=== PATIENT | male | born 1950 | race Caucasian/White ===

== ENCOUNTER 2018-07-15 13:27 | Emergency (ER) | payer MEDICARE, MEDICAID, SELFPAY ==
[2018-07-15 13:36] VITALS: BP 132/91; PULSE 92; RESP 18; TEMP 36.6; O2SAT 96
--- NOTE | 2018-07-15 14:15 | ED.GENADUL ---
Disposition Clinical Impression: Limb tremor Disposition: HOME Condition: Improving Instructions: Tremors (ED) Additional Instructions: Return immediately to the emergency department for any new or worsening symptoms including change in your symptoms, headaches, involvement of other limbs, or any further concerns. Otherwise you should follow-up with your primary care provider for reassessment next week. Referrals: Wilder Jimenez MD [Primary Care Provider] - 1 week (Of your primary care provider in 1 week for reassessment) Medical Decision Making - Radiology Data Radiology results: report reviewed, image reviewed - Medical Decision Making Patient presenting to the emergency department for chief complaint of tremors to left upper extremity. Patient denies any known injury or trauma. Physical exam shows persistent tremors, at rest and motion, of left upper extremity from the shoulder down. There is noted weakness and difficulty with patient moving hand and performing neurological testing of the hand along with some decreased sensation noted to the ulnar distribution of the forearm and hand. When patient is able to squeeze my hand he has strong bench molder but otherwise he is not able to perform any flexion of the fingers radial ulnar or medial nerve testing of the hand beyond sensation which is dull to sharp sensation in the ulnar distribution as well. Patient has full movement of forearm and upper extremity. Plan to perform radiological imaging due to alcohol intake and possible concern for subacute fracture, with possible neural involvement, due to discomfort with palpation of midshaft forearm and distal humerus. Patient is in no pain or discomfort and has no other neurological symptoms, global tremor, or other deficits so do not feel that patient needs any central nervous imaging or laboratory testing at this time. Pending imaging patient was reassessed and patient oddly enough now can perform thumb to finger flexion and both ulnar and radial neurosensory testing is also intact and normalized with only no tremor being noted at this time. I feel that this is reassuring that symptoms are improving but still odd that the severity has changed with no interventions. And patient now has normal exam of the left upper extremity. Review of radiological imaging shows no acute findings so patient encouraged to follow-up with primary care provider next week for reassessment. Patient was encouraged to return for any new or worsening symptoms. Given that symptoms have otherwise resolved I feel that he can be safely discharged and states clear understanding to return for new or worsening symptoms. After discussion of diagnosis and plan of care with patient patient agreed and stated no further needs, questions, or concerns at this time. Patient was put on care management list to help arrange a follow-up with primary care in 1 week. History of Present Illness - General Chief complaint: Orthopedic Stated complaint: left hand shacky/spazams Time Seen by Provider: 07/15/18 13:28 Source: patient, RN notes reviewed Mode of arrival: ambulatory Limitations: no limitations - History of Present Illness Initial comments: Patient reports 3 days ago he began having tremors to his left upper extremity. He denies any injury or trauma. Patient does state that he does drink alcohol on a normal basis but has not ceased any alcohol intake or changed his normal habits. Patient denies any pain or discomfort, headache, chest pain, shortness of breath. Onset/Timin -: days(s) Location: left, upper extremity Consistency: constant Improves with: none Worsens with: none Associated Symptoms: denies other symptoms Treatments Prior to Arrival: none - Related Data Citalopram [CeleXA] 20 mg PO DAILY 04/04/14 FentaNYL [Duragesic] 50 mcg TP DIRECTED 04/04/14 Gabapentin 300 mg PO DIRECTED 04/04/14 Doxepin [Adapin] 10 mg PO HS 11/19/16 Omeprazole [PriLOSEC] 20 mg PO DAILY 11/19/16 Lisinopril [Prinivil] 20 mg PO QAM #30 tab 09/25/17 Allergies Allergy/AdvReac Type Severity Reaction Status Date / Time morphine Allergy Mild Skin Rash Unverified 07/15/18 13:39 Penicillins Allergy Mild Skin Rash Unverified 07/15/18 13:39 Review of Systems Constitutional: denies: chills, fever Respiratory: no symptoms reported. denies: cough, shortness of breath, wheezing Cardiovascular: denies: chest pain, palpitations Gastrointestinal: denies: abdominal pain Musculoskeletal: as per HPI. denies: arthralgia, myalgia Skin: denies: rash, change in color Neurological: numbness, paresthesias. denies: headache Past Medical History - Past Medical History Medical history: hypertension Chronic alcoholism Surgical history: non-contributory - Social History Smoking status: current everyday smoker Alcohol use: heavy, recent Drug use: none Living Situation: lives with parent(s) General Exam - General Limitations: no limitations General appearance: alert, in no apparent distress - Head Head exam: Present: atraumatic, normocephalic - Eye Eye exam: Present: PERRL - Neck Neck exam: Present: normal inspection, full ROM. Absent: tenderness - Respiratory Respiratory exam: Present: normal lung sounds bilaterally. Absent: respiratory distress, wheezes, rales, rhonchi, stridor - Cardiovascular Cardiovascular Exam: Present: regular rate, normal rhythm, normal heart sounds. Absent: tachycardia, systolic murmur, diastolic murmur, rubs, gallop, clicks - Expanded Upper Extremity Exam Left General: Present: other (Patient has persistent tremor at both rest and motion of left upper extremity from the shoulder down.) Upper Arm exam: Present: normal inspection, full ROM Elbow exam: Present: full ROM, tenderness (To palpation of distal humerus). Absent: pain w/ pronation/supination, tenderness over radial head Forearm Wrist exam: Present: full ROM, tenderness (To palpation of midshaft forearm). Absent: swelling, ecchymosis, tenderness over anatomical snuff box, pain with axial thumb loading Neuro motor exam: Present: wrist extension intact. Absent: thumb opposition intact, thumb IP flexion intact, thumb adduction intact, fingers 2-5 abduction intact Neurosensory exam: Present: 2-point discrimination. Absent: radial nerve intact (Motor deficit), ulnar nerve intact (Motor and sharp or sensory deficit), median nerve intact Vascular: Present: normal capillary refill, radial pulse (2+) - Neurological Exam Neurological exam: Present: alert, oriented X3, CN II-XII intact, normal gait. Absent: altered - Expanded Neurological Exam No standard instances Patient oriented to: Present: person, place, time Speech: Present: fluid speech Cranial nerves: EOM's Intact: Normal, Gag Reflex: Normal, Tongue Deviation: Normal, Nystagmus: Normal, Facial Sensation: Normal, Facial Palsy with Forehead Movement: Normal, Facial Palsy without Forehead Movement: Normal Sensory exam: Upper Extremity Light Touch: Normal, Upper Extremity Pin Prick: Abnormal Left (Ulnar distribution), Upper Extremity Temperature: Normal, UE 2 Point Discrimination: Normal Best Eye Response (Friendship): (4) open spontaneously Best Motor Response (Remberto): (6) obeys commands Best Verbal Response (Friendship): (5) oriented - Psychiatric Psychiatric exam: Present: normal affect, normal mood - Skin Skin exam: Present: warm, dry, intact, normal color Course Vital Signs - 24 hr 07/15/18 13:36 Temperature 36.6 C Pulse 92 H Respiratory 18 Rate Blood Pressure 132/91 Pulse Oximetry 96
--- NOTE | 2018-07-15 14:25 | DI.REPORT_ITS ---
SYMPTOM/DIAGNOSIS: DISTAL RDIUS PAIN, MID FOREARM PAIN LEFT ELBOW: No fracture or dislocation is seen. There is spurring at both epicondyles. IMPRESSION: No acute abnormality. LEFT FOREARM: No fracture or dislocation is seen. IMPRESSION: Negative left forearm.
--- NOTE | 2018-07-15 15:11 | DI.VRAD_ITS ---
EXAM: XR Left Forearm, 2 Views EXAM DATE/TIME: 07/15/2018 2:01 PM CLINICAL HISTORY: 67 years old, male; Pain; Lower or forearm; Left; Patient HX: Mid forearm pain. TECHNIQUE: XR Left forearm 2 views. COMPARISON: CR - RIGHT ELBOW COMPLETE 2017-06-30 14:40 FINDINGS: Bones/joints: Normal. Soft tissues: Normal. IMPRESSION: No acute findings. No fractures. Dictated and Authenticated by: Jorje Meza MD. Ordering:LEELA FUENTES MD
--- NOTE | 2018-07-15 15:15 | DI.VRAD_ITS ---
EXAM: XR Left Elbow Complete, 3 or more Views EXAM DATE/TIME: 07/15/2018 2:01 PM CLINICAL HISTORY: 67 years old, male; Pain; Elbow; Left; Patient HX: Distal radius pain. TECHNIQUE: XR Left elbow 3 or more views. COMPARISON: CR - RIGHT ELBOW COMPLETE 2017-06-30 14:40 FINDINGS: Bones/joints: No acute fracture or joint effusion. Soft tissues: There are well-defined bony fragments noted along the lateral lateral epicondyles, likely due to epicondylitis, chronic. Large spur arising from the medial epicondyle was not visualized previously, though this may have been due to difference in positioning, as this also does not appear acute. IMPRESSION: No acute findings. No fracture or joint effusion. Dictated and Authenticated by: Jorje Meza MD. Ordering:LEELA FUENTES MD
--- NOTE | 2018-07-17 08:34 | PDOC.ERCMPRO ---
Care Management Progress Note 07/17-Jose Angel DATA PROCESSING CLERK requested assistance with a PCP (Tony) f/u within one week for left upper extremity tremors. Referral faxed to [facility] this am.
--- NOTE | 2018-07-17 08:35 | CMPROGNOTE_ITS ---
Care Management Progress Note 07/17-Jose Angel UNIT TRUST MANAGER requested assistance with a PCP (Tony) f/u within one week for left upper extremity tremors. Referral faxed to [facility] this am.
== END 2018-07-15 15:19 | disposition home or self-care (01) ==
PROVIDERS: Emergency Provider Emergency Medicine; PCP Internal Medicine
DX: R25.1 Tremor, unspecified (principal); F10.10 Alcohol abuse, uncomplicated; R40.2412 Glasgow coma scale score 13-15, at arrival to emergency department; I10 Essential (primary) hypertension
CPT/HCPCS: 73080; 73090; 99282; 99283

== ENCOUNTER → 2018-07-20 13:27 | Outpatient (REF) | payer MEDICARE, MEDICAID, SELFPAY ==
[2018-07-20 20:21] LABS: HGB 14.3 g/dL (13.5-17.5); Mean Corpuscular Hemoglobin 34.1 pg (27.0-33.0); Mean Corpuscular Volume 100.2 fL (80-95); Mean Platelet Volume 10.7 fL (8.0-11.0); Platelet Count 137 x1000/uL (130-400); RBC 4.19 m/cumm (4.50-6.00); RBC Distribution Width 12.9 % (11.8-14.1); White Blood Cell Count 3.83 k/cumm (4.4-10.8)
[2018-07-20 20:57] LABS: ALT 73 U/L (12-78); AST 65 U/L (15-37); Albumin 3.9 g/dL (3.4-5.0); Alkaline Phosphatase 77 U/L (46-116); Anion Gap 10.5 mmol/L (3-11); BUN 9 mg/dL (7-18); Bilirubin, Total 0.3 mg/dL (0.2-1.0); CO2 25.5 mmol/L (21.0-32.0); CREATININE 0.91 mg/dL (0.70-1.30); Calcium 8.9 mg/dL (8.5-10.1); Chloride 106 mmol/L (98-107); Glucose 92 mg/dL (70-100); Magnesium 1.9 mg/dL (1.8-2.4); Potassium 4.2 mmol/L (3.5-5.1); Sodium 142 mmol/L (136-145); Total Protein 7.8 g/dL (6.4-8.2); Vitamin B12 618 pg/mL (193-986)
[2018-07-24 13:17] LABS: Albumin 55.4 % (55.8-66.1); Total Protein 7.5 g/dl (6.3-8.2)
== END ==
LOC: NCHCN 13:27
PROVIDERS: PCP Internal Medicine; Visit Provider Internal Medicine
DX: R25.1 Tremor, unspecified (principal)
CPT/HCPCS: 80053; 85027; 82607; 83735; 84165; 84443

== ENCOUNTER 2018-08-03 01:59 | Outpatient (CLI) | payer MEDICARE, MEDICAID, SELFPAY ==
[2018-08-03] MEDS: Gadoterate meglumine 20 ML VIAL 15 ML IVP (15:39)
--- NOTE | 2018-08-03 15:49 | DI.MRI_ITS ---
SYMPTOMS/DIAGNOSIS: TREMOR, R25.1, H/O SUBDURAL AND SUBARACHNOID HEMORRHAGE, Z86.79 MRI OF THE BRAIN: Comparison is made with head CT dated . T 2 sagittal, T 1, T 2, FLAIR, diffusion and gradient echo axial sequences as well as post Gadolinium T 1 axial and coronal sequences were performed. A small right subdural hematoma was seen on the previous CT. No subdural hematoma or subdural fluid collection is seen. There is underlying mild to moderate atrophy. No mass or infarct is seen. The vascular flow voids appear intact. The ventricles are normal in size. There are a few tiny scattered high signal lesions in the white matter consistent with small vessel disease. There is some mucous retention cyst or polyp at the floor of the right maxillary sinus. The remaining sinuses appear clear. The mastoid air cells are clear. IMPRESSION: Atrophy and minimal white matter changes of small vessel disease.
== END 2018-08-03 02:19 ==
PROVIDERS: PCP Internal Medicine; Visit Provider Internal Medicine
DX: R25.1 Tremor, unspecified (principal); G31.1 Senile degeneration of brain, not elsewhere classified; Z86.79 Personal history of other diseases of the circulatory system
CPT/HCPCS: 70553

== ENCOUNTER 2019-04-02 11:42 | Outpatient (REF) | payer MEDICARE, MEDICAID, SELFPAY ==
[2019-04-02 21:24] LABS: ALT 104 U/L (12-78); AST 114 U/L (15-37); Alkaline Phosphatase 85 U/L (46-116); Anion Gap 11.2 mmol/L (3-11); BUN 10 mg/dL (7-18); Bilirubin, Total 0.3 mg/dL (0.2-1.0); CO2 24.8 mmol/L (21.0-32.0); CREATININE 0.74 mg/dL (0.70-1.30); Chloride 103 mmol/L (98-107); Glucose 100 mg/dL (70-100); Potassium 4.2 mmol/L (3.5-5.1); Sodium 139 mmol/L (136-145); Total Protein 7.8 g/dL (6.4-8.2)
[2019-04-02 21:25] LABS: Abs Immature Grans 0.03 k/cumm (0.0-0.09); Absolute Basophil Count 0.04 k/cumm (0.0-0.2); Absolute Eosinophil Count 0.06 k/cumm (0.0-0.7); Absolute Lymphocyte Count 0.91 k/cumm (1.2-3.4); Absolute Monocyte Count 0.46 k/cumm (0.11-0.7); Eosinophils % 1.5; HGB 13.5 g/dL (13.5-17.5); Immature Grans % 0.8; Lymphocytes % 22.8; Mean Corp. HGB Concentration 34.6 g/dL (32.0-36.0); Mean Corpuscular Hemoglobin 33.3 pg (27.0-33.0); Mean Corpuscular Volume 96.1 fL (80-95); Mean Platelet Volume 10.7 fL (8.0-11.0); Monocytes % 11.5; Neutrophils % 62.4; Platelet Count 155 x1000/uL (130-400); RBC 4.06 m/cumm (4.50-6.00)
== END 2019-04-02 12:02 ==
LOC: NCHCN 11:42
PROVIDERS: PCP Internal Medicine; Visit Provider Internal Medicine
DX: R63.4 Abnormal weight loss (principal); I10 Essential (primary) hypertension; F41.9 Anxiety disorder, unspecified; F32.9 Major depressive disorder, single episode, unspecified; R25.1 Tremor, unspecified; Z72.0 Tobacco use
CPT/HCPCS: 80053; 85025

== ENCOUNTER 2019-04-10 10:14 | Outpatient (CLI) | payer MEDICARE, MEDICAID, SELFPAY ==
[2019-04-10 10:55] LABS: Abs Immature Grans 0.02 k/cumm (0.0-0.09); Absolute Basophil Count 0.06 k/cumm (0.0-0.2); Absolute Eosinophil Count 0.06 k/cumm (0.0-0.7); Absolute Lymphocyte Count 1.06 k/cumm (1.2-3.4); Absolute Neutrophil Count 2.28 k/cumm (1.2-6.7); Basophils % 1.6; Eosinophils % 1.6; HCT 38.2 % (40.0-50.0); HGB 12.7 g/dL (13.5-17.5); Immature Grans % 0.5; Mean Corp. HGB Concentration 33.2 g/dL (32.0-36.0); Mean Corpuscular Hemoglobin 32.7 pg (27.0-33.0); Mean Corpuscular Volume 98.5 fL (80-95); Mean Platelet Volume 9.8 fL (8.0-11.0); Monocytes % 7.9; Neutrophils % 60.4; Platelet Count 163 x1000/uL (130-400); RBC 3.88 m/cumm (4.50-6.00); RBC Distribution Width 13.6 % (11.8-14.1); White Blood Cell Count 3.78 k/cumm (4.4-10.8)
[2019-04-10 11:49] LABS: ALT 93 U/L (12-78); AST 97 U/L (15-37); Albumin 3.2 g/dL (3.4-5.0); Alkaline Phosphatase 73 U/L (46-116); Anion Gap 11.1 mmol/L (3-11); BUN 12 mg/dL (7-18); Bilirubin, Total 0.5 mg/dL (0.2-1.0); CO2 26.9 mmol/L (21.0-32.0); CREATININE 0.86 mg/dL (0.70-1.30); Calcium 8.8 mg/dL (8.5-10.1); Chloride 102 mmol/L (98-107); Glucose 162 mg/dL (70-100); Potassium 4.2 mmol/L (3.5-5.1); Sodium 140 mmol/L (136-145); Total Protein 7.9 g/dL (6.4-8.2)
== END 2019-04-10 10:34 ==
PROVIDERS: PCP Internal Medicine; Visit Provider Internal Medicine
DX: R63.4 Abnormal weight loss (principal); I10 Essential (primary) hypertension; F41.9 Anxiety disorder, unspecified; F32.9 Major depressive disorder, single episode, unspecified; R21 Rash and other nonspecific skin eruption; Z72.0 Tobacco use
CPT/HCPCS: 36415; 80053; 85025

== ENCOUNTER 2019-04-16 01:34 | Outpatient (CLI) | payer MEDICARE, MEDICAID, SELFPAY ==
--- NOTE | 2019-04-16 09:33 | DI.CT_ITS ---
SYMPTOM/DIAGNOSIS: ABNL LFT'S, R94.[address]: Oral contrast was administered prior to the exam. Images were performed from the lung bases through the aortic bifurcation before and after IV contrast during arterial and venous phases. The liver appears mildly enlarged and shows diffuse decreased attenuation consistent with mild fatty infiltration. There is a cyst seen in the right lobe of the liver adjacent to the gallbladder fossa measuring 3.2 cm. There is an additional tiny hypodensity, also likely representing a cyst. The lung bases are clear. No pleural or pericardial effusions are seen. Spleen, pancreas and adrenals are unremarkable. There are small bilateral renal cysts. There is no free air or free fluid. There are mild atherosclerotic changes of the lower thoracic and abdominal aorta with no evidence of an aneurysm. Degenerative changes are seen in the lower lumbar spine. IMPRESSION: Mild fatty infiltration of the liver and simple liver cysts.
[2019-04-16] MEDS: Omnipaque 350 MG/ML 50 ML BTL PO (09:35)
[2019-04-16] MEDS: Breeza Beverage 473 ML BTL PO (09:35)
[2019-04-16] MEDS: Omnipaque 350 MG/ML 100 ML BTL IJ (10:25)
== END 2019-04-16 01:54 ==
PROVIDERS: PCP Internal Medicine; Visit Provider Internal Medicine
DX: K76.0 Fatty (change of) liver, not elsewhere classified (principal); K76.89 Other specified diseases of liver; R94.5 Abnormal results of liver function studies; R16.0 Hepatomegaly, not elsewhere classified
CPT/HCPCS: 74170; J3490; Q9967

== ENCOUNTER 2019-10-08 12:25 | Outpatient (CLI) | payer MEDICARE, MEDICAID, SELFPAY ==
[2019-10-08 13:00] LABS: HCT 40.7 % (40.0-50.0); HGB 13.7 g/dL (13.5-17.5); Mean Corp. HGB Concentration 33.7 g/dL (32.0-36.0); Mean Corpuscular Hemoglobin 34.3 pg (27.0-33.0); Mean Corpuscular Volume 101.8 fL (80-95); Mean Platelet Volume 9.7 fL (8.0-11.0); Platelet Count 172 x1000/uL (130-400); RBC Distribution Width 13.4 % (11.8-14.1); White Blood Cell Count 2.84 k/cumm (4.4-10.8)
[2019-10-08 13:47] LABS: ALT 77 U/L (16-63); AST 71 U/L (15-37); Albumin 4.2 g/dL (3.4-5.0); Alkaline Phosphatase 68 U/L (46-116); Anion Gap 11.7 mmol/L (3-11); BUN 13 mg/dL (7-18); Bilirubin, Total 0.5 mg/dL (0.2-1.0); CO2 27.3 mmol/L (21.0-32.0); CREATININE 0.86 mg/dL (0.70-1.30); Calcium 9.1 mg/dL (8.5-10.1); Chloride 106 mmol/L (98-107); Glucose 91 mg/dL (70-100); Potassium 4.2 mmol/L (3.5-5.1); Sodium 145 mmol/L (136-145); Total Protein 8.2 g/dL (6.4-8.2)
[2019-10-08 15:36] LABS: Abs Immature Grans 0.02 k/cumm (0.0-0.09); Absolute Basophil Count 0.06 k/cumm (0.0-0.2); Absolute Eosinophil Count 0.07 k/cumm (0.0-0.7); Absolute Lymphocyte Count 1.17 k/cumm (1.2-3.4); Absolute Monocyte Count 0.31 k/cumm (0.11-0.7); Absolute Neutrophil Count 1.19 k/cumm (1.2-6.7); Basophils % 2.1; Eosinophils % 2.5; Immature Grans % 0.7; Lymphocytes % 41.5; Neutrophils % 42.2
[2019-10-10 11:24] LABS: Hepatitis B Surface Ag Negative (Negative)
[2019-10-10 11:57] LABS: Hep B Core Antibody Positive (Negative)
[2019-10-10 14:42] LABS: Hepatitis B Surface Ab Negative (See Note)
[2019-10-12 15:20] LABS: HBs Antibody, Quant <3.1 mIU/mL
== END 2019-10-08 12:45 ==
PROVIDERS: PCP Internal Medicine; Visit Provider Internal Medicine
DX: D72.819 Decreased white blood cell count, unspecified (principal); R94.5 Abnormal results of liver function studies; Z11.59 Encounter for screening for other viral diseases
CPT/HCPCS: 36415; 80053; 85027; 86704; 86706; 87340; 85007; 85025

== ENCOUNTER 2020-02-11 12:48 | Inpatient (IN) | payer MEDICARE, MEDICAID, SELFPAY ==
[2020-02-11] VITALS (111 sets, daily range): BP systolic 100–205; BP diastolic 50–179; PULSE 62–227; RESP 13–36; TEMP 36.4–37; O2SAT 92–99
--- NOTE | 2020-02-11 12:45 | DI.CT_ITS ---
EXAM: CT HEAD AND FACIAL WO CLINICAL HISTORY: TRAUMA, AMS?. TECHNIQUE: Imaging Protocol: Axial computed tomography images with coronal and sagittal reformatted images were created and reviewed COMPARISON: HEAD WITHOUT CONTRAST from 09/25/2017 FINDINGS: CT head: Ventricles and Extra axial spaces: Normal in size and morphology for the patient's age. Hemorrhage: None. Cerebral parenchyma: Areas of decreased attenuation are seen in the white matter consistent with smal l vessel ischemic disease. Midline shift: None. Brainstem/Cerebellum: Normal. Calvarium: Normal. Visualized Paranasal sinuses/Mastoids: Clear. Soft Tissues: Unremarkable. CT maxillofacial: There is patient motion artifact. There is no evidence of a facial fracture. There is mucosal thick ening in the maxillary sinuses bilaterally. There is a mucous retention cyst or polyp in the right m axillary sinus. The turbinates and ostiomeatal complexes are unremarkable. The nasal septum is midl ine. The orbits and retro-orbital soft tissues are unremarkable. IMPRESSION: No acute intracranial process. No acute facial fracture. The findings were discussed with the Emergency Department on the date of the examination. RADIATION DOSE DELIVERED: DATA REPOSITORY: All CT scans at this facility are submitted to the National Radiology Data Registry (NRDR) Dose Index Registry (DIR) with the [employer] ([employer]). RADIATION OPTIMIZATION: All CT scans at this facility use at least one of these dose optimization te chniques: automated exposure control; mA and/or kV adjustment per patient size (includes targeted exa ms where dose is matched to clinical indication); or iterative reconstruction.
--- NOTE | 2020-02-11 12:54 | ED.GENADUL_ITS ---
Discharge Plan Discharge Details Chief Complaint: HeadInjury Primary Care Provider: Wilder Jimenez ED Provider: Mahi Alegria Home Meds and New Rx's Prescriptions: No Action No Known Home Meds RF: 0 Medical Decision Making Vikram Lenz is a 69-year-old man with a history of depression, hypertension, alcohol use disorder presenting to the emergency department with fall, apparently several days ago. On exam patient is disheveled, somewhat chronically ill-appearing, acutely nontoxic appearing. Borderline tachycardia at 100. Healing abrasions to scalp and forehead, acute appearing abrasions to nose. Subacute appearance of ecchymoses over back. Concern for intracranial trauma, facial bone trauma, metabolic/lyte disturbance, alcohol withdrawal, dehydration. Exam/history at this time is not consistent with sepsis, acute coronary syndrome, meningitis. Plan for EKG, screening labs, CT head/facial bones, IV fluid, telemetry, IV Ativan 1 mg. Will continue to monitor and reassess. CT head/face negative over the phone per radiology. Labs show hypomagnesemia, elevated anion gap, T bili 1.7, creatinine 1.3. CIWA score 10, repeat 11 per nursing. Plan for 5 mg p.o. Valium. Patient states that he would like to stop drinking. Patient has been hospitalized at [facility] for alcohol withdrawal in the past, diagnosed with delirium tremens at that time. Hospitalist paged for admission 14:30. Discussed patient presentation results with Dr. Chaves, hospitalist, who will admit patient. Clinical impression: Alcohol withdrawal Disposition: [facility] inpatient Medical Records Medical records reviewed: Yes I reviewed the patient's medical records. Imaging Data Radiologic Study: Attestation: I personally reviewed and interpreted this imaging study as follows: Radiologist's impression: EXAM: CT HEAD AND FACIAL WO CLINICAL HISTORY: TRAUMA, AMS?. TECHNIQUE: Imaging Protocol: Axial computed tomography images with coronal and sagittal reformatted images were created and reviewed COMPARISON: HEAD WITHOUT CONTRAST from 09/25/2017 FINDINGS: CT head: Ventricles and Extra axial spaces: Normal in size and morphology for the patient's age. Hemorrhage: None. Cerebral parenchyma: Areas of decreased attenuation are seen in the white matter consistent with small vessel ischemic disease. Midline shift: None. Brainstem/Cerebellum: Normal. Calvarium: Normal. Visualized Paranasal sinuses/Mastoids: Clear. Soft Tissues: Unremarkable. CT maxillofacial: There is patient motion artifact. There is no evidence of a facial fracture. There is mucosal thickening in the maxillary sinuses bilaterally. There is a mucous retention cyst or polyp in the right maxillary sinus. The turbinates and ostiomeatal complexes are unremarkable. The nasal septum is midline. The orbits and retro-orbital soft tissues are unremarkable. IMPRESSION: No acute intracranial process. No acute facial fracture. Lab Data Lab results reviewed: Yes I reviewed the patient's lab results. Labs: Laboratory Tests Range/Units 02/11/20 02/11/20 13:00 13:00 WBC (4.4-10.8) k/cumm 4.63 RBC (4.50-6.00) m/cumm 4.05 L Hgb (13.5-17.5) g/dL 14.0 Hct (40.0-50.0) % 40.3 MCV (80-95) fL 99.5 H MCH (27.0-33.0) pg 34.6 H MCHC (32.0-36.0) g/dL 34.7 RDW (11.8-14.1) % 12.3 Plt Count (130-400) x1000/uL 104 L MPV (8.0-11.0) fL 10.9 Immature Gran % % 0.2 Neutrophils % 68.2 Lymphocytes % 20.1 Monocytes % 10.2 Eosinophils % 0.4 Basophils % 0.9 Absolute Neutrophils (1.2-6.7) k/cumm 3.16 Absolute Lymphocytes (1.2-3.4) k/cumm 0.93 L Absolute Monocytes (0.11-0.7) k/cumm 0.47 Absolute Eosinophils (0.0-0.7) k/cumm 0.02 Absolute Basophils (0.0-0.2) k/cumm 0.04 Sodium (136-145) mmol/L 137 Potassium (3.5-5.1) mmol/L 3.6 Chloride (98-107) mmol/L 97 L Carbon Dioxide (21.0-32.0) mmol/L 24.3 Anion Gap (3-11) mmol/L 15.7 H BUN (7-18) mg/dL 24 H Creatinine (0.70-1.30) mg/dL 1.31 H Estimated GFR/1.73 m2 (mL/min/1.73m2) 54.58 Glucose (74-106) mg/dL 103 Calcium (8.5-10.1) mg/dL 9.7 Magnesium (1.8-2.4) mg/dL 1.7 L Total Bilirubin (0.2-1.0) mg/dL 1.7 H AST (15-37) U/L 101 H ALT (16-63) U/L 90 H Alkaline Phosphatase (46-116) U/L 84 Total Protein (6.4-8.2) g/dL 8.8 H Albumin (3.4-5.0) g/dL 4.3 TSH (0.36-3.74) uIU/mL 2.42 Ethyl Alcohol (<3) mg/dL < 3.0 ECG Data Attestation: I personally reviewed and interpreted this ECG (s) as follows: Interpretation: EKG shows sinus rhythm at 100, left axis, no STEMI, nondiagnostic EKG HPI General Mode of arrival: ambulatory . Date/Time Provider Initiated Documentation: 02/11/20 12:51 . Limitations to Documentation: no limitations . Information obtained by: patient, RN notes reviewed and old records reviewed . HPI Narrative: Vikram Lenz is a 69-year-old man with a history of depression, hypertension, alcohol use disorder presenting to the emergency department for fall. Patient reports that he fell 1.5 weeks ago when he tripped on a curb. He states that he has not fallen since that time. Patient reports that today his went to a doctor's appointment, and mentioned to her doctor who is also the patient's doctor that her was not acting as usual. Patient was thus told to go to the emergency department. Patient states that he feels fine and does not know why everyone is overreacting. Patient reports that he has mild pain over his left eye, and denies any other pain. He states that he feels in his usual state of health. He denies fevers, cough, shortness of breath, vomiting, diarrhea, weakness, numbness, visual changes. Patient states that he has been eating as usual. He reports that he typically drinks 2-3 beers per day, and did have a beer 3 hours ago or so. Patient reports that he does not typically go through alcohol withdrawal, and recently did not have anything to drink for 4 days. Patient states that he does not feel like he needs to have a drink and does not feel as if he is in withdrawal. Patient's at bedside, she states that patient fell 3 days ago and not 1.5 weeks ago. She states that patient does not seem to be acting quite at his baseline to her. Related Data Home Medications Medication Instructions Recorded Confirmed Unknown [No Known Home Meds] 02/11/20 02/11/20 Allergies Allergy/AdvReac Type Severity Reaction Status Date / Time morphine Allergy Mild Skin Rash Unverified 02/11/20 13:24 Penicillins Allergy Mild Skin Rash Unverified 02/11/20 13:24 quetiapine [From Seroquel] Allergy per PCP Unverified 02/11/20 13:24 chart rofecoxib [From Vioxx] Allergy per PCP Unverified 02/11/20 13:24 chart tramadol [From Ultram] Allergy per PCP Unverified 02/11/20 13:24 chart Review of Systems Narrative: Constitutional: denies fevers Eyes: denies eye pain, visual changes, reports pain over left eye as per HPI ENT: denies ear pain, dental pain, sore throat Cardiovascular: denies chest pain Respiratory: denies SOB, cough GI: denies abdominal pain, vomiting, diarrhea : denies flank pain MSK: denies back pain, neck pain, arthralgias, myalgias Skin: denies rash Neuro: denies headaches, numbness, weakness PFSH Social History Smoking/Tobacco Use Status: Current every day Alcohol Intake: current Alcohol Intake frequency: 3 or more drinks per day Alcohol type: beer Drug use: Never Do you feel safe in your relationship?: Yes Exam Narrative Exam Narrative: Constitutional: Somewhat disheveled, acutely [id number], pleasant, conversing normally HENT: head normocephalic, mucous membranes moist, left infraorbital ecchymosis, two 1 cm abrasions to nose, no crusting, several abrasions left forehead with crusting, left frontal bone mildly tender to palpation without crepitus or deformity, posterior parietal scalp with several abrasions with crusting Eyes: conjunctiva normal, sclera normal, pupils 3mm b/l Neck: no stridor, normal ROM, trachea midline Chest: normal inspection Resp: normal work of breathing, LCTAB Cardio: normal rate, normal rhythm, no murmur appreciated GI: abdomen soft, non-tender, non-distended Back: no rash, several areas of yellowing ecchymosis over right upper back and left lower back, no tenderness to palpation of the paraspinal areas bilaterally/scapulas/cervical, thoracic, lumbar spine Skin: warm, dry, normal color, no rash Neuro: alert, not altered, grossly non-focal, oriented x3, normal tone, mild generalized tremor Ext: no edema Psych: normal mood, normal affect, normal behavior
[2020-02-11 13:11] LABS: Abs Immature Grans 0.01 k/cumm (0.0-0.09); Absolute Basophil Count 0.04 k/cumm (0.0-0.2); Absolute Eosinophil Count 0.02 k/cumm (0.0-0.7); Absolute Lymphocyte Count 0.93 k/cumm (1.2-3.4); Absolute Monocyte Count 0.47 k/cumm (0.11-0.7); Absolute Neutrophil Count 3.16 k/cumm (1.2-6.7); Basophils % 0.9; Eosinophils % 0.4; HCT 40.3 % (40.0-50.0); Immature Grans % 0.2 %; Lymphocytes % 20.1; Mean Corp. HGB Concentration 34.7 g/dL (32.0-36.0); Mean Corpuscular Hemoglobin 34.6 pg (27.0-33.0); Mean Corpuscular Volume 99.5 fL (80-95); Mean Platelet Volume 10.9 fL (8.0-11.0); Monocytes % 10.2; Neutrophils % 68.2; Platelet Count 104 x1000/uL (130-400); RBC 4.05 m/cumm (4.50-6.00); RBC Distribution Width 12.3 % (11.8-14.1); White Blood Cell Count 4.63 k/cumm (4.4-10.8)
[2020-02-11] MEDS: LORazepam 2 MG/ML VIAL 1 MG IVP (13:23)
[2020-02-11] MEDS: Normal Saline 1,000 ML 1000 ML IV (13:24)
[2020-02-11 13:30] LABS: ALT 90 U/L (16-63); AST 101 U/L (15-37); Albumin 4.3 g/dL (3.4-5.0); Alkaline Phosphatase 84 U/L (46-116); Anion Gap 15.7 mmol/L (3-11); BUN 24 mg/dL (7-18); Bilirubin, Total 1.7 mg/dL (0.2-1.0); CO2 24.3 mmol/L (21.0-32.0); CREATININE 1.31 mg/dL (0.70-1.30); Calcium 9.7 mg/dL (8.5-10.1); Chloride 97 mmol/L (98-107); ETHANOL BLOOD < 3.0 mg/dL (<3); Estimated GFR 54.58 (mL/min/1.73m2); Glucose 103 mg/dL (74-106); Magnesium 1.7 mg/dL (1.8-2.4); Potassium 3.6 mmol/L (3.5-5.1); Sodium 137 mmol/L (136-145); TSH (W/Ref FT4) 2.42 uIU/mL (0.36-3.74); Total Protein 8.8 g/dL (6.4-8.2)
--- NOTE | 2020-02-11 13:57 | NUR.NOTE ---
pt lives in his own apartment . his ilives in her own house but looks after him. she states that the pa has no money and no beer. she is afraid that he is going to detox alone and . she would like to have him admitted or go to a detox unit . she states that he had a full blown detox with hallucinations at [facility] [place] a few years ago while he was there with a brain bleed Nursing Note:
[2020-02-11] MEDS: MAGNESIUM SULFATE 2 GM/50 ML BAG IVPB (14:33)
[2020-02-11] MEDS: diazePAM 5 MG TAB PO (14:33)
[2020-02-11 14:48] LABS: INR 1.1 (0.9-1.1); Prothrombin Time 10.6 sec (9.3-11.0)
[2020-02-11] MEDS: LORazepam 1 MG TAB PO/SL (15:38)
[2020-02-11] MEDS: Normal Saline 1,000 ML 125 ML IV ×2 (15:51→21:48)
[2020-02-11] MEDS: THIAMINE 100 MG in Normal Saline 100 ML 200 MG IVPB (15:54)
[2020-02-11] MEDS: chlordiazePOXIDE 25 MG CAP 50 MG PO (16:17)
[2020-02-11] MEDS: LORazepam 2 MG/ML VIAL 3 MG IVP (16:18)
[2020-02-11] MEDS: LORazepam 20 MG/10 ML VIAL (16:50)
[2020-02-11] MEDS: diazePAM 10 MG/2 ML SYR IVP ×5 (16:55→17:36)
--- NOTE | 2020-02-11 16:57 | HPE_ITS ---
Date of service: 02/11/20 Time of Service: 16:57 Assessment and Plan Assessment and plan (1) Alcohol withdrawal delirium, acute, hyperactive: Status: Acute Assessment and plan: Admitted to the ICU. Will continue scheduled librium, written for ativan infusion. Has prn PO/IV ativan as well as diazepam. Start banana bag. NPO. Check B12/folate levels. (2) Atrial fibrillation with rapid ventricular response: Status: Acute Assessment and plan: As the withdrawal is being treated, it appears the patient already converted to NSR. Will check troponins. Would benefit from an echo on this admission. Started on cardizem gtt. Not a candidate for anticoagulation for multiple reasons, including 2 brain bleeds. (3) Hypomagnesemia: Status: Acute Assessment and plan: Replaced in ED - will monitor (4) Dehydration: Status: Acute Assessment and plan: Continue IVF/daily banana bags. Monitor Cr, I/O, daily weights (5) DVT prophylaxis: Status: Acute Assessment and plan: TEDs/SCDs (6) Discharge planning issues: Status: Acute Assessment and plan: Full code. Total Critical Care Time 40 minutes. History of Present Illness History of Present Illness Chief Complaint: alcohol withdrawal Narrative: Mr Lenz is a 69 year old male with PMHx of alcohol abuse with history of prior alcohol withdrawal with hallucinations, severe, as well as h/o subdural hematoma, subarachnoid hematoma in setting of alcohol withdrawal, and ambulatory dysfunction who was brought to [facility] ED by his after a fall a couple of days ago, with altered mental status, in alcohol withdrawal. While in the ED, his initial CIWA scores were 10 and 11, however they quickly escalated, requiring repeated boluses of IV ativan and valium. He is unable to tell his story. It is not clear when his last alcoholic beverage was or how much he drinks. He is being admitted to the ICU. His heart rates are in 150's-170's, he is severely tremulous, and obtaining an EKG right now is impossible. It is difficult to tell exact rhythm on tele, but I think it's Afib. He is being sta rted on ativan and cardizem infusions. Review of Systems Unobtainable due to mental status [facility] Medical History (Updated 02/11/20 @ 17:39 by Shonda Chaves MD) Alcohol abuse (Chronic) Alcohol withdrawal delirium, acute, hyperactive (Acute) Cervical spondylosis (Acute) Impingement syndrome of shoulder (Acute) Subarachnoid hematoma (Acute) Subdural hematoma (Resolved) Surgical History (Updated 02/11/20 @ 17:32 by Shonda Chaves MD) S/P arthroscopy of shoulder (Acute) S/p reverse total shoulder arthroplasty (Acute) Family History (Updated 02/11/20 @ 17:32 by Shonda Chaves MD) Other Family history unobtainable Social History Smoking/Tobacco Use Status: Current every day Alcohol Intake: current Alcohol Intake frequency: 3 or more drinks per day Alcohol type: beer Drug use: Never Do you feel safe in your relationship?: Yes Meds Home Medications and Allergies Home Medications Medication Instructions Recorded Confirmed Type Unknown [No Known Home Meds] 02/11/20 02/11/20 History Allergies Allergy/AdvReac Type Severity Reaction Status Date / Time morphine Allergy Mild Skin Rash Unverified 02/11/20 13:24 Penicillins Allergy Mild Skin Rash Unverified 02/11/20 13:24 quetiapine [From Seroquel] Allergy per PCP Unverified 02/11/20 13:24 chart rofecoxib [From Vioxx] Allergy per PCP Unverified 02/11/20 13:24 chart tramadol [From Ultram] Allergy per PCP Unverified 02/11/20 13:24 chart Exam Narrative Exam Narrative: General: Middle-aged disheveled male who is severely tremulous and not able to answer my questions, awake, diaphoretic Neurological: awake, I cannot assess orientation, severely tremulous, no obvious focal deficits Psychiatric: difficult to assess given mental status Skin: abrasion R scalp; otherwise, intact HEENT: Normocephalic, blood on pillowcase from scalp abrasion, EOMI, dry MM, unable to examine oropharynx, no JVD or goiter Cardiovascular: very tachycardic, seemingly irregular rhythm Lungs: coarse breath sounds B, no wheezing Gastrointestinal: soft, nontender, nondistended Genitourinary: deferred Extremities: no e/c/c BLE's; has soft restraints on. Results Imaging Additional studies: CT head w/o contrast: No acute intracranial process. CT maxiollo/facial: No acute facial fracture. EKG: NSR, HR 100, no acute ischemia Labs Result diagrams: 02/11/20 13:00 02/11/20 13:00 Labs: Laboratory Results - last 24 hr 02/11/20 02/11/20 02/11/20 13:00 13:00 13:00 WBC 4.63 RBC 4.05 L Hgb 14.0 Hct 40.3 MCV 99.5 H MCH 34.6 H MCHC 34.7 RDW 12.3 Plt Count 104 L MPV 10.9 Immature Gran % 0.2 Neutrophils % 68.2 Lymphocytes % 20.1 Monocytes % 10.2 Eosinophils % 0.4 Basophils % 0.9 Absolute Neutrophils 3.16 Absolute Lymphocytes 0.93 L Absolute Monocytes 0.47 Absolute Eosinophils 0.02 Absolute Basophils 0.04 PT 10.6 INR 1.1 Sodium 137 Potassium 3.6 Chloride 97 L Carbon Dioxide 24.3 Anion Gap 15.7 H BUN 24 H Creatinine 1.31 H Estimated GFR/1.73 m2 54.58 Glucose 103 Calcium 9.7 Magnesium 1.7 L Total Bilirubin 1.7 H AST 101 H ALT 90 H Alkaline Phosphatase 84 Total Protein 8.8 H Albumin 4.3 TSH 2.42 Ethyl Alcohol < 3.0 Last Vital Signs Temp 36.9 C 02/11/20 15:24 Pulse 103 H 02/11/20 15:46 Resp 18 02/11/20 15:24 BP 112/50 L 02/11/20 15:46 Pulse Ox 98 02/11/20 15:24
--- NOTE | 2020-02-11 17:37 | DI.RAD_ITS ---
EXAM: XR PORTABLE CHEST AP CLINICAL HISTORY: alcohol withdrawal, risk for aspiration TECHNIQUE: 2D digital imaging was performed. COMPARISON: No exams were available for comparison FINDINGS: MEDIASTINUM: Normal. HEART: Normal. PULMONARY VASCULATURE: Normal. LUNGS: No definite focal consolidating infiltrates are seen. A question of increased lung markings i n the right base are noted. PLEURAL SPACE: No pleural effusion or pneumothorax. BONE:Old left rib fractures. Status post right total reverse shoulder replacement. OTHER FINDINGS:Normal. IMPRESSION: Question of increased lung markings in the right base. Developing infiltrate cannot be excluded. DATA REPOSITORY: RADIATION DOSE DELIVERED:
--- NOTE | 2020-02-11 18:01 | DI.VRAD_ITS ---
PROCEDURE INFORMATION: Exam: XR Chest, 1 View Exam date and time: 02/11/2020 5:46 PM Age: 69 years old Clinical indication: Condition or disease; Patient HX: Alcohol withdrawal, risk for aspiration TECHNIQUE: Imaging protocol: XR of the chest Views: 1 view. COMPARISON: CR CHEST 2 VIEWS PA,LAT 08/01/2017 3:13 PM FINDINGS: Lungs: Subtle ground-glass opacity in the right lung base is suggested. Remainder of the lungs are clear. Pleural space: Unremarkable. No pleural effusion. No pneumothorax. Heart/Mediastinum: Cardiomediastinal silhouette is magnified due to technique. Bones/joints: Stable reverse right shoulder arthroplasty. Old/healed left rib fractures are seen. No acute abnormality or aggressive osseous lesion. IMPRESSION: Question of developing airspace disease in the right lung base in which developing aspiration related pneumonia should be entertained and follow-up is recommended. Dictated and Authenticated by: Mohsen Millan MD. Ordering:RICHA Merchant MD
[2020-02-11 18:36] LABS: Troponin I < 0.05 ng/Ml (<0.06)
[2020-02-11 19:59] LABS: Bilirubin Negative (Negative); Blood Trace-intact (Negative); Clarity Clear (Clear); Glucose Negative (Negative); Ketones 15 mg/dL (Negative); Leukocyte Esterase Negative (Negative); Nitrite Negative (Negative); Specific Gravity 1.025 (1.005-1.025)
[2020-02-11 20:07] LABS: Bacteria Few HPF (Negative); C & S Indicated? No; Casts Negative LPF (Negative); Crystals Negative HPF (Negative); Epithelial Cells Rare HPF (Negative); Mucus Negative (Negative); Other Cells Negative (Negative); WBC 0-2 HPF (0-5)
[2020-02-11] MEDS: Normal Saline Flush 10 ML SYR IVP (20:20)
[2020-02-11] MEDS: Lidocaine 2% Jelly 6 ML SYR (20:21)
[2020-02-11] MEDS: LORazepam 2 MG/ML VIAL IVP ×2 (20:54→21:46)
[2020-02-11 21:53] LABS: Troponin I < 0.05 ng/Ml (<0.06)
--- NOTE | 2020-02-11 21:58 | NUR.NOTE ---
A Jake RN logged into portable laptop at bedside. I thought it was my login when I returned to the laptop. All charting done under A Jake Rn's sign on after 1714 valium dose is from Justine BLANCHARD.Nursing Note:
[2020-02-12] VITALS (75 sets, daily range): BP systolic 98–203; BP diastolic 56–158; PULSE 54–226; RESP 16–33; TEMP 36.3–36.6; O2SAT 92–99
--- NOTE | 2020-02-12 | DI.US_ITS ---
EXAM: US ABDOMEN LIMITED CLINICAL HISTORY: TRANSAMINITIS, ALCOHOL DEPENDENCE, THROMBOCYTOPENIA TECHNIQUE: Ultrasound abdomen performed using standard protocol. COMPARISON: No exams were available for comparison FINDINGS: LIVER: Diffuse increased echogenicity consistent with fatty infiltration. Hepatopedal flow in the Po rtal Vein. The liver measures 17.2 cm in length. GALLBLADDER: No evidence of cholelithiasis. No evidence of wall thickening. No pericholecystic fluid identified. KIDNEYS: The right kidney is unremarkable. The left kidney was not imaged on this examination. No e vidence of renal calculi. No evidence of hydronephrosis. No renal mass or cyst identified. BILIARY SYSTEM: Common bile duct measures 0.7 mm. No intrahepatic biliary ductal dilation. SHUKLA'S SIGN: Negative. PANCREAS: Normal where visualized. SPLEEN: Not imaged on this examination. ABDOMINAL AORTA AND IVC: Aorta was not imaged on this examination. In the inferior vena cava, there is a thickened isoechoic area along the posterior wall. It extends into the lumen. ASCITES: None seen. IMPRESSION: 1. Hepatic steatosis. 2. No evidence of cholelithiasis or biliary ductal dilatation. 3. Isoechoic material extending into the lumen of the inferior vena cava. This may represent a valve. Echocardiogram should be considered for further evaluation. DATA REPOSITORY:
[2020-02-12] MEDS: diazePAM 10 MG/2 ML SYR IVP ×14 (00:08→17:26)
--- NOTE | 2020-02-12 00:10 | DI.RAD_ITS ---
EXAM: XR PORTABLE CHEST AP CLINICAL HISTORY: sudden increase in 02 requirement TECHNIQUE: COMPARISON: XR PORTABLE CHEST AP from 02/12/2020 XR PORTABLE CHEST AP POST LINE from 02/13/2020 XR PORTABLE CHEST AP POST LINE from 02/13/2020 FINDINGS: Portable AP chest performed at 0008 hours. Heart is enlarged and there are bilateral mild interstiti al infiltrates, question CHF. No gross focal consolidation seen. Appropriate follow-up studies requ ested. IMPRESSION:
[2020-02-12] MEDS: LORazepam 2 MG/ML VIAL IVP ×5 (01:52→17:08)
[2020-02-12] MEDS: Normal Saline 1,000 ML 125 ML IV (06:18)
[2020-02-12 06:42] LABS: Abs Immature Grans 0.01 k/cumm (0.0-0.09); Absolute Basophil Count 0.01 k/cumm (0.0-0.2); Absolute Eosinophil Count 0.06 k/cumm (0.0-0.7); Absolute Lymphocyte Count 0.89 k/cumm (1.2-3.4); Absolute Monocyte Count 0.33 k/cumm (0.11-0.7); Absolute Neutrophil Count 1.88 k/cumm (1.2-6.7); Basophils % 0.3; Eosinophils % 1.9; HCT 34.4 % (40.0-50.0); HGB 11.6 g/dL (13.5-17.5); Immature Grans % 0.3 %; Mean Corp. HGB Concentration 33.7 g/dL (32.0-36.0); Mean Corpuscular Hemoglobin 34.2 pg (27.0-33.0); Mean Corpuscular Volume 101.5 fL (80-95); Monocytes % 10.4; Neutrophils % 59.1; RBC 3.39 m/cumm (4.50-6.00); RBC Distribution Width 12.4 % (11.8-14.1); White Blood Cell Count 3.18 k/cumm (4.4-10.8)
[2020-02-12 06:55] LABS: Prothrombin Time 10.2 sec (9.3-11.0)
[2020-02-12 07:02] LABS: ALT 84 U/L (16-63); AST 119 U/L (15-37); Albumin 3.1 g/dL (3.4-5.0); Alkaline Phosphatase 62 U/L (46-116); Anion Gap 11.6 mmol/L (3-11); BUN 16 mg/dL (7-18); Bilirubin, Direct 0.39 mg/dL (0.00-0.20); Bilirubin, Total 1.1 mg/dL (0.2-1.0); CO2 23.4 mmol/L (21.0-32.0); CREATININE 0.95 mg/dL (0.70-1.30); Calcium 8.1 mg/dL (8.5-10.1); Chloride 106 mmol/L (98-107); Glucose 89 mg/dL (74-106); Magnesium 1.6 mg/dL (1.8-2.4); Potassium 3.1 mmol/L (3.5-5.1); Sodium 141 mmol/L (136-145); Total Protein 6.5 g/dL (6.4-8.2)
[2020-02-12 07:08] LABS: Diff Comment PLT Morph Reviewed; Platelet Count 84 x1000/uL (130-400)
[2020-02-12 07:09] LABS: RBC Morphology Normal
[2020-02-12 07:39] LABS: Folate 18.1 ng/mL (8.6-20.0); Vitamin B12 959 pg/mL (193-986)
[2020-02-12] MEDS: MULTIVITAMIN 10 ML, THIAMINE 100 MG, FOLIC ACID 1 MG in DEXTROSE 5%-0.45% SALINE 1,000 ML 125 ML IV (08:09)
[2020-02-12] MEDS: Normal Saline Flush 10 ML SYR IVP ×14 (08:34→22:31)
--- NOTE | 2020-02-12 08:45 | DI.RAD_ITS ---
EXAM: XR PORTABLE CHEST AP CLINICAL HISTORY: follow up possible aspiration pneumonia TECHNIQUE: 2D digital imaging was performed. COMPARISON: XR PORTABLE CHEST AP from 02/11/2020 FINDINGS: MEDIASTINUM: Normal. HEART: Normal. PULMONARY VASCULATURE: Normal. LUNGS: Clear. PLEURAL SPACE: No pleural effusion or pneumothorax. BONE:Old left rib fractures. Right total reverse shoulder replacement. OTHER FINDINGS:Poor inspiratory effort. IMPRESSION: No acute pulmonary findings. DATA REPOSITORY: RADIATION DOSE DELIVERED:
[2020-02-12 08:46] LABS: Procalcitonin 0.1 ng/mL
[2020-02-12] MEDS: Pantoprazole 40 MG VIAL IVP (08:52)
[2020-02-12] MEDS: MAGNESIUM SULFATE 4 GM/100 ML BAG IVPB (08:53)
[2020-02-12] MEDS: POTASSIUM CHLORIDE 20 MEQ/100 ML BAG 50 MEQ IVPB ×2 (08:53→11:10)
--- NOTE | 2020-02-12 09:20 | DI.US_ITS ---
APPROVED REPORT EXAM: Comprehensive 2D, Doppler, and color-flow Echocardiogram Patient Location: In-Patient Room/Bed: 221A Machinist Apprentice: Rafaela Beebe RDCS (AE) Indications: New Onset of Atrial Fibrillation, ETOH Conclusion Left Ventricle : The left ventricle is normal size. The left ventricular systolic function is normal. The left ventricular ejection fraction is within the normal range. There is normal left ventricular wall thickness. There is normal LV segmental wall motion. Diastolic function is indeterminate but the re is impaired relaxation. LVEF is 65-70%. Right Ventricle : The right ventricle is normal size. The right ventricular systolic function is norm al. Atria : The left atrium size is normal. The right atrium size is normal. Valves: There are no hemodynamically significant valvular lesions. Great Vessels : IVC normal respiration <50% collapse. Estimated RVSP is 15-18 mmHg. Please see remainder of report for additional details. There are no prior echocardiograms available for comparison. Wall motion Left Ventricle The left ventricle is normal size. The left ventricular systolic function is normal. The left ventric ular ejection fraction is within the normal range. There is normal left ventricular wall thickness. T here is normal LV segmental wall motion. Diastolic function is indeterminate but there is impaired re laxation. There is no ventricular septal defect visualized. LVEF is 65-70%. Right Ventricle The right ventricle is normal size. The right ventricular systolic function is normal. Atria The left atrium size is normal. The right atrium size is normal. The interatrial septum is intact wit h no evidence for an atrial septal defect. Aortic Valve The aortic valve is normal in structure. Aortic valve is trileaflet. There is no aortic valvular sten osis. No aortic regurgitation is present. Mitral Valve The mitral valve is normal in structure. No evidence of mitral valve stenosis. Trace mitral regurgita tion. Tricuspid Valve The tricuspid valve is normal in structure. There is no tricuspid valve stenosis. Trace tricuspid reg urgitation. Pulmonic Valve The pulmonary valve is normal in structure. There is no pulmonic valvular stenosis. There is no pulmo antoni valvular regurgitation. Great Vessels The aortic root is normal in size. Ascending aorta is not well visualized. IVC normal respiration <50 % collapse. Estimated RVSP is 15-18 mmHg. Pericardium There is no pericardial effusion. There is no pleural effusion. 2D Dimensions IVSD d PLAX 0.99 cm M: 0.6-1.2 LV Vol A2C d MOD 81.7 mL LVPW d PLAX 0.92 cm M: 0.6 - 1.2 LV Vol A4C d MOD 79.6 mL LVID d PLAX 4.27 cm M: 4.2 - 5.8 LA vol/ BSA A2C s A-L 41.2 mL/m2 LVDs 2.80 cm M: 2.5 - 4.0 LA vol/ BSA A4C s A-L 34.3 mL/m2 Ao Root d 3.34 cm M: 3.1 - 3.7 LA Vol/ BSA Biplane s A-L 38.5 mL/m2 RA Area A4C 16.24 cm2 LA Area A4C s MOD 19.97 cm2 RA Vol/ BSA A4C s A-L 26.4 mL/m2 LA Area A2C s MOD 21.36 cm2 LV EF Teichholz 63.2 % LV EF A4C MOD 59.4 % LVEF (Thacker's) 56.80 % M: 52 - 72 LV EF A2C MOD 57.2 % LV Volume 63.80 mL M: 62 - 150 LV EF Biplane MOD 56.8 % LV Volume Index 37.30 mL/m2 M: 34 - 74 LV Vol Biplane MOD 80.6 mL FS 33.90 % LV Diastology MV E' medial 0.047 (>0.07 m/s) E/A Ratio 1.0 LV E/e MED 11.70 (<14) MV E Vmax 0.55 (0.4-1.3 m/s) MV E' lateral 0.066 (>0.1 m/s) MV A Vmax 0.55 (0.4-1.3 m/s) LV E/e LAT 8.40 (<14) MV E/A Ratio 0.98 MV E/E' medial 11.74 MV E/E' lateral 8.41 Aortic Valve LVOT Area 2.80 cm2 AoV Area Vmax 2.05 cm2 LVOT Vmax 0.79 m/s AoV Area/ BSA (Vmax) 1.20 cm2/m2 LVOT Mean Abiodun. 0.51 m/s EDITH Mean Abiodun. 1.95 cm2 LVOT Peak Grad 2.5 mmHg EDITH Mean Abiodun. Index 1.14 cm2/m2 LVOT Mean Grad 1.2 mmHg LVOT VTI 0.176 m LVOT Diam s 1.85 cm (M/F) 1.5-2.5 AoV Vmax 1.08 (0.5-1.3 m/s) Velocity Ratio 0.73 AoV Mean Abiodun. 0.73 m/s AoV Peak Grad 4.7 mmHg LVOT SV 49.24 mL AoV Mean Grad 2.5 (<5 mmHg) AoV VTI 0.237 (0.18-0.25 m) AoV Area VTI 2.08 (2.5-4.5 cm2) AoV Area/ BSA (VTI) 1.21 cm/m2 Mitral Valve MV DT 296 (160-240 msec) MV PHT 86 msec MV Area PHT 2.56 cm2 Pulmonary Valve PV Vmax 0.61 (0.5-1.5 m/s) RVOT Peak Gr. 0.57 mmHg PV Peak Grad 1.5 mmHg RVOT Mean Gr. 0.25 mmHg PV Mean Grad 0.8 mmHg RVOT VTI 0.083 m PV VTI 0.151 m RVOT Vmax 0.38 m/s Tricuspid Valve TR Peak Grad 15.4 mmHg TR Vmax 1.97 m/s RA Pressure 3.00 mmHg RVSP (TR) 18.5 mmHg
--- NOTE | 2020-02-12 10:14 | PDOC.CMIN ---
- If Service Date Differs Date of service: 02/12/20 Time of Service: 10:14 Care Management Initial Assess REASON FOR HOSPITALIZATION:: Alcohol Withdrawal PAST MEDICAL HISTORY/PAST SURGICAL HISTORY:: Medical History : Alcohol abuse (Chronic). Alcohol withdrawal delirium, acute, hyperactive (Acute). Cervical spondylosis (Acute). Impingement syndrome of shoulder (Acute). Subarachnoid hematoma (Acute). Subdural hematoma (Resolved). Surgical History : S/P arthroscopy of shoulder (Acute). S/p reverse total shoulder arthroplasty (Acute) PREVIOUS FUNCTIONAL STATUS/SOCIAL/FAMILY SUPPORTS:: Vikram lives in [facility] with his Nena. CURRENT FUNCTIONAL STATUS:: CM was unable to meet with Vikram as he is on an Ativan drip and unable to communicate. ADVANCE DIRECTIVES:: None on file CODE STATUS:: Full Code INSURANCE COVERAGE / FINANCIAL ISSUES:: Medicare CURRENT HOME/COMMUNITY SERVICES/EQUIPMENT:: Vikram is currently on an IV Ativan drip for alcohol withdrawal. He will likely remian in the intensive care unit for several days. Final disposition to be determined by course of illness. CM will continue to support patient, family and discharge planning needs. PRIMARY CARE PHYSICIAN:: Wilder Jimenez MD POTENTIAL DISCHARGE NEEDS:: Follow up with PCP and discharge plan of care. Vikram will likey benefit from substance abuse treatment as well, if amenable. PATIENT/FAMILY EDUCATION NEEDS:: Discharge plan, limitations, follow up plan and Ask Me Three. TRANSPORTATION:: via private vehicle with family
--- NOTE | 2020-02-12 10:49 | PHACLINREV_ITS ---
Pharmacy Clinical Review - Admission Clinical Review (Last Updated 02/11/20 @ 17:32 by Shonda Chaves MD) DVT prophylaxis (Acute) Discharge planning issues (Acute) Dehydration (Acute) Hypomagnesemia (Acute) Atrial fibrillation with rapid ventricular response (Acute) Alcohol withdrawal delirium, acute, hyperactive (Acute) morphine Allergy (Mild, Unverified 02/11/20 13:24) Skin Rash Penicillins Allergy (Mild, Unverified 02/11/20 13:24) Skin Rash quetiapine [From Seroquel] Allergy (Unverified 02/11/20 13:24) per PCP chart rofecoxib [From Vioxx] Allergy (Unverified 02/11/20 13:24) per PCP chart tramadol [From Ultram] Allergy (Unverified 02/11/20 13:24) per PCP chart Height 5 ft 9 in Weight 58.9 kg - Renal Dosing Renal Dosing: BUN 16 mg/dL (7-18) D 02/12/20 06:15 Creatinine 0.95 mg/dL (0.70-1.30) 02/12/20 06:15 Medications needing adjustments: Reviewed (CrCl~62ml/min, no med adjustments) - Anticoagulation Anticoagulation: Hgb 11.6 g/dL (13.5-17.5) L D 02/12/20 06:15 Hct 34.4 % (40.0-50.0) L 02/12/20 06:15 Plt Count 84 x1000/uL (130-400) L 02/12/20 06:15 INR 1.0 (0.9-1.1) 02/12/20 06:15 Creatinine 0.95 mg/dL (0.70-1.30) 02/12/20 06:15 DVT Prohphylaxis: Reviewed (SCD's and RANDI's only) Therapeutic Anticoagulation: N/A - Opiate Usage Evaluate Pain Scale/Pains Meds: N/A Scheduled Bowel Reg ordered if on Opiates?: No (prn Docusate) - Relevant Labs Sodium 141 mmol/L (136-145) 02/12/20 06:15 Potassium 3.1 mmol/L (3.5-5.1) L 02/12/20 06:15 Chloride 106 mmol/L (98-107) 02/12/20 06:15 Magnesium 1.6 mg/dL (1.8-2.4) L 02/12/20 06:15 Electrolytes, C-Reactive P, ESR: Reviewed (K+ and Mag IV replacements, daily banana bag) - Antimicrobial Stewardship Antibiotic appropriateness: N/A Surgical Abx d/c within 24 hr: N/A Culture review/Resistance: N/A - DM Control DM Control: Glucose 89 mg/dL (74-106) 02/12/20 06:15 Insulin Dosing: N/A - Heart Failure/MT Heart Failure/MT: Troponin I < 0.05 ng/Ml (<0.06) 02/11/20 21:30 EF%, SINDHU's, B-Blockers, Diuretics: N/A - BP Control BP Control: Blood Pressure [Left Arm] 108/82 Blood Pressure [Left Arm] 138/76 Blood Pressure [Left Arm] 120/77 Blood Pressure 133/68 Blood Pressure 108/82 Blood Pressure 108/82 Blood Pressure 123/68 Blood Pressure 135/72 Blood Pressure 123/68 Blood Pressure 114/67 Blood Pressure 138/76 Blood Pressure 138/76 Blood Pressure 147/76 Blood Pressure 129/72 Blood Pressure 120/77 Blood Pressure 142/94 Blood Pressure 132/77 Blood Pressure 203/158 Blood Pressure 137/93 Blood Pressure 120/77 If elevated: N/A - QTc Review If Elevated: Reviewed (qtc 471, Sinus Tachy) - Home Meds Home Med List reviewed: Reviewed (no home meds) - Current meds Current Medication Order Review: Reviewed (CIWA scores running high, has Librium and Lorazepam bolus and continuous Lorazepam infusion for currently @ 6ml/hr which is the max rate according to protocol for sedation which is weight based. Having Chest Xray today-negative for Aspiration, Liver Ultrasound today, Period of Afib yesterday resolved, no need for Diltiazem drip) - Comments Comments/Follow Ups: CIWA scores running high-currently 9, previously was 20's- 30's, has Librium (unable to take at this time), Diazepam oral, Lorazepam PO/IV bolus and continuous Lorazepam infusion for currently @ 6ml/hr which is the max rate according to protocol for sedation which is weight based. Chest Xray today- negative for Aspiration, Liver Ultrasound today, Echo today for Afib episode yesterday which resolved, reports appears normal, no need for Diltiazem drip
--- NOTE | 2020-02-12 11:04 | W.PM.PROGNOT ---
Date of Service Date of service: 02/12/20 Time of Service: 11:04 Assessment and Plan Assessment and plan (1) Alcohol withdrawal delirium, acute, hyperactive: Status: Acute Assessment and plan: Improved on ativan infusion. Continue to monitor in the ICU on ativan drip, titrating as needed. Not able to take the librium due to mental status. Continue banana bag, electrolyte repletion/monioring. NPO. (2) Atrial fibrillation with rapid ventricular response: Status: Resolved Assessment and plan: In setting of acute withdrawal; Remains in NSR since being adequately treated with benzo's. Echo without obvious intracardiac thrombi or systolic dysfunction. Has mild pulmonary hypertension. Not a candidate for anticoagulation for multiple reasons, including 2 brain bleeds. (3) Transaminitis: Status: Acute Assessment and plan: In setting of alcohol abuse, could indicate alcoholic liver disease. Discriminant function score is actually negative - no evidence for alcoholic hepatitis. Improving already. Await results of US liver. (4) Hypomagnesemia: Status: Acute Assessment and plan: Replace and monitor (5) Hypokalemia: Status: Acute Assessment and plan: Replete and monitor (6) Dehydration: Status: Acute Assessment and plan: Continue IVF/daily banana bags. Monitor Cr, I/O, daily weights (7) Thrombocytopenia: Status: Chronic Assessment and plan: await results of US abdomen - ?splenic sequestration related to cirrhosis vs primary suppression of formation by alcohol. Avoid chemical DVT ppx. Montior for bleeding. Check hematest. (8) DVT prophylaxis: Status: Acute Assessment and plan: TEDs/SCDs Chemical DVT ppx is contraindicated in setting of thrombocytopenia, h/o 2 brain bleeds (9) Discharge planning issues: Status: Acute Assessment and plan: Full code. Total Critical Care Time 40 minutes. Subjective Subjective Interval history since last seen: Remains on ativan drip at 6 mg/hr. Not requiring respiratory support, wakes up occasionally, did require additional 3 mg of IV ativan this am for a score of 13 this morning. He is not able to answer my questions at this time. No more afib on monitor since the initial episode. Never did receieve cardizem as when his withdrawal was treated with benzos, he converted to NSR and rates improved dramatically. Exam Narrative Exam Narrative: General: Middle-aged male, resting comfortably in the ICU, difficult to arouse, but arousable, slight tremors with movement of RUE. HEENT: L periorbital hematoma, abrasion on nose, eyes closed, dry MM Cardiovascular: RRR, no m/r/g Lungs: Diminished breath sounds B, non labored breathing Gastrointestinal: soft, nontender, nondistended Extremities: no e/c/c BLE's; has soft restraints on. Objective Objective Clinical Data: Abnormal lab results 02/11/20 02/11/20 02/11/20 Range/Units 13:00 13:00 19:25 WBC (4.4-10.8) k/cumm RBC 4.05 L (4.50-6.00) m/cumm Hgb (13.5-17.5) g/dL Hct (40.0-50.0) % MCV 99.5 H (80-95) fL MCH 34.6 H (27.0-33.0) pg Plt Count 104 L (130-400) x1000/uL Absolute Lymphocytes 0.93 L (1.2-3.4) k/cumm Potassium (3.5-5.1) mmol/L Chloride 97 L (98-107) mmol/L Anion Gap 15.7 H (3-11) mmol/L BUN 24 H (7-18) mg/dL Creatinine 1.31 H (0.70-1.30) mg/dL Calcium (8.5-10.1) mg/dL Magnesium 1.7 L (1.8-2.4) mg/dL Total Bilirubin 1.7 H (0.2-1.0) mg/dL Conjugated Bilirubin (0.00-0.20) mg/dL AST 101 H (15-37) U/L ALT 90 H (16-63) U/L Total Protein 8.8 H (6.4-8.2) g/dL Albumin (3.4-5.0) g/dL Urine Ketones 15 H (Negative) mg/dL Urine Blood Trace-intact H (Negative) Urine Urobilinogen 1.0 H (Up TO 0.2) EU/dL Urine RBC 3-5 H (0-2) HPF 02/12/20 02/12/20 Range/Units 06:15 06:15 WBC 3.18 L D (4.4-10.8) k/cumm RBC 3.39 L (4.50-6.00) m/cumm Hgb 11.6 L D (13.5-17.5) g/dL Hct 34.4 L (40.0-50.0) % MCV 101.5 H (80-95) fL MCH 34.2 H (27.0-33.0) pg Plt Count 84 L (130-400) x1000/uL Absolute Lymphocytes 0.89 L (1.2-3.4) k/cumm Potassium 3.1 L (3.5-5.1) mmol/L Chloride (98-107) mmol/L Anion Gap 11.6 H (3-11) mmol/L BUN (7-18) mg/dL Creatinine (0.70-1.30) mg/dL Calcium 8.1 L (8.5-10.1) mg/dL Magnesium 1.6 L (1.8-2.4) mg/dL Total Bilirubin 1.1 H (0.2-1.0) mg/dL Conjugated Bilirubin 0.39 H (0.00-0.20) mg/dL AST 119 H (15-37) U/L ALT 84 H (16-63) U/L Total Protein (6.4-8.2) g/dL Albumin 3.1 L (3.4-5.0) g/dL Urine Ketones (Negative) mg/dL Urine Blood (Negative) Urine Urobilinogen (Up TO 0.2) EU/dL Urine RBC (0-2) HPF Vital Signs Temperature 36.5 C 02/12/20 09:00 Temperature Source Temporal Artery Scan 02/12/20 09:00 Pulse 55 L 02/12/20 09:01 Pulse 57 L 02/12/20 09:01 Respiratory Rate 23 02/12/20 09:01 Respiratory Effort 02/12/20 09:00 Respiratory Depth Deep 02/11/20 23:42 Respiratory Pattern Normal 02/11/20 23:42 Blood Pressure 133/68 02/12/20 09:01 Blood Pressure Mean 85 02/12/20 09:01 Blood Pressure Position Supine 02/12/20 09:00 Pulse Oximetry 96 02/12/20 09:01 Oxygen Delivery Method Room Air 02/12/20 05:08 Oxygen Flow Rate 0 02/12/20 05:08 Pain Level 0 02/12/20 09:00 Intake & Output 02/11/20 02/11/20 02/12/20 11:59 23:59 11:59 Intake Total 2161.000 / 2209.300 1540.350 / 1540.350 Output Total 450 / 450 350 / 350 Balance 1711.000 / 0262.128 6365.350 / 1190.350 Weight 58.9 kg Intake: IV 2161.000 / 2209.300 1540.350 / 1540.350 Output: Urine 450 / 450 350 / 350 Other: Urine Color Dark Ana Maria Light Ana Maria Urine Appearance Clear Clear Sediment Comment villafana patent villafana patent draining clear yelloiw urine Laboratory Results WBC 3.18 k/cumm (4.4-10.8) L D 02/12/20 06:15 RBC 3.39 m/cumm (4.50-6.00) L 02/12/20 06:15 Hgb 11.6 g/dL (13.5-17.5) L D 02/12/20 06:15 Hct 34.4 % (40.0-50.0) L 02/12/20 06:15 MCV 101.5 fL (80-95) H 02/12/20 06:15 MCH 34.2 pg (27.0-33.0) H 02/12/20 06:15 MCHC 33.7 g/dL (32.0-36.0) 02/12/20 06:15 RDW 12.4 % (11.8-14.1) 02/12/20 06:15 Plt Count 84 x1000/uL (130-400) L 02/12/20 06:15 MPV 11.0 fL (8.0-11.0) 02/12/20 06:15 Immature Gran % 0.3 % 02/12/20 06:15 Neutrophils % 59.1 02/12/20 06:15 Lymphocytes % 28.0 02/12/20 06:15 Monocytes % 10.4 02/12/20 06:15 Eosinophils % 1.9 02/12/20 06:15 Basophils % 0.3 02/12/20 06:15 Absolute Neutrophils 1.88 k/cumm (1.2-6.7) 02/12/20 06:15 Absolute Lymphocytes 0.89 k/cumm (1.2-3.4) L 02/12/20 06:15 Absolute Monocytes 0.33 k/cumm (0.11-0.7) 02/12/20 06:15 Absolute Eosinophils 0.06 k/cumm (0.0-0.7) 02/12/20 06:15 Absolute Basophils 0.01 k/cumm (0.0-0.2) 02/12/20 06:15 Differential Comment Plt morph reviewed 02/12/20 06:15 RBC Morphology Normal 02/12/20 06:15 PT 10.2 sec (9.3-11.0) 02/12/20 06:15 INR 1.0 (0.9-1.1) 02/12/20 06:15 Sodium 141 mmol/L (136-145) 02/12/20 06:15 Potassium 3.1 mmol/L (3.5-5.1) L 02/12/20 06:15 Chloride 106 mmol/L (98-107) 02/12/20 06:15 Carbon Dioxide 23.4 mmol/L (21.0-32.0) 02/12/20 06:15 Anion Gap 11.6 mmol/L (3-11) H 02/12/20 06:15 BUN 16 mg/dL (7-18) D 02/12/20 06:15 Creatinine 0.95 mg/dL (0.70-1.30) 02/12/20 06:15 Estimated GFR/1.73 m2 >= 60.00 (mL/min/1.73m2) 02/12/20 06:15 Glucose 89 mg/dL (74-106) 02/12/20 06:15 Calcium 8.1 mg/dL (8.5-10.1) L 02/12/20 06:15 Magnesium 1.6 mg/dL (1.8-2.4) L 02/12/20 06:15 Total Bilirubin 1.1 mg/dL (0.2-1.0) H 02/12/20 06:15 Conjugated Bilirubin 0.39 mg/dL (0.00-0.20) H 02/12/20 06:15 AST 119 U/L (15-37) H 02/12/20 06:15 ALT 84 U/L (16-63) H 02/12/20 06:15 Alkaline Phosphatase 62 U/L (46-116) 02/12/20 06:15 Troponin I < 0.05 ng/Ml (<0.06) 02/11/20 21:30 Total Protein 6.5 g/dL (6.4-8.2) 02/12/20 06:15 Albumin 3.1 g/dL (3.4-5.0) L 02/12/20 06:15 Vitamin B12 959 pg/mL (193-986) 02/12/20 06:15 Folate 18.1 ng/mL (8.6-20.0) 02/12/20 06:15 Procalcitonin 0.1 ng/mL 02/12/20 06:15 TSH 2.42 uIU/mL (0.36-3.74) 02/11/20 13:00 Urine Color Yellow (Yellow) 02/11/20 19:25 Urine Clarity Clear (Clear) 02/11/20 19:25 Urine pH 6.0 (5-8) 02/11/20 19:25 Ur Specific [place] 1.025 (1.005-1.025) 02/11/20 19:25 Urine Protein Negative mg/dL (Negative) 02/11/20 19:25 Urine Ketones 15 mg/dL (Negative) H 02/11/20 19:25 Urine Blood Trace-intact (Negative) H 02/11/20 19:25 Urine Nitrite Negative (Negative) 02/11/20 19:25 Urine Bilirubin Negative (Negative) 02/11/20 19:25 Urine Urobilinogen 1.0 EU/dL (Up TO 0.2) H 02/11/20 19:25 Ur Leukocyte Esterase Negative (Negative) 02/11/20 19:25 Urine RBC 3-5 HPF (0-2) H 02/11/20 19:25 Urine WBC 0-2 HPF (0-5) 02/11/20 19:25 Ur Epithelial Cells Rare HPF (Negative) 02/11/20 19:25 Urine Crystals Negative HPF (Negative) 02/11/20 19:25 Urine Bacteria Few HPF (Negative) 02/11/20 19:25 Urine Casts Negative LPF (Negative) 02/11/20 19:25 Urine Mucus Negative (Negative) 02/11/20 19:25 Urine Other Negative (Negative) 02/11/20 19:25 Ur Culture Indicated? No 02/11/20 19:25 Urine Glucose Negative mg/dL (Negative) 02/11/20 19:25 Ethyl Alcohol < 3.0 mg/dL (<3) 02/11/20 13:00 CXR: No acute pulmonary findings. Echo: Left Ventricle : The left ventricle is normal size. The left ventricular systolic function is normal. The left ventricular ejection fraction is within the normal range. There is normal left ventricular wall thickness. There is normal LV segmental wall motion. Diastolic function is indeterminate but there is impaired relaxation. LVEF is 65-70%. Right Ventricle : The right ventricle is normal size. The right ventricular systolic function is normal. Atria : The left atrium size is normal. The right atrium size is normal. Valves: There are no hemodynamically significant valvular lesions. Great Vessels : IVC normal respiration <50% collapse. Estimated RVSP is 15-18 mmHg. Please see remainder of report for additional details. There are no prior echocardiograms available for comparison. US abdomen: done; results pending
[2020-02-12] MEDS: POTASSIUM CHLORIDE/0.9% NACL 1,000 ML 20 MEQ IV (14:28)
[2020-02-12] MEDS: LORazepam 2 MG/ML VIAL 3 MG IVP (16:12)
[2020-02-12] MEDS: PHENobarbital 130 MG/ML VIAL IVP ×4 (18:05→23:51)
[2020-02-13] VITALS (304 sets, daily range): BP systolic 65–183; BP diastolic 48–110; PULSE 56–105; RESP 9–30; TEMP 36.1–37.5; O2SAT 82–100
--- NOTE | 2020-02-13 00:23 | DI.VRAD_ITS ---
PROCEDURE INFORMATION: Exam: XR Chest, 1 View Exam date and time: 02/12/2020 12:13 AM Age: 69 years old Clinical indication: Other: Sudden increase in o2 requirement; Prior surgery; Surgery date: 6+ months; Surgery type: R shoulder replacement; Patient HX: Sudden increase of o2 requirement TECHNIQUE: Imaging protocol: XR of the chest Views: 1 view. COMPARISON: CR XR PORTABLE CHEST AP 02/12/2020 8:31 AM FINDINGS: Lungs: Lungs and their pleural margins are unchanged with no new mass or consolidation detected. Pleural space: No pneumothorax or pleural effusion. Heart/Mediastinum: Heart size is normal and vascular congestion is similar appearance. Bones/joints: Postsurgical changes again evident related to previous right glenohumeral arthroplasty. IMPRESSION: Pulmonary congestion is similar appearance with no new focal consolidation detected. Dictated and Authenticated by: Reji Ramos MD. Ordering:[facility] Shin Lott MD
[2020-02-13] MEDS: PHENobarbital 130 MG/ML VIAL IVP (01:38)
[2020-02-13] MEDS: Normal Saline Flush 10 ML SYR IVP ×4 (01:38→15:21)
[2020-02-13] MEDS: PROPOFOL 1,000 MG/100 ML BTL 7.068 MG IVPB (02:25)
--- NOTE | 2020-02-13 02:31 | W.PM.OP ---
Date of service: 02/13/20 Time of Service: 04:00 Operative Note Operative Note DATE OF PROCEDURE: 02/13/20 PRE-OP DIAGNOSIS: Acute alcohol withdrawal, lack of peripheral IV access, hypotension POST-OP DIAGNOSIS: same Same PROCEDURE: After obtaining written consent from the patient's and having explained indications potential complications to her she agreed to proceed with the procedure. Patient's neck was shaved and prepped in sterile fashion. Using an Arrow guard Blue plus pressure injectable multilumen CVC kit 7 [place] 3 lm 20 cm catheter length. The right internal jugular vein was identified by ultrasound under sterile technique and found to be compressible throughout the full length of the neck. The right IJ vein was anterior and slightly lateral to the carotid artery. Skin was anesthetized along with the subcutaneous tissue with 5 mL's of 1% lidocaine which was included in the triple-lumen catheter kit. First attempt at cannulation of the vessel was unsuccessful using the enclosed introducer echogenic needle 18-gauge by 2-1/2 inch with 5 mL [place] spring wire introduction syringe although flashback was obtained but then blood flow quickly ceased. Catheter was removed. Second attempt was successful under ultrasound guidance and using the Seldinger technique guidewire was passed and the needle was withdrawn. Guidewire was confirmed to be in the right IJ then using the enclosed scalpel the skin and subcutaneous tissue was incised to allow for passage of the vessel dilator. Vessel dilator was passed over the guidewire to enlarge the opening. Dark slow nonpulsatile blood was returned and triple-lumen catheter was passed over the guidewire and the guidewire was withdrawn. All 3 ports were able to extravasate blood through the catheter and each port was flushed with sterile saline. Catheter was secured at 17 cm at the skin using the enclosed hub fastener and catheter clamped. A vascular catheter clamp were then sutured to the skin and a sterile dressing was applied. [id number] ultrasound was performed to confirm lung sliding in multiple locations in the right chest. Post procedure chest x-ray was obtained and no pneumothorax was seen and the tip of the right internal jugular vein catheter was seen in the superior vena cava above the right atrium. SURGEON: Oren Melissa ASSISTING SURGEON: Santiago Mccurdy ANESTHESIA: local COMPLICATIONS: None Patient was transported to: no change Patient's condition: stable
--- NOTE | 2020-02-13 02:35 | DI.RAD_ITS ---
EXAM: XR PORTABLE CHEST AP POST LINE CLINICAL HISTORY: intubation TECHNIQUE: COMPARISON: XR PORTABLE CHEST AP POST LINE from 02/13/2020 XR PORTABLE CHEST AP from 02/13/2020 FINDINGS: Portable AP chest at 0238 hours. Endotracheal tube noted with tip 6 cm above the navi. Question s light interstitial prominence on the left, no gross pulmonary abnormality right. No focal consolidat ion. IMPRESSION: ET tube 6 cm of above the navi, this should be advanced.
[2020-02-13] MEDS: Normal Saline 1,000 ML 1000 ML IV (03:00)
--- NOTE | 2020-02-13 03:00 | DI.VRAD_ITS ---
PROCEDURE INFORMATION: Exam: XR Chest, 1 View Exam date and time: 02/13/2020 2:38 AM Age: 69 years old Clinical indication: Device placement; Other: S/P intubation; Patient HX: Tube placement TECHNIQUE: Imaging protocol: XR of the chest Views: 1 view. COMPARISON: CR XR PORTABLE CHEST AP 02/13/2020 12:07 AM FINDINGS: Tubes, catheters and devices: Endotracheal tube now seen in position with its tip 6 cm above the level of the navi. Lungs: No new mass or consolidation. Pleural space: There is no pneumothorax or pleural effusion. Heart/Mediastinum: Heart size is normal and pulmonary vascular congestion has diminished with vessel margins relatively sharply defined. Bones/joints: Unremarkable. Other findings: The patient is imaged in a [place] degree of inflation on the current radiograph. IMPRESSION: Increased lung volumes with diminution in vascular congestion. Endotracheal tube seen with its tip 6 cm above the navi. Dictated and Authenticated by: Reji Ramos MD. Ordering:[facility] Shin Lott MD
[2020-02-13 03:18] LABS: BE -4.8 mmol/L (-3-3); HCO3 22 mmol/L (22-28); pCO2 45 mmHg (34-47); pO2 65 mmHg (83-108); sO2 91 % (94-98); tCO2 20 mmol/L (22-29)
[2020-02-13 03:20] LABS: FIO2 100 %; Site Right Radial
[2020-02-13] MEDS: Normal Saline-STERILE FIELD 0.9% 10 ML SYR (04:00)
--- NOTE | 2020-02-13 04:13 | NUR.NOTE ---
At start of shift patient's second peripheral iv was dislodged by patient with restless movement. Multiple attempts made by 2 nurses and 1 MD to start a second peripheral iv prior to intubation - all attempts failed. See intubation intervention for details of intubation. After intubation at approx 02:15, Patient's face shaved, ET Tube calderon put in place, Propofol gtt initiated. CXR confirmed placement. ETCO2 readings became erratic- suspected faulty equipment, ABG ordered to assess ventilation status. At approx 02:50 BP began to drop, MD notified. Low of 69/50. Propofol turned off. 1 liter bolus NS initiated. By 03:06 BP claudia to 112/69; Patient became restless, propofol re-started at 20 mcg/kg/min. More attempts made to start a second peripheral iv in patient without success. MD obtained consent from patient's for central line placement.
--- NOTE | 2020-02-13 04:54 | ROE_ITS ---
Date of service: 02/13/20 Time of Service: 02:00 Operative Note Operative Note DATE OF PROCEDURE: 02/13/20 PROCEDURE: Video glide scope laryngoscopy for intubation. Indication inability to protect airway in the setting of heavy sedation for acute alcohol withdrawal. Patient had a respiratory event which she developed acute hypoxemia with oxygen saturations dropping into the low 80s that required high FiO2. Patient developed coarse rhonchi and new bilateral infiltrates on chest x-ray. After calling and discussing the case with the patient's explained to her the need for heavy sedation for his acute alcohol withdrawal and the need for protecting his airway while sedated she agreed to intubation and mechanical ventilation. Patient was preoxygenated with Ambu bag valve mask to an oxygen saturation of 99%. Patient was given rapid sequence induction with etomidate 20 mg IV push followed by rocuronium 50 mg IV push. #3 MAC glide scope was used to visualize his vocal cords. Attempt was made to intubate using a 7.5 ET tube. I was able to pass the tube through the cords initially as it was secretions. I suctioned his glottic opening and then reattempted but again was unsuccessful. After each attempt he was supported with Ambu bag valve mask and his O2 saturation remained above 94%. With the third attempt I asked Dr. Santiago Mccurdy, emergency room attending, to come up and assist me. I then used a bougie and was able to successfully pass the bougie between the vocal cords and then successfully slid the endotracheal tube over the bougie into the trachea to the level of 23 cm at the lips. O2 saturation remained 96% or above. Post procedure chest x-ray was obtained and endotracheal tip was seen approx. 5 to 6 cm above the navi. ANESTHESIA: other (RSI w/ etomodate and rocuronium as listed above) Patient was transported to: no change Patient's condition: stable Implants: Video glide scope laryngoscopy for intubation. Indication inability to protect airway in the setting of heavy sedation for acute alcohol withdrawal. Patient had a respiratory event which she developed acute hypoxemia with oxygen saturations dropping into the low 80s that required high FiO2. Patient developed coarse rhonchi and new bilateral infiltrates on chest x-ray. After calling and discussing the case with the patient's explained to her the need for heavy sedation for his acute alcohol withdrawal and the need for protecting his airway while sedated she agreed to intubation and mechanical ve ntilation. Patient was preoxygenated with Ambu bag valve mask to an oxygen saturation of 99%. Patient was given rapid sequence induction with etomidate 20 mg IV push followed by rocuronium 50 mg IV push. #3 MAC glide scope was used to visualize his vocal cords. Attempt was made to intubate using a 7.5 ET tube. I was able to pass the tube through the cords initially as it was secretions. I suctioned his glottic opening and then reattempted but again was unsuccessful. After each attempt he was supported with Ambu bag valve mask and his O2 saturation remained above 94%. With the third attempt I asked Dr. Santiago Mccurdy, emergency room attending, to come up and assist me. I then used a bougie and was able to successfully pass the bougie between the vocal cords and then successfully slid the endotracheal tube over the bougie into the trachea to the level of 23 cm at the lips. O2 saturation remained 96% or above. Post procedure chest x-ray was obtained and endotracheal tip was seen 5 to 6 cm above the navi.
--- NOTE | 2020-02-13 04:55 | DI.RAD_ITS ---
EXAM: XR PORTABLE CHEST AP POST LINE CLINICAL HISTORY: post line insertion TECHNIQUE: COMPARISON: XR PORTABLE CHEST AP POST LINE from 02/13/2020 XR PORTABLE CHEST AP from 02/13/2020 FINDINGS: Portable AP chest at 0458 hours. ET tube again noted which has been advanced and now lies about 3.5 cm above the navi. Apparent right internal jugular line placed tip of which overlies the SVC. Min imal prominence of pulmonary interstitium noted bilaterally, question slight patchy infiltrates proje cted over left lower lobe, appropriate follow-up films requested. IMPRESSION:
--- NOTE | 2020-02-13 05:14 | DI.VRAD_ITS ---
PROCEDURE INFORMATION: Exam: XR Chest, 1 View Exam date and time: 02/13/2020 5:00 AM Age: 69 years old Clinical indication: Device placement; Other: Central line placement; Prior surgery; Surgery date: 6+ months; Surgery type: Shoulder repair TECHNIQUE: Imaging protocol: XR of the chest Views: 1 view. COMPARISON: CR XR PORTABLE CHEST AP POST LINE 02/13/2020 2:34 AM FINDINGS: Tubes, catheters and devices: Tip of ET tube 3.5 cm above navi. Right internal jugular central venous line with tip overlying distal superior vena cava. Lungs: Hyperinflation. No consolidation. Pleural space: Unremarkable. No pleural effusion. No pneumothorax. Heart/Mediastinum: Unremarkable. No cardiomegaly. Bones/joints: Healed left rib fractures. Degenerative changes. Status post reverse right shoulder replacement. IMPRESSION: 1. ET tube appears in satisfactory position. 2. No pneumothorax demonstrated following central line placement. 3. Hyperinflation of the lungs. Dictated and Authenticated by: Jorje Butler MD. [facility]
[2020-02-13] MEDS: CLINDAMYCIN 900 MG/50 ML BAG 50 MG IVPB ×3 (05:30→20:32)
[2020-02-13] MEDS: Normal Saline 250 ML 500 ML IV (05:40)
[2020-02-13] MEDS: POTASSIUM CHLORIDE/0.9% NACL 1,000 ML 125 MEQ IV ×2 (05:54→20:29)
[2020-02-13 06:50] LABS: Abs Immature Grans 0.01 k/cumm (0.0-0.09); Absolute Basophil Count 0.01 k/cumm (0.0-0.2); Absolute Eosinophil Count 0.04 k/cumm (0.0-0.7); Absolute Lymphocyte Count 0.99 k/cumm (1.2-3.4); Basophils % 0.3; Eosinophils % 1.2; HCT 31.6 % (40.0-50.0); HGB 10.3 g/dL (13.5-17.5); Immature Grans % 0.3 %; Lymphocytes % 30.5; Mean Corp. HGB Concentration 32.6 g/dL (32.0-36.0); Mean Corpuscular Volume 104.3 fL (80-95); Mean Platelet Volume 11.1 fL (8.0-11.0); Monocytes % 6.2; Neutrophils % 61.5; RBC 3.03 m/cumm (4.50-6.00); RBC Distribution Width 12.4 % (11.8-14.1); White Blood Cell Count 3.25 k/cumm (4.4-10.8)
[2020-02-13 07:04] LABS: ALT 105 U/L (16-63); AST 127 U/L (15-37); Albumin 2.5 g/dL (3.4-5.0); Alkaline Phosphatase 53 U/L (46-116); Anion Gap 9.2 mmol/L (3-11); BUN 5 mg/dL (7-18); Bilirubin, Direct 0.34 mg/dL (0.00-0.20); Bilirubin, Total 0.8 mg/dL (0.2-1.0); CO2 22.8 mmol/L (21.0-32.0); CREATININE 0.85 mg/dL (0.70-1.30); Calcium 7.4 mg/dL (8.5-10.1); Chloride 110 mmol/L (98-107); Glucose 107 mg/dL (74-106); Magnesium 1.6 mg/dL (1.8-2.4); Potassium 3.2 mmol/L (3.5-5.1); Sodium 142 mmol/L (136-145); Total Protein 5.5 g/dL (6.4-8.2)
[2020-02-13 07:33] LABS: Diff Comment PLT Morph Reviewed; Platelet Count 86 x1000/uL (130-400); RBC Morphology Normal
[2020-02-13 08:00] LABS: BE -5.3 mmol/L (-3-3); HCO3 21 mmol/L (22-28); pCO2 39 mmHg (34-47); pH 7.33 (7.35-7.45); pO2 93 mmHg (83-108); sO2 98 % (94-98); tCO2 19 mmol/L (22-29)
[2020-02-13 08:03] LABS: FIO2 45 %; Site Left Radial
--- NOTE | 2020-02-13 08:21 | DI.RAD_ITS ---
EXAM: XR PORTABLE CHEST AP CLINICAL HISTORY: follow up - intubated patient TECHNIQUE: COMPARISON: XR PORTABLE CHEST AP from 02/12/2020 XR PORTABLE CHEST AP POST LINE from 02/13/2020 XR PORTABLE CHEST AP POST LINE from 02/13/2020 FINDINGS: Portable AP chest at 0810 hours. ET tube noted, 4.4 cm above the navi. Apparent IJ line noted the tip of which overlies SVC. Cardiac size within normal limits. No gross evidence of pulmonary edema . Question minimal streaky infiltrates left lower lobe, appropriate follow-up studies requested. Question deformity right 7th rib laterally, rib fracture not excluded, please correlate clinically. IMPRESSION: No tenisha CHF, question minimal left lower lobe infiltrate. Appropriate follow-up studies suggested.
[2020-02-13 08:34] LABS: Procalcitonin 0.1 ng/mL
[2020-02-13] MEDS: MAGNESIUM SULFATE 2 GM/50 ML BAG IVPB (09:03)
[2020-02-13] MEDS: Pantoprazole 40 MG VIAL IVP (09:05)
[2020-02-13] MEDS: POTASSIUM CHLORIDE 20 MEQ/100 ML BAG 50 MEQ IVPB ×2 (09:06→11:46)
--- NOTE | 2020-02-13 09:18 | CMPROGNOTE_ITS ---
- If Service Date Differs Date of service: 02/13/20 Time of Service: 09:18 Care Management Progress Note S/O:Vikram is intubated and in the ICU he is currently being treated for alcohol withdrawal. CM contacted his spouse Nena over the phone she states they have been over the last 4.5 years however she is his support and she cares for him several times a week. She states his apartment at [facility] is no longer liveable and that he was not eating, bathing or caring for his home prior to admission. She states Vikram did not want to be resuscitated and that she believe he completed a COLST form. This is not on file and 's office does not have it. She states she is okay to have him intubated while he is being treating for acute withdrawal however she feels strongly he would not want prolonged treatment in this manner. Disposition to be determined, CM will michael nue to assess for discharge needs. A:Vikram is a 69 year male admitted with alcohol withdrawal and possible aspiration pneumonia. P:Vikram remains in the ICU discharge plan to be determine. Anticipate he will need placement in intermediate accountant care setting. CM to continue to assess for discharge disposition.
[2020-02-13] MEDS: MULTIVITAMIN 10 ML, THIAMINE 100 MG, FOLIC ACID 1 MG in DEXTROSE 5%-0.45% SALINE 1,000 ML 167 ML IV (10:06)
--- NOTE | 2020-02-13 10:36 | W.PM.PROGNOT ---
Date of Service Date of service: 02/13/20 Time of Service: 10:36 Assessment and Plan Assessment and plan (1) Alcohol withdrawal delirium, acute, hyperactive: Status: Acute Assessment and plan: Required intubation for uncontrolled DTs overnight. Continue sedation with propofol. Daily sedation vacations. Get an OG T in - obtain nutrition c/s for tube feeding recommendations. Continue banana bag, monitoring/repleting lytes. Daily ABGs/CXR. (2) Atrial fibrillation with rapid ventricular response: Status: Resolved Assessment and plan: In setting of acute withdrawal; Rates do peak when w/d uncontrolled. In NSR at this time. Continue cardiac monitoring. Echo without obvious intracardiac thrombi or systolic dysfunction. Has mild pulmonary hypertension. Not a candidate for anticoagulation for multiple reasons, including 2 brain bleeds. (3) Transaminitis: Status: Acute Assessment and plan: US liver with hepatic steatosis. Continue to trend LFTs. They are worse today (4) Hypomagnesemia: Status: Acute Assessment and plan: Replace and monitor (5) Hypokalemia: Status: Acute Assessment and plan: Replete and monitor (6) Dehydration: Status: Acute Assessment and plan: Continue IVF/daily banana bags. Monitor Cr, I/O, daily weights (7) Thrombocytopenia: Status: Chronic Assessment and plan: Due to EtOH abuse. Unfortunately, spleen was not imaged on the ultrasound of the abdomen yesterday. Avoid chemical DVT ppx. (8) Aspiration pneumonia: Status: Acute Assessment and plan: Continue clindamycin (9) DVT prophylaxis: Status: Acute Assessment and plan: TEDs/SCDs Chemical DVT ppx is contraindicated in setting of thrombocytopenia, h/o 2 brain bleeds (10) Discharge planning issues: Status: Acute Assessment and plan: Full code. Total Critical Care Time 45 minutes. Palliative care consulted to discuss goals of care Subjective Subjective Interval history since last seen: Mr Lenz was intubated at about 2:30 am and has remained intubated/sedated with propofol since. Briefly required pressors, but weaned after less than 15 minutes. MAPs are in the 70's. Unable to answer questions as he is intubated/sedated Exam Narrative Exam Narrative: General: Middle-aged male, intubated, sedated, not arousable to verbal or painful stimuli HEENT: L periorbital hematoma, abrasion on nose, eyes closed, dry MM; R IJ CVL Cardiovascular: RRR, no m/r/g Lungs: Ventilator breath sounds - diminished B Gastrointestinal: soft, nontender, nondistended Extremities: no e/c/c BLE's; BUE soft restraints. Objective Objective Clinical Data: Abnormal lab results 02/13/20 02/13/20 02/13/20 Range/Units 03:15 06:08 06:08 WBC 3.25 L (4.4-10.8) k/cumm RBC 3.03 L (4.50-6.00) m/cumm Hgb 10.3 L (13.5-17.5) g/dL Hct 31.6 L (40.0-50.0) % MCV 104.3 H (80-95) fL MCH 34.0 H (27.0-33.0) pg Plt Count 86 L (130-400) x1000/uL MPV 11.1 H (8.0-11.0) fL Absolute Lymphocytes 0.99 L (1.2-3.4) k/cumm ABG pH 7.30 L (7.35-7.45) ABG pO2 65 L (83-108) mmHg ABG HCO3 (22-28) mmol/L ABG Total CO2 20 L (22-29) mmol/L ABG O2 Saturation 91 L (94-98) % ABG Base Excess -4.8 L (-3-3) mmol/L Potassium 3.2 L (3.5-5.1) mmol/L Chloride 110 H (98-107) mmol/L BUN 5 L (7-18) mg/dL Glucose 107 H (74-106) mg/dL Calcium 7.4 L (8.5-10.1) mg/dL Magnesium 1.6 L (1.8-2.4) mg/dL Conjugated Bilirubin 0.34 H (0.00-0.20) mg/dL AST 127 H (15-37) U/L ALT 105 H (16-63) U/L Total Protein 5.5 L (6.4-8.2) g/dL Albumin 2.5 L (3.4-5.0) g/dL 02/13/20 Range/Units 07:53 WBC (4.4-10.8) k/cumm RBC (4.50-6.00) m/cumm Hgb (13.5-17.5) g/dL Hct (40.0-50.0) % MCV (80-95) fL MCH (27.0-33.0) pg Plt Count (130-400) x1000/uL MPV (8.0-11.0) fL Absolute Lymphocytes (1.2-3.4) k/cumm ABG pH 7.33 L (7.35-7.45) ABG pO2 (83-108) mmHg ABG HCO3 21 L (22-28) mmol/L ABG Total CO2 19 L (22-29) mmol/L ABG O2 Saturation (94-98) % ABG Base Excess -5.3 L (-3-3) mmol/L Potassium (3.5-5.1) mmol/L Chloride (98-107) mmol/L BUN (7-18) mg/dL Glucose (74-106) mg/dL Calcium (8.5-10.1) mg/dL Magnesium (1.8-2.4) mg/dL Conjugated Bilirubin (0.00-0.20) mg/dL AST (15-37) U/L ALT (16-63) U/L Total Protein (6.4-8.2) g/dL Albumin (3.4-5.0) g/dL Vital Signs Temperature 36.5 C 02/13/20 08:08 Temperature Source Tympanic 02/13/20 08:08 Pulse 57 L 02/13/20 10:30 Pulse 58 L 02/13/20 10:30 Respiratory Rate 22 02/13/20 10:30 Respiratory Effort 02/13/20 09:17 Respiratory Depth Normal 02/13/20 08:08 Respiratory Pattern Normal 02/13/20 08:08 Blood Pressure 103/62 02/13/20 10:30 Blood Pressure Mean 72 02/13/20 10:30 Blood Pressure Position Sitting 02/13/20 00:00 Pulse Oximetry 82 L 02/13/20 08:53 Respiratory End-tidal CO2 24 02/13/20 10:30 Oxygen Delivery Method Mechanical Ventilator 02/13/20 08:08 Oxygen Flow Rate 0 02/13/20 08:08 Fraction of Inspired Oxygen (FIO2) 40 02/13/20 08:11 Pain Level 0 02/12/20 12:02 Intake & Output 02/12/20 02/12/20 02/13/20 11:59 23:59 11:59 Intake Total 1640.350 / 3624.533 1984.183 / 3624.533 2060.329 / 0.329 Output Total 350 / 1450 1100 / 1450 1250 / 1250 Balance 1290.350 / 2174.533 884.183 / 2174.533 810.329 / 810.329 Intake: IV 1640.350 / 3624.533 1984.183 / 3624.533 2060.329 / 2059.329 Output: Urine 350 / 1450 1100 / 1450 1250 / 1250 Other: Urine Color Light [place] Yellow Yellow Urine Appearance Clear Clear Clear Urine Odor None Comment villafana patent draining clear yelloiw urine Villafana draining clear yellow urine villafana Voiding Methods Indwelling Catheter Laboratory Results WBC 3.25 k/cumm (4.4-10.8) L 02/13/20 06:08 RBC 3.03 m/cumm (4.50-6.00) L 02/13/20 06:08 Hgb 10.3 g/dL (13.5-17.5) L 02/13/20 06:08 Hct 31.6 % (40.0-50.0) L 02/13/20 06:08 MCV 104.3 fL (80-95) H 02/13/20 06:08 MCH 34.0 pg (27.0-33.0) H 02/13/20 06:08 MCHC 32.6 g/dL (32.0-36.0) 02/13/20 06:08 RDW 12.4 % (11.8-14.1) 02/13/20 06:08 Plt Count 86 x1000/uL (130-400) L 02/13/20 06:08 MPV 11.1 fL (8.0-11.0) H 02/13/20 06:08 Immature Gran % 0.3 % 02/13/20 06:08 Neutrophils % 61.5 02/13/20 06:08 Band Neutrophils % Cancelled 02/13/20 03:27 Lymphocytes % 30.5 02/13/20 06:08 Atypical Lymphs % Cancelled 02/13/20 03:27 Monocytes % 6.2 02/13/20 06:08 Eosinophils % 1.2 02/13/20 06:08 Basophils % 0.3 02/13/20 06:08 Metamyelocytes % Cancelled 02/13/20 03:27 Myelocytes % Cancelled 02/13/20 03:27 Promyelocytes % Cancelled 02/13/20 03:27 Absolute Neutrophils 2.00 k/cumm (1.2-6.7) 02/13/20 06:08 Absolute Lymphocytes 0.99 k/cumm (1.2-3.4) L 02/13/20 06:08 Absolute Monocytes 0.20 k/cumm (0.11-0.7) 02/13/20 06:08 Absolute Eosinophils 0.04 k/cumm (0.0-0.7) 02/13/20 06:08 Absolute Basophils 0.01 k/cumm (0.0-0.2) 02/13/20 06:08 Nucleated RBCs Cancelled 02/13/20 03:27 Differential Comment Plt morph reviewed 02/13/20 06:08 Other Cell Type Cancelled 02/13/20 03:27 RBC Morphology Normal 02/13/20 06:08 Polychromasia Cancelled 02/13/20 03:27 Hypochromasia Cancelled 02/13/20 03:27 Poikilocytosis Cancelled 02/13/20 03:27 Basophilic Stippling Cancelled 02/13/20 03:27 Anisocytosis Cancelled 02/13/20 03:27 Microcytosis Cancelled 02/13/20 03:27 Macrocytosis Cancelled 02/13/20 03:27 Spherocytes Cancelled 02/13/20 03:27 Target Cells Cancelled 02/13/20 03:27 Tear Drop Cells Cancelled 02/13/20 03:27 Ovalocytes Cancelled 02/13/20 03:27 Stomatocytes Cancelled 02/13/20 03:27 [place] Bodies Cancelled 02/13/20 03:27 [place] Cells Cancelled 02/13/20 03:27 Acanthocytes (Spur) Cancelled 02/13/20 03:27 Schistocytes Cancelled 02/13/20 03:27 PT 10.2 sec (9.3-11.0) 02/12/20 06:15 INR 1.0 (0.9-1.1) 02/12/20 06:15 ABG Sample Site Left radial 02/13/20 07:53 ABG pH 7.33 (7.35-7.45) L 02/13/20 07:53 ABG pCO2 39 mmHg (34-47) 02/13/20 07:53 ABG pO2 93 mmHg (83-108) 02/13/20 07:53 ABG HCO3 21 mmol/L (22-28) L 02/13/20 07:53 ABG Total CO2 19 mmol/L (22-29) L 02/13/20 07:53 ABG O2 Saturation 98 % (94-98) 02/13/20 07:53 ABG Base Excess -5.3 mmol/L (-3-3) L 02/13/20 07:53 FiO2 45 % 02/13/20 07:53 Sodium 142 mmol/L (136-145) 02/13/20 06:08 Potassium 3.2 mmol/L (3.5-5.1) L 02/13/20 06:08 Chloride 110 mmol/L (98-107) H 02/13/20 06:08 Carbon Dioxide 22.8 mmol/L (21.0-32.0) 02/13/20 06:08 Anion Gap 9.2 mmol/L (3-11) 02/13/20 06:08 BUN 5 mg/dL (7-18) L 02/13/20 06:08 Creatinine 0.85 mg/dL (0.70-1.30) 02/13/20 06:08 Estimated GFR/1.73 m2 >= 60.00 (mL/min/1.73m2) 02/13/20 06:08 Glucose 107 mg/dL (74-106) H 02/13/20 06:08 Lactate 1.0 mmol/L (0.6-1.4) 02/13/20 06:08 Calcium 7.4 mg/dL (8.5-10.1) L 02/13/20 06:08 Magnesium 1.6 mg/dL (1.8-2.4) L 02/13/20 06:08 Total Bilirubin 0.8 mg/dL (0.2-1.0) 02/13/20 06:08 Conjugated Bilirubin 0.34 mg/dL (0.00-0.20) H 02/13/20 06:08 AST 127 U/L (15-37) H 02/13/20 06:08 ALT 105 U/L (16-63) H 02/13/20 06:08 Alkaline Phosphatase 53 U/L (46-116) 02/13/20 06:08 Troponin I < 0.05 ng/Ml (<0.06) 02/11/20 21:30 Total Protein 5.5 g/dL (6.4-8.2) L 02/13/20 06:08 Albumin 2.5 g/dL (3.4-5.0) L 02/13/20 06:08 Vitamin B12 959 pg/mL (193-986) 02/12/20 06:15 Folate 18.1 ng/mL (8.6-20.0) 02/12/20 06:15 Procalcitonin 0.1 ng/mL 02/13/20 06:08 TSH 2.42 uIU/mL (0.36-3.74) 02/11/20 13:00 Urine Color Yellow (Yellow) 02/11/20 19:25 Urine Clarity Clear (Clear) 02/11/20 19:25 Urine pH 6.0 (5-8) 02/11/20 19:25 Ur Specific [place] 1.025 (1.005-1.025) 02/11/20 19:25 Urine Protein Negative mg/dL (Negative) 02/11/20 19:25 Urine Ketones 15 mg/dL (Negative) H 02/11/20 19:25 Urine Blood Trace-intact (Negative) H 02/11/20 19:25 Urine Nitrite Negative (Negative) 02/11/20 19:25 Urine Bilirubin Negative (Negative) 02/11/20 19:25 Urine Urobilinogen 1.0 EU/dL (Up TO 0.2) H 02/11/20 19:25 Ur Leukocyte Esterase Negative (Negative) 02/11/20 19:25 Urine RBC 3-5 HPF (0-2) H 02/11/20 19:25 Urine WBC 0-2 HPF (0-5) 02/11/20 19:25 Ur Epithelial Cells Rare HPF (Negative) 02/11/20 19:25 Urine Crystals Negative HPF (Negative) 02/11/20 19:25 Urine Bacteria Few HPF (Negative) 02/11/20 19:25 Urine Casts Negative LPF (Negative) 02/11/20 19:25 Urine Mucus Negative (Negative) 02/11/20 19:25 Urine Other Negative (Negative) 02/11/20 19:25 Ur Culture Indicated? No 02/11/20 19:25 Urine Glucose Negative mg/dL (Negative) 02/11/20 19:25 Ethyl Alcohol < 3.0 mg/dL (<3) 02/11/20 13:00 Patient ABO/Rh A Positive 02/13/20 06:08 Antibody Screen Negative 02/13/20 06:08 CXR: No tenisha CHF, question minimal left lower lobe infiltrate. Appropriate follow-up studies suggested
[2020-02-13] MEDS: PROPOFOL 1,000 MG/100 ML BTL 5.301 MG IVPB (12:18)
--- NOTE | 2020-02-13 13:37 | CHAPLAIN ---
I visited Micha and brought him a prayer shawl. He is currently intubated, as of last night. His was in to visit at that time. I haven't seen her today. According to Care Management notes, they have not lived together for over 4 years, but she is a support person for him.
[2020-02-13 15:45] LABS: BE -4.6 mmol/L (-3-3); HCO3 21 mmol/L (22-28); pCO2 34 mmHg (34-47); pH 7.39 (7.35-7.45); pO2 88 mmHg (83-108); sO2 97 % (94-98); tCO2 19 mmol/L (22-29)
[2020-02-13 15:49] LABS: FIO2 35 %; Site Left Radial
--- NOTE | 2020-02-13 15:49 | NUR.NOTE ---
Nursing Note: mis-entered dose of norepinephrine this am. dosage started at 8mcg/kg/min then decreased to 4 mcg/kg/min (placing both doses under ml/hr). Then stopped due to increase in BP. Dr. Chaves aware. ALC
--- NOTE | 2020-02-13 16:33 | W.NUTCONSULT ---
Date of service: 02/13/20 Time of Service: 16:34 Nutritional Consult ASSESSMENT: Patient is 69 y/o male admitted to ICU for acute ETOH withdrawl, head injury p/s fall, Dehydration, Aspiration PNA, hyopkalemia, Hypo Mg. Currently NPO w/ Nutr consult for TF recommended by . On KCL, B1, and MVI to cover micro-nutrient needs. Noted: Low H+H, BUN, Ca, Mg, Alb, K+, and Total pro. BG slightly elevated. LFT's (H). Noted: On propofol. Patient is poor historian r/t AMS and facial injuries. BMI is 19.2 with 81% IBW indicating malnutrition w/ increased Pro needs. Patient requires [id number] k/fe/day, 82 g/pro/day (@ 1.5g/kg) and 2065 ml/H2O/ day. Rec: Isosourse 1.5 Via NG tube @ 30ml/hr then increase by 10 ml/ to goal of 50 ml/hr X 24/hrs. Flush 250 ml q 6. TV= 1200ml/day ( 4.8 cans isosource 1.5). Monitor intake as debbie. Monitor for residuals. NUTRITIONAL DIAGNOSIS: At risk for nutritional decline r/t Malnutrition AEB: 81% IBW, BMI 19.2, Abn labs, NPO status, head/ facial injury, Hx ETOH abuse INTERVENTION: Rec: Iso source 1.5 @ 30ml/ hr to goal of 50ml/[id number]. Flush 250ml H2O q6. Total volume 1200 ml/day ( 4.8 cans isosource 1.5/day). Provides: 1800 k/fe/day, 82g pro/day/, 1917 ml H2O/ ( including flush). MONITORING AND EVALUATION: Monitor for s/s diarrhea, vomiting, aspiration, residuals>100ml. Time Spent in Nutritional Counseling and Treatment: 0 minutes face to face
[2020-02-13] MEDS: PROPOFOL 1,000 MG/100 ML BTL 24.738 MG IVPB (20:22)
[2020-02-14] VITALS (110 sets, daily range): BP systolic 70–149; BP diastolic 43–97; PULSE 68–99; RESP 17–34; TEMP 36.5–37.6; O2SAT 93–100
[2020-02-14] MEDS: PROPOFOL 1,000 MG/100 ML BTL 17.67 MG IVPB (00:43)
[2020-02-14] MEDS: CLINDAMYCIN 900 MG/50 ML BAG 50 MG IVPB (03:39)
[2020-02-14] MEDS: PROPOFOL 1,000 MG/100 ML BTL 19.437 MG IVPB (05:47)
[2020-02-14] MEDS: Normal Saline Flush 10 ML SYR IVP ×6 (06:24→19:06)
[2020-02-14] MEDS: POTASSIUM CHLORIDE/0.9% NACL 1,000 ML 125 MEQ IV ×2 (06:38→19:57)
[2020-02-14 07:46] LABS: Abs Immature Grans 0.01 k/cumm (0.0-0.09); Absolute Basophil Count 0.01 k/cumm (0.0-0.2); Absolute Eosinophil Count 0.04 k/cumm (0.0-0.7); Absolute Lymphocyte Count 0.85 k/cumm (1.2-3.4); Absolute Monocyte Count 0.44 k/cumm (0.11-0.7); Absolute Neutrophil Count 4.14 k/cumm (1.2-6.7); Basophils % 0.2; Eosinophils % 0.7; HCT 33.8 % (40.0-50.0); HGB 11.1 g/dL (13.5-17.5); Immature Grans % 0.2 %; Lymphocytes % 15.5; Mean Corp. HGB Concentration 32.8 g/dL (32.0-36.0); Mean Corpuscular Hemoglobin 34.2 pg (27.0-33.0); Mean Platelet Volume 11.8 fL (8.0-11.0); Neutrophils % 75.4; RBC 3.25 m/cumm (4.50-6.00); RBC Distribution Width 12.6 % (11.8-14.1); White Blood Cell Count 5.49 k/cumm (4.4-10.8)
[2020-02-14 07:49] LABS: Anion Gap 8.7 mmol/L (3-11); BUN 4 mg/dL (7-18); CO2 22.3 mmol/L (21.0-32.0); CREATININE 0.72 mg/dL (0.70-1.30); Calcium 7.6 mg/dL (8.5-10.1); Chloride 107 mmol/L (98-107); Glucose 97 mg/dL (74-106); Magnesium 1.5 mg/dL (1.8-2.4); Potassium 3.9 mmol/L (3.5-5.1); Sodium 138 mmol/L (136-145)
[2020-02-14 08:14] LABS: BE -4.9 mmol/L (-3-3); HCO3 20 mmol/L (22-28); pCO2 32 mmHg (34-47); pO2 72 mmHg (83-108); sO2 96 % (94-98); tCO2 18 mmol/L (22-29)
[2020-02-14 08:16] LABS: FIO2 35 %; Site Right Radial
--- NOTE | 2020-02-14 08:22 | W.NUTCONSULT ---
Date of service: 02/14/20 Time of Service: 08:23 Nutritional Consult ASSESSMENT: Full assessment to follow. Tube Feeding recommendations as follows: Isosource 1.5: 30cc/hour, increase 10 cc/hour to goal rate of 50cc/hour x 24 hours (Total Volume 1200 ml), flush 250 cc q 6 hours. Provides total of 1800 kcal, 72 g protein, 1816 ml free water. Time Spent in Nutritional Counseling and Treatment: 0 time spent face to face
[2020-02-14 08:48] LABS: Platelet Count 82 x1000/uL (130-400)
[2020-02-14] MEDS: MAGNESIUM SULFATE 4 GM/100 ML BAG IVPB (09:22)
[2020-02-14] MEDS: Pantoprazole 40 MG VIAL IVP (09:23)
--- NOTE | 2020-02-14 09:36 | DI.RAD_ITS ---
EXAM: XR PORTABLE CHEST AP CLINICAL HISTORY: daily cxr - intubated patient TECHNIQUE: COMPARISON: XR PORTABLE CHEST AP from 02/13/2020 FINDINGS: Portable AP chest obtained at 0925 hours. Examination is compared with film from yesterday morning, note is again made of ET tube and IJ central line in position. Right lung remains clear. Note is ag ain made of apparent left lower lobe consolidation, slightly more prominent than yesterday's examinat ion. Slight volume loss noted the left. IMPRESSION: Slight interval worsening of apparent left lower lobe consolidation.
--- NOTE | 2020-02-14 10:37 | PGE_ITS ---
Date of Service Date of service: 02/14/20 Time of Service: 10:37 Assessment and Plan Assessment and plan (1) Alcohol withdrawal delirium, acute, hyperactive: Status: Acute Assessment and plan: Requiring sedation to the degree of requiring ventilation. Worse today. After sedation vacation, will likely add midazolam to propofol as overbreathing the vent. Obtaining KUB to confirm location of the tip of the OG tube prior to starting feeding. Daily sedation vacations. Continue banana bag, monitoring/repleting lytes. Daily ABGs/CXR. (2) Atrial fibrillation with rapid ventricular response: Status: Resolved Assessment and plan: In setting of acute withdrawal; Rates do peak when w/d uncontrolled. In NSR currently. Continue cardiac monitoring. Echo without obvious intracardiac thrombi or systolic dysfunction. Has mild pulmonary hypertension. Not a candidate for anticoagulation for multiple reasons, including 2 brain bleeds. (3) Transaminitis: Status: Acute Assessment and plan: US liver with hepatic steatosis. Continue to trend LFTs. (4) Hypomagnesemia: Status: Acute Assessment and plan: Replace and monitor (5) Hypokalemia: Status: Resolved Assessment and plan: Recheck in am (6) Dehydration: Status: Acute Assessment and plan: Continue IVF/daily banana bags. Monitor Cr, I/O, daily weights (7) Thrombocytopenia: Status: Chronic Assessment and plan: Due to EtOH abuse. Unfortunately, spleen was not imaged on the ultrasound of the abdomen. Avoid chemical DVT ppx. (8) Aspiration pneumonia: Status: Acute Assessment and plan: Sputum C&S with GPC's. Change abx to vanco/ceftriaxone/flagyl. (9) DVT prophylaxis: Status: Acute Assessment and plan: TEDs/SCDs Chemical DVT ppx is contraindicated in setting of thrombocytopenia, h/o 2 brain bleeds (10) Discharge planning issues: Status: Acute Assessment and plan: Full code, but is thinking about changing code status and is awaiting a palliative care consult. Total Critical Care Time 45 minutes. Subjective Subjective Interval history since last seen: Remains intubated, sedated - though undergoing sedation vacation right now. No pressors since 5:30 this am. No acute events. No recurrences of Afib. is interested in filling out COLST form with palliative care. Exam Narrative Exam Narrative: General: Middle-aged male, intubated, sedated, not arousable to verbal or painful stimuli - sedation is being weaned. HEENT: L periorbital hematoma, abrasion on nose, eyes closed, dry MM; R IJ CVL Cardiovascular: RRR, no m/r/g Lungs: Ventilator breath sounds - diminished B, but present in all lung ca Gastrointestinal: soft, nontender, nondistended Extremities: no e/c/c BLE's; BUE soft restraints. Objective Objective Clinical Data: Abnormal lab results 02/13/20 02/14/20 02/14/20 Range/Units 15:43 06:26 06:26 RBC 3.25 L (4.50-6.00) m/cumm Hgb 11.1 L (13.5-17.5) g/dL Hct 33.8 L (40.0-50.0) % MCV 104.0 H (80-95) fL MCH 34.2 H (27.0-33.0) pg Plt Count 82 L (130-400) x1000/uL MPV 11.8 H (8.0-11.0) fL Absolute Lymphocytes 0.85 L (1.2-3.4) k/cumm ABG pCO2 (34-47) mmHg ABG pO2 (83-108) mmHg ABG HCO3 21 L (22-28) mmol/L ABG Total CO2 19 L (22-29) mmol/L ABG Base Excess -4.6 L (-3-3) mmol/L BUN 4 L (7-18) mg/dL Calcium 7.6 L (8.5-10.1) mg/dL Magnesium 1.5 L (1.8-2.4) mg/dL 02/14/20 Range/Units 08:07 RBC (4.50-6.00) m/cumm Hgb (13.5-17.5) g/dL Hct (40.0-50.0) % MCV (80-95) fL MCH (27.0-33.0) pg Plt Count (130-400) x1000/uL MPV (8.0-11.0) fL Absolute Lymphocytes (1.2-3.4) k/cumm ABG pCO2 32 L (34-47) mmHg ABG pO2 72 L (83-108) mmHg ABG HCO3 20 L (22-28) mmol/L ABG Total CO2 18 L (22-29) mmol/L ABG Base Excess -4.9 L (-3-3) mmol/L BUN (7-18) mg/dL Calcium (8.5-10.1) mg/dL Magnesium (1.8-2.4) mg/dL Vital Signs Temperature 36.5 C 02/14/20 08:00 Temperature Source Tympanic 02/14/20 08:00 Pulse 83 02/14/20 08:00 Pulse 82 02/14/20 08:00 Respiratory Rate 23 02/14/20 08:00 Respiratory Effort 02/14/20 08:00 Respiratory Depth Normal 02/14/20 03:15 Respiratory Pattern Normal 02/14/20 03:15 Blood Pressure 125/63 02/14/20 08:00 Blood Pressure Mean 80 02/14/20 08:00 Blood Pressure Position Sitting 02/14/20 03:15 Pulse Oximetry 96 02/14/20 08:00 Respiratory End-tidal CO2 25 02/14/20 08:00 Oxygen Delivery Method Mechanical Ventilator 02/14/20 08:00 Oxygen Flow Rate 0 02/14/20 08:00 Fraction of Inspired Oxygen (FIO2) 25 02/14/20 07:57 Pain Level 0 02/13/20 12:34 Intake & Output 02/13/20 02/13/20 02/14/20 11:59 23:59 11:59 Intake Total 2851.996 / 4693.503 1841.507 / 4693.503 1359.787 / 1359.787 Output Total 1375 / 1810 435 / 1810 550 / 550 Balance 1476.996 / 2883.503 1406.507 / 2883.503 809.787 / 809.787 Intake: IV 2851.996 / 4693.503 1841.507 / 4693.503 1359.787 / 1359.787 Oral 0 / 0 Output: Gastric Drainage 0 / 0 0 / 0 OG tube 0 / 0 0 / 0 Urine 1375 / 1810 435 / 1810 550 / 550 Other: Urine Color Yellow Light [place] Yellow Urine Appearance Clear Clear Clear Urine Odor None Comment villafana Villafana in place villafana Voiding Methods Indwelling Catheter Laboratory Results WBC 5.49 k/cumm (4.4-10.8) D 02/14/20 06:26 RBC 3.25 m/cumm (4.50-6.00) L 02/14/20 06:26 Hgb 11.1 g/dL (13.5-17.5) L 02/14/20 06:26 Hct 33.8 % (40.0-50.0) L 02/14/20 06:26 MCV 104.0 fL (80-95) H 02/14/20 06:26 MCH 34.2 pg (27.0-33.0) H 02/14/20 06:26 MCHC 32.8 g/dL (32.0-36.0) 02/14/20 06:26 RDW 12.6 % (11.8-14.1) 02/14/20 06:26 Plt Count 82 x1000/uL (130-400) L 02/14/20 06:26 MPV 11.8 fL (8.0-11.0) H 02/14/20 06:26 Immature Gran % 0.2 % 02/14/20 06:26 Neutrophils % 75.4 02/14/20 06:26 Band Neutrophils % Cancelled 02/13/20 03:27 Lymphocytes % 15.5 02/14/20 06:26 Atypical Lymphs % Cancelled 02/13/20 03:27 Monocytes % 8.0 02/14/20 06:26 Eosinophils % 0.7 02/14/20 06:26 Basophils % 0.2 02/14/20 06:26 Metamyelocytes % Cancelled 02/13/20 03:27 Myelocytes % Cancelled 02/13/20 03:27 Promyelocytes % Cancelled 02/13/20 03:27 Absolute Neutrophils 4.14 k/cumm (1.2-6.7) 02/14/20 06:26 Absolute Lymphocytes 0.85 k/cumm (1.2-3.4) L 02/14/20 06:26 Absolute Monocytes 0.44 k/cumm (0.11-0.7) 02/14/20 06:26 Absolute Eosinophils 0.04 k/cumm (0.0-0.7) 02/14/20 06:26 Absolute Basophils 0.01 k/cumm (0.0-0.2) 02/14/20 06:26 Nucleated RBCs Cancelled 02/13/20 03:27 Differential Comment Plt morph reviewed 02/13/20 06:08 Other Cell Type Cancelled 02/13/20 03:27 RBC Morphology Normal 02/13/20 06:08 Polychromasia Cancelled 02/13/20 03:27 Hypochromasia Cancelled 02/13/20 03:27 Poikilocytosis Cancelled 02/13/20 03:27 Basophilic Stippling Cancelled 02/13/20 03:27 Anisocytosis Cancelled 02/13/20 03:27 Microcytosis Cancelled 02/13/20 03:27 Macrocytosis Cancelled 02/13/20 03:27 Spherocytes Cancelled 02/13/20 03:27 Target Cells Cancelled 02/13/20 03:27 Tear Drop Cells Cancelled 02/13/20 03:27 Ovalocytes Cancelled 02/13/20 03:27 Stomatocytes Cancelled 02/13/20 03:27 [place] Bodies Cancelled 02/13/20 03:27 [place] Cells Cancelled 02/13/20 03:27 Acanthocytes (Spur) Cancelled 02/13/20 03:27 Schistocytes Cancelled 02/13/20 03:27 PT 10.2 sec (9.3-11.0) 02/12/20 06:15 INR 1.0 (0.9-1.1) 02/12/20 06:15 ABG Sample Site Right radial 02/14/20 08:07 ABG pH 7.40 (7.35-7.45) 02/14/20 08:07 ABG pCO2 32 mmHg (34-47) L 02/14/20 08:07 ABG pO2 72 mmHg (83-108) L 02/14/20 08:07 ABG HCO3 20 mmol/L (22-28) L 02/14/20 08:07 ABG Total CO2 18 mmol/L (22-29) L 02/14/20 08:07 ABG O2 Saturation 96 % (94-98) 02/14/20 08:07 ABG Base Excess -4.9 mmol/L (-3-3) L 02/14/20 08:07 Oxygen Liter Flow Cancelled 02/13/20 15:11 FiO2 35 % 02/14/20 08:07 Sodium 138 mmol/L (136-145) 02/14/20 06:26 Potassium 3.9 mmol/L (3.5-5.1) D 02/14/20 06:26 Chloride 107 mmol/L (98-107) 02/14/20 06:26 Carbon Dioxide 22.3 mmol/L (21.0-32.0) 02/14/20 06:26 Anion Gap 8.7 mmol/L (3-11) 02/14/20 06:26 BUN 4 mg/dL (7-18) L 02/14/20 06:26 Creatinine 0.72 mg/dL (0.70-1.30) 02/14/20 06:26 Estimated GFR/1.73 m2 >= 60.00 (mL/min/1.73m2) 02/14/20 06:26 Glucose 97 mg/dL (74-106) 02/14/20 06:26 Lactate 1.0 mmol/L (0.6-1.4) 02/13/20 06:08 Calcium 7.6 mg/dL (8.5-10.1) L 02/14/20 06:26 Magnesium 1.5 mg/dL (1.8-2.4) L 02/14/20 06:26 Total Bilirubin 0.8 mg/dL (0.2-1.0) 02/13/20 06:08 Conjugated Bilirubin 0.34 mg/dL (0.00-0.20) H 02/13/20 06:08 AST 127 U/L (15-37) H 02/13/20 06:08 ALT 105 U/L (16-63) H 02/13/20 06:08 Alkaline Phosphatase 53 U/L (46-116) 02/13/20 06:08 Troponin I < 0.05 ng/Ml (<0.06) 02/11/20 21:30 Total Protein 5.5 g/dL (6.4-8.2) L 02/13/20 06:08 Albumin 2.5 g/dL (3.4-5.0) L 02/13/20 06:08 Vitamin B12 959 pg/mL (193-986) 02/12/20 06:15 Folate 18.1 ng/mL (8.6-20.0) 02/12/20 06:15 Procalcitonin 0.1 ng/mL 02/13/20 06:08 TSH 2.42 uIU/mL (0.36-3.74) 02/11/20 13:00 Urine Color Yellow (Yellow) 02/11/20 19: Urine Clarity Clear (Clear) 02/11/20 19:25 Urine pH 6.0 (5-8) 02/11/20 19:25 Ur Specific Osborne 1.025 (1.005-1.025) 02/11/20 19:25 Urine Protein Negative mg/dL (Negative) 02/11/20 19:25 Urine Ketones 15 mg/dL (Negative) H 02/11/20 19:25 Urine Blood Trace-intact (Negative) H 02/11/20 19: Urine Nitrite Negative (Negative) 02/11/20 19: Urine Bilirubin Negative (Negative) 02/11/20 19: Urine Urobilinogen 1.0 EU/dL (Up TO 0.2) H 02/11/20 19:25 Ur Leukocyte Esterase Negative (Negative) 02/11/20 19:25 Urine RBC 3-5 HPF (0-2) H 02/11/20 19:25 Urine WBC 0-2 HPF (0-5) 02/11/20 19:25 Ur Epithelial Cells Rare HPF (Negative) 02/11/20:25 Urine Crystals Negative HPF (Negative) 02/11/20 19:25 Urine Bacteria Few HPF (Negative) 02/11/20 19:25 Urine Casts Negative LPF (Negative) 02/11/20 19:25 Urine Mucus Negative (Negative) 02/11/20 19: Urine Other Negative (Negative) 02/11/20 19:25 Ur Culture Indicated? No 02/11/20: Urine Glucose Negative mg/dL (Negative) 02/11/20: Ethyl Alcohol < 3.0 mg/dL (<3) 02/11/20 13:00 Patient ABO/Rh A Positive 02/13/20 06:08 Antibody Screen Negative 02/13/20 06:08 CXR: Portable AP chest obtained at 0925 hours. Examination is compared with film from yesterday morning, note is again made of ET tube and IJ central line in position. Right lung remains clear. Note is again made of apparent left lower lobe consolidation, slightly more prominent than yesterday's examination. Slight volume loss noted the left.
--- NOTE | 2020-02-14 10:50 | DI.RAD_ITS ---
EXAM: XR ABDOMEN FLAT PLATE CLINICAL HISTORY: confirm position of OG tube TECHNIQUE: COMPARISON: XR PORTABLE CHEST AP POST LINE from 02/13/2020 FINDINGS: Single view of the abdomen was obtained. Bowel gas pattern is within normal limits. There is an NG tube position overlying the gastric fundus. Note is again made of streaky intrapulmonary consolidati on in the left lung base retrocardiac. IMPRESSION:
--- NOTE | 2020-02-14 11:10 | W.NUTRFU ---
Date of service: 02/14/20 Time of Service: 11:11 Nutritional Follow up NOTE: ASSESSMENT: Patient is 69 y/o male admitted to ICU for acute ETOH withdrawl, head injury p/s fall, Dehydration, Aspiration PNA, hyopkalemia, Hypo Mg. Currently NPO x day 4. Nutr consult for TF recommended by . On KCL, B1, and MVI to cover micro-nutrient needs. Noted: Low H+H, BUN, Ca, Mg, Alb, K+, and Total pro. BG slightly elevated. LFT's (H). Noted: On propofol. Patient is poor historian r/t AMS and facial injuries. BMI is 19.2 with 81% IBW indicating malnutrition w/ increased Pro needs. Patient requires 7101-1742 k/fe/day, 82 g/pro/day (@ 1.5g/kg) and 1770 ml/H2O/ day. Rec: Isosourse 1.5 Via NG tube @ 30ml/hr then increase by 10 ml/ to goal of 50 ml/hr X 24/hrs. Flush 250 ml q 6. TV= 1200ml/day ( 4.8 cans isosource 1.5). Monitor intake as debbie. Monitor for residuals. NUTRITIONAL DIAGNOSIS: At risk for nutritional decline r/t Malnutrition AEB: 81% IBW, BMI 19.2, Abn labs, NPO status, head/ facial injury, Hx ETOH abuse INTERVENTION: Rec: Iso source 1.5 @ 30ml/ hr to goal of 50ml/[id number]. Flush 250ml H2O q6. Total volume 1200 ml/day ( 4.8 cans isosource 1.5/day). Provides: 1800 k/fe/day, 82g pro/day/, 1917 ml H2O/ ( including flush). MONITORING AND EVALUATION: Monitor for s/s diarrhea, vomiting, aspiration, residuals>100ml. Time Spent in Nutritional Counseling and Treatment: 0 minutes face to face Time Spent in Nutritional Counseling and Treatment: 0 time spent face to face
--- NOTE | 2020-02-14 12:36 | CMPROGNOTE_ITS ---
- If Service Date Differs Date of service: 02/14/20 Time of Service: 12:36 Care Management Progress Note S/O: Vikram continues to meet ICU level of care. He remains on a ventilator, classroom monitor, and OG tube. CM will continue to follow. A: Vikram is a 69 year old male admitted for alcohol withdrawal and possible aspiration pneumonia. P: Discharge plan remains to be determined. Anticipate he will need placement in [facility] care setting when ready for discharge from hospital. CM to continue to follow and to support discharge needs.
[2020-02-14] MEDS: MULTIVITAMIN 10 ML, THIAMINE 100 MG, FOLIC ACID 1 MG in DEXTROSE 5%-0.45% SALINE 1,000 ML 167 ML IV (12:43)
[2020-02-14] MEDS: cefTRIAXone 1 GM/50 ML BAG IVPB (13:10)
[2020-02-14] MEDS: metroNIDAZOLE 500 MG/100 ML BAG 100 MG IVPB ×2 (13:52→19:05)
[2020-02-14] MEDS: PROPOFOL 1,000 MG/100 ML BTL 7.1 MG IVPB (15:49)
[2020-02-14] MEDS: Normal Saline 500 ML IV (15:50)
[2020-02-14] MEDS: MIDAZOLAM 50 MG in Normal Saline 90 ML IV (17:54)
[2020-02-14] MEDS: PROPOFOL 1,000 MG/100 ML BTL 14.136 MG IVPB (22:10)
[2020-02-15] VITALS (60 sets, daily range): BP systolic 85–165; BP diastolic 46–115; PULSE 61–97; RESP 16–25; TEMP 36.5–37.2; O2SAT 92–100
[2020-02-15] MEDS: metroNIDAZOLE 500 MG/100 ML BAG 100 MG IVPB ×2 (00:33→06:41)
[2020-02-15] MEDS: PROPOFOL 1,000 MG/100 ML BTL 14.136 MG IVPB ×2 (05:06→11:46)
[2020-02-15] MEDS: POTASSIUM CHLORIDE/0.9% NACL 1,000 ML 125 MEQ IV (05:22)
--- NOTE | 2020-02-15 06:38 | DI.VRAD_ITS ---
PROCEDURE INFORMATION: Exam: XR Chest, 1 View Exam date and time: 02/15/2020 6:07 AM Age: 69 years old Clinical indication: Condition or disease; Other: Daily cxr, intubated PT TECHNIQUE: Imaging protocol: XR of the chest Views: 1 view. COMPARISON: CR XR PORTABLE CHEST AP 02/14/2020 9:26 AM FINDINGS: Tubes, catheters and devices: Nasogastric tube is seen with the tip in the stomach. Right jugular central venous catheter is seen in place with the tip in the superior vena cava. Endotracheal tube is seen in place with the tip approximately 5.5 cm above the navi. Lungs: There is increased soft tissue density superimposed over the medial aspect of the left lower lobe suggesting alveolar consolidation and/or atelectatic change slightly improved when compared to the previous study. Pleural space: Unremarkable. No pleural effusion. No pneumothorax. Heart/Mediastinum: Unremarkable. No cardiomegaly. Bones/joints: Old healed left posterior 5th and 6th rib fracture deformities are demonstrated. The patient is status post total right shoulder replacement surgery. Other findings: Arteries: Arteriosclerotic changes are identified. IMPRESSION: 1. Shoulder replacement surgery. 2. Soft tissue opacity at the left base medially suggesting alveolar consolidation and/or atelectatic change. Dictated and Authenticated by: Bartolo Guerrero MD. Ordering:RICHA Merchant MD
[2020-02-15] MEDS: MIDAZOLAM 50 MG in Normal Saline 90 ML 8 MG IV (06:39)
[2020-02-15] MEDS: Normal Saline Flush 10 ML SYR IVP ×3 (06:53→11:45)
[2020-02-15 07:09] LABS: Abs Immature Grans 0.02 k/cumm (0.0-0.09); Absolute Basophil Count 0.01 k/cumm (0.0-0.2); Absolute Eosinophil Count 0.05 k/cumm (0.0-0.7); Absolute Lymphocyte Count 0.81 k/cumm (1.2-3.4); Absolute Monocyte Count 0.66 k/cumm (0.11-0.7); Absolute Neutrophil Count 3.73 k/cumm (1.2-6.7); Basophils % 0.2; Eosinophils % 0.9; HCT 30.8 % (40.0-50.0); HGB 10.3 g/dL (13.5-17.5); Immature Grans % 0.4 %; Lymphocytes % 15.3; Mean Corp. HGB Concentration 33.4 g/dL (32.0-36.0); Mean Corpuscular Hemoglobin 34.3 pg (27.0-33.0); Mean Corpuscular Volume 102.7 fL (80-95); Mean Platelet Volume 11.2 fL (8.0-11.0); Monocytes % 12.5; Neutrophils % 70.7; RBC Distribution Width 12.4 % (11.8-14.1)
[2020-02-15 07:20] LABS: Anion Gap 9.3 mmol/L (3-11); BUN 6 mg/dL (7-18); CO2 21.7 mmol/L (21.0-32.0); CREATININE 0.73 mg/dL (0.70-1.30); Calcium 7.8 mg/dL (8.5-10.1); Chloride 105 mmol/L (98-107); Glucose 94 mg/dL (74-106); Magnesium 1.7 mg/dL (1.8-2.4); Potassium 3.8 mmol/L (3.5-5.1); Sodium 136 mmol/L (136-145)
[2020-02-15 07:55] LABS: BE -4.3 mmol/L (-3-3); HCO3 20 mmol/L (22-28); pCO2 31 mmHg (34-47); pH 7.43 (7.35-7.45); pO2 91 mmHg (83-108); sO2 98 % (94-98); tCO2 19 mmol/L (22-29)
[2020-02-15 07:57] LABS: FIO2 40 %; Site Right Radial
--- NOTE | 2020-02-15 08:30 | DI.RAD_ITS ---
EXAM: XR PORTABLE CHEST AP CLINICAL HISTORY: daily cxr on intubated patient TECHNIQUE: COMPARISON: XR PORTABLE CHEST AP from 02/14/2020 FINDINGS: Portable AP chest obtained at 6 a.m.. Cardiac size within normal limits. ET tube, NG tube, and IJ central venous line in SVC, all unchange d in position from prior study. Slightly improved aeration of left lung base in comparison with yesterday's examination suggesting im proving left basilar pneumonia. No additional new findings. IMPRESSION:
[2020-02-15 08:35] LABS: White Blood Cell Count 5.28 k/cumm (4.4-10.8)
[2020-02-15 08:36] LABS: Diff Comment Diff Reviewed
[2020-02-15 08:37] LABS: RBC Morphology Normal
[2020-02-15] MEDS: Pantoprazole 40 MG VIAL IVP (08:44)
[2020-02-15] MEDS: MAGNESIUM SULFATE 2 GM/50 ML BAG IVPB (08:49)
[2020-02-15] MEDS: MULTIVITAMIN 10 ML, THIAMINE 100 MG, FOLIC ACID 1 MG in DEXTROSE 5%-0.45% SALINE 1,000 ML 125 ML IV (10:35)
[2020-02-15] MEDS: cefTRIAXone 1 GM/50 ML BAG IVPB (11:05)
--- NOTE | 2020-02-15 11:52 | W.PM.PROGNOT ---
Date of Service Date of service: 02/15/20 Time of Service: 11:52 Assessment and Plan Assessment and plan (1) Alcohol withdrawal delirium, acute, hyperactive: Status: Acute Assessment and plan: Requiring sedation to the degree of requiring ventilation. Improving. Await sedation vacation. Start tube feeding. Continue daily sedation vacations, ABGs, CXRs. Continue banana bag, monitoring/repleting lytes. (2) Atrial fibrillation with rapid ventricular response: Status: Resolved Assessment and plan: In setting of acute withdrawal; Rates do peak when w/d uncontrolled. In NSR currently. Continue cardiac monitoring. Echo without obvious intracardiac thrombi or systolic dysfunction. Has mild pulmonary hypertension. Not a candidate for anticoagulation for multiple reasons, including 2 brain bleeds. (3) Transaminitis: Status: Acute Assessment and plan: US liver with hepatic steatosis. Continue to trend LFTs. (4) Hypomagnesemia: Status: Acute Assessment and plan: Replace and monitor (5) Hypokalemia: Status: Resolved Assessment and plan: Recheck in am (6) Dehydration: Status: Acute Assessment and plan: Continue IVF/daily banana bags. Monitor Cr, I/O, daily weights (7) Thrombocytopenia: Status: Chronic Assessment and plan: Due to EtOH abuse. Unfortunately, spleen was not imaged on the ultrasound of the abdomen. Avoid chemical DVT ppx. (8) Aspiration pneumonia: Status: Acute Assessment and plan: Sputum C&S with Enterobacter cloacae. Will simplify abx to imipenem. (9) DVT prophylaxis: Status: Acute Assessment and plan: TEDs/SCDs Chemical DVT ppx is contraindicated in setting of thrombocytopenia, h/o 2 brain bleeds (10) Discharge planning issues: Status: Acute Assessment and plan: Full code, but is thinking about changing code status and is awaiting a palliative care consult. Total Critical Care Time 45 minutes. Subjective Subjective Interval history since last seen: Mr Lenz is doing better right now - he is no longer overbreathing the vent. He has not had a sedation vacation today. He is on both propofol and midazolam, midazolam is being weaned. He is not arousable enough to follow commands or answer questions. Per nursing, yesterday did not want him to be transferred to a tertiary care facility, but this is different from what the told care management. Exam Narrative Exam Narrative: General: Middle-aged male, intubated, sedated, not arousable to verbal or painful stimuli HEENT: L periorbital hematoma, abrasion on nose, eyes closed, MMM; R IJ CVL Cardiovascular: RRR, no m/r/g Lungs: Ventilator breath sounds present in all lung ca, no wheezing Gastrointestinal: soft, nontender, nondistended Extremities: no e/c/c BLE's; BUE soft restraints. Objective Objective Clinical Data: Abnormal lab results 02/15/20 02/15/20 02/15/20 Range/Units 06:50 06:50 07:40 RBC 3.00 L (4.50-6.00) m/cumm Hgb 10.3 L (13.5-17.5) g/dL Hct 30.8 L (40.0-50.0) % MCV 102.7 H (80-95) fL MCH 34.3 H (27.0-33.0) pg Plt Count 94 L (130-400) x1000/uL MPV 11.2 H (8.0-11.0) fL Absolute Lymphocytes 0.81 L (1.2-3.4) k/cumm ABG pCO2 31 L (34-47) mmHg ABG HCO3 20 L (22-28) mmol/L ABG Total CO2 19 L (22-29) mmol/L ABG Base Excess -4.3 L (-3-3) mmol/L BUN 6 L (7-18) mg/dL Calcium 7.8 L (8.5-10.1) mg/dL Magnesium 1.7 L (1.8-2.4) mg/dL Vital Signs Temperature 36.5 C 02/15/20 08:10 Temperature Source Temporal Artery Scan 02/15/20 08:10 Pulse 62 02/15/20 11:01 Pulse 63 02/15/20 11:01 Respiratory Rate 19 02/15/20 11:01 Respiratory Effort 02/15/20 08:10 Respiratory Depth Shallow 02/15/20 04:47 Respiratory Pattern Normal 02/15/20 08:10 Blood Pressure 100/57 L 02/15/20 11:01 Blood Pressure Mean 68 02/15/20 11:01 Blood Pressure Position Sitting 02/15/20 00:30 Pulse Oximetry 96 02/15/20 11:18 Respiratory End-tidal CO2 27 02/15/20 11:18 Oxygen Delivery Method Mechanical Ventilator 02/15/20 08:10 Oxygen Flow Rate 0 02/15/20 08:10 Fraction of Inspired Oxygen (FIO2) 21 02/15/20 11:18 Pain Level 0 02/15/20 08:10 Comment 02/14/20 17:48 Intake & Output 02/14/20 02/14/20 02/15/20 11:59 23:59 11:59 Intake Total 1360.495 / 3897.912 2537.417 / 3897.912 1733.729 / 1733.729 Output Total 660 / 1585 925 / 1585 250 / 250 Balance 700.495 / 2312.912 1612.417 / 2312.912 1483.729 / 1483.729 Weight 66.4 kg 69.1 kg Intake: IV 1360.495 / 3897.912 2537.417 / 3897.912 1733.729 / 1733.729 Output: Gastric Drainage 0 / 250 250 / 250 OG tube 0 / 250 250 / 250 Urine 660 / 1335 675 / 1335 250 / 250 Other: Urine Color Yellow Dark Fran Light Fran Urine Appearance Clear Clear Clear Comment villafana villafana to gravity with concentrated yellow urine villafana is patent and draining light fran urine Gastric Occult Blood OG tube Negative Laboratory Results WBC 5.28 k/cumm (4.4-10.8) 02/15/20 06:50 RBC 3.00 m/cumm (4.50-6.00) L 02/15/20 06:50 Hgb 10.3 g/dL (13.5-17.5) L 02/15/20 06:50 Hct 30.8 % (40.0-50.0) L 02/15/20 06:50 MCV 102.7 fL (80-95) H 02/15/20 06:50 MCH 34.3 pg (27.0-33.0) H 02/15/20 06:50 MCHC 33.4 g/dL (32.0-36.0) 02/15/20 06:50 RDW 12.4 % (11.8-14.1) 02/15/20 06:50 Plt Count 94 x1000/uL (130-400) L 02/15/20 06:50 MPV 11.2 fL (8.0-11.0) H 02/15/20 06:50 Immature Gran % 0.4 % 02/15/20 06:50 Neutrophils % 70.7 02/15/20 06:50 Band Neutrophils % Cancelled 02/13/20 03:27 Lymphocytes % 15.3 02/15/20 06:50 Atypical Lymphs % Cancelled 02/13/20 03:27 Monocytes % 12.5 02/15/20 06:50 Eosinophils % 0.9 02/15/20 06:50 Basophils % 0.2 02/15/20 06:50 Metamyelocytes % Cancelled 02/13/20 03:27 Myelocytes % Cancelled 02/13/20 03:27 Promyelocytes % Cancelled 02/13/20 03:27 Absolute Neutrophils 3.73 k/cumm (1.2-6.7) 02/15/20 06:50 Absolute Lymphocytes 0.81 k/cumm (1.2-3.4) L 02/15/20 06:50 Absolute Monocytes 0.66 k/cumm (0.11-0.7) 02/15/20 06:50 Absolute Eosinophils 0.05 k/cumm (0.0-0.7) 02/15/20 06:50 Absolute Basophils 0.01 k/cumm (0.0-0.2) 02/15/20 06:50 Nucleated RBCs Cancelled 02/13/20 03:27 Differential Comment Diff reviewed 02/15/20 06:50 Other Cell Type Cancelled 02/13/20 03:27 RBC Morphology Normal 02/15/20 06:50 Polychromasia Cancelled 02/13/20 03:27 Hypochromasia Cancelled 02/13/20 03:27 Poikilocytosis Cancelled 02/13/20 03:27 Basophilic Stippling Cancelled 02/13/20 03:27 Anisocytosis Cancelled 02/13/20 03:27 Microcytosis Cancelled 02/13/20 03:27 Macrocytosis Cancelled 02/13/20 03:27 Spherocytes Cancelled 02/13/20 03:27 Target Cells Cancelled 02/13/20 03:27 Tear Drop Cells Cancelled 02/13/20 03:27 Ovalocytes Cancelled 02/13/20 03:27 Stomatocytes Cancelled 02/13/20 03:27 Forbes-Hood Bodies Cancelled 02/13/20 03:27 [place] Cells Cancelled 02/13/20 03:27 Acanthocytes (Spur) Cancelled 02/13/20 03:27 Schistocytes Cancelled 02/13/20 03:27 PT 10.2 sec (9.3-11.0) 02/12/20 06:15 INR 1.0 (0.9-1.1) 02/12/20 06:15 ABG Sample Site Right radial 02/15/20 07:40 ABG pH 7.43 (7.35-7.45) 02/15/20 07:40 ABG pCO2 31 mmHg (34-47) L 02/15/20 07:40 ABG pO2 91 mmHg (83-108) 02/15/20 07:40 ABG HCO3 20 mmol/L (22-28) L 02/15/20 07:40 ABG Total CO2 19 mmol/L (22-29) L 02/15/20 07:40 ABG O2 Saturation 98 % (94-98) 02/15/20 07:40 ABG Base Excess -4.3 mmol/L (-3-3) L 02/15/20 07:40 Oxygen Liter Flow Cancelled 02/13/20 15:11 FiO2 40 % 02/15/20 07:40 Sodium 136 mmol/L (136-145) 02/15/20 06:50 Potassium 3.8 mmol/L (3.5-5.1) 02/15/20 06:50 Chloride 105 mmol/L (98-107) 02/15/20 06:50 Carbon Dioxide 21.7 mmol/L (21.0-32.0) 02/15/20 06:50 Anion Gap 9.3 mmol/L (3-11) 02/15/20 06:50 BUN 6 mg/dL (7-18) L 02/15/20 06:50 Creatinine 0.73 mg/dL (0.70-1.30) 02/15/20 06:50 Estimated GFR/1.73 m2 >= 60.00 (mL/min/1.73m2) 02/15/20 06:50 Glucose 94 mg/dL (74-106) 02/15/20 06:50 Lactate 1.0 mmol/L (0.6-1.4) 02/13/20 06:08 Calcium 7.8 mg/dL (8.5-10.1) L 02/15/20 06:50 Magnesium 1.7 mg/dL (1.8-2.4) L 02/15/20 06:50 Total Bilirubin 0.8 mg/dL (0.2-1.0) 02/13/20 06:08 Conjugated Bilirubin 0.34 mg/dL (0.00-0.20) H 02/13/20 06:08 AST 127 U/L (15-37) H 02/13/20 06:08 ALT 105 U/L (16-63) H 02/13/20 06:08 Alkaline Phosphatase 53 U/L (46-116) 02/13/20 06:08 Troponin I < 0.05 ng/Ml (<0.06) 02/11/20 21:30 Total Protein 5.5 g/dL (6.4-8.2) L 02/13/20 06:08 Albumin 2.5 g/dL (3.4-5.0) L 02/13/20 06:08 Vitamin B12 959 pg/mL (193-986) 02/12/20 06:15 Folate 18.1 ng/mL (8.6-20.0) 02/12/20 06:15 Procalcitonin 0.1 ng/mL 02/13/20 06:08 TSH 2.42 uIU/mL (0.36-3.74) 02/11/20 13:00 Urine Color Yellow (Yellow) 02/11/20 19:25 Urine Clarity Clear (Clear) 02/11/20 19:25 Urine pH 6.0 (5-8) 02/11/20 19:25 Ur Specific [place] 1.025 (1.005-1.025) 02/11/20 19:25 Urine Protein Negative mg/dL (Negative) 02/11/20 19:25 Urine Ketones 15 mg/dL (Negative) H 02/11/20 19:25 Urine Blood Trace-intact (Negative) H 02/11/20 19:25 Urine Nitrite Negative (Negative) 02/11/20 19:25 Urine Bilirubin Negative (Negative) 02/11/20 19:25 Urine Urobilinogen 1.0 EU/dL (Up TO 0.2) H 02/11/20 19:25 Ur Leukocyte Esterase Negative (Negative) 02/11/20 19:25 Urine RBC 3-5 HPF (0-2) H 02/11/20 19:25 Urine WBC 0-2 HPF (0-5) 02/11/20 19:25 Ur Epithelial Cells Rare HPF (Negative) 02/11/20 19:25 Urine Crystals Negative HPF (Negative) 02/11/20 19:25 Urine Bacteria Few HPF (Negative) 02/11/20 19:25 Urine Casts Negative LPF (Negative) 02/11/20 19:25 Urine Mucus Negative (Negative) 02/11/20 19:25 Urine Other Negative (Negative) 02/11/20 19:25 Ur Culture Indicated? No 02/11/20: Urine Glucose Negative mg/dL (Negative) 02/11/20: Ethyl Alcohol < 3.0 mg/dL (<3) 02/11/20 13:00 Patient ABO/Rh A Positive 02/13/20 06:08 Antibody Screen Negative 02/13/20 06:08 CXR: Cardiac size within normal limits. ET tube, NG tube, and IJ central venous line in SVC, all unchanged in position from prior study. Slightly improved aeration of left lung base in comparison with yesterday's examination suggesting improving left basilar pneumonia. No additional new findings. Nutrition recommendations: Iso source 1.5 @ 30ml/ hr to goal of 50ml/[id number]. Flush 250ml H2O q6. Total volume 1200 ml/day ( 4.8 cans isosource 1.5/day).
--- NOTE | 2020-02-15 12:02 | TELEFU_ITS ---
Date of service: 02/15/20 Time of Service: 12:02 Nutritional Follow up NOTE: Vikram has been intubated/sedated and NPOx 5 day. Now with malnutrition in context of acute illness in view of extended period of inadequate nutrient intake. Estimated Needs: 3015-6585 kcal, 82 grams protein, 55-70 grams fat, 1770 ml free water. Per MD, will initiate tube feeding when appropriate (enteral feeding recommendations in previous note). If continues NPO past today, recommend TPN to support patient with necessary nutrients for vital organ function and minimize loss of lean muscle. Current administration of propofol providing 110 kcal (12 grams fat) from fat/24 hours. If TPN necessary, recom mend following: Clinimix (4.25/10) 2000ml Amino Acids 4.25%, Dextrose 10%, 20% Lipids: 250 ml providing total of 1630 kcal, 84 grams protein, 67 g fat, standard electrolytes, include 10 ml MVI/day, 1 ml trace elements/day. Run Clinimix (4.25/10) @83cc/hour (total volume 1992ml), Run 20% lipids at 20 ml/hour x 12 hours Monitor glucose and triglycerides twice daily, check Mg, Phos, CMP daily until normalized values. Time Spent in Nutritional Counseling and Treatment: 0 time spent face to face
[2020-02-15] MEDS: IMIPENEM/CILASTATIN 500 MG in Normal Saline 100 ML 200 MG IVPB ×2 (14:42→20:35)
--- NOTE | 2020-02-15 15:17 | CMPROGNOTE_ITS ---
- If Service Date Differs Date of service: 02/15/20 Time of Service: 15:17 Care Management Progress Note S/O: Vikram remains intubated CM, his spouse Nena is requesting that he not have a nasal gastric feeding tube at this time. She states Vikram would not want all of these interventions. RAGHU did speak with palliative care provider, and she is going to reach out to primary care. There is no COLST on file nor advance directive on file. RAGHU did review with Nena the current treatment for al cohol withdrawal and his history of DT's is the reason for intubation. She is requesting that he be weaned off the sedating medication and ventilator as soon as possible, she states he would want to be made comfortable if he was not going to recover from this episode of illness. RAGHU has reviewed the wishes of the spouse and family for Vikram with the provider and primary nurse. The goal is to try and wean him as soon as he is medically ready and hold the feedings at this time. Nena does not want him transferred to another facility at this time. A:Vikram is a 69 year old male admitted for acute alcohol withdrawal he did make the statement in the ED that he wanted to stop drinking. He is also being treated for pneumonia with IV abx. P: No change is status today, Vikram continues to be intubated. Palliative care is consulting, disposition to be determined. CM to continue to assess ongoing discharge needs.
--- NOTE | 2020-02-15 15:40 | W.PALLCONSUL ---
Documented by User: Sara Beasley NP 02/15/20 17:05 Date of service: 02/15/20 Time of Service: 15:41 History of Present Illness History of Present Illness Chief Complaint: ETOH withdrawal Narrative: Mr. eLnz is a 69 year old with a past medical history significant for a long history of alcohol abuse, with previous alcohol withdrawal, atrial fibrillation with rapid ventricular response in the setting of alcohol withdrawal, as well as a history of subdural hematoma, subarachnoid hematoma and ambulatory dysfunction. Mr. Lenz was admitted to the ICU on 02/11/2020 after being brought to the [facility] ED by his after a fall a couple of days ago and subsequent altered mental status and alcohol withdrawal. He was noted to have a CIWA score of 10 and 11 in the emergency department and was rapidly escalating. He was given Ativan and Valium and admitted to the ICU. At the time of his admission to the ICU he was initiated on Ativan infusion as well as Cardizem infusion as he appeared to be in atrial fibrillation with RVR. On 02/13/2020, he was intubated in the ICU as he was unable to protect his airway with the amount of medications that were required for his symptoms of alcohol withdrawal. A palliative care consultation was requested as the patient's states that he would not want to be intubated, and has requested that the tube be removed. His case was discussed with Dr. Chaves, hospitalist caring for him at this time who does not feel that it would be appropriate to extubate the patient at this time. His , Nena, who is still somewhat involved in the patient's life but does not live with him and has not for years, continues to request that the tube be removed. She is also questioning tube feedings via NG tube. She states that he would never want all of these interventions. This case was also discussed with Mr. Lenz's PCP, Dr. Jimenez, who reviewed the patient's record and states that he does not have anything stating that the patient is a DNR/DNI. He is in agreement that the patient is not at his medical baseline and it would be inappropriate to extubate simply based on the reports of the that he has from. Dr. Jimenez agrees with giving Mr. Lenz more time to get through withdrawal and revisiting his CODE STATUS when he is alert and oriented. Dr. Jimenez states that the patient appears to be competent at his baseline. Dr. Jimenez also notes that the patient declines medications and interventions frequently, he likes to be left alone. This case was also discussed with Dr. Lamb who reiterates that there is no evidence that the patient's , Nena is his DPOA and they have not lived together for some time. She agrees that the present time is not appropriate to change the patient's CODE STATUS and that he needs time to get through acute withdrawal with reassessment following. I had the opportunity to speak to his , Nena, who states that they have not been living together for 4 years due to his alcohol abuse. She has remained in his life over the years and helped him with getting to doctor's appointments. She states he has not been taking care of himself, he has not been bathing or shaving, he had moldy food in his fridge, his apartment was very unkempt. She states that he has been a heavy drinker for very long time and she does not believe he will ever stop drinking alcohol. She states that he has always been clear that he would not want to be intubated, he would not want to be a vegetable, he would never want a feeding tube. We discussed that he is intubated in the setting of acute withdrawal and the expectation is that he will improve. We talked about giving him temporary feedings as the nutrition would probably be beneficial to him at this point. We discussed the difference between temporary nutrition via [place] versus placement of a G-tube/PEG tube. She states she has worked in healthcare all of her life and understands the difference. She still believes that he would not want any artificial nutrition. She is upset that she cannot come to the hospital and see him due to restrictions due to the coronavirus. We discussed that there is no documentation that she is his DPOA and they have not lived together for 4 years which makes this a very difficult situation for everyone involved. By the end of the conversation, she verbalizes understanding that it is expected that he remains on mechanical ventilation for the short-term and that attempts are being made to wean him. She is hopeful that he will soon be able to verbalize his own wishes. She is agreeable with leaving the mechanical ventilation in place at this point, weaning as indicated. Based on the conversation with his , his PPS scale appears to be around 50%. At the present time, he is totally bedbound, on a ventilator, requiring total care and his PPS score is about 10%. Assessment and Plan Assessment and plan (1) Palliative care encounter: Status: Acute Assessment and plan: Mr. Lenz is currently going through alcohol withdrawal, requiring mechanical ventilation at this point due to inability to protect his airway. According to the hospitalist, he appears to be improving. There was question about his CODE STATUS. After discussing the case with the hospitalist, Dr. Chaves, his primary care provider, Dr. Jimenez, and palliative care doctor, Dr. Lamb, it is quite clear that we cannot change his CODE STATUS at this time based on reports from his with whom he has been from for the last 4 years. His PCP, Dr. Jimenez believes the patient is competent to make his own decisions and he does not have any documentation stating that he would not want intubation. The plan is to get him through this acute withdrawal, wean him off of the ventilator to eventually extubate when he can tolerate it. After discussion with Nena, we will not initiate tube feeding as she is clear that he would never want that. This can be revisited daily depending on his condition. He will need to remain a FULL CODE at this point. It will be important to have this discussion and fill out a COLST form when he is able. Palliative care will continue to follow him with plans to see him in 48-72 hours, unless his status changes. Please contact Palliative care as needed for further evaluation or discussion. (2) Alcohol withdrawal delirium, acute, hyperactive: Status: Acute (3) Atrial fibrillation with rapid ventricular response: Status: Resolved (4) Aspiration pneumonia: Status: Acute Review of Systems Unobtainable due to mental status [facility] Medical History Alcohol abuse (Chronic) Alcohol withdrawal delirium, acute, hyperactive (Acute) Cervical spondylosis (Acute) Impingement syndrome of shoulder (Acute) Subarachnoid hematoma (Acute) Subdural hematoma (Resolved) Surgical History S/P arthroscopy of shoulder (Acute) S/p reverse total shoulder arthroplasty (Acute) Family History Other Family history unobtainable Social History Smoking/Tobacco Use Status: Current every day Alcohol Intake: current Alcohol Intake frequency: 3 or more drinks per day Alcohol type: beer Drug use: Never Do you feel safe in your relationship?: Yes Exam Narrative Exam Narrative: General: Middle-aged man, lying in bed with head of bed elevated, on a ventilator, IJ line in place, NG tube draining greenish-brown drainage. Does not awaken to verbal or tactile stimuli. HEENT: Eyes closed, mucous membranes moist. Cardiovascular: Heart has regular rate and rhythm, non-tachycardic, no murmur appreciated. Respiratory: Vented, no wheezing or rales. GI: Hypoactive bowel sounds, abdomen is soft, nondistended. Extremities: Bilateral upper extremities with edema and ecchymosis to the dorsal aspect of bilateral hands. Lower extremities with scant edema. Old scrapes to bilateral knees. Pedal pulses palpable. Results Last Vital Signs Temp 36.7 C 02/15/20 12:05 Pulse 63 02/15/20 15:01 Resp 19 02/15/20 15:28 BP 127/65 02/15/20 15:01 Pulse Ox 93 L 02/15/20 15:28 Labs Result diagrams: 02/16/20 06:30 02/16/20 06:30 Labs: Laboratory Results - last 24 hr 02/15/20 02/15/20 02/15/20 06:50 06:50 07:40 WBC 5.28 RBC 3.00 L Hgb 10.3 L Hct 30.8 L MCV 102.7 H MCH 34.3 H MCHC 33.4 RDW 12.4 Plt Count 94 L MPV 11.2 H Immature Gran % 0.4 Neutrophils % 70.7 Lymphocytes % 15.3 Monocytes % 12.5 Eosinophils % 0.9 Basophils % 0.2 Absolute Neutrophils 3.73 Absolute Lymphocytes 0.81 L Absolute Monocytes 0.66 Absolute Eosinophils 0.05 Absolute Basophils 0.01 Differential Comment Diff reviewed RBC Morphology Normal ABG Sample Site Right radial ABG pH 7.43 ABG pCO2 31 L ABG pO2 91 ABG HCO3 20 L ABG Total CO2 19 L ABG O2 Saturation 98 ABG Base Excess -4.3 L FiO2 40 Sodium 136 Potassium 3.8 Chloride 105 Carbon Dioxide 21.7 Anion Gap 9.3 BUN 6 L Creatinine 0.73 Estimated GFR/1.73 m2 >= 60.00 Glucose 94 Calcium 7.8 L Magnesium 1.7 L Vancomycin Trough 02/15/20 13:00 WBC RBC Hgb Hct MCV MCH MCHC RDW Plt Count MPV Immature Gran % Neutrophils % Lymphocytes % Monocytes % Eosinophils % Basophils % Absolute Neutrophils Absolute Lymphocytes Absolute Monocytes Absolute Eosinophils Absolute Basophils Differential Comment RBC Morphology ABG Sample Site ABG pH ABG pCO2 ABG pO2 ABG HCO3 ABG Total CO2 ABG O2 Saturation ABG Base Excess FiO2 Sodium Potassium Chloride Carbon Dioxide Anion Gap BUN Creatinine Estimated GFR/1.73 m2 Glucose Calcium Magnesium Vancomycin Trough Cancelled Documented by User: Liliana Lamb MD, DC 02/16/20 11:05 Assessment and Plan Assessment and plan (1) Palliative care encounter: Status: Acute Assessment and plan: I am overseeing Sara Stevenson NP's consult. Briefly Vikram is a 69 year old male with a long history of alcoholism and self isolation. He has an involved previous who still cares for him and transports him to outpatient appointments. She felt strongly that Vikram would want to be extubated and allowed a natural if he could not sustain his life without the extra support. His previous felt that he has stated emphatically that he does not want intubation. Unfortunately none of this is in writing. Sara has done great ply bander work to try to work in the best interest of the patient. Presently the plan is to give him 24-48 hours to see if he can wake up from the sedation he is under and declare his ability to breath on his own vs allowed to . I have examined the patient myself while in the ICU Sara has spoken to all the concerned parties including PCP, Hospitalist and ex . [facility] Medical History Alcohol abuse (Chronic) Alcohol withdrawal delirium, acute, hyperactive (Acute) Cervical spondylosis (Acute) Impingement syndrome of shoulder (Acute) Subarachnoid hematoma (Acute) Subdural hematoma (Resolved) Surgical History S/P arthroscopy of shoulder (Acute) S/p reverse total shoulder arthroplasty (Acute) Family History Other Family history unobtainable Social History Smoking/Tobacco Use Status: Current every day Alcohol Intake: current Alcohol Intake frequency: 3 or more drinks per day Alcohol type: beer Drug use: Never Do you feel safe in your relationship?: Yes Results Labs Result diagrams: 02/16/20 06:30 02/16/20 06:30
[2020-02-15] MEDS: Normal Saline 1,000 ML 75 ML IV (18:18)
[2020-02-16] VITALS (61 sets, daily range): BP systolic 113–197; BP diastolic 64–91; PULSE 60–98; RESP 16–32; TEMP 36.6–37; O2SAT 91–99
--- NOTE | 2020-02-16 | DI.CT_ITS ---
EXAM: CT HEAD WO CLINICAL HISTORY: mental status changes, h/o bleeds TECHNIQUE: COMPARISON: CT HEAD FACIAL WO from 02/11/2020 FINDINGS: Noncontrast cranial CT was performed. There is moderate generalized cerebral atrophy. No evidence o f acute intracranial hemorrhage, mass effect, or midline shift. The orbital and temporal bone struct ures appear intact. Visualized paranasal sinuses and mastoid air cells appear clear. IMPRESSION: No evidence of acute intracranial process.
[2020-02-16] MEDS: IMIPENEM/CILASTATIN 500 MG in Normal Saline 100 ML 200 MG IVPB ×3 (01:53→20:55)
--- NOTE | 2020-02-16 06:12 | DI.RAD_ITS ---
EXAM: XR PORTABLE CHEST AP CLINICAL HISTORY: daily cxr on intubated patient TECHNIQUE: COMPARISON: XR PORTABLE CHEST AP from 02/15/2020 FINDINGS: Portable AP chest was obtained. Endotracheal tube again noted in position along with a right interna l jugular line. Previously noted NG tube has been removed. There has been mild interval improvement in areas of consolidation in the left lung base since examination of February 14. No new infiltrates identified elsewhere. IMPRESSION: Improving left basilar infiltrate.
--- NOTE | 2020-02-16 06:44 | DI.VRAD_ITS ---
PROCEDURE INFORMATION: Exam: XR Chest, 1 View Exam date and time: 02/16/2020 6:13 AM Age: 69 years old Clinical indication: Device placement; Ett placement (vent status); Additional info: Daily cxr on intubated patient TECHNIQUE: Imaging protocol: XR of the chest Views: 1 view. COMPARISON: CR XR PORTABLE CHEST AP 02/15/2020 6:03 AM FINDINGS: Tubes, catheters and devices: Endotracheal tube is seen in place with the tip well above the navi. Right jugular central venous catheter is seen in place with the tip in the superior vena cava. Lungs: There is improved aeration in the previously described soft tissue density over the medial aspect of the left lower lobe indicating resolving pneumonia or atelectasis. Pleural space: Unremarkable. No pleural effusion. No pneumothorax. Heart/Mediastinum: Unremarkable. No cardiomegaly. Bones/joints: The patient is status post total right shoulder replacement surgery. Old healed left posterior 5th and 6th rib fracture deformities are demonstrated. Other findings: Arteries: Arteriosclerotic changes are identified. IMPRESSION: Improvement in the left lower lobe infiltrate or atelectasis. Status post total right shoulder replacement surgery. Dictated and Authenticated by: Bartolo Guerrero MD. Ordering:RICHA Merchant MD
[2020-02-16 07:09] LABS: Abs Immature Grans 0.02 k/cumm (0.0-0.09); Absolute Basophil Count 0.01 k/cumm (0.0-0.2); Absolute Eosinophil Count 0.05 k/cumm (0.0-0.7); Absolute Lymphocyte Count 0.91 k/cumm (1.2-3.4); Basophils % 0.2; Eosinophils % 0.9; HCT 32.7 % (40.0-50.0); HGB 11.3 g/dL (13.5-17.5); Immature Grans % 0.4 %; Lymphocytes % 16.9; Mean Corp. HGB Concentration 34.6 g/dL (32.0-36.0); Mean Corpuscular Hemoglobin 34.8 pg (27.0-33.0); Mean Corpuscular Volume 100.6 fL (80-95); Neutrophils % 68.6; Platelet Count 129 x1000/uL (130-400); RBC 3.25 m/cumm (4.50-6.00); RBC Distribution Width 11.9 % (11.8-14.1); White Blood Cell Count 5.39 k/cumm (4.4-10.8)
[2020-02-16 07:17] LABS: Anion Gap 10.6 mmol/L (3-11); BUN 9 mg/dL (7-18); CO2 23.4 mmol/L (21.0-32.0); CREATININE 0.79 mg/dL (0.70-1.30); Calcium 7.9 mg/dL (8.5-10.1); Chloride 104 mmol/L (98-107); Glucose 95 mg/dL (74-106); Magnesium 1.7 mg/dL (1.8-2.4); Potassium 3.3 mmol/L (3.5-5.1); Sodium 138 mmol/L (136-145)
--- NOTE | 2020-02-16 07:40 | PDOC.CMPRO ---
Care Management Progress Note S/O: Vikram remains intubated, per MD he will require a few more days of monitoring before further information is available to make decision regarding comfort care. The goal currently is to try and wean him as soon as he is medically ready and hold the feedings at this time. Nena does not want him transferred to another facility at this time. A: Vikram is a 69 year old male admitted for acute alcohol withdrawal, per report he did make statement in the ED of wanting to stop drinking. He is also being treated for aspiration pneumonia with IV ABX. P: No change is status today, Vikram continues to be intubated. Palliative care is consulting, disposition to be determined. CM to continue to assess ongoing discharge needs.
[2020-02-16] MEDS: Pantoprazole 40 MG VIAL IVP (09:48)
[2020-02-16] MEDS: MULTIVITAMIN 10 ML, THIAMINE 100 MG, FOLIC ACID 1 MG in DEXTROSE 5%-0.45% SALINE 1,000 ML 125 ML IV (09:48)
[2020-02-16] MEDS: MAGNESIUM SULFATE 2 GM/50 ML BAG IVPB (09:49)
[2020-02-16] MEDS: IMIPENEM/CILASTATIN 500 MG in Normal Saline 100 ML 2200 MG IVPB (09:49)
[2020-02-16] MEDS: Normal Saline 1,000 ML 75 ML IV (10:06)
--- NOTE | 2020-02-16 10:59 | PGE_ITS ---
Date of Service Date of service: 02/16/20 Time of Service: 10:59 Assessment and Plan Assessment and plan (1) Encephalopathy: Status: Acute Assessment and plan: Not waking up despite holding sedation. Given h/o subdural and subarachnoid bleeds, CT head ordered. It is possible that with possible hepatic cirrhosis evident on labs, he is clearing sedatives very slowly, but lack of improvement of mental status very concerning. Will plan to review with palliative care after CT given per he did not want intubation so there is uncertainty in terms of goals of care. See palliative care note. (2) Alcohol withdrawal delirium, acute, hyperactive: Status: Acute Assessment and plan: Requiring sedation to the degree of requiring ventilation. No longer exhibiting withdrawl symptoms off sedation, but not waking up. See above re: encephalopathy. Await sedation vacation. Getting tube feeding. Continue banana bag, monitoring/repleting lytes. Mg and potassium given today. (3) Atrial fibrillation with rapid ventricular response: Status: Resolved Assessment and plan: In setting of acute withdrawal; Rates do peak when w/d uncontrolled. Today continues in NSR. Continue cardiac monitoring. Echo without obvious intracardiac thrombi or systolic dysfunction. Has mild pulmonary hypertension. Not a candidate for anticoagulation for multiple reasons, including 2 brain bleeds. (4) Aspiration pneumonia: Status: Acute Assessment and plan: Sputum C&S with Enterobacter cloacae. Antibiotics simplified to imipenem, now on day 6 of IV antibiotics. (5) Anemia, blood loss: Status: Acute Assessment and plan: Mild anemia with heme+ gastrocult. Has been stable in mild range, so no indication for acute EGD. Will treat with PPI. Subjective Subjective Patient reports: denies diarrhea, vomiting and fever Interval history since last seen: 24hr: off norepinephrine for >24hr off sedation with midazolam and propofol overnight Pt intubated, unable to get history. Breathing trial this morning, not breathing on his own. small smear of stool this morning. Exam Narrative Exam Narrative: General: Middle-aged man, lying in bed with head of bed elevated, on a ventilator, IJ line in place, NG tube draining greenish-brown drainage. Does not awaken to verbal or tactile stimuli. HEENT: Eyes closed, mucous membranes moist. Cardiovascular: Heart has regular rate and rhythm, non-tachycardic, no murmur appreciated. Respiratory: Vented, no wheezing or rales. diffuse course breath sounds GI: Hypoactive bowel sounds, abdomen is soft, nondistended. Extremities: Bilateral upper extremities with mild edema and ecchymosis to the dorsal aspect of bilateral hands. Lower extremities with scant edema. Old scrapes to bilateral knees, nose. Pedal pulses palpable. Objective Objective Clinical Data: Abnormal lab results 02/16/20 02/16/20 Range/Units 06:30 06:30 RBC 3.25 L (4.50-6.00) m/cumm Hgb 11.3 L (13.5-17.5) g/dL Hct 32.7 L (40.0-50.0) % MCV 100.6 H (80-95) fL MCH 34.8 H (27.0-33.0) pg Plt Count 129 L (130-400) x1000/uL Absolute Lymphocytes 0.91 L (1.2-3.4) k/cumm Potassium 3.3 L (3.5-5.1) mmol/L Calcium 7.9 L (8.5-10.1) mg/dL Magnesium 1.7 L (1.8-2.4) mg/dL Vital Signs Temperature 36.7 C 02/16/20 04:35 Temperature Source Temporal Artery Scan 02/16/20 04:35 Pulse 89 02/16/20 08:06 Pulse 97 H 02/15/20 17:31 Respiratory Rate 27 H 02/16/20 07:53 Respiratory Effort 02/16/20 04:35 Respiratory Depth Shallow 02/16/20 04:35 Respiratory Pattern Normal 02/16/20 04:35 Blood Pressure 145/81 H 02/16/20 04:35 Blood Pressure Mean 102 02/16/20 04:35 Blood Pressure Position Supine 02/16/20 04:35 Pulse Oximetry 94 L 02/16/20 08:06 Respiratory End-tidal CO2 28 02/16/20 07:53 Oxygen Delivery Method Mechanical Ventilator 02/16/20 04:35 Oxygen Flow Rate 0 02/16/20 04:35 Fraction of Inspired Oxygen (FIO2) 21 02/16/20 08:06 Pain Level 0 02/16/20 04:35 Comment 02/14/20 17:48 Intake & Output 02/15/20 02/15/20 02/16/20 11:59 23:59 11:59 Intake Total 1734.459 / 4078.001 2343.542 / 4078.001 1102.5 / 1102.5 Output Total 250 / 2725 2475 / 2725 550 / 550 Balance 1484.459 / 1353.001 -131.458 / 1353.001 552.5 / 552.5 Weight 69.1 kg 80.7 kg Intake: IV 1734.459 / 4078.001 2343.542 / 4078.001 1102.5 / 1102.5 Output: Gastric Drainage 25 / 25 OG tube / Urine 250 / 2700 2450 / 2700 550 / 550 Other: Urine Color Light Fran Straw [place] Urine Appearance Clear Clear Clear Comment villafana is patent and draining light fran urine pt has indwelling villafana catheter pt has indwelling villafana catheter Gastric Occult Blood OG tube Negative Positive Laboratory Results WBC 5.39 k/cumm (4.4-10.8) 02/16/20 06:30 RBC 3.25 m/cumm (4.50-6.00) L 02/16/20 06:30 Hgb 11.3 g/dL (13.5-17.5) L 02/16/20 06:30 Hct 32.7 % (40.0-50.0) L 02/16/20 06:30 MCV 100.6 fL (80-95) H 02/16/20 06:30 MCH 34.8 pg (27.0-33.0) H 02/16/20 06:30 MCHC 34.6 g/dL (32.0-36.0) 02/16/20 06:30 RDW 11.9 % (11.8-14.1) 02/16/20 06:30 Plt Count 129 x1000/uL (130-400) L 02/16/20 06:30 MPV 11.0 fL (8.0-11.0) 02/16/20 06:30 Immature Gran % 0.4 % 02/16/20 06:30 Neutrophils % 68.6 02/16/20 06:30 Band Neutrophils % Cancelled 02/13/20 03:27 Lymphocytes % 16.9 02/16/20 06:30 Atypical Lymphs % Cancelled 02/13/20 03:27 Monocytes % 13.0 02/16/20 06:30 Eosinophils % 0.9 02/16/20 06:30 Basophils % 0.2 02/16/20 06:30 Metamyelocytes % Cancelled 02/13/20 03:27 Myelocytes % Cancelled 02/13/20 03:27 Promyelocytes % Cancelled 02/13/20 03:27 Absolute Neutrophils 3.70 k/cumm (1.2-6.7) 02/16/20 06:30 Absolute Lymphocytes 0.91 k/cumm (1.2-3.4) L 02/16/20 06:30 Absolute Monocytes 0.70 k/cumm (0.11-0.7) 02/16/20 06:30 Absolute Eosinophils 0.05 k/cumm (0.0-0.7) 02/16/20 06:30 Absolute Basophils 0.01 k/cumm (0.0-0.2) 02/16/20 06:30 Nucleated RBCs Cancelled 02/13/20 03:27 Differential Comment Diff reviewed 02/15/20 06:50 Other Cell Type Cancelled 02/13/20 03:27 RBC Morphology Normal 02/15/20 06:50 Polychromasia Cancelled 02/13/20 03:27 Hypochromasia Cancelled 02/13/20 03:27 Poikilocytosis Cancelled 02/13/20 03:27 Basophilic Stippling Cancelled 02/13/20 03:27 Anisocytosis Cancelled 02/13/20 03:27 Microcytosis Cancelled 02/13/20 03:27 Macrocytosis Cancelled 02/13/20 03:27 Spherocytes Cancelled 02/13/20 03:27 Target Cells Cancelled 02/13/20 03:27 Tear Drop Cells Cancelled 02/13/20 03:27 Ovalocytes Cancelled 02/13/20 03:27 Stomatocytes Cancelled 02/13/20 03:27 [place] Bodies Cancelled 02/13/20 03:27 Jacob Cells Cancelled 02/13/20 03:27 Acanthocytes (Spur) Cancelled 02/13/20 03:27 Schistocytes Cancelled 02/13/20 03:27 PT 10.2 sec (9.3-11.0) 02/12/20 06:15 INR 1.0 (0.9-1.1) 02/12/20 06:15 ABG Sample Site Right radial 02/15/20 07:40 ABG pH 7.43 (7.35-7.45) 02/15/20 07:40 ABG pCO2 31 mmHg (34-47) L 02/15/20 07:40 ABG pO2 91 mmHg (83-108) 02/15/20 07:40 ABG HCO3 20 mmol/L (22-28) L 02/15/20 07:40 ABG Total CO2 19 mmol/L (22-29) L 02/15/20 07:40 ABG O2 Saturation 98 % (94-98) 02/15/20 07:40 ABG Base Excess -4.3 mmol/L (-3-3) L 02/15/20 07:40 Oxygen Liter Flow Cancelled 02/13/20 15:11 FiO2 40 % 02/15/20 07:40 Sodium 138 mmol/L (136-145) 02/16/20 06:30 Potassium 3.3 mmol/L (3.5-5.1) L 02/16/20 06:30 Chloride 104 mmol/L (98-107) 02/16/20 06:30 Carbon Dioxide 23.4 mmol/L (21.0-32.0) 02/16/20 06:30 Anion Gap 10.6 mmol/L (3-11) 02/16/20 06:30 BUN 9 mg/dL (7-18) 02/16/20 06:30 Creatinine 0.79 mg/dL (0.70-1.30) 02/16/20 06:30 Estimated GFR/1.73 m2 >= 60.00 (mL/min/1.73m2) 02/16/20 06:30 Glucose 95 mg/dL (74-106) 02/16/20 06:30 Lactate 1.0 mmol/L (0.6-1.4) 02/13/20 06:08 Calcium 7.9 mg/dL (8.5-10.1) L 02/16/20 06:30 Magnesium 1.7 mg/dL (1.8-2.4) L 02/16/20 06:30 Total Bilirubin 0.8 mg/dL (0.2-1.0) 02/13/20 06:08 Conjugated Bilirubin 0.34 mg/dL (0.00-0.20) H 02/13/20 06:08 AST 127 U/L (15-37) H 02/13/20 06:08 ALT 105 U/L (16-63) H 02/13/20 06:08 Alkaline Phosphatase 53 U/L (46-116) 02/13/20 06:08 Troponin I < 0.05 ng/Ml (<0.06) 02/11/20 21:30 Total Protein 5.5 g/dL (6.4-8.2) L 02/13/20 06:08 Albumin 2.5 g/dL (3.4-5.0) L 02/13/20 06:08 Vitamin B12 959 pg/mL (193-986) 02/12/20 06:15 Folate 18.1 ng/mL (8.6-20.0) 02/12/20 06:15 Procalcitonin 0.1 ng/mL 02/13/20 06:08 TSH 2.42 uIU/mL (0.36-3.74) 02/11/20 13:00 Urine Color Yellow (Yellow) 02/11/20 19:25 Urine Clarity Clear (Clear) 02/11/20 19:25 Urine pH 6.0 (5-8) 02/11/20 19:25 Ur Specific [place] 1.025 (1.005-1.025) 02/11/20 19:25 Urine Protein Negative mg/dL (Negative) 02/11/20 19:25 Urine Ketones 15 mg/dL (Negative) H 02/11/20 19:25 Urine Blood Trace-intact (Negative) H 02/11/20 19:25 Urine Nitrite Negative (Negative) 02/11/20 19:25 Urine Bilirubin Negative (Negative) 02/11/20 19:25 Urine Urobilinogen 1.0 EU/dL (Up TO 0.2) H 02/11/20 19:25 Ur Leukocyte Esterase Negative (Negative) 02/11/20 19:25 Urine RBC 3-5 HPF (0-2) H 02/11/20 19:25 Urine WBC 0-2 HPF (0-5) 02/11/20 19:25 Ur Epithelial Cells Rare HPF (Negative) 02/11/20 19:25 Urine Crystals Negative HPF (Negative) 02/11/20 19:25 Urine Bacteria Few HPF (Negative) 03/16/20 19:25 Urine Casts Negative LPF (Negative) 02/11/20 19:25 Urine Mucus Negative (Negative) 02/11/20 19:25 Urine Other Negative (Negative) 02/11/20 19:25 Ur Culture Indicated? No 02/11/20 19:25 Urine Glucose Negative mg/dL (Negative) 02/11/20 19:25 Vancomycin Trough Cancelled 02/15/20 13:00 Ethyl Alcohol < 3.0 mg/dL (<3) 02/11/20 13:00 Patient ABO/Rh A Positive 02/13/20 06:08 Antibody Screen Negative 02/13/20 06:08
[2020-02-16] MEDS: POTASSIUM CHLORIDE 20 MEQ/100 ML BAG 50 MEQ IVPB ×2 (12:57→15:00)
[2020-02-16] MEDS: PROPOFOL 1,000 MG/100 ML BTL 2.421 MG IVPB (17:53)
--- NOTE | 2020-02-16 18:11 | PCPN_ITS ---
Date of service: 02/16/20 Time of Service: 18:11 Assessment and Plan Assessment and plan (1) Encephalopathy: Status: Acute Assessment and plan: Ammonia pending (2) Anemia, blood loss: Status: Acute (3) Aspiration pneumonia: Status: Acute (4) Palliative care encounter: Status: Acute Assessment and plan: I went in to see patient again today and he seems a little more restless. CT scan has now been taken but the report is not yet back. General consensus by Dr. dias, Dr. Jimenez and myself is that in the morning if he is not improving that it is time to extubate him. His ex- who seems to know him well feels that he would never want this kind of care. Dr. Jimenez his PCP , states that he would not want prolonged intubation. He is somewhat agitated today and the plan is to use some of a low dose of propofol to help to keep him comfortable overnight. We will attempt a weaning from vent in a.m. If that is not able will again consult with ex- and most likely transition to comfort care and extubate patient This document was created by [employer] and may contain grammatical and translation errors. Subjective Subjective Interval history since last seen: Patient remains intubated. He has not been sedated for over 24 hours. Despite lack of sedation, he failed to weaning trials. There is concerned that there is permanent brain damage. There is a CT scan which is been ordered but not yet able to be done. If that does show brain injury the choice will be clear. Nursing is concerned because he seems more agitated and also in pain. He does not respond to my voice. Exam Narrative Exam Narrative: He is lying in the hospital bed. He does not respond to my voice. His eyes are working in synchrony and looking to the right. His mouth is somewhat open with a very dry tongue. His heart is regular. His blood pressures have been rising some but still within the normal range. Per nursing he seems to be fighting the vent a little bit but yet he did fail a weaning trial. 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 Initial report created on 02/16/2020 7:29:36 PM EDT PROCEDURE INFORMATION: Exam: CT Head Without Contrast Exam date and time: 02/16/2020 9:19 AM Age: 69 years old Clinical indication: Altered mental status/memory loss; Patient HX: Mental status changes; History of bleeds Objective Objective Clinical Data: Abnormal lab results 02/16/20 02/16/20 Range/Units 06:30 06:30 RBC 3.25 L (4.50-6.00) m/cumm Hgb 11.3 L (13.5-17.5) g/dL Hct 32.7 L (40.0-50.0) % MCV 100.6 H (80-95) fL MCH 34.8 H (27.0-33.0) pg Plt Count 129 L (130-400) x1000/uL Absolute Lymphocytes 0.91 L (1.2-3.4) k/cumm Potassium 3.3 L (3.5-5.1) mmol/L Calcium 7.9 L (8.5-10.1) mg/dL Magnesium 1.7 L (1.8-2.4) mg/dL Vital Signs Temperature 97.9 F 02/16/20 13:00 Temperature Source Temporal Artery Scan 02/16/20 13:00 Pulse 76 02/16/20 16:51 Pulse 69 02/16/20 15:01 Respiratory Rate 18 02/16/20 15:01 Respiratory Effort 02/16/20 13:00 Respiratory Depth Shallow 02/16/20 04:35 Respiratory Pattern Normal 02/16/20 04:35 Blood Pressure 141/75 H 02/16/20 16:51 Blood Pressure Mean 90 02/16/20 15:01 Blood Pressure Position Supine 02/16/20 13:00 Pulse Oximetry 98 02/16/20 16:51 Respiratory End-tidal CO2 28 02/16/20 15:01 Oxygen Delivery Method Mechanical Ventilator 02/16/20 13:00 Oxygen Flow Rate 0 02/16/20 13:00 Fraction of Inspired Oxygen (FIO2) 21 02/16/20 16:51 Pain Level 0 02/16/20 04:35 Comment 02/14/20 17:48 Intake & Output 02/15/20 02/16/20 02/16/20 23:59 11:59 23:59 Intake Total 2343.542 / 4078.001 1202.5 / 2563.700 1361.200 / 2563.700 Output Total 2475 / 2725 550 / 1675 1125 / 1675 Balance -131.458 / 1353.001 652.5 / 888.700 236.200 / 888.700 Weight 177 lb 14.609 oz Intake: IV 2343.542 / 4078.001 1202.5 / 2563.700 1361.200 / 2563.700 Output: Gastric Drainage / 150 / 150 OG tube / 150 / 150 Urine 2450 / 2700 550 / 1525 975 / 1525 Other: Urine Color Straw [place] Light Fran Urine Appearance Clear Clear Clear Comment pt has indwelling villafana catheter villafana in place draining dark fran urine. villafana in place draining dark fran urine. Gastric Occult Blood OG tube Positive Negative Negative Laboratory Results WBC 5.39 k/cumm (4.4-10.8) 02/16/20 06:30 RBC 3.25 m/cumm (4.50-6.00) L 02/16/20 06:30 Hgb 11.3 g/dL (13.5-17.5) L 02/16/20 06:30 Hct 32.7 % (40.0-50.0) L 02/16/20 06:30 MCV 100.6 fL (80-95) H 02/16/20 06:30 MCH 34.8 pg (27.0-33.0) H 02/16/20 06:30 MCHC 34.6 g/dL (32.0-36.0) 02/16/20 06:30 RDW 11.9 % (11.8-14.1) 02/16/20 06:30 Plt Count 129 x1000/uL (130-400) L 02/16/20 06:30 MPV 11.0 fL (8.0-11.0) 02/16/20 06:30 Immature Gran % 0.4 % 02/16/20 06:30 Neutrophils % 68.6 02/16/20 06:30 Band Neutrophils % Cancelled 02/13/20 03:27 Lymphocytes % 16.9 02/16/20 06:30 Atypical Lymphs % Cancelled 02/13/20 03:27 Monocytes % 13.0 02/16/20 06:30 Eosinophils % 0.9 02/16/20 06:30 Basophils % 0.2 02/16/20 06:30 Metamyelocytes % Cancelled 02/13/20 03:27 Myelocytes % Cancelled 02/13/20 03:27 Promyelocytes % Cancelled 02/13/20 03:27 Absolute Neutrophils 3.70 k/cumm (1.2-6.7) 02/16/20 06:30 Absolute Lymphocytes 0.91 k/cumm (1.2-3.4) L 02/16/20 06:30 Absolute Monocytes 0.70 k/cumm (0.11-0.7) 02/16/20 06:30 Absolute Eosinophils 0.05 k/cumm (0.0-0.7) 02/16/20 06:30 Absolute Basophils 0.01 k/cumm (0.0-0.2) 02/16/20 06:30 Nucleated RBCs Cancelled 02/13/20 03:27 Differential Comment Diff reviewed 02/15/20 06:50 Other Cell Type Cancelled 02/13/20 03:27 RBC Morphology Normal 02/15/20 06:50 Polychromasia Cancelled 02/13/20 03:27 Hypochromasia Cancelled 02/13/20 03:27 Poikilocytosis Cancelled 02/13/20 03:27 Basophilic Stippling Cancelled 02/13/20 03:27 Anisocytosis Cancelled 02/13/20 03:27 Microcytosis Cancelled 02/13/20 03:27 Macrocytosis Cancelled 02/13/20 03:27 Spherocytes Cancelled 02/13/20 03:27 Target Cells Cancelled 02/13/20 03:27 Tear Drop Cells Cancelled 02/13/20 03:27 Ovalocytes Cancelled 02/13/20 03:27 Stomatocytes Cancelled 02/13/20 03:27 [employer] Bodies Cancelled 02/13/20 03:27 [place] Cells Cancelled 02/13/20 03:27 Acanthocytes (Spur) Cancelled 02/13/20 03:27 Schistocytes Cancelled 02/13/20 03:27 PT 10.2 sec (9.3-11.0) 02/12/20 06:15 INR 1.0 (0.9-1.1) 02/12/20 06:15 ABG Sample Site Right radial 02/15/20 07:40 ABG pH 7.43 (7.35-7.45) 02/15/20 07:40 ABG pCO2 31 mmHg (34-47) L 02/15/20 07:40 ABG pO2 91 mmHg (83-108) 02/15/20 07:40 ABG HCO3 20 mmol/L (22-28) L 02/15/20 07:40 ABG Total CO2 19 mmol/L (22-29) L 02/15/20 07:40 ABG O2 Saturation 98 % (94-98) 02/15/20 07:40 ABG Base Excess -4.3 mmol/L (-3-3) L 02/15/20 07:40 Oxygen Liter Flow Cancelled 02/13/20 15:11 FiO2 40 % 02/15/20 07:40 Sodium 138 mmol/L (136-145) 02/16/20 06:30 Potassium 3.3 mmol/L (3.5-5.1) L 02/16/20 06:30 Chloride 104 mmol/L (98-107) 02/16/20 06:30 Carbon Dioxide 23.4 mmol/L (21.0-32.0) 02/16/20 06:30 Anion Gap 10.6 mmol/L (3-11) 02/16/20 06:30 BUN 9 mg/dL (7-18) 02/16/20 06:30 Creatinine 0.79 mg/dL (0.70-1.30) 02/16/20 06:30 Estimated GFR/1.73 m2 >= 60.00 (mL/min/1.73m2) 02/16/20 06:30 Glucose 95 mg/dL (74-106) 02/16/20 06:30 Lactate 1.0 mmol/L (0.6-1.4) 02/13/20 06:08 Calcium 7.9 mg/dL (8.5-10.1) L 02/16/20 06:30 Magnesium 1.7 mg/dL (1.8-2.4) L 02/16/20 06:30 Total Bilirubin 0.8 mg/dL (0.2-1.0) 02/13/20 06:08 Conjugated Bilirubin 0.34 mg/dL (0.00-0.20) H 02/13/20 06:08 AST 127 U/L (15-37) H 02/13/20 06:08 ALT 105 U/L (16-63) H 02/13/20 06:08 Alkaline Phosphatase 53 U/L (46-116) 02/13/20 06:08 Troponin I < 0.05 ng/Ml (<0.06) 02/11/20 21:30 Total Protein 5.5 g/dL (6.4-8.2) L 02/13/20 06:08 Albumin 2.5 g/dL (3.4-5.0) L 02/13/20 06:08 Vitamin B12 959 pg/mL (193-986) 02/12/20 06:15 Folate 18.1 ng/mL (8.6-20.0) 02/12/20 06:15 Procalcitonin 0.1 ng/mL 02/13/20 06:08 TSH 2.42 uIU/mL (0.36-3.74) 02/11/20 13:00 Urine Color Yellow (Yellow) 02/11/20 19:25 Urine Clarity Clear (Clear) 02/11/20 19:25 Urine pH 6.0 (5-8) 02/11/20 19:25 Ur Specific [place] 1.025 (1.005-1.025) 02/11/20 19:25 Urine Protein Negative mg/dL (Negative) 02/11/20 19:25 Urine Ketones 15 mg/dL (Negative) H 02/11/20 19:25 Urine Blood Trace-intact (Negative) H 02/11/20 19:25 Urine Nitrite Negative (Negative) 02/11/20 19:25 Urine Bilirubin Negative (Negative) 02/11/20 19:25 Urine Urobilinogen 1.0 EU/dL (Up TO 0.2) H 02/11/20 19:25 Ur Leukocyte Esterase Negative (Negative) 02/11/20 19:25 Urine RBC 3-5 HPF (0-2) H 02/11/20 19:25 Urine WBC 0-2 HPF (0-5) 02/11/20 19:25 Ur Epithelial Cells Rare HPF (Negative) 02/11/20 19:25 Urine Crystals Negative HPF (Negative) 02/11/20 19:25 Urine Bacteria Few HPF (Negative) 02/11/20 19:25 Urine Casts Negative LPF (Negative) 02/11/20 19:25 Urine Mucus Negative (Negative) 02/11/20 19:25 Urine Other Negative (Negative) 02/11/20 19:25 Ur Culture Indicated? No 02/11/20 19:25 Urine Glucose Negative mg/dL (Negative) 02/11/20 19:25 Vancomycin Trough Cancelled 02/15/20 13:00 Ethyl Alcohol < 3.0 mg/dL (<3) 02/11/20 13:00 Patient ABO/Rh A Positive 02/13/20 06:08 Antibody Screen Negative 02/13/20 06:08
--- NOTE | 2020-02-16 19:29 | DI.VRAD_ITS ---
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 Initial report created on 02/16/2020 7:29:36 PM EDT PROCEDURE INFORMATION: Exam: CT Head Without Contrast Exam date and time: 02/16/2020 9:19 AM Age: 69 years old Clinical indication: Altered mental status/memory loss; Patient HX: Mental status changes; History of bleeds TECHNIQUE: Imaging protocol: Computed tomography of the head without contrast. COMPARISON: CT HEAD FACIAL WO 02/11/2020 1:56 PM FINDINGS: There is no intracranial hemorrhage. No mass effect or midline shift. The ventricles and sulci are prominent compatible with age-related involutional changes. The calvarium is intact. IMPRESSION: No acute intracranial findings. Dictated and Authenticated by: Acrhie Soto MD. Ordering:LENNOX Gómez MD
[2020-02-17] VITALS (43 sets, daily range): BP systolic 105–160; BP diastolic 53–91; PULSE 61–97; RESP 15–30; TEMP 36.6–37.1; O2SAT 90–98
[2020-02-17] MEDS: IMIPENEM/CILASTATIN 500 MG in Normal Saline 100 ML 200 MG IVPB ×4 (01:34→19:48)
[2020-02-17] MEDS: PROPOFOL 1,000 MG/100 ML BTL 15 MG IVPB (05:29)
[2020-02-17] MEDS: Normal Saline Flush 10 ML SYR IVP ×2 (06:00→08:41)
[2020-02-17 06:32] LABS: BUN 9 mg/dL (7-18); CREATININE 0.73 mg/dL (0.70-1.30); Calcium 8.1 mg/dL (8.5-10.1); Chloride 102 mmol/L (98-107); Glucose 95 mg/dL (74-106); Magnesium 1.5 mg/dL (1.8-2.4); Potassium 3.4 mmol/L (3.5-5.1); Sodium 137 mmol/L (136-145)
[2020-02-17 06:35] LABS: Ammonia 26 umol/L (11-32)
--- NOTE | 2020-02-17 08:17 | PDOC.CMPRO ---
Care Management Progress Note S/O: Vikram remains intubated, per MD and Palliative Consult, extubation will be attempted this morning with possible transition to comfort care, if Vikram does not improve. CM continues to follow. A: Vikram is a 69 year old male admitted for acute alcohol withdrawal, per report he did make statement in the ED of wanting to stop drinking. He is also being treated for aspiration pneumonia with IV ABX. P: Vikram continues to be intubated, with extubation attempt planned for today. Palliative care is consulting please refer to documentation for further details. CM continues to follow.
--- NOTE | 2020-02-17 08:30 | DI.RAD_ITS ---
EXAM: XR PORTABLE CHEST AP POST LINE CLINICAL HISTORY: daily cxr on intubated patient TECHNIQUE: COMPARISON: XR PORTABLE CHEST AP from 02/16/2020 FINDINGS: Note is again made of previously described ET tube and right IJ central venous catheter. Cardiac siz e remains within normal limits. Slightly decreased prominence of left basilar opacities. No new int rapulmonary infiltrates. IMPRESSION: Slight interval improvement in left basilar opacities since yesterday's examination.
[2020-02-17] MEDS: Pantoprazole 40 MG VIAL IVP (08:40)
--- NOTE | 2020-02-17 09:08 | DI.VRAD_ITS ---
PROCEDURE INFORMATION: Exam: XR Chest, 1 View Exam date and time: 02/17/2020 8:43 AM Age: 69 years old Clinical indication: Other: Daily cxr on intubated patient TECHNIQUE: Imaging protocol: XR of the chest Views: 1 view. COMPARISON: CR XR PORTABLE CHEST AP 02/16/2020 6:09 AM FINDINGS: Tubes, catheters and devices: Endotracheal tube 4.1 cm above the navi. Right IJ line terminates in the SVC. Nasogastric tube extends into the stomach, tip not visualized. Lungs: Decreasing patchy opacity at the left base. Pleural space: Unremarkable. No pleural effusion. No pneumothorax. Heart/Mediastinum: Unremarkable. No cardiomegaly. Bones/joints: Right shoulder prosthesis stable. Remote left-sided rib fractures. IMPRESSION: 1. Decreasing patchy opacity at the left base. 2. Support tubes and lines as above. Dictated and Authenticated by: Rebecca Vizcaino MD. Ordering:RICHA Merchant MD
[2020-02-17] MEDS: MAGNESIUM SULFATE 4 GM/100 ML BAG IVPB (09:34)
--- NOTE | 2020-02-17 09:48 | PGE_ITS ---
Date of Service Date of service: 02/17/20 Time of Service: 09:48 Assessment and Plan Assessment and plan (1) Encephalopathy: Status: Acute Assessment and plan: Delayed arousal despite being off sedation for close to [address] head negative. Palliative care note reviewed and case discussed with Dr. Lamb. I agree with plan to again wean off the overnight sedation and try to extubate this morning. Given the patient's previous expressed goals of care and his 's wishes, I agree with comfort care if he does not improve. I personally reviewed the plan with the Nena Lenz, and she is coming in to be present for the extubation. (2) Alcohol withdrawal delirium, acute, hyperactive: Status: Acute Assessment and plan: Initially required sedation to the degree of requiring ventilation. No longer exhibiting withdrawl symptoms off sedation, as this is hospital day #7 I think he is through the risk period for alcohol withdrawal seizures or delirium tremens. Getting tube feeding. Continue banana bag, monitoring/repleting lytes. Mg and potassium given again today. (3) Atrial fibrillation with rapid ventricular response: Status: Resolved Assessment and plan: In setting of acute withdrawal; Rates do peak when w/d uncontrolled. Today continues in NSR. Continue cardiac monitoring. Echo without obvious intracardiac thrombi or systolic dysfunction. Has mild pulmonary hypertension. Not a candidate for anticoagulation for multiple reasons, including 2 brain bleeds. No change (4) Aspiration pneumonia: Status: Acute Assessment and plan: Sputum C&S with Enterobacter cloacae. Appears to be improving on x-ray this morning. Antibiotics simplified to imipenem, now on day 7 of IV antibiotics. (5) Anemia, blood loss: Status: Acute Assessment and plan: Mild anemia with heme+ gastrocult. Has been stable in mild range, so no indication for acute EGD. Treating with PPI. Subjective Subjective Patient reports: denies diarrhea, vomiting and fever Interval history since last seen: 24hr: restarted propofol when became restless on vent in afternoon Repeat CT head showed no bleed or other acute abnormality seen b palliative care Patient intubated and sedated. No new concerns per nursing report. Exam Narrative Exam Narrative: General: Middle-aged man, lying in bed with head of bed elevated, on a ventilator, IJ line in place, NG tube draining greenish-brown drainage. Does not awaken to verbal or tactile stimuli, but grimaces with rolling for lung exam. HEENT: Eyes closed, mucous membranes moist. Cardiovascular: Heart has regular rate and rhythm, non-tachycardic, no murmur appreciated. Respiratory: Vented, no wheezing or rales. deminished at bases, but lung sounds less course. GI: Hypoactive bowel sounds, abdomen is soft, nondistended. Extremities: Bilateral upper extremities with mild edema and ecchymosis to the dorsal aspect of bilateral hands. Lower extremities with trace edema. Old scrapes to bilateral knees, nose. Objective Objective Clinical Data: Abnormal lab results 02/17/20 Range/Units 06:05 Potassium 3.4 L (3.5-5.1) mmol/L Calcium 8.1 L (8.5-10.1) mg/dL Magnesium 1.5 L (1.8-2.4) mg/dL Vital Signs Temperature 36.6 C 02/17/20 05:00 Temperature Source Temporal Artery Scan 02/17/20 05:00 Pulse 89 02/17/20 09:01 Pulse 92 H 02/17/20 09:01 Respiratory Rate 21 02/17/20 09:01 Respiratory Effort 02/17/20 07:15 Respiratory Depth Shallow 02/16/20 04:35 Respiratory Pattern Normal 02/16/20 04:35 Blood Pressure 111/63 02/17/20 09:01 Blood Pressure Mean 75 02/17/20 09:01 Blood Pressure Position Supine 02/17/20 04:00 Pulse Oximetry 90 L 02/17/20 09:01 Respiratory End-tidal CO2 24 02/17/20 09:01 Oxygen Delivery Method Mechanical Ventilator 02/16/20 19:45 Oxygen Flow Rate 0 02/16/20 19:45 Fraction of Inspired Oxygen (FIO2) 21 02/17/20 08:03 Pain Level 0 02/17/20 04:00 Comment 02/14/20 17:48 Intake & Output 02/16/20 02/16/20 02/17/20 11:59 23:59 11:59 Intake Total 1202.5 / 2665.395 1462.895 / 2665.395 261.055 / 261.055 Output Total 550 / 3100 2550 / 3100 900 / 900 Balance 652.5 / -434.605 -1087.105 / -434.605 -638.945 / -638.945 Weight 80.7 kg Intake: IV 1202.5 / 2665.395 1462.895 / 2665.395 261.055 / 261.055 Output: Gastric Drainage 375 / 375 100 / 100 OG tube 375 / 375 100 / 100 Urine 550 / 2725 2175 / 2725 800 / 800 Other: Urine Color [place] Light Fran Light Fran Urine Appearance Clear Clear Comment villafana in place draining dark fran urine. villafana to gravity draining dark fran urine villafana to gravity draining dark fran urine Gastric Occult Blood OG tube Negative Negative Negative Laboratory Results WBC 5.39 k/cumm (4.4-10.8) 02/16/20 06:30 RBC 3.25 m/cumm (4.50-6.00) L 02/16/20 06:30 Hgb 11.3 g/dL (13.5-17.5) L 02/16/20 06:30 Hct 32.7 % (40.0-50.0) L 02/16/20 06:30 MCV 100.6 fL (80-95) H 02/16/20 06:30 MCH 34.8 pg (27.0-33.0) H 02/16/20 06:30 MCHC 34.6 g/dL (32.0-36.0) 02/16/20 06:30 RDW 11.9 % (11.8-14.1) 02/16/20 06:30 Plt Count 129 x1000/uL (130-400) L 02/16/20 06:30 MPV 11.0 fL (8.0-11.0) 02/16/20 06:30 Immature Gran % 0.4 % 02/16/20 06:30 Neutrophils % 68.6 02/16/20 06:30 Band Neutrophils % Cancelled 02/13/20 03:27 Lymphocytes % 16.9 02/16/20 06:30 Atypical Lymphs % Cancelled 02/13/20 03:27 Monocytes % 13.0 02/16/20 06:30 Eosinophils % 0.9 02/16/20 06:30 Basophils % 0.2 02/16/20 06:30 Metamyelocytes % Cancelled 02/13/20 03:27 Myelocytes % Cancelled 02/13/20 03:27 Promyelocytes % Cancelled 02/13/20 03:27 Absolute Neutrophils 3.70 k/cumm (1.2-6.7) 02/16/20 06:30 Absolute Lymphocytes 0.91 k/cumm (1.2-3.4) L 02/16/20 06:30 Absolute Monocytes 0.70 k/cumm (0.11-0.7) 02/16/20 06:30 Absolute Eosinophils 0.05 k/cumm (0.0-0.7) 02/16/20 06:30 Absolute Basophils 0.01 k/cumm (0.0-0.2) 02/16/20 06:30 Nucleated RBCs Cancelled 02/13/20 03:27 Differential Comment Diff reviewed 02/15/20 06:50 Other Cell Type Cancelled 02/13/20 03:27 RBC Morphology Normal 02/15/20 06:50 Polychromasia Cancelled 02/13/20 03:27 Hypochromasia Cancelled 02/13/20 03:27 Poikilocytosis Cancelled 02/13/20 03:27 Basophilic Stippling Cancelled 02/13/20 03:27 Anisocytosis Cancelled 02/13/20 03:27 Microcytosis Cancelled 02/13/20 03:27 Macrocytosis Cancelled 02/13/20 03:27 Spherocytes Cancelled 02/13/20 03:27 Target Cells Cancelled 02/13/20 03:27 Tear Drop Cells Cancelled 02/13/20 03:27 Ovalocytes Cancelled 02/13/20 03:27 Stomatocytes Cancelled 02/13/20 03:27 [employer] Bodies Cancelled 02/13/20 03:27 [place] Cells Cancelled 02/13/20 03:27 Acanthocytes (Spur) Cancelled 02/13/20 03:27 Schistocytes Cancelled 02/13/20 03:27 PT 10.2 sec (9.3-11.0) 02/12/20 06:15 INR 1.0 (0.9-1.1) 02/12/20 06:15 ABG Sample Site Right radial 02/15/20 07:40 ABG pH 7.43 (7.35-7.45) 02/15/20 07:40 ABG pCO2 31 mmHg (34-47) L 02/15/20 07:40 ABG pO2 91 mmHg (83-108) 02/15/20 07:40 ABG HCO3 20 mmol/L (22-28) L 02/15/20 07:40 ABG Total CO2 19 mmol/L (22-29) L 02/15/20 07:40 ABG O2 Saturation 98 % (94-98) 02/15/20 07:40 ABG Base Excess -4.3 mmol/L (-3-3) L 02/15/20 07:40 Oxygen Liter Flow Cancelled 02/13/20 15:11 FiO2 40 % 02/15/20 07:40 Sodium 137 mmol/L (136-145) 02/17/20 06:05 Potassium 3.4 mmol/L (3.5-5.1) L 02/17/20 06:05 Chloride 102 mmol/L (98-107) 02/17/20 06:05 Carbon Dioxide 25.0 mmol/L (21.0-32.0) 02/17/20 06:05 Anion Gap 10.0 mmol/L (3-11) 02/17/20 06:05 BUN 9 mg/dL (7-18) 02/17/20 06:05 Creatinine 0.73 mg/dL (0.70-1.30) 02/17/20 06:05 Estimated GFR/1.73 m2 >= 60.00 (mL/min/1.73m2) 02/17/20 06:05 Glucose 95 mg/dL (74-106) 02/17/20 06:05 Lactate 1.0 mmol/L (0.6-1.4) 02/13/20 06:08 Calcium 8.1 mg/dL (8.5-10.1) L 02/17/20 06:05 Magnesium 1.5 mg/dL (1.8-2.4) L 02/17/20 06:05 Total Bilirubin 0.8 mg/dL (0.2-1.0) 02/13/20 06:08 Conjugated Bilirubin 0.34 mg/dL (0.00-0.20) H 02/13/20 06:08 AST 127 U/L (15-37) H 02/13/20 06:08 ALT 105 U/L (16-63) H 02/13/20 06:08 Alkaline Phosphatase 53 U/L (46-116) 02/13/20 06:08 Ammonia 26 umol/L (11-32) 02/17/20 06:05 Troponin I < 0.05 ng/Ml (<0.06) 02/11/20 21:30 Total Protein 5.5 g/dL (6.4-8.2) L 02/13/20 06:08 Albumin 2.5 g/dL (3.4-5.0) L 02/13/20 06:08 Vitamin B12 959 pg/mL (193-986) 02/12/20 06:15 Folate 18.1 ng/mL (8.6-20.0) 02/12/20 06:15 Procalcitonin 0.1 ng/mL 02/13/20 06:08 TSH 2.42 uIU/mL (0.36-3.74) 02/11/20 13:00 Urine Color Yellow (Yellow) 02/11/20 19:25 Urine Clarity Clear (Clear) 02/11/20 19:25 Urine pH 6.0 (5-8) 02/11/20 19:25 Ur Specific [place] 1.025 (1.005-1.025) 02/11/20 19:25 Urine Protein Negative mg/dL (Negative) 02/11/20 19:25 Urine Ketones 15 mg/dL (Negative) H 02/11/20 19:25 Urine Blood Trace-intact (Negative) H 02/11/20 19:25 Urine Nitrite Negative (Negative) 02/11/20 19:25 Urine Bilirubin Negative (Negative) 02/11/20 19: Urine Urobilinogen 1.0 EU/dL (Up TO 0.2) H 02/11/20 19:25 Ur Leukocyte Esterase Negative (Negative) 02/11/20 19:25 Urine RBC 3-5 HPF (0-2) H 02/11/20 19:25 Urine WBC 0-2 HPF (0-5) 02/11/20 19:25 Ur Epithelial Cells Rare HPF (Negative) 02/11/20 19:25 Urine Crystals Negative HPF (Negative) 02/11/20 19:25 Urine Bacteria Few HPF (Negative) 02/11/20 19:25 Urine Casts Negative LPF (Negative) 02/11/20 19:25 Urine Mucus Negative (Negative) 02/11/20 19:25 Urine Other Negative (Negative) 02/11/20 19:25 Ur Culture Indicated? No 02/11/20 19:25 Urine Glucose Negative mg/dL (Negative) 02/11/20 19:25 Vancomycin Trough Cancelled 02/15/20 13:00 Ethyl Alcohol < 3.0 mg/dL (<3) 02/11/20 13:00 Patient ABO/Rh A Positive 02/13/20 06:08 Antibody Screen Negative 02/13/20 06:08
[2020-02-17] MEDS: MULTIVITAMIN 10 ML, THIAMINE 100 MG, FOLIC ACID 1 MG in DEXTROSE 5%-0.45% SALINE 1,000 ML 125 ML IV (10:20)
[2020-02-17] MEDS: POTASSIUM CHLORIDE 20 MEQ/100 ML BAG 50 MEQ IVPB ×2 (13:28→16:42)
[2020-02-17] MEDS: POTASSIUM CHLORIDE/D5-0.45NACL 1,000 ML 100 MEQ IV (16:50)
[2020-02-18] VITALS (33 sets, daily range): BP systolic 117–170; BP diastolic 69–95; PULSE 78–96; RESP 19–31; TEMP 36.4–37.2; O2SAT 91–99
--- NOTE | 2020-02-18 | DI.RAD_ITS ---
EXAM: XR PORTABLE CHEST AP POST LINE CLINICAL HISTORY: NG placement before tube feeds TECHNIQUE: COMPARISON: XR PORTABLE CHEST AP POST LINE from 02/17/2020 FINDINGS: portable AP chest 1400 hours February 17 NG tube has been placed and lies in the mid body of the stomach. Right IJ catheter again noted. ET tube has been removed. Mild patchy areas of pulmonary consolidation persist in the retrocardiac portion left lower lobe. No other change seen. IMPRESSION:
[2020-02-18] MEDS: IMIPENEM/CILASTATIN 500 MG in Normal Saline 100 ML 200 MG IVPB ×2 (01:30→11:04)
[2020-02-18] MEDS: Normal Saline Flush 10 ML SYR IVP ×4 (01:40→22:45)
[2020-02-18] MEDS: POTASSIUM CHLORIDE/D5-0.45NACL 1,000 ML 100 MEQ IV (03:30)
[2020-02-18 06:51] LABS: Mean Corp. HGB Concentration 34.4 g/dL (32.0-36.0); Mean Corpuscular Hemoglobin 34.1 pg (27.0-33.0); Mean Corpuscular Volume 99.1 fL (80-95); Mean Platelet Volume 10.2 fL (8.0-11.0); Platelet Count 214 x1000/uL (130-400); RBC 3.23 m/cumm (4.50-6.00); RBC Distribution Width 11.7 % (11.8-14.1); White Blood Cell Count 4.78 k/cumm (4.4-10.8)
[2020-02-18 07:08] LABS: ALT 31 U/L (16-63); AST 25 U/L (15-37); Albumin 1.9 g/dL (3.4-5.0); Alkaline Phosphatase 51 U/L (46-116); Anion Gap 6.5 mmol/L (3-11); BUN 9 mg/dL (7-18); Bilirubin, Total 0.5 mg/dL (0.2-1.0); CO2 28.5 mmol/L (21.0-32.0); CREATININE 0.68 mg/dL (0.70-1.30); Calcium 8.1 mg/dL (8.5-10.1); Chloride 103 mmol/L (98-107); Glucose 112 mg/dL (74-106); Magnesium 1.7 mg/dL (1.8-2.4); Potassium 3.4 mmol/L (3.5-5.1); Sodium 138 mmol/L (136-145); Total Protein 5.7 g/dL (6.4-8.2)
[2020-02-18] MEDS: MAGNESIUM SULFATE 2 GM/50 ML BAG IVPB (08:39)
--- NOTE | 2020-02-18 08:46 | PCNE_ITS ---
Date of service: 02/18/20 Time of Service: 06:46 [facility] Medical History Alcohol abuse (Chronic) Alcohol withdrawal delirium, acute, hyperactive (Acute) Cervical spondylosis (Acute) Impingement syndrome of shoulder (Acute) Subarachnoid hematoma (Acute) Subdural hematoma (Resolved) Surgical History S/P arthroscopy of shoulder (Acute) S/p reverse total shoulder arthroplasty (Acute) Family History Other Family history unobtainable Social History Smoking/Tobacco Use Status: Current every day Alcohol Intake: current Alcohol Intake frequency: 3 or more drinks per day Alcohol type: beer Drug use: Never Do you feel safe in your relationship?: Yes Results Last Vital Signs Temp 98.8 F 02/18/20 04:55 Pulse 78 02/18/20 06:01 Resp 25 H 02/18/20 06:01 BP 132/74 02/18/20 06:01 Pulse Ox 95 02/18/20 06:01 Labs Result diagrams: 02/18/20 06:40 02/18/20 06:40 Labs: Laboratory Results - last 24 hr 02/18/20 02/18/20 06:40 06:40 WBC 4.78 RBC 3.23 L Hgb 11.0 L Hct 32.0 L MCV 99.1 H MCH 34.1 H MCHC 34.4 RDW 11.7 L Plt Count 214 MPV 10.2 Sodium 138 Potassium 3.4 L Chloride 103 Carbon Dioxide 28.5 Anion Gap 6.5 BUN 9 Creatinine 0.68 L Estimated GFR/1.73 m2 >= 60.00 Glucose 112 H Calcium 8.1 L Magnesium 1.7 L Total Bilirubin 0.5 AST 25 ALT 31 Alkaline Phosphatase 51 Total Protein 5.7 L Albumin 1.9 L
--- NOTE | 2020-02-18 10:37 | PDOC.CMPRO ---
- If Service Date Differs Date of service: 02/18/20 Time of Service: 10:37 Care Management Progress Note S/O: Vikram is now extubated, he is not alert. Vikram does not respond to CM when spoke to. He does respond occasionally to verbal stimuli for nursing. Anticipate possible transition to comfort care, if Vikram does not improve. CM will continue to follow. A: Vikram is a 69 year old male admitted for acute alcohol withdrawal, per report he did make statement in the ED of wanting to stop drinking. He is also being treated for aspiration pneumonia with IV ABX. P: Vikram remains an ICU patient. Palliative care is consulting please refer to documentation for further details. CM continues to follow and assess for disposition needs.
[2020-02-18] MEDS: Pantoprazole 40 MG VIAL IVP (11:04)
[2020-02-18] MEDS: POTASSIUM CHLORIDE 20 MEQ/100 ML BAG 50 MEQ IVPB ×2 (11:06→16:38)
--- NOTE | 2020-02-18 11:25 | PGE_ITS ---
Date of Service Date of service: 02/18/20 Time of Service: 11:26 Assessment and Plan Assessment and plan (1) Encephalopathy: Status: Acute Assessment and plan: The patient has not had normalization of his mental status after extubation, despite good oxygenation and stable respiratory status. CT head was negative. Ammonia level yesterday not consistent with hepatic encephalopathy. We did see that similar delayed arousal after his initial sedation after intubation, as the patient went about 30 hours on the ventilator off sedation before he started to appear uncomfortable. This is likely due to his liver disease. Nonconvulsive status epilepticus is also in differential. Given his history, at this point we will try to feed him the NG tube and continue to monitor. We will get a EEG if he does not clear up by tomorrow. (2) Alcohol withdrawal delirium, acute, hyperactive: Status: Acute Assessment and plan: Initially required sedation to the degree of requiring ventilation. No longer exhibiting withdrawl symptoms off sedation. This is hospital day #8 I think he is through the risk period for alcohol withdrawal seizures or delirium tremens. NG tube replaced today after discussion with . Turns out tube feeds were never started, but recommendations were made by nutrition at the end of last week and will be initiated today after x-ray confirms proper NG placement. Mg and potassium given again today. (3) Atrial fibrillation with rapid ventricular response: Status: Resolved Assessment and plan: In setting of acute withdrawal; Rates do peak when w/d uncontrolled. Has been stable and normal sinus rhythm. Continue cardiac monitoring. Echo without obvious intracardiac thrombi or systolic dysfunction. Has mild pulmonary hypertension. Not a candidate for anticoagulation for multiple reasons, including 2 brain bleeds. No change (4) Aspiration pneumonia: Status: Acute Assessment and plan: Sputum C&S with Enterobacter cloacae. Appears to be improving on x-ray this morning. Antibiotics simplified to imipenem, now on day 8 of IV antibiotics. I think we can discontinue this as 8 days is likely more than a adequate course. We will continue to monitor his respiratory status. (5) Anemia, blood loss: Status: Acute Assessment and plan: Mild anemia with heme+ gastrocult. Has been stable in mild range, so no indication for acute EGD. Treating with PPI. No change. Subjective Subjective Patient reports: denies diarrhea, vomiting and fever Interval history since last seen: 24 hour events: Patient extubated around midday February 16 Patient continues unresponsive to questioning and minimally responsive to noxious stimuli. Exam Narrative Exam Narrative: General: Middle-aged man, lying in bed with head of bed elevated, IJ line in place. Does not awaken to verbal or gentle tactile stimuli, some grimace with noxious stimuli. HEENT: Eyes closed, mucous membranes moist. Pupils 4 mm and reactive bilaterally Cardiovascular: Heart has regular rate and rhythm, non-tachycardic, no murmur appreciated. Respiratory: no wheezing or rales. deminished at bases, and diffusely coarse breath sounds, but good air movement. GI: Hypoactive bowel sounds, abdomen is soft, nondistended. Extremities: Bilateral upper extremities with mild edema and ecchymosis to the dorsal aspect of bilateral hands. Lower extremities with trace edema. Old scrapes to bilateral knees, nose. Objective Objective Clinical Data: Abnormal lab results 02/18/20 02/18/20 Range/Units 06:40 06:40 RBC 3.23 L (4.50-6.00) m/cumm Hgb 11.0 L (13.5-17.5) g/dL Hct 32.0 L (40.0-50.0) % MCV 99.1 H (80-95) fL MCH 34.1 H (27.0-33.0) pg RDW 11.7 L (11.8-14.1) % Potassium 3.4 L (3.5-5.1) mmol/L Creatinine 0.68 L (0.70-1.30) mg/dL Glucose 112 H (74-106) mg/dL Calcium 8.1 L (8.5-10.1) mg/dL Magnesium 1.7 L (1.8-2.4) mg/dL Total Protein 5.7 L (6.4-8.2) g/dL Albumin 1.9 L (3.4-5.0) g/dL Vital Signs Temperature 37.1 C 02/18/20 04:55 Temperature Source Temporal Artery Scan 02/17/20 19:30 Pulse 78 02/18/20 06:01 Pulse 81 02/18/20 06:01 Respiratory Rate 25 H 02/18/20 06:01 Respiratory Effort 02/18/20 04:55 Respiratory Depth Normal 02/18/20 04:55 Respiratory Pattern Tachypnea 02/18/20 04:55 Blood Pressure 132/74 02/18/20 06:01 Blood Pressure Mean 86 02/18/20 06:01 Blood Pressure Position Supine 02/18/20 04:55 Pulse Oximetry 95 02/18/20 06:01 Respiratory End-tidal CO2 27 02/17/20 12:01 Oxygen Delivery Method Room Air 02/18/20 04:55 Oxygen Flow Rate 0 02/18/20 04:55 Fraction of Inspired Oxygen (FIO2) 21 02/17/20 08:03 Pain Level 0 02/18/20 04:55 Comment 02/14/20 17:48 Intake & Output 02/17/20 02/17/20 02/18/20 11:59 23:59 11:59 Intake Total 365.216 / 785.216 420 / 338.468 1925.2 / 2111.2 Output Total 900 / 3725 2825 / 3725 650 / 650 Balance -534.784 / -2939.784 -2405 / -2939.784 1461.2 / 1461.2 Weight 71.5 kg Intake: IV 365.216 / 785.216 420 / 294.059 3725.2 / 2111.2 Oral 0 / 0 Output: Gastric Drainage 100 / 200 100 / 200 OG tube 100 / 200 100 / 200 Urine 800 / 3525 2725 / 3525 650 / 650 Other: Urine Color Light Fran Yellow Yellow Urine Appearance Clear Clear Comment villafana to gravity draining fran urine villafana draining fran urine. villafana draining clear yellow urine. Gastric Occult Blood OG tube Negative Laboratory Results WBC 4.78 k/cumm (4.4-10.8) 02/18/20 06:40 RBC 3.23 m/cumm (4.50-6.00) L 02/18/20 06:40 Hgb 11.0 g/dL (13.5-17.5) L 02/18/20 06:40 Hct 32.0 % (40.0-50.0) L 02/18/20 06:40 MCV 99.1 fL (80-95) H 02/18/20 06:40 MCH 34.1 pg (27.0-33.0) H 02/18/20 06:40 MCHC 34.4 g/dL (32.0-36.0) 02/18/20 06:40 RDW 11.7 % (11.8-14.1) L 02/18/20 06:40 Plt Count 214 x1000/uL (130-400) 02/18/20 06:40 MPV 10.2 fL (8.0-11.0) 02/18/20 06:40 Immature Gran % 0.4 % 02/16/20 06:30 Neutrophils % 68.6 02/16/20 06:30 Band Neutrophils % Cancelled 02/13/20 03:27 Lymphocytes % 16.9 02/16/20 06:30 Atypical Lymphs % Cancelled 02/13/20 03:27 Monocytes % 13.0 02/16/20 06:30 Eosinophils % 0.9 02/16/20 06:30 Basophils % 0.2 02/16/20 06:30 Metamyelocytes % Cancelled 02/13/20 03:27 Myelocytes % Cancelled 02/13/20 03:27 Promyelocytes % Cancelled 02/13/20 03:27 Absolute Neutrophils 3.70 k/cumm (1.2-6.7) 02/16/20 06:30 Absolute Lymphocytes 0.91 k/cumm (1.2-3.4) L 02/16/20 06:30 Absolute Monocytes 0.70 k/cumm (0.11-0.7) 02/16/20 06:30 Absolute Eosinophils 0.05 k/cumm (0.0-0.7) 02/16/20 06:30 Absolute Basophils 0.01 k/cumm (0.0-0.2) 02/16/20 06:30 Nucleated RBCs Cancelled 02/13/20 03:27 Differential Comment Diff reviewed 02/15/20 06:50 Other Cell Type Cancelled 02/13/20 03:27 RBC Morphology Normal 02/15/20 06:50 Polychromasia Cancelled 02/13/20 03:27 Hypochromasia Cancelled 02/13/20 03:27 Poikilocytosis Cancelled 02/13/20 03:27 Basophilic Stippling Cancelled 02/13/20 03:27 Anisocytosis Cancelled 02/13/20 03:27 Microcytosis Cancelled 02/13/20 03:27 Macrocytosis Cancelled 02/13/20 03:27 Spherocytes Cancelled 02/13/20 03:27 Target Cells Cancelled 02/13/20 03:27 Tear Drop Cells Cancelled 02/13/20 03:27 Ovalocytes Cancelled 02/13/20 03:27 Stomatocytes Cancelled 02/13/20 03:27 [place] Bodies Cancelled 02/13/20 03:27 Jacob Cells Cancelled 02/13/20 03:27 Acanthocytes (Spur) Cancelled 02/13/20 03:27 Schistocytes Cancelled 02/13/20 03:27 PT 10.2 sec (9.3-11.0) 02/12/20 06:15 INR 1.0 (0.9-1.1) 02/12/20 06:15 ABG Sample Site Right radial 02/15/20 07:40 ABG pH 7.43 (7.35-7.45) 02/15/20 07:40 ABG pCO2 31 mmHg (34-47) L 02/15/20 07:40 ABG pO2 91 mmHg (83-108) 02/15/20 07:40 ABG HCO3 20 mmol/L (22-28) L 02/15/20 07:40 ABG Total CO2 19 mmol/L (22-29) L 02/15/20 07:40 ABG O2 Saturation 98 % (94-98) 02/15/20 07:40 ABG Base Excess -4.3 mmol/L (-3-3) L 02/15/20 07:40 Oxygen Liter Flow Cancelled 02/13/20 15:11 FiO2 40 % 02/15/20 07:40 Sodium 138 mmol/L (136-145) 02/18/20 06:40 Potassium 3.4 mmol/L (3.5-5.1) L 02/18/20 06:40 Chloride 103 mmol/L (98-107) 02/18/20 06:40 Carbon Dioxide 28.5 mmol/L (21.0-32.0) 02/18/20 06:40 Anion Gap 6.5 mmol/L (3-11) 02/18/20 06:40 BUN 9 mg/dL (7-18) 02/18/20 06:40 Creatinine 0.68 mg/dL (0.70-1.30) L 02/18/20 06:40 Estimated GFR/1.73 m2 >= 60.00 (mL/min/1.73m2) 02/18/20 06:40 Glucose 112 mg/dL (74-106) H 02/18/20 06:40 Lactate 1.0 mmol/L (0.6-1.4) 02/13/20 06:08 Calcium 8.1 mg/dL (8.5-10.1) L 02/18/20 06:40 Magnesium 1.7 mg/dL (1.8-2.4) L 02/18/20 06:40 Total Bilirubin 0.5 mg/dL (0.2-1.0) 02/18/20 06:40 Conjugated Bilirubin 0.34 mg/dL (0.00-0.20) H 02/13/20 06:08 AST 25 U/L (15-37) 02/18/20 06:40 ALT 31 U/L (16-63) 02/18/20 06:40 Alkaline Phosphatase 51 U/L (46-116) 02/18/20 06:40 Ammonia 26 umol/L (11-32) 02/17/20 06:05 Troponin I < 0.05 ng/Ml (<0.06) 02/11/20 21:30 Total Protein 5.7 g/dL (6.4-8.2) L 02/18/20 06:40 Albumin 1.9 g/dL (3.4-5.0) L 02/18/20 06:40 Vitamin B12 959 pg/mL (193-986) 02/12/20 06:15 Folate 18.1 ng/mL (8.6-20.0) 02/12/20 06:15 Procalcitonin 0.1 ng/mL 02/13/20 06:08 TSH 2.42 uIU/mL (0.36-3.74) 02/11/20 13:00 Urine Color Yellow (Yellow) 02/11/20 19:25 Urine Clarity Clear (Clear) 02/11/20 19:25 Urine pH 6.0 (5-8) 02/11/20 19:25 Ur Specific [place] 1.025 (1.005-1.025) 02/11/20 19:25 Urine Protein Negative mg/dL (Negative) 02/11/20 19:25 Urine Ketones 15 mg/dL (Negative) H 02/11/20 19:25 Urine Blood Trace-intact (Negative) H 02/11/20 19:25 Urine Nitrite Negative (Negative) 02/11/20 19:25 Urine Bilirubin Negative (Negative) 02/11/20 19:25 Urine Urobilinogen 1.0 EU/dL (Up TO 0.2) H 02/11/20 19:25 Ur Leukocyte Esterase Negative (Negative) 02/11/20 19:25 Urine RBC 3-5 HPF (0-2) H 02/11/20 19:25 Urine WBC 0-2 HPF (0-5) 02/11/20 19:25 Ur Epithelial Cells Rare HPF (Negative) 02/11/20 19:25 Urine Crystals Negative HPF (Negative) 02/11/20 19:25 Urine Bacteria Few HPF (Negative) 02/11/20 19:25 Urine Casts Negative LPF (Negative) 02/11/20 19:25 Urine Mucus Negative (Negative) 02/11/20 19:25 Urine Other Negative (Negative) 02/11/20 19:25 Ur Culture Indicated? No 02/11/20 19:25 Urine Glucose Negative mg/dL (Negative) 02/11/20 19:25 Vancomycin Trough Cancelled 02/15/20 13:00 Ethyl Alcohol < 3.0 mg/dL (<3) 02/11/20 13:00 Patient ABO/Rh A Positive 02/13/20 06:08 Antibody Screen Negative 02/13/20 06:08
--- NOTE | 2020-02-18 14:09 | W.NUTRFU ---
Date of service: 02/18/20 Time of Service: 14:09 Nutritional Follow up NOTE: Vikram has been NPO x 7 days, IV fluids provided, NG feeding tube inserted today, awaiting tube feeding order.Due to prolonged period of fasting, Vikram is at risk for refeeding syndrome. Recommend Isosource 1.5 start at 30cc/hour, for first 24 hours (Total Volume: 720 ml) flush 250 ml q 6 hours provides total of 1080 kcal, 57 g protein, 1570 ml fluid. D/C IV fluids once flushes provided. Labs indicate Hgb trending down, albumin low(most likely due to excess fluid), low Mg and Calcium. Electrolytes and Hgb remain depressed despite electrolyte repletion. Weight appears to be up 11 lbs in last 4 days. Edema present. Will review labs once feeding started and make recommendations on increasing rate to meet nutrient needs. Monitor Phos,Mg, K, sodium, glucose and replete as needed. Time Spent in Nutritional Counseling and Treatment: 0 time spent face to face
[2020-02-18 15:04] LABS: Platelet Count 94 x1000/uL (130-400)
--- NOTE | 2020-02-18 17:26 | PCPN_ITS ---
Date of service: 02/18/20 Time of Service: 07:26 Assessment and Plan Assessment and plan (1) Encephalopathy: Status: Acute (2) Palliative care encounter: Status: Acute Assessment and plan: CODE STATUS he is a DNR/DNI. I think this is in keeping with his present state and wishes that have been told to both his previous and Dr. Jimenez. Hopefully he will become more awake. If he does not I would recommend that he be switched to comfort care. Time will tell Thank you very much for allowing me to consult on this patient. This document was created by [employer] and may contain grammatical and translation errors. Subjective Subjective Interval history since last seen: Patient is lying in bed. He is presently extubated. He does not respond to me when I speak loudly or when I do a sternal rub. Exam Narrative Exam Narrative: No meaningful response. His vitals are stable. His heart is for the most part regular. His lungs are clear. Objective Objective Clinical Data: Abnormal lab results 02/15/20 02/18/20 02/18/20 Range/Units 06:50 06:40 06:40 RBC 3.23 L (4.50-6.00) m/cumm Hgb 11.0 L (13.5-17.5) g/dL Hct 32.0 L (40.0-50.0) % MCV 99.1 H (80-95) fL MCH 34.1 H (27.0-33.0) pg RDW 11.7 L (11.8-14.1) % Plt Count 94 L (130-400) x1000/uL Potassium 3.4 L (3.5-5.1) mmol/L Creatinine 0.68 L (0.70-1.30) mg/dL Glucose 112 H (74-106) mg/dL Calcium 8.1 L (8.5-10.1) mg/dL Magnesium 1.7 L (1.8-2.4) mg/dL Total Protein 5.7 L (6.4-8.2) g/dL Albumin 1.9 L (3.4-5.0) g/dL Vital Signs Temperature 97.5 F L 02/18/20 10:15 Temperature Source Temporal Artery Scan 02/18/20 10:15 Pulse 79 02/18/20 10:01 Pulse 80 02/18/20 11:00 Respiratory Rate 20 02/18/20 11:00 Respiratory Effort 02/18/20 10:15 Respiratory Depth Normal 02/18/20 10:15 Respiratory Pattern Normal 02/18/20 10:15 Blood Pressure 141/77 H 02/18/20 10:01 Blood Pressure Mean 93 02/18/20 10:01 Blood Pressure Position Supine 02/18/20 04:55 Pulse Oximetry 96 02/18/20 11:00 Respiratory End-tidal CO2 27 02/17/20 12:01 Oxygen Delivery Method Nasal Cannula 02/18/20 10:15 Oxygen Flow Rate 0 02/18/20 04:55 Fraction of Inspired Oxygen (FIO2) 02/17/20 08:03 Pain Level 0 02/18/20 04:55 Comment 02/14/20 17:48 Intake & Output 02/17/20 02/18/20 02/18/20 23:59 11:59 23:59 Intake Total 420 / 416.839 8906.2 / 3161.2 1050 / 3161.2 Output Total 2825 / 3725 1475 / 1850 375 / 1850 Balance -2405 / -2939.784 636.2 / 1311.2 675 / 1311.2 Weight 157 lb 10.088 oz Intake: IV 420 / 619.877 2659.2 / 3161.2 1050 / 3161.2 Oral 0 / 0 Output: Gastric Drainage 100 / 200 OG tube 100 / 200 Urine 2725 / 3525 1475 / 1850 375 / 1850 Output, Residual 0 / 0 Other: Urine Color Yellow Yellow Yellow Urine Appearance Clear Clear Clear Comment villafana draining fran urine. villafana draining clear yellow urine. Laboratory Results WBC 4.78 k/cumm (4.4-10.8) 02/18/20 06:40 RBC 3.23 m/cumm (4.50-6.00) L 02/18/20 06:40 Hgb 11.0 g/dL (13.5-17.5) L 02/18/20 06:40 Hct 32.0 % (40.0-50.0) L 02/18/20 06:40 MCV 99.1 fL (80-95) H 02/18/20 06:40 MCH 34.1 pg (27.0-33.0) H 02/18/20 06:40 MCHC 34.4 g/dL (32.0-36.0) 02/18/20 06:40 RDW 11.7 % (11.8-14.1) L 02/18/20 06:40 Plt Count 214 x1000/uL (130-400) 02/18/20 06:40 MPV 10.2 fL (8.0-11.0) 02/18/20 06:40 Immature Gran % 0.4 % 02/16/20 06:30 Neutrophils % 68.6 02/16/20 06:30 Band Neutrophils % Cancelled 02/13/20 03:27 Lymphocytes % 16.9 02/16/20 06:30 Atypical Lymphs % Cancelled 02/13/20 03:27 Monocytes % 13.0 02/16/20 06:30 Eosinophils % 0.9 02/16/20 06:30 Basophils % 0.2 02/16/20 06:30 Metamyelocytes % Cancelled 02/13/20 03:27 Myelocytes % Cancelled 02/13/20 03:27 Promyelocytes % Cancelled 02/13/20 03:27 Absolute Neutrophils 3.70 k/cumm (1.2-6.7) 02/16/20 06:30 Absolute Lymphocytes 0.91 k/cumm (1.2-3.4) L 02/16/20 06:30 Absolute Monocytes 0.70 k/cumm (0.11-0.7) 02/16/20 06:30 Absolute Eosinophils 0.05 k/cumm (0.0-0.7) 02/16/20 06:30 Absolute Basophils 0.01 k/cumm (0.0-0.2) 02/16/20 06:30 Nucleated RBCs Cancelled 02/13/20 03:27 Differential Comment Diff reviewed 02/15/20 06:50 Other Cell Type Cancelled 02/13/20 03:27 RBC Morphology Normal 02/15/20 06:50 Polychromasia Cancelled 02/13/20 03:27 Hypochromasia Cancelled 02/13/20 03:27 Poikilocytosis Cancelled 02/13/20 03:27 Basophilic Stippling Cancelled 02/13/20 03:27 Anisocytosis Cancelled 02/13/20 03:27 Microcytosis Cancelled 02/13/20 03:27 Macrocytosis Cancelled 02/13/20 03:27 Spherocytes Cancelled 02/13/20 03:27 Target Cells Cancelled 02/13/20 03:27 Tear Drop Cells Cancelled 02/13/20 03:27 Ovalocytes Cancelled 02/13/20 03:27 Stomatocytes Cancelled 02/13/20 03:27 [place] Bodies Cancelled 02/13/20 03:27 Jacob Cells Cancelled 02/13/20 03:27 Acanthocytes (Spur) Cancelled 02/13/20 03:27 Schistocytes Cancelled 02/13/20 03:27 PT 10.2 sec (9.3-11.0) 02/12/20 06:15 INR 1.0 (0.9-1.1) 02/12/20 06:15 ABG Sample Site Right radial 02/15/20 07:40 ABG pH 7.43 (7.35-7.45) 02/15/20 07:40 ABG pCO2 31 mmHg (34-47) L 02/15/20 07:40 ABG pO2 91 mmHg (83-108) 02/15/20 07:40 ABG HCO3 20 mmol/L (22-28) L 02/15/20 07:40 ABG Total CO2 19 mmol/L (22-29) L 02/15/20 07:40 ABG O2 Saturation 98 % (94-98) 02/15/20 07:40 ABG Base Excess -4.3 mmol/L (-3-3) L 02/15/20 07:40 Oxygen Liter Flow Cancelled 02/13/20 15:11 FiO2 40 % 02/15/20 07:40 Sodium 138 mmol/L (136-145) 02/18/20 06:40 Potassium 3.4 mmol/L (3.5-5.1) L 02/18/20 06:40 Chloride 103 mmol/L (98-107) 02/18/20 06:40 Carbon Dioxide 28.5 mmol/L (21.0-32.0) 02/18/20 06:40 Anion Gap 6.5 mmol/L (3-11) 02/18/20 06:40 BUN 9 mg/dL (7-18) 02/18/20 06:40 Creatinine 0.68 mg/dL (0.70-1.30) L 02/18/20 06:40 Estimated GFR/1.73 m2 >= 60.00 (mL/min/1.73m2) 02/18/20 06:40 Glucose 112 mg/dL (74-106) H 02/18/20 06:40 Lactate 1.0 mmol/L (0.6-1.4) 02/13/20 06:08 Calcium 8.1 mg/dL (8.5-10.1) L 02/18/20 06:40 Magnesium 1.7 mg/dL (1.8-2.4) L 02/18/20 06:40 Total Bilirubin 0.5 mg/dL (0.2-1.0) 02/18/20 06:40 Conjugated Bilirubin 0.34 mg/dL (0.00-0.20) H 02/13/20 06:08 AST 25 U/L (15-37) 02/18/20 06:40 ALT 31 U/L (16-63) 02/18/20 06:40 Alkaline Phosphatase 51 U/L (46-116) 02/18/20 06:40 Ammonia 26 umol/L (11-32) 02/17/20 06:05 Troponin I < 0.05 ng/Ml (<0.06) 02/11/20 21:30 Total Protein 5.7 g/dL (6.4-8.2) L 02/18/20 06:40 Albumin 1.9 g/dL (3.4-5.0) L 02/18/20 06:40 Vitamin B12 959 pg/mL (193-986) 02/12/20 06:15 Folate 18.1 ng/mL (8.6-20.0) 02/12/20 06:15 Procalcitonin 0.1 ng/mL 02/13/20 06:08 TSH 2.42 uIU/mL (0.36-3.74) 02/11/20 13:00 Urine Color Yellow (Yellow) 02/11/20 19:25 Urine Clarity Clear (Clear) 02/11/20 19:25 Urine pH 6.0 (5-8) 02/11/20 19:25 Ur Specific [place] 1.025 (1.005-1.025) 02/11/20 19:25 Urine Protein Negative mg/dL (Negative) 02/11/20 19:25 Urine Ketones 15 mg/dL (Negative) H 02/11/20 19:25 Urine Blood Trace-intact (Negative) H 02/11/20 19:25 Urine Nitrite Negative (Negative) 02/11/20 19:25 Urine Bilirubin Negative (Negative) 02/11/20 19:25 Urine Urobilinogen 1.0 EU/dL (Up TO 0.2) H 02/11/20 19:25 Ur Leukocyte Esterase Negative (Negative) 02/11/20 19:25 Urine RBC 3-5 HPF (0-2) H 02/11/20 19:25 Urine WBC 0-2 HPF (0-5) 02/11/20 19:25 Ur Epithelial Cells Rare HPF (Negative) 02/11/20 19:25 Urine Crystals Negative HPF (Negative) 02/11/20 19:25 Urine Bacteria Few HPF (Negative) 02/11/20 19:25 Urine Casts Negative LPF (Negative) 02/11/20 19:25 Urine Mucus Negative (Negative) 02/11/20 19:25 Urine Other Negative (Negative) 02/11/20 19:25 Ur Culture Indicated? No 02/11/20 19:25 Urine Glucose Negative mg/dL (Negative) 02/11/20 19:25 Vancomycin Trough Cancelled 02/15/20 13:00 Ethyl Alcohol < 3.0 mg/dL (<3) 02/11/20 13:00 Patient ABO/Rh A Positive 02/13/20 06:08 Antibody Screen Negative 02/13/20 06:08
[2020-02-19] VITALS (49 sets, daily range): BP systolic 113–159; BP diastolic 65–93; PULSE 72–107; RESP 5–36; TEMP 36.3–36.8; O2SAT 87–100
[2020-02-19] MEDS: Normal Saline Flush 10 ML SYR IVP ×2 (06:24→13:58)
[2020-02-19 07:03] LABS: Anion Gap 5.8 mmol/L (3-11); BUN 11 mg/dL (7-18); CO2 28.2 mmol/L (21.0-32.0); CREATININE 0.62 mg/dL (0.70-1.30); Calcium 8.5 mg/dL (8.5-10.1); Chloride 102 mmol/L (98-107); Glucose 111 mg/dL (74-106); Magnesium 1.7 mg/dL (1.8-2.4); Potassium 3.7 mmol/L (3.5-5.1); Sodium 136 mmol/L (136-145)
[2020-02-19] MEDS: Pantoprazole 40 MG VIAL IVP (08:17)
[2020-02-19] MEDS: Thiamine 100 MG TAB PO (08:17)
[2020-02-19] MEDS: Folic Acid 1 MG TAB PO (08:17)
[2020-02-19] MEDS: MAGNESIUM SULFATE 2 GM/50 ML BAG IVPB (09:40)
[2020-02-19] MEDS: Magnesium Gluconate 500 MG TAB PO (09:40)
--- NOTE | 2020-02-19 12:27 | PDOC.CMPRO ---
- If Service Date Differs Date of service: 02/19/20 Time of Service: 12:27 Care Management Progress Note S/O: Vikram is awake, his eyes open spontaneously. He is not verbal at this time and he seems to stare without eye contact. CM did provide information about the events that have happen and explained to him where he is. He continues to have a nasal gastric feeding tube. He continues on IV abx. Palliative did follow up today and will continue to follow. A: Vikram is a 69 year old male admitted for acute alcohol withdrawal, per report he did make statement in the ED of wanting to stop drinking. He is also being treated for aspiration pneumonia with IV ABX. P: Vikram remains an ICU patient. Palliative continues to consult please refer to documentation for further details. CM continues to follow and assess for disposition needs.
--- NOTE | 2020-02-19 12:52 | PGE_ITS ---
Date of Service Date of service: 02/19/20 Time of Service: 12:52 Assessment and Plan Assessment and plan (1) Encephalopathy: Status: Acute Assessment and plan: I suspect his encephalopathy is secondary to the large amount of sedation required to treat his acute alcohol withdrawal. However I am going to check an ABG to rule out CO2 narcosis. He had a CT scan of his head 3 days ago that showed no acute intracranial process. He is off all sedatives for his alcohol withdrawal. (2) Aspiration pneumonia: Status: Acute Assessment and plan: Patient sputum culture grew out Enterobacter cloacae and patient received 8-day course of imipenem. He is currently off antibiotics as of yesterday and has remained afebrile. He is not hypoxemic. I did a [id number] ultrasound of his lungs. I did not see any lung consolidation or effusions. He does have a few scattered B-lines at both lung bases. Upper lung ca have normal A-line pattern we will closely monitor and if need be repeat his chest x-ray. At this time I am going to hold off antibiotics unless he sp ikes a fever or develops a leukocytosis. Qualifiers: Aspiration pneumonia type: due to gastric secretions Laterality: bilateral Lung location: lower lobe of lung Qualified Code(s): J69.0 - Pneumonitis due to inhalation of food and vomit (3) Atrial fibrillation with rapid ventricular response: Status: Resolved Assessment and plan: Currently in sinus rhythm at a controlled rate. 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 Furthermore he is not compliant with his medications and would be high risk for for further GI bleeding. He is not currently on any beta blockers or calcium channel blockers for rate control. (4) Alcohol withdrawal delirium, acute, hyperactive: Status: Acute Assessment and plan: Patient remains encephalopathic however I think this is not secondary to his alcohol withdrawal but due to the aftereffects of high- dose benzodiazepine sedatives. He has had no evidence for withdrawal at this time. Patient remains on multivitamin and thiamine and folic acid. Currently tolerating NG tube feedings. Currently receiving Isosource 1.5 fe at a rate of 30 mL's per hour. He is also receiving supplemental water through his NG 750 mL of water every 6 hours. (5) DVT prophylaxis: Status: Acute Assessment and plan: Continue SCD and RANDI hose. Not a candidate for anticoagulation (6) Anemia, blood loss: Status: Acute Assessment and plan: Hemoglobin remained stable at 11 g. There is no evidence of GI bleeding at this time. He remains on Protonix for GI protection. (7) Discharge planning issues: Status: Acute Assessment and plan: Family apparently is considering comfort measures. Dr. Lamb is seen the patient for a palliative care consult is indicated that if the patient is not waking up the family would like to proceed with comfort care measures. Subjective Subjective Interval history since last seen: Hospital Day #9 for acute alcohol withdrawal, aspiration pneumonia (Enterobacter cloacae; s/p imipenem therapy x 8days, completed), metabolic encephalopathy, PAF (currently in NSR) Patient's mental status waxes and wanes. He will mumble some intelligible words after tactile stimulation. Not following any commands. Sonorous respirations. No hypoxemia, currently on R.A. w/ SPO2 of 94% Exam Narrative Exam Narrative: Elderly gentleman who is lying in bed in upright position at about 60 degrees. He is having sonorous respirations. He is arousable to tactile stimulation and opens his eyes mumbles some words but not able to give a coherent conversation. He is not oriented. Lungs with some scattered coarse bilateral rhonchi primarily at the bases. Some expiratory wheezes diffusely. Heart is regular of the heart tones are difficult to hear over his coarse lung sounds. Abdomen is soft with normal active bowel sounds nondistended. Extremities there is trace to 1+ pedal edema. There is 2+ hand edema. Neurologic exam is difficult to assess due to somnolence. He does arouse to tactile stimulation moves both upper extremities. When I put my hand in his hands he will grasp my hand. He does not follow commands. Lower extremities have good tone but no voluntary movement. Objective Objective Clinical Data: Abnormal lab results 02/15/20 02/19/20 Range/Units 06:50 06:30 Plt Count 94 L (130-400) x1000/uL Creatinine 0.62 L (0.70-1.30) mg/dL Glucose 111 H (74-106) mg/dL Magnesium 1.7 L (1.8-2.4) mg/dL Vital Signs Temperature 36.5 C 02/19/20 11:55 Temperature Source Tympanic 02/19/20 11:55 Pulse 95 H 02/19/20 12:28 Pulse 94 H 03/24/20 12:28 Respiratory Rate 36 H 02/19/20 12:28 Respiratory Effort Drooling 02/19/20 11:55 Respiratory Depth Shallow 02/19/20 11:55 Respiratory Pattern Normal 02/19/20 11:55 Blood Pressure 158/89 H 02/19/20 12:28 Blood Pressure Mean 106 02/19/20 12:28 Blood Pressure Position Supine 02/19/20 04:15 Pulse Oximetry 94 L 02/19/20 12:40 Respiratory End-tidal CO2 27 02/17/20 12:01 Oxygen Delivery Method Room Air 02/19/20 12:40 Oxygen Flow Rate 0 02/19/20 12:40 Fraction of Inspired Oxygen (FIO2) 02/17/20 08:03 Pain Level 0 02/19/20 09:09 Comment 02/14/20 17:48 Intake & Output 02/18/20 02/19/20 02/19/20 23:59 11:59 23:59 Intake Total 1250 / 3461.2 100 / 151.168 51.168 / 151.168 Output Total 1515 / 2990 464 / 464 Balance -265 / 471.2 -364 / -312.832 51.168 / -312.832 Weight 71.3 kg Intake: IV 1250 / 3461.2 100 / 151.168 51.168 / 151.168 Output: Gastric Drainage 5 / 5 NGT 5 / 5 Urine 1425 / 2900 450 / 450 Output, Residual 90 / 90 9 / 9 Other: Urine Color Yellow Yellow Urine Appearance Clear Clear Comment villafana villafana patent draining clear yellow urine. Gastric Occult Blood NGT Negative Laboratory Results WBC 4.78 k/cumm (4.4-10.8) 02/18/20 06:40 RBC 3.23 m/cumm (4.50-6.00) L 02/18/20 06:40 Hgb 11.0 g/dL (13.5-17.5) L 02/18/20 06:40 Hct 32.0 % (40.0-50.0) L 02/18/20 06:40 MCV 99.1 fL (80-95) H 02/18/20 06:40 MCH 34.1 pg (27.0-33.0) H 02/18/20 06:40 MCHC 34.4 g/dL (32.0-36.0) 02/18/20 06:40 RDW 11.7 % (11.8-14.1) L 02/18/20 06:40 Plt Count 214 x1000/uL (130-400) 02/18/20 06:40 MPV 10.2 fL (8.0-11.0) 02/18/20 06:40 Immature Gran % 0.4 % 02/16/20 06:30 Neutrophils % 68.6 02/16/20 06:30 Band Neutrophils % Cancelled 02/13/20 03:27 Lymphocytes % 16.9 02/16/20 06:30 Atypical Lymphs % Cancelled 02/13/20 03:27 Monocytes % 13.0 02/16/20 06:30 Eosinophils % 0.9 02/16/20 06:30 Basophils % 0.2 02/16/20 06:30 Metamyelocytes % Cancelled 02/13/20 03:27 Myelocytes % Cancelled 02/13/20 03:27 Promyelocytes % Cancelled 02/13/20 03:27 Absolute Neutrophils 3.70 k/cumm (1.2-6.7) 02/16/20 06:30 Absolute Lymphocytes 0.91 k/cumm (1.2-3.4) L 02/16/20 06:30 Absolute Monocytes 0.70 k/cumm (0.11-0.7) 02/16/20 06:30 Absolute Eosinophils 0.05 k/cumm (0.0-0.7) 02/16/20 06:30 Absolute Basophils 0.01 k/cumm (0.0-0.2) 02/16/20 06:30 Nucleated RBCs Cancelled 02/13/20 03:27 Differential Comment Diff reviewed 02/15/20 06:50 Other Cell Type Cancelled 02/13/20 03:27 RBC Morphology Normal 02/15/20 06:50 Polychromasia Cancelled 02/13/20 03:27 Hypochromasia Cancelled 02/13/20 03:27 Poikilocytosis Cancelled 02/13/20 03:27 Basophilic Stippling Cancelled 02/13/20 03:27 Anisocytosis Cancelled 02/13/20 03:27 Microcytosis Cancelled 02/13/20 03:27 Macrocytosis Cancelled 02/13/20 03:27 Spherocytes Cancelled 02/13/20 03:27 Target Cells Cancelled 02/13/20 03:27 Tear Drop Cells Cancelled 02/13/20 03:27 Ovalocytes Cancelled 02/13/20 03:27 Stomatocytes Cancelled 02/13/20 03:27 [place] Bodies Cancelled 02/13/20 03:27 Jacob Cells Cancelled 02/13/20 03:27 Acanthocytes (Spur) Cancelled 02/13/20 03:27 Schistocytes Cancelled 02/13/20 03:27 PT 10.2 sec (9.3-11.0) 02/12/20 06:15 INR 1.0 (0.9-1.1) 02/12/20 06:15 ABG Sample Site Right radial 02/15/20 07:40 ABG pH 7.43 (7.35-7.45) 02/15/20 07:40 ABG pCO2 31 mmHg (34-47) L 02/15/20 07:40 ABG pO2 91 mmHg (83-108) 02/15/20 07:40 ABG HCO3 20 mmol/L (22-28) L 02/15/20 07:40 ABG Total CO2 19 mmol/L (22-29) L 02/15/20 07:40 ABG O2 Saturation 98 % (94-98) 02/15/20 07:40 ABG Base Excess -4.3 mmol/L (-3-3) L 02/15/20 07:40 Oxygen Liter Flow Cancelled 02/13/20 15:11 FiO2 40 % 02/15/20 07:40 Sodium 136 mmol/L (136-145) 02/19/20 06:30 Potassium 3.7 mmol/L (3.5-5.1) 02/19/20 06:30 Chloride 102 mmol/L (98-107) 02/19/20 06:30 Carbon Dioxide 28.2 mmol/L (21.0-32.0) 02/19/20 06:30 Anion Gap 5.8 mmol/L (3-11) 02/19/20 06:30 BUN 11 mg/dL (7-18) 02/19/20 06:30 Creatinine 0.62 mg/dL (0.70-1.30) L 02/19/20 06:30 Estimated GFR/1.73 m2 >= 60.00 (mL/min/1.73m2) 02/19/20 06:30 Glucose 111 mg/dL (74-106) H 02/19/20 06:30 Lactate 1.0 mmol/L (0.6-1.4) 02/13/20 06:08 Calcium 8.5 mg/dL (8.5-10.1) 02/19/20 06:30 Magnesium 1.7 mg/dL (1.8-2.4) L 02/19/20 06:30 Total Bilirubin 0.5 mg/dL (0.2-1.0) 02/18/20 06:40 Conjugated Bilirubin 0.34 mg/dL (0.00-0.20) H 02/13/20 06:08 AST 25 U/L (15-37) 02/18/20 06:40 ALT 31 U/L (16-63) 02/18/20 06:40 Alkaline Phosphatase 51 U/L (46-116) 02/18/20 06:40 Ammonia 26 umol/L (11-32) 02/17/20 06:05 Troponin I < 0.05 ng/Ml (<0.06) 02/11/20 21:30 Total Protein 5.7 g/dL (6.4-8.2) L 02/18/20 06:40 Albumin 1.9 g/dL (3.4-5.0) L 02/18/20 06:40 Vitamin B12 959 pg/mL (193-986) 02/12/20 06:15 Folate 18.1 ng/mL (8.6-20.0) 02/12/20 06:15 Procalcitonin 0.1 ng/mL 02/13/20 06:08 TSH 2.42 uIU/mL (0.36-3.74) 02/11/20 13:00 Urine Color Yellow (Yellow) 02/11/20 19:25 Urine Clarity Clear (Clear) 02/11/20 19:25 Urine pH 6.0 (5-8) 02/11/20 19:25 Ur Specific [place] 1.025 (1.005-1.025) 02/11/20 19:25 Urine Protein Negative mg/dL (Negative) 02/11/20 19:25 Urine Ketones 15 mg/dL (Negative) H 02/11/20 19:25 Urine Blood Trace-intact (Negative) H 02/11/20 19:25 Urine Nitrite Negative (Negative) 02/11/20 19:25 Urine Bilirubin Negative (Negative) 02/11/20 19:25 Urine Urobilinogen 1.0 EU/dL (Up TO 0.2) H 02/11/20 19:25 Ur Leukocyte Esterase Negative (Negative) 02/11/20 19:25 Urine RBC 3-5 HPF (0-2) H 02/11/20 19:25 Urine WBC 0-2 HPF (0-5) 02/11/20 19:25 Ur Epithelial Cells Rare HPF (Negative) 02/11/20 19:25 Urine Crystals Negative HPF (Negative) 02/11/20 19:25 Urine Bacteria Few HPF (Negative) 02/11/20 19:25 Urine Casts Negative LPF (Negative) 02/11/20 19:25 Urine Mucus Negative (Negative) 02/11/20 19:25 Urine Other Negative (Negative) 02/11/20 19:25 Ur Culture Indicated? No 02/11/20 19:25 Urine Glucose Negative mg/dL (Negative) 02/11/20 19:25 Vancomycin Trough Cancelled 02/15/20 13:00 Ethyl Alcohol < 3.0 mg/dL (<3) 02/11/20 13:00 Patient ABO/Rh A Positive 02/13/20 06:08 Antibody Screen Negative 02/13/20 06:08
[2020-02-19] MEDS: Furosemide 20 MG/2 ML VIAL IVP (13:57)
[2020-02-19 14:02] LABS: BE 5.5 mmol/L (-3-3); HCO3 29 mmol/L (22-28); pCO2 37 mmHg (34-47); pO2 56 mmHg (83-108); sO2 91 % (94-98); tCO2 26 mmol/L (22-29)
[2020-02-19 14:04] LABS: Site Right Radial
[2020-02-19] MEDS: Albuterol/Ipratropium 3 ML UPD VIAL UPD (17:18)
[2020-02-20] VITALS (31 sets, daily range): BP systolic 104–150; BP diastolic 57–90; PULSE 75–100; RESP 4–28; TEMP 36.6–36.7; O2SAT 93–100
[2020-02-20] MEDS: Albuterol/Ipratropium 3 ML UPD VIAL UPD ×2 (00:24→05:55)
[2020-02-20] MEDS: Normal Saline Flush 10 ML SYR IVP ×5 (05:56→22:26)
[2020-02-20 06:39] LABS: Abs Immature Grans 0.14 k/cumm (0.0-0.09); Absolute Basophil Count 0.05 k/cumm (0.0-0.2); Absolute Eosinophil Count 0.15 k/cumm (0.0-0.7); Absolute Lymphocyte Count 1.49 k/cumm (1.2-3.4); Absolute Monocyte Count 0.89 k/cumm (0.11-0.7); Absolute Neutrophil Count 5.25 k/cumm (1.2-6.7); Basophils % 0.6; Eosinophils % 1.9; HCT 35.3 % (40.0-50.0); HGB 12.2 g/dL (13.5-17.5); Immature Grans % 1.8 %; Lymphocytes % 18.7; Mean Corp. HGB Concentration 34.6 g/dL (32.0-36.0); Mean Corpuscular Hemoglobin 34.4 pg (27.0-33.0); Mean Corpuscular Volume 99.4 fL (80-95); Mean Platelet Volume 10.2 fL (8.0-11.0); Monocytes % 11.2; Neutrophils % 65.8; Platelet Count 296 x1000/uL (130-400); RBC 3.55 m/cumm (4.50-6.00); RBC Distribution Width 11.9 % (11.8-14.1); White Blood Cell Count 7.97 k/cumm (4.4-10.8)
[2020-02-20 06:53] LABS: Anion Gap 6.2 mmol/L (3-11); BUN 15 mg/dL (7-18); CO2 29.8 mmol/L (21.0-32.0); CREATININE 0.77 mg/dL (0.70-1.30); Chloride 99 mmol/L (98-107); Glucose 123 mg/dL (74-106); Potassium 3.6 mmol/L (3.5-5.1); Sodium 135 mmol/L (136-145)
[2020-02-20 07:03] LABS: NT-proBNP 294 pg/mL (<300)
--- NOTE | 2020-02-20 09:42 | PDOC.CMPRO ---
- If Service Date Differs Date of service: 02/20/20 Time of Service: 09:42 Care Management Progress Note S/O: Vikram has transition to comfort measures only today, once he moves out of the unit CM will contact spouse and family to be with him. Anticipate he will receive end of life care here at the hospital. A: Vikram is a 69 year old male admitted for acute alcohol withdrawal, per report he did make statement in the ED of wanting to stop drinking. He is also being treated for aspiration pneumonia with IV ABX. P: Vikram is now comfort measures only. Symptom management. Palliative continues to consult please refer to documentation for further details. CM continues to follow and assess for disposition needs.
--- NOTE | 2020-02-20 12:13 | NUR.NOTE ---
Nursing Note:It was determined by family, care management and doctor that pt would benefit most from SENIOR SSIS DEVELOPER. This nurse then gave patient scheduled 2mg IVP Morphine. Then, assisted by Samira Evans RN and Harris Daugherty RN this nurse removed NG tube, nasal Cannula, teletypesetter monitor. At 1100 am, oral, skin and villafana care was preformed on the patient, though he was not able to paticipate in self care acitivies this patient did become more arousable. The patient became arousable to voice, and began following commands. Was able to preform light hand grasps, wiggle' toes, open mouth and make eye contact with nurse. Pt also responded to this nurse x1, level of orientation is difficult to determine at this point, will continue to monitor.
--- NOTE | 2020-02-20 14:09 | W.PM.PROGNOT ---
Date of Service Date of service: 02/20/20 Time of Service: 14:13 Assessment and Plan Assessment and plan (1) Encephalopathy: Status: Acute Assessment and plan: As I suspected his encephalopathy is metabolic and most likely due to the accumulation of sedatives treated for his acute alcohol withdrawal. Over time expected to become more responsive. Hopefully tomorrow we can do a feeding trial (2) Aspiration pneumonia: Status: Acute Assessment and plan: Patient completed his antibiotics and is currently off of any antibiotics. I am not going to repeat his chest x-ray since his requested PROJECT MANAGEMENT ANALYST orders. Qualifiers: Aspiration pneumonia type: due to gastric secretions Laterality: bilateral Lung location: lower lobe of lung Qualified Code(s): J69.0 - Pneumonitis due to inhalation of food and vomit (3) Atrial fibrillation with rapid ventricular response: Status: Resolved Assessment and plan: As of this morning he was in sinus rhythm. We have discontinued a telemetry monitoring since he is now on PROJECT MANAGEMENT ANALYST status. (4) Alcohol withdrawal delirium, acute, hyperactive: Status: Acute Assessment and plan: He completed treatment for alcohol withdrawal. He remains off of any benzodiazepines. (5) DVT prophylaxis: Status: Acute Assessment and plan: Continue SCD and RANDI hose. Not a candidate for anticoagulation (6) Anemia, blood loss: Status: Acute Assessment and plan: Hemoglobin remained stable at 12 g. There is no evidence of GI bleeding at this time. He remains on Protonix for GI protection. (7) Discharge planning issues: Status: Acute Assessment and plan: Patient's is decided on PROJECT MANAGEMENT ANALYST status. We will honor those wishes and keep him comfortable. However if he becomes more alert and awake we will do a feeding trial. Subjective Subjective Interval history since last seen: This morning the patient was poorly arousable. I discussed his case with his who called into the hospital to check on her . She indicated to me that he never wanted to be intubated in the first place however at the time he came into the hospital he was in acute alcohol withdrawal and she gave her consent for intubation when he required high doses of sedation. He is now post extubation day #4. He remains off of all sedative medications. I told the that we would honor his wishes to keep him comfortable. This morning I put a PROJECT MANAGEMENT ANALYST order and he is to be transferred out of the intensive care unit. Although he is arousable and opening his eyes he is not really caring any significant conversation with me. He did follow simple one-step commands for his nurse such as opening his eyes upon command and squeezing her hands. We will continue supportive care with some IV fluids for another day and see if he wakes up even further and possibly try some oral feedings tomorrow. Otherwise we will not be doing any further lab testing or radiologic studies on and in the event of cardiopulmonary arrest we will not intervene as per his wishes which were conveyed by his . Exam Narrative Exam Narrative: Elderly gentleman who opens his eyes spontaneously mumbles a few incoherent words and then closes his eyes again. Glascow coma score 14 (E4, V4, M6) Lungs are rhonchorous Heart is regular Abdomen soft and nontender. Extremities without peripheral cyanosis or edema Neurologic opens eyes spontaneously mumbles a few incoherent words. Did not follow my commands but follow one-step commands by his nurse. No focal motor deficits. No facial asymmetry. Objective Objective Clinical Data: Abnormal lab results 02/20/20 02/20/20 Range/Units 06:10 06:10 RBC 3.55 L (4.50-6.00) m/cumm Hgb 12.2 L (13.5-17.5) g/dL Hct 35.3 L (40.0-50.0) % MCV 99.4 H (80-95) fL MCH 34.4 H (27.0-33.0) pg Absolute Monocytes 0.89 H (0.11-0.7) k/cumm Sodium 135 L (136-145) mmol/L Glucose 123 H (74-106) mg/dL Vital Signs Temperature 36.6 C 02/20/20 04:03 Temperature Source Temporal Artery Scan 02/20/20 04:03 Pulse 76 02/20/20 10:00 Pulse 78 02/20/20 10:01 Respiratory Rate 23 02/20/20 10:01 Respiratory Effort 02/20/20 08:51 Respiratory Depth Shallow 02/20/20 08:51 Respiratory Pattern Normal 02/20/20 08:51 Blood Pressure 108/60 02/20/20 10:00 Blood Pressure Mean 71 02/20/20 10:00 Blood Pressure Position Supine 02/20/20 04:03 Pulse Oximetry 93 L 02/20/20 11:42 Respiratory End-tidal CO2 27 02/17/20 12:01 Oxygen Delivery Method Room Air 02/20/20 11:42 Oxygen Flow Rate 0 02/20/20 11:42 Fraction of Inspired Oxygen (FIO2) 21 02/17/20 08:03 Pain Level 0 02/20/20 04:03 Comment 02/14/20 17:48 Intake & Output 02/19/20 02/20/20 02/20/20 23:59 11:59 23:59 Intake Total 511.168 / 611.168 330 / 330 Output Total 1605 / 2769 1055 / 1055 Balance -1093.832 / -2157.832 -725 / -725 Weight 69.6 kg Intake: IV 151.168 / 251.168 Intake, Tube Feeding Amount 360 / 360 330 / 330 Output: Urine 1600 / 2750 1050 / 1050 Output, Residual 5 / 14 5 / 5 Other: Urine Color Yellow [place] Urine Appearance Clear Cloudy Comment villafana patent draining clear yellow urine. Villafana patentent and draining yellow urine. villafana already in place. Stool Occult Blood Negative Stool Size Large Stool Characteristics Soft Laboratory Results WBC 7.97 k/cumm (4.4-10.8) 02/20/20 06:10 RBC 3.55 m/cumm (4.50-6.00) L 02/20/20 06:10 Hgb 12.2 g/dL (13.5-17.5) L 02/20/20 06:10 Hct 35.3 % (40.0-50.0) L 02/20/20 06:10 MCV 99.4 fL (80-95) H 02/20/20 06:10 MCH 34.4 pg (27.0-33.0) H 02/20/20 06:10 MCHC 34.6 g/dL (32.0-36.0) 02/20/20 06:10 RDW 11.9 % (11.8-14.1) 02/20/20 06:10 Plt Count 296 x1000/uL (130-400) 02/20/20 06:10 MPV 10.2 fL (8.0-11.0) 02/20/20 06:10 Immature Gran % 1.8 % 02/20/20 06:10 Neutrophils % 65.8 02/20/20 06:10 Band Neutrophils % Cancelled 02/13/20 03:27 Lymphocytes % 18.7 02/20/20 06:10 Atypical Lymphs % Cancelled 02/13/20 03:27 Monocytes % 11.2 02/20/20 06:10 Eosinophils % 1.9 02/20/20 06:10 Basophils % 0.6 02/20/20 06:10 Metamyelocytes % Cancelled 02/13/20 03:27 Myelocytes % Cancelled 02/13/20 03:27 Promyelocytes % Cancelled 02/13/20 03:27 Absolute Neutrophils 5.25 k/cumm (1.2-6.7) 02/20/20 06:10 Absolute Lymphocytes 1.49 k/cumm (1.2-3.4) 02/20/20 06:10 Absolute Monocytes 0.89 k/cumm (0.11-0.7) H 02/20/20 06:10 Absolute Eosinophils 0.15 k/cumm (0.0-0.7) 02/20/20 06:10 Absolute Basophils 0.05 k/cumm (0.0-0.2) 02/20/20 06:10 Nucleated RBCs Cancelled 02/13/20 03:27 Differential Comment Diff reviewed 02/15/20 06:50 Other Cell Type Cancelled 02/13/20 03:27 RBC Morphology Normal 02/15/20 06:50 Polychromasia Cancelled 02/13/20 03:27 Hypochromasia Cancelled 02/13/20 03:27 Poikilocytosis Cancelled 02/13/20 03:27 Basophilic Stippling Cancelled 02/13/20 03:27 Anisocytosis Cancelled 02/13/20 03:27 Microcytosis Cancelled 02/13/20 03:27 Macrocytosis Cancelled 02/13/20 03:27 Spherocytes Cancelled 02/13/20 03:27 Target Cells Cancelled 02/13/20 03:27 Tear Drop Cells Cancelled 02/13/20 03:27 Ovalocytes Cancelled 02/13/20 03:27 Stomatocytes Cancelled 02/13/20 03:27 [place] Bodies Cancelled 02/13/20 03:27 Jacob Cells Cancelled 02/13/20 03:27 Acanthocytes (Spur) Cancelled 02/13/20 03:27 Schistocytes Cancelled 02/13/20 03:27 PT 10.2 sec (9.3-11.0) 02/12/20 06:15 INR 1.0 (0.9-1.1) 02/12/20 06:15 ABG Sample Site Right radial 02/19/20 13:56 ABG pH 7.50 (7.35-7.45) H 02/19/20 13:56 ABG pCO2 37 mmHg (34-47) 02/19/20 13:56 ABG pO2 56 mmHg (83-108) L 02/19/20 13:56 ABG HCO3 29 mmol/L (22-28) H 02/19/20 13:56 ABG Total CO2 26 mmol/L (22-29) 02/19/20 13:56 ABG O2 Saturation 91 % (94-98) L 02/19/20 13:56 ABG Base Excess 5.5 mmol/L (-3-3) H 02/19/20 13:56 Oxygen Liter Flow Cancelled 02/13/20 15:11 FiO2 40 % 02/15/20 07:40 Sodium 135 mmol/L (136-145) L 02/20/20 06:10 Potassium 3.6 mmol/L (3.5-5.1) 02/20/20 06:10 Chloride 99 mmol/L (98-107) 02/20/20 06:10 Carbon Dioxide 29.8 mmol/L (21.0-32.0) 02/20/20 06:10 Anion Gap 6.2 mmol/L (3-11) 02/20/20 06:10 BUN 15 mg/dL (7-18) 02/20/20 06:10 Creatinine 0.77 mg/dL (0.70-1.30) 02/20/20 06:10 Estimated GFR/1.73 m2 >= 60.00 (mL/min/1.73m2) 02/20/20 06:10 Glucose 123 mg/dL (74-106) H 02/20/20 06:10 Lactate 1.0 mmol/L (0.6-1.4) 02/13/20 06:08 Calcium 9.0 mg/dL (8.5-10.1) 02/20/20 06:10 Magnesium 2.0 mg/dL (1.8-2.4) 02/20/20 06:10 Total Bilirubin 0.5 mg/dL (0.2-1.0) 02/18/20 06:40 Conjugated Bilirubin 0.34 mg/dL (0.00-0.20) H 02/13/20 06:08 AST 25 U/L (15-37) 02/18/20 06:40 ALT 31 U/L (16-63) 02/18/20 06:40 Alkaline Phosphatase 51 U/L (46-116) 02/18/20 06:40 Ammonia 26 umol/L (11-32) 02/17/20 06:05 Troponin I < 0.05 ng/Ml (<0.06) 02/11/20 21:30 NT-Pro-B Natriuret Pep 294 pg/mL (<300) 02/20/20 06:10 Total Protein 5.7 g/dL (6.4-8.2) L 02/18/20 06:40 Albumin 1.9 g/dL (3.4-5.0) L 02/18/20 06:40 Vitamin B12 959 pg/mL (193-986) 02/12/20 06:15 Folate 18.1 ng/mL (8.6-20.0) 02/12/20 06:15 Procalcitonin 0.1 ng/mL 02/13/20 06:08 TSH 2.42 uIU/mL (0.36-3.74) 02/11/20 13:00 Urine Color Yellow (Yellow) 02/11/20 19:25 Urine Clarity Clear (Clear) 02/11/20 19:25 Urine pH 6.0 (5-8) 02/11/20 19:25 Ur Specific [place] 1.025 (1.005-1.025) 02/11/20 19:25 Urine Protein Negative mg/dL (Negative) 02/11/20 19:25 Urine Ketones 15 mg/dL (Negative) H 02/11/20 19:25 Urine Blood Trace-intact (Negative) H 02/11/20 19:25 Urine Nitrite Negative (Negative) 02/11/20 19:25 Urine Bilirubin Negative (Negative) 02/11/20 19:25 Urine Urobilinogen 1.0 EU/dL (Up TO 0.2) H 02/11/20 19:25 Ur Leukocyte Esterase Negative (Negative) 02/11/20 19:25 Urine RBC 3-5 HPF (0-2) H 02/11/20 19:25 Urine WBC 0-2 HPF (0-5) 02/11/20 19:25 Ur Epithelial Cells Rare HPF (Negative) 02/11/20 19:25 Urine Crystals Negative HPF (Negative) 02/11/20 19:25 Urine Bacteria Few HPF (Negative) 02/11/20 19:25 Urine Casts Negative LPF (Negative) 02/11/20 19:25 Urine Mucus Negative (Negative) 02/11/20 19:25 Urine Other Negative (Negative) 02/11/20 19:25 Ur Culture Indicated? No 02/11/20 19:25 Urine Glucose Negative mg/dL (Negative) 02/11/20 19:25 Vancomycin Trough Cancelled 02/15/20 13:00 Ethyl Alcohol < 3.0 mg/dL (<3) 02/11/20 13:00 Patient ABO/Rh A Positive 02/13/20 06:08 Antibody Screen Negative 02/13/20 06:08
[2020-02-20] MEDS: Lactated Ringers 1,000 ML 80 ML IV (14:54)
--- NOTE | 2020-02-20 15:07 | NUR.NOTE ---
Patient transferred from ICU today at 1445. Patient transferred to a Med Surg bed in ICU, and brought to room 215. 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 Appears comfortable at this time.
[2020-02-21] MEDS: Normal Saline Flush 10 ML SYR IVP ×4 (02:22→22:59)
[2020-02-21] MEDS: Lactated Ringers 1,000 ML 80 ML IV ×2 (02:23→13:45)
--- NOTE | 2020-02-21 11:05 | CMPROGNOTE_ITS ---
- If Service Date Differs Date of service: 02/21/20 Time of Service: 11:05 Care Management Progress Note S/O: Vikram has transition to comfort measures he is on the medical surgical floor. Vikram did not awake when spoken to he is receiving morphine for pain, and symptoms management. Vikram is not taking in any orals at this time he has been to somnolent. CM contacted the supervisor nuclear medicine and his spouse Nena. She may visit once she is cleared at the door. A: Vikram is a 69 year old male admitted for acute alcohol withdrawal, per report he did make statement in the ED of wanting to stop drinking. He is also being treated for aspiration pneumonia with IV ABX. P: Vikram is now comfort measures only. Symptom management. Palliative continues to consult please refer to documentation for further details. CM continues to follow and assess for disposition needs.
--- NOTE | 2020-02-21 12:40 | TELEFU_ITS ---
Date of service: 02/21/20 Time of Service: 12:40 Nutritional Follow up NOTE: Extubated and NG tube pulled 02/20/20. Continues to be unrousable, now on INSPECTOR MECHANICAL. NPO at this time. If becomes more alert and able to transition to PO diet, recommend CONTINUOUS IMPROVEMENT BLACK BELT consult prior to feeding. Continues on IV fluids. Will be available prn. Time Spent in Nutritional Counseling and Treatment: 0 time spent face to face
--- NOTE | 2020-02-21 13:45 | W.PM.PROGNOT ---
Date of Service Date of service: 02/21/20 Time of Service: 13:46 Assessment and Plan Assessment and plan (1) Encephalopathy: Status: Acute Assessment and plan: Encephalopathy secondary to benzodiazepine sedatives for treatment of his acute alcohol withdrawal. He appears to be gradually improving in terms of his cognitive status. 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 At this time I think it is appropriate to give him another day or 2 to see how much more he wakes up. Present time he cannot handle his secretions and therefore cannot be fed orally yet. (2) Aspiration pneumonia: Status: Acute Assessment and plan: Patient completed his antibiotics and is currently off of any antibiotics. I am not going to repeat his chest x-ray since his requested CHEMICAL CHECKER orders. Qualifiers: Aspiration pneumonia type: due to gastric secretions Laterality: bilateral Lung location: lower lobe of lung Qualified Code(s): J69.0 - Pneumonitis due to inhalation of food and vomit (3) Atrial fibrillation with rapid ventricular response: Status: Resolved Assessment and plan: Telemetry has been removed since he is in CHEMICAL CHECKER status.Clinically seems to be regular. (4) Alcohol withdrawal delirium, acute, hyperactive: Status: Resolved Assessment and plan: He completed treatment for alcohol withdrawal. He remains off of any benzodiazepines. (5) DVT prophylaxis: Status: Acute Assessment and plan: Continue SCD and RANDI hose. Not a candidate for anticoagulation (6) Anemia, blood loss: Status: Acute Assessment and plan: Hemoglobin remained stable at 12 g. There is no evidence of GI bleeding at this time. He remains on Protonix for GI protection. (7) Discharge planning issues: Status: Acute Assessment and plan: Patient's is decided on CHEMICAL CHECKER status. We will honor those wishes and keep him comfortable. However if he becomes more alert and awake we will do a feeding trial. At present time he is not tolerant of clear liquids as he coughed and did not clear his mouth and throat of clear liquids. As his mental status improves I will request speech therapy to evaluate his swallowing Subjective Subjective Interval history since last seen: Patient is more awake and alert. Remains confused. Speaking in couple word statements. Seems to recommend us is in the hospital but not able to say where nor is he oriented to time. Exam Narrative Exam Narrative: Patient is more awake today. He is still confused but he spontaneously open his eyes and saying couple word statements. He seemed to recognize he is in the hospital but could not tell me where nor does he know the date. He asked for some water but was not able to handle clear liquids without coughing. Lungs reveal scattered rhonchi and wheezes. Heart is regular Abdomen soft and nontender and nondistended. Objective Objective Clinical Data: Vital Signs Temperature 36.6 C 02/20/20 04:03 Temperature Source Temporal Artery Scan 02/20/20 04:03 Pulse 76 02/20/20 10:00 Pulse 78 02/20/20 10:01 Respiratory Rate 23 02/20/20 10:01 Respiratory Effort 02/21/20 09:21 Respiratory Depth Normal 02/21/20 09:21 Respiratory Pattern Normal 02/21/20 09:21 Blood Pressure 108/60 02/20/20 10:00 Blood Pressure Mean 71 02/20/20 10:00 Blood Pressure Position Supine 02/20/20 04:03 Pulse Oximetry 93 L 02/20/20 11:42 Respiratory End-tidal CO2 27 02/17/20 12:01 Oxygen Delivery Method Room Air 02/20/20 11:42 Oxygen Flow Rate 0 02/20/20 11:42 Fraction of Inspired Oxygen (FIO2) 21 02/17/20 08:03 Pain Level 0 02/20/20 14:38 Comment 02/14/20 17:48 Intake & Output 02/20/20 02/21/20 02/21/20 23:59 11:59 23:59 Intake Total 978.667 / 978.667 Output Total 500 / 1805 750 / 750 Balance -500 / -1475 228.667 / 228.667 Intake: IV 978.667 / 978.667 Output: Urine 500 / 1800 750 / 750 Other: Urine Color Light [place] Yellow Straw Urine Appearance Cloudy Clear Sediment Comment villafana already in place. Laboratory Results WBC 7.97 k/cumm (4.4-10.8) 02/20/20 06:10 RBC 3.55 m/cumm (4.50-6.00) L 02/20/20 06:10 Hgb 12.2 g/dL (13.5-17.5) L 02/20/20 06:10 Hct 35.3 % (40.0-50.0) L 02/20/20 06:10 MCV 99.4 fL (80-95) H 02/20/20 06:10 MCH 34.4 pg (27.0-33.0) H 02/20/20 06:10 MCHC 34.6 g/dL (32.0-36.0) 02/20/20 06:10 RDW 11.9 % (11.8-14.1) 02/20/20 06:10 Plt Count 296 x1000/uL (130-400) 02/20/20 06:10 MPV 10.2 fL (8.0-11.0) 02/20/20 06:10 Immature Gran % 1.8 % 02/20/20 06:10 Neutrophils % 65.8 02/20/20 06:10 Band Neutrophils % Cancelled 02/13/20 03:27 Lymphocytes % 18.7 02/20/20 06:10 Atypical Lymphs % Cancelled 02/13/20 03:27 Monocytes % 11.2 02/20/20 06:10 Eosinophils % 1.9 02/20/20 06:10 Basophils % 0.6 02/20/20 06:10 Metamyelocytes % Cancelled 02/13/20 03:27 Myelocytes % Cancelled 02/13/20 03:27 Promyelocytes % Cancelled 02/13/20 03:27 Absolute Neutrophils 5.25 k/cumm (1.2-6.7) 02/20/20 06:10 Absolute Lymphocytes 1.49 k/cumm (1.2-3.4) 02/20/20 06:10 Absolute Monocytes 0.89 k/cumm (0.11-0.7) H 02/20/20 06:10 Absolute Eosinophils 0.15 k/cumm (0.0-0.7) 02/20/20 06:10 Absolute Basophils 0.05 k/cumm (0.0-0.2) 02/20/20 06:10 Nucleated RBCs Cancelled 02/13/20 03:27 Differential Comment Diff reviewed 02/15/20 06:50 Other Cell Type Cancelled 02/13/20 03:27 RBC Morphology Normal 02/15/20 06:50 Polychromasia Cancelled 02/13/20 03:27 Hypochromasia Cancelled 02/13/20 03:27 Poikilocytosis Cancelled 02/13/20 03:27 Basophilic Stippling Cancelled 02/13/20 03:27 Anisocytosis Cancelled 02/13/20 03:27 Microcytosis Cancelled 02/13/20 03:27 Macrocytosis Cancelled 02/13/20 03:27 Spherocytes Cancelled 02/13/20 03:27 Target Cells Cancelled 02/13/20 03:27 Tear Drop Cells Cancelled 02/13/20 03:27 Ovalocytes Cancelled 02/13/20 03:27 Stomatocytes Cancelled 02/13/20 03:27 Forbes-Nason Bodies Cancelled 02/13/20 03:27 Jacob Cells Cancelled 02/13/20 03:27 Acanthocytes (Spur) Cancelled 02/13/20 03:27 Schistocytes Cancelled 02/13/20 03:27 PT 10.2 sec (9.3-11.0) 02/12/20 06:15 INR 1.0 (0.9-1.1) 02/12/20 06:15 ABG Sample Site Right radial 02/19/20 13:56 ABG pH 7.50 (7.35-7.45) H 02/19/20 13:56 ABG pCO2 37 mmHg (34-47) 02/19/20 13:56 ABG pO2 56 mmHg (83-108) L 02/19/20 13:56 ABG HCO3 29 mmol/L (22-28) H 02/19/20 13:56 ABG Total CO2 26 mmol/L (22-29) 02/19/20 13:56 ABG O2 Saturation 91 % (94-98) L 02/19/20 13:56 ABG Base Excess 5.5 mmol/L (-3-3) H 02/19/20 13:56 Oxygen Liter Flow Cancelled 02/13/20 15:11 FiO2 40 % 02/15/20 07:40 Sodium 135 mmol/L (136-145) L 02/20/20 06:10 Potassium 3.6 mmol/L (3.5-5.1) 02/20/20 06:10 Chloride 99 mmol/L (98-107) 02/20/20 06:10 Carbon Dioxide 29.8 mmol/L (21.0-32.0) 02/20/20 06:10 Anion Gap 6.2 mmol/L (3-11) 02/20/20 06:10 BUN 15 mg/dL (7-18) 02/20/20 06:10 Creatinine 0.77 mg/dL (0.70-1.30) 02/20/20 06:10 Estimated GFR/1.73 m2 >= 60.00 (mL/min/1.73m2) 02/20/20 06:10 Glucose 123 mg/dL (74-106) H 02/20/20 06:10 Lactate 1.0 mmol/L (0.6-1.4) 02/13/20 06:08 Calcium 9.0 mg/dL (8.5-10.1) 02/20/20 06:10 Magnesium 2.0 mg/dL (1.8-2.4) 02/20/20 06:10 Total Bilirubin 0.5 mg/dL (0.2-1.0) 02/18/20 06:40 Conjugated Bilirubin 0.34 mg/dL (0.00-0.20) H 02/13/20 06:08 AST 25 U/L (15-37) 02/18/20 06:40 ALT 31 U/L (16-63) 02/18/20 06:40 Alkaline Phosphatase 51 U/L (46-116) 02/18/20 06:40 Ammonia 26 umol/L (11-32) 02/17/20 06:05 Troponin I < 0.05 ng/Ml (<0.06) 02/11/20 21:30 NT-Pro-B Natriuret Pep 294 pg/mL (<300) 02/20/20 06:10 Total Protein 5.7 g/dL (6.4-8.2) L 02/18/20 06:40 Albumin 1.9 g/dL (3.4-5.0) L 02/18/20 06:40 Vitamin B12 959 pg/mL (193-986) 02/12/20 06:15 Folate 18.1 ng/mL (8.6-20.0) 02/12/20 06:15 Procalcitonin 0.1 ng/mL 02/13/20 06:08 TSH 2.42 uIU/mL (0.36-3.74) 02/11/20 13:00 Urine Color Yellow (Yellow) 02/11/20 19:25 Urine Clarity Clear (Clear) 02/11/20 19:25 Urine pH 6.0 (5-8) 02/11/20 19:25 Ur Specific [place] 1.025 (1.005-1.025) 02/11/20 19:25 Urine Protein Negative mg/dL (Negative) 02/11/20 19:25 Urine Ketones 15 mg/dL (Negative) H 02/11/20 19:25 Urine Blood Trace-intact (Negative) H 02/11/20 19:25 Urine Nitrite Negative (Negative) 02/11/20 19:25 Urine Bilirubin Negative (Negative) 02/11/20 19:25 Urine Urobilinogen 1.0 EU/dL (Up TO 0.2) H 02/11/20 19:25 Ur Leukocyte Esterase Negative (Negative) 02/11/20 19:25 Urine RBC 3-5 HPF (0-2) H 02/11/20 19:25 Urine WBC 0-2 HPF (0-5) 02/11/20 19:25 Ur Epithelial Cells Rare HPF (Negative) 02/11/20 19:25 Urine Crystals Negative HPF (Negative) 02/11/20 19:25 Urine Bacteria Few HPF (Negative) 02/11/20 19:25 Urine Casts Negative LPF (Negative) 02/11/20 19:25 Urine Mucus Negative (Negative) 02/11/20 19:25 Urine Other Negative (Negative) 02/11/20 19:25 Ur Culture Indicated? No 02/11/20 19:25 Urine Glucose Negative mg/dL (Negative) 02/11/20 19:25 Vancomycin Trough Cancelled 02/15/20 13:00 Ethyl Alcohol < 3.0 mg/dL (<3) 02/11/20 13:00 Patient ABO/Rh A Positive 02/13/20 06:08 Antibody Screen Negative 02/13/20 06:08
[2020-02-21] MEDS: Albuterol/Ipratropium 3 ML UPD VIAL UPD (13:46)
--- NOTE | 2020-02-21 14:28 | CHAPLAIN ---
Micha was propped up in his bed, and his eyes were open when I stopped in. Previously in the ICU he had not been responsive when I spoke with him. I asked if I could get him anything, and he said no drink, I believe referring to the fact he isn't drinking or eating anything right now. Since he was moved to the floor, on comfort measures, his may visit. I haven't me her yet.
[2020-02-21] MEDS: MORPHine 2 MG/ML SYR IV/SC ×2 (17:16→23:00)
[2020-02-22] MEDS: Lactated Ringers 1,000 ML 80 ML IV (01:55)
[2020-02-22] MEDS: MORPHine 2 MG/ML SYR IV/SC ×5 (05:02→22:28)
[2020-02-22] MEDS: Normal Saline Flush 10 ML SYR IVP ×6 (05:03→22:28)
[2020-02-22] MEDS: Acetaminophen 650 MG SUPP PR (10:58)
--- NOTE | 2020-02-22 11:48 | W.PM.PROGNOT ---
Date of Service Date of service: 02/22/20 Time of Service: 11:48 Assessment and Plan Assessment and plan (1) Encephalopathy: Status: Acute Assessment and plan: Slow to improve. Still disoriented and needs frequent redirection. I still believe this to be secondary to his slow liver metabolism of his benzodiazepines. (2) Aspiration pneumonia: Status: Acute Assessment and plan: He completed a week of antibiotics for Enterobacter cloacae and Moraxella pneumonia. However he still has moist cough and is at risk for aspiration. Since he is RECEIVABLE EXECUTIVE status no further evaluation or treatment is planned. Qualifiers: Aspiration pneumonia type: due to gastric secretions Laterality: bilateral Lung location: lower lobe of lung Qualified Code(s): J69.0 - Pneumonitis due to inhalation of food and vomit (3) Atrial fibrillation with rapid ventricular response: Status: Resolved Assessment and plan: Telemetry has been removed since he is in RECEIVABLE EXECUTIVE status.Clinically seems to be regular. (4) Alcohol withdrawal delirium, acute, hyperactive: Status: Resolved Assessment and plan: He completed treatment for alcohol withdrawal. He remains off of any benzodiazepines. (5) DVT prophylaxis: Status: Acute Assessment and plan: I have dc'ed his RANDI johannye and SCD in light of RECEIVABLE EXECUTIVE status (6) Anemia, blood loss: Status: Acute Assessment and plan: Hemoglobin remained stable at 12 g. Protonix has been dc'ed in light of his RECEIVABLE EXECUTIVE status. No further labs being checked at this point.. (7) Discharge planning issues: Status: Acute Assessment and plan: Patient is RECEIVABLE EXECUTIVE and discharge plans will depend upon whether or not he survives. Subjective Subjective Interval history since last seen: Patient is more awake today but he is still disoriented. Nursing attempted trial of clear liquids but he coughed afterwards and therefore is not able to tolerate oral feedings yet. I met w/ his along w/ his daycare worker who was present. I explained to her that we are at a point of decision of whether to continue along a RECEIVABLE EXECUTIVE status versus resumption of routine medical care which would include either parenteral feeding vs NG enteral feedings. 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 She understands that even if he eventually is able to begin safe oral feedings, that he would require some inpatient rehabiltation d/t his profound weakness. She has indicated that she wants to continue on RECEIVABLE EXECUTIVE status and not pursue TPN nor NG feedings. As such I have dc'ed his iv fluids. He already has prn meds for comfort such as anti-sialogogues, anti-anxiety and analgesics and antipyretics and antiemetics. Exam Narrative Exam Narrative: Awake and alert but not oriented to person place time and circumstance. He has a moist cough. Lungs with coarse bilateral rhonchi. Heart is regular rate and rhythm. Abdomen soft nondistended nontender. Neurologically he shows no focal motor deficits no facial asymmetry no dysarthric speech but he is confused but is alert. Objective Objective Clinical Data: Vital Signs Temperature 36.6 C 02/20/20 04:03 Temperature Source Temporal Artery Scan 02/20/20 04:03 Pulse 76 02/20/20 10:00 Pulse 78 02/20/20 10:01 Respiratory Rate 23 02/20/20 10:01 Respiratory Effort Non-Labored 02/22/20 09:37 Respiratory Depth Normal 02/22/20 09:37 Respiratory Pattern Normal 02/22/20 09:37 Blood Pressure 108/60 02/20/20 10:00 Blood Pressure Mean 71 02/20/20 10:00 Blood Pressure Position Supine 02/20/20 04:03 Pulse Oximetry 93 L 02/20/20 11:42 Respiratory End-tidal CO2 27 02/17/20 12:01 Oxygen Delivery Method Room Air 02/20/20 11:42 Oxygen Flow Rate 0 02/20/20 11:42 Fraction of Inspired Oxygen (FIO2) 21 02/17/20 08:03 Pain Level 0 02/20/20 14:38 Comment 02/14/20 17:48 Intake & Output 02/21/20 02/21/20 02/22/20 11:59 23:59 11:59 Intake Total 978.667 / 1888.000 909.333 / 1888.000 973.333 / 973.333 Output Total 750 / 1000 250 / 1000 900 / 900 Balance 228.667 / 888.000 659.333 / 888.000 73.333 / 73.333 Intake: IV 978.667 / 1888.000 909.333 / 1888.000 973.333 / 973.333 Output: Urine 750 / 1000 250 / 1000 900 / 900 Other: Urine Color Yellow Light Ana Maria Light Ana Maria Straw Urine Appearance Clear Clear Cloudy Laboratory Results WBC 7.97 k/cumm (4.4-10.8) 02/20/20 06:10 RBC 3.55 m/cumm (4.50-6.00) L 02/20/20 06:10 Hgb 12.2 g/dL (13.5-17.5) L 02/20/20 06:10 Hct 35.3 % (40.0-50.0) L 02/20/20 06:10 MCV 99.4 fL (80-95) H 02/20/20 06:10 MCH 34.4 pg (27.0-33.0) H 02/20/20 06:10 MCHC 34.6 g/dL (32.0-36.0) 02/20/20 06:10 RDW 11.9 % (11.8-14.1) 02/20/20 06:10 Plt Count 296 x1000/uL (130-400) 02/20/20 06:10 MPV 10.2 fL (8.0-11.0) 02/20/20 06:10 Immature Gran % 1.8 % 02/20/20 06:10 Neutrophils % 65.8 02/20/20 06:10 Band Neutrophils % Cancelled 02/13/20 03:27 Lymphocytes % 18.7 02/20/20 06:10 Atypical Lymphs % Cancelled 02/13/20 03:27 Monocytes % 11.2 02/20/20 06:10 Eosinophils % 1.9 02/20/20 06:10 Basophils % 0.6 02/20/20 06:10 Metamyelocytes % Cancelled 02/13/20 03:27 Myelocytes % Cancelled 02/13/20 03:27 Promyelocytes % Cancelled 02/13/20 03:27 Absolute Neutrophils 5.25 k/cumm (1.2-6.7) 02/20/20 06:10 Absolute Lymphocytes 1.49 k/cumm (1.2-3.4) 02/20/20 06:10 Absolute Monocytes 0.89 k/cumm (0.11-0.7) H 02/20/20 06:10 Absolute Eosinophils 0.15 k/cumm (0.0-0.7) 02/20/20 06:10 Absolute Basophils 0.05 k/cumm (0.0-0.2) 02/20/20 06:10 Nucleated RBCs Cancelled 02/13/20 03:27 Differential Comment Diff reviewed 02/15/20 06:50 Other Cell Type Cancelled 02/13/20 03:27 RBC Morphology Normal 02/15/20 06:50 Polychromasia Cancelled 02/13/20 03:27 Hypochromasia Cancelled 02/13/20 03:27 Poikilocytosis Cancelled 02/13/20 03:27 Basophilic Stippling Cancelled 02/13/20 03:27 Anisocytosis Cancelled 02/13/20 03:27 Microcytosis Cancelled 02/13/20 03:27 Macrocytosis Cancelled 02/13/20 03:27 Spherocytes Cancelled 02/13/20 03:27 Target Cells Cancelled 02/13/20 03:27 Tear Drop Cells Cancelled 02/13/20 03:27 Ovalocytes Cancelled 02/13/20 03:27 Stomatocytes Cancelled 02/13/20 03:27 Forbes-[place] Bodies Cancelled 02/13/20 03:27 Jacob Cells Cancelled 02/13/20 03:27 Acanthocytes (Spur) Cancelled 02/13/20 03:27 Schistocytes Cancelled 02/13/20 03:27 PT 10.2 sec (9.3-11.0) 02/12/20 06:15 INR 1.0 (0.9-1.1) 02/12/20 06:15 ABG Sample Site Right radial 02/19/20 13:56 ABG pH 7.50 (7.35-7.45) H 02/19/20 13:56 ABG pCO2 37 mmHg (34-47) 02/19/20 13:56 ABG pO2 56 mmHg (83-108) L 02/19/20 13:56 ABG HCO3 29 mmol/L (22-28) H 02/19/20 13:56 ABG Total CO2 26 mmol/L (22-29) 02/19/20 13:56 ABG O2 Saturation 91 % (94-98) L 02/19/20 13:56 ABG Base Excess 5.5 mmol/L (-3-3) H 02/19/20 13:56 Oxygen Liter Flow Cancelled 02/13/20 15:11 FiO2 40 % 02/15/20 07:40 Sodium 135 mmol/L (136-145) L 02/20/20 06:10 Potassium 3.6 mmol/L (3.5-5.1) 02/20/20 06:10 Chloride 99 mmol/L (98-107) 02/20/20 06:10 Carbon Dioxide 29.8 mmol/L (21.0-32.0) 02/20/20 06:10 Anion Gap 6.2 mmol/L (3-11) 02/20/20 06:10 BUN 15 mg/dL (7-18) 02/20/20 06:10 Creatinine 0.77 mg/dL (0.70-1.30) 02/20/20 06:10 Estimated GFR/1.73 m2 >= 60.00 (mL/min/1.73m2) 02/20/20 06:10 Glucose 123 mg/dL (74-106) H 02/20/20 06:10 Lactate 1.0 mmol/L (0.6-1.4) 02/13/20 06:08 Calcium 9.0 mg/dL (8.5-10.1) 02/20/20 06:10 Magnesium 2.0 mg/dL (1.8-2.4) 02/20/20 06:10 Total Bilirubin 0.5 mg/dL (0.2-1.0) 02/18/20 06:40 Conjugated Bilirubin 0.34 mg/dL (0.00-0.20) H 02/13/20 06:08 AST 25 U/L (15-37) 02/18/20 06:40 ALT 31 U/L (16-63) 02/18/20 06:40 Alkaline Phosphatase 51 U/L (46-116) 02/18/20 06:40 Ammonia 26 umol/L (11-32) 02/17/20 06:05 Troponin I < 0.05 ng/Ml (<0.06) 02/11/20 21:30 NT-Pro-B Natriuret Pep 294 pg/mL (<300) 02/20/20 06:10 Total Protein 5.7 g/dL (6.4-8.2) L 02/18/20 06:40 Albumin 1.9 g/dL (3.4-5.0) L 02/18/20 06:40 Vitamin B12 959 pg/mL (193-986) 02/12/20 06:15 Folate 18.1 ng/mL (8.6-20.0) 02/12/20 06:15 Procalcitonin 0.1 ng/mL 02/13/20 06:08 TSH 2.42 uIU/mL (0.36-3.74) 02/11/20 13:00 Urine Color Yellow (Yellow) 02/11/20 19:25 Urine Clarity Clear (Clear) 02/11/20 19:25 Urine pH 6.0 (5-8) 02/11/20 19:25 Ur Specific [place] 1.025 (1.005-1.025) 02/11/20 19:25 Urine Protein Negative mg/dL (Negative) 02/11/20 19:25 Urine Ketones 15 mg/dL (Negative) H 02/11/20 19:25 Urine Blood Trace-intact (Negative) H 02/11/20 19:25 Urine Nitrite Negative (Negative) 02/11/20 19:25 Urine Bilirubin Negative (Negative) 02/11/20 19: Urine Urobilinogen 1.0 EU/dL (Up TO 0.2) H 02/11/20 19:25 Ur Leukocyte Esterase Negative (Negative) 02/11/20 19:25 Urine RBC 3-5 HPF (0-2) H 02/11/20 19:25 Urine WBC 0-2 HPF (0-5) 02/11/20 19:25 Ur Epithelial Cells Rare HPF (Negative) 02/11/20 19:25 Urine Crystals Negative HPF (Negative) 02/11/20 19:25 Urine Bacteria Few HPF (Negative) 02/11/20 19:25 Urine Casts Negative LPF (Negative) 02/11/20 19:25 Urine Mucus Negative (Negative) 02/11/20 19:25 Urine Other Negative (Negative) 02/11/20 19:25 Ur Culture Indicated? No 02/11/20 19:25 Urine Glucose Negative mg/dL (Negative) 02/11/20 19:25 Vancomycin Trough Cancelled 02/15/20 13:00 Ethyl Alcohol < 3.0 mg/dL (<3) 02/11/20 13:00 Patient ABO/Rh A Positive 02/13/20 06:08 Antibody Screen Negative 02/13/20 06:08
--- NOTE | 2020-02-22 12:26 | CMPROGNOTE_ITS ---
- If Service Date Differs Date of service: 02/22/20 Time of Service: 12:26 Care Management Progress Note S/O: Micha has transitioned to comfort measures and is on the medical surgical floor. He has become more alert and is communicating verbally, although he is clearly confused and disoriented. Micha's Nena came to see him today. Because he is more alert than he has been, the provider again asked Nena about the desired course of care. RAGHU was with Dr. Melissa during the initial discus salma. Nena was noncommittal in front of Micha, but in a private conversation with CM in the visitor's lounge, she shared her continued wish to have him remain on comfort measures. Nena shared that prior to hospitalization, Micha had been failing for a long time. She stated that he was no longer able to care for himself and lived in squalor. She also shared that at times he did not even recognize his children. According to Nena, Micha has long maintained that he did not want to be intubated or kept alive by artificial means. He definitely did not want a feeding tube or to ever go to a SNF. Nena stated that she and the children have discussed the current situation at length and are all comfortable with this decision. A: Vikram is a 69 year old male admitted for acute alcohol withdrawal, per report he did make statement in the ED of wanting to stop drinking. He is also being treated for aspiration pneumonia with IV ABX. P: Vikram is now comfort measures only. Symptom management. Palliative continues to consult please refer to documentation for further details. CM continues to follow and assess for disposition needs.
[2020-02-22] MEDS: LORazepam 2 MG/ML VIAL 1 MG IVP (18:38)
[2020-02-23] MEDS: LORazepam 2 MG/ML VIAL 1 MG IVP ×4 (01:05→20:22)
[2020-02-23] MEDS: Normal Saline Flush 10 ML SYR IVP ×5 (01:05→20:23)
[2020-02-23] MEDS: MORPHine 2 MG/ML SYR IV/SC ×5 (01:05→20:22)
--- NOTE | 2020-02-23 09:22 | CMPROGNOTE_ITS ---
- If Service Date Differs Date of service: 02/23/20 Time of Service: 09:22 Care Management Progress Note S/O: Micha was lying in bed when CM met with him. He appeared much more alert and his speech was clearer than yesterday. He answered some questions appropriately. When asked if he had any pain he said Yes, in my stomach. Its empty. He made a similar comment to the [employer] who ordered him to have a regular diet since he is on comfort measures. So far he has had a few bites of applesauce and some sips of orange juice. A: Vikram is a 69 year old male admitted for acute alcohol withdrawal, per report he did make statement in the ED of wanting to stop drinking. He is also being treated for aspiration pneumonia with IV ABX. P: Vikram remains on comfort measures with symptom management. Palliative continues to consult; please refer to documentation for further details. CM will continue to follow and provide support to patient, family and discharge planning needs.
--- NOTE | 2020-02-23 10:23 | PGE_ITS ---
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 AMS, confused, poor quality of life. Severe alcoholic. morphine and ativan for comfort. Food for comfort. (2) Comfort measures only status: Start date: 02/23/20 Start time: Status: Acute Assessment and plan: Palliative and hospice patient, severe decline after alcohol withdrawal. Poor quality of life. Subjective Subjective Patient reports: other Interval history since last seen: Patient is alert, asking for food. 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 Exam Narrative Exam Narrative: Awake and alert but not oriented to person place time and circumstance. 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 Asking for food, appears comfortable, stating his abdomen hurts because he is hungry will give him a diet. Objective Objective Clinical Data: Vital Signs Temperature 36.6 C 02/20/20 04:03 Temperature Source Temporal Artery Scan 02/20/20 04:03 Pulse 76 02/20/20 10:00 Pulse 78 02/20/20 10:01 Respiratory Rate 23 02/20/20 10:01 Respiratory Effort Non-Labored 02/23/20 00:00 Respiratory Depth Normal 02/23/20 00:00 Respiratory Pattern Normal 02/23/20 00:00 Blood Pressure 108/60 02/20/20 10:00 Blood Pressure Mean 71 02/20/20 10:00 Blood Pressure Position Supine 02/20/20 04:03 Pulse Oximetry 93 L 02/20/20 11:42 Respiratory End-tidal CO2 27 02/17/20 12:01 Oxygen Delivery Method Room Air 02/20/20 11:42 Oxygen Flow Rate 0 02/20/20 11:42 Fraction of Inspired Oxygen (FIO2) 21 02/17/20 08:03 Pain Level 8 02/23/20 08:03 Comment 02/14/20 17:48 Intake & Output 02/22/20 02/22/20 02/23/20 11:59 23:59 11:59 Intake Total 973.333 / 1003.333 30 / 30 Output Total 900 / 2100 1200 / 2099 300 / 300 Balance 73.333 / -1096.667 -1200 / -1096.667 -270 / -270 Intake: IV 973.333 / 1003.333 Output: Urine 2099 1200 / 2100 300 / 300 Other: Urine Color Light Ana Maria Light Ana Maria Dark Ana Maria Brown Urine Appearance Cloudy Cloudy Sediment Laboratory Results WBC 7.97 k/cumm (4.4-10.8) 02/20/20 06:10 RBC 3.55 m/cumm (4.50-6.00) L 02/20/20 06:10 Hgb 12.2 g/dL (13.5-17.5) L 02/20/20 06:10 Hct 35.3 % (40.0-50.0) L 02/20/20 06:10 MCV 99.4 fL (80-95) H 02/20/20 06:10 MCH 34.4 pg (27.0-33.0) H 02/20/20 06:10 MCHC 34.6 g/dL (32.0-36.0) 02/20/20 06:10 RDW 11.9 % (11.8-14.1) 02/20/20 06:10 Plt Count 296 x1000/uL (130-400) 02/20/20 06:10 MPV 10.2 fL (8.0-11.0) 02/20/20 06:10 Immature Gran % 1.8 % 02/20/20 06:10 Neutrophils % 65.8 02/20/20 06:10 Band Neutrophils % Cancelled 02/13/20 03:27 Lymphocytes % 18.7 02/20/20 06:10 Atypical Lymphs % Cancelled 02/13/20 03:27 Monocytes % 11.2 02/20/20 06:10 Eosinophils % 1.9 02/20/20 06:10 Basophils % 0.6 02/20/20 06:10 Metamyelocytes % Cancelled 02/13/20 03:27 Myelocytes % Cancelled 02/13/20 03:27 Promyelocytes % Cancelled 02/13/20 03:27 Absolute Neutrophils 5.25 k/cumm (1.2-6.7) 02/20/20 06:10 Absolute Lymphocytes 1.49 k/cumm (1.2-3.4) 02/20/20 06:10 Absolute Monocytes 0.89 k/cumm (0.11-0.7) H 02/20/20 06:10 Absolute Eosinophils 0.15 k/cumm (0.0-0.7) 02/20/20 06:10 Absolute Basophils 0.05 k/cumm (0.0-0.2) 02/20/20 06:10 Nucleated RBCs Cancelled 02/13/20 03:27 Differential Comment Diff reviewed 02/15/20 06:50 Other Cell Type Cancelled 02/13/20 03:27 RBC Morphology Normal 02/15/20 06:50 Polychromasia Cancelled 02/13/20 03:27 Hypochromasia Cancelled 02/13/20 03:27 Poikilocytosis Cancelled 02/13/20 03:27 Basophilic Stippling Cancelled 02/13/20 03:27 Anisocytosis Cancelled 02/13/20 03:27 Microcytosis Cancelled 02/13/20 03:27 Macrocytosis Cancelled 02/13/20 03:27 Spherocytes Cancelled 02/13/20 03:27 Target Cells Cancelled 02/13/20 03:27 Tear Drop Cells Cancelled 02/13/20 03:27 Ovalocytes Cancelled 02/13/20 03:27 Stomatocytes Cancelled 02/13/20 03:27 [place] Bodies Cancelled 02/13/20 03:27 [place] Cells Cancelled 02/13/20 03:27 Acanthocytes (Spur) Cancelled 02/13/20 03:27 Schistocytes Cancelled 02/13/20 03:27 PT 10.2 sec (9.3-11.0) 02/12/20 06:15 INR 1.0 (0.9-1.1) 02/12/20 06:15 ABG Sample Site Right radial 02/19/20 13:56 ABG pH 7.50 (7.35-7.45) H 02/19/20 13:56 ABG pCO2 37 mmHg (34-47) 02/19/20 13:56 ABG pO2 56 mmHg (83-108) L 02/19/20 13:56 ABG HCO3 29 mmol/L (22-28) H 02/19/20 13:56 ABG Total CO2 26 mmol/L (22-29) 02/19/20 13:56 ABG O2 Saturation 91 % (94-98) L 02/19/20 13:56 ABG Base Excess 5.5 mmol/L (-3-3) H 02/19/20 13:56 Oxygen Liter Flow Cancelled 02/13/20 15:11 FiO2 40 % 02/15/20 07:40 Sodium 135 mmol/L (136-145) L 02/20/20 06:10 Potassium 3.6 mmol/L (3.5-5.1) 02/20/20 06:10 Chloride 99 mmol/L (98-107) 02/20/20 06:10 Carbon Dioxide 29.8 mmol/L (21.0-32.0) 02/20/20 06:10 Anion Gap 6.2 mmol/L (3-11) 02/20/20 06:10 BUN 15 mg/dL (7-18) 02/20/20 06:10 Creatinine 0.77 mg/dL (0.70-1.30) 02/20/20 06:10 Estimated GFR/1.73 m2 >= 60.00 (mL/min/1.73m2) 02/20/20 06:10 Glucose 123 mg/dL (74-106) H 02/20/20 06:10 Lactate 1.0 mmol/L (0.6-1.4) 02/13/20 06:08 Calcium 9.0 mg/dL (8.5-10.1) 02/20/20 06:10 Magnesium 2.0 mg/dL (1.8-2.4) 02/20/20 06:10 Total Bilirubin 0.5 mg/dL (0.2-1.0) 02/18/20 06:40 Conjugated Bilirubin 0.34 mg/dL (0.00-0.20) H 02/13/20 06:08 AST 25 U/L (15-37) 02/18/20 06:40 ALT 31 U/L (16-63) 02/18/20 06:40 Alkaline Phosphatase 51 U/L (46-116) 02/18/20 06:40 Ammonia 26 umol/L (11-32) 02/17/20 06:05 Troponin I < 0.05 ng/Ml (<0.06) 02/11/20 21:30 NT-Pro-B Natriuret Pep 294 pg/mL (<300) 02/20/20 06:10 Total Protein 5.7 g/dL (6.4-8.2) L 02/18/20 06:40 Albumin 1.9 g/dL (3.4-5.0) L 02/18/20 06:40 Vitamin B12 959 pg/mL (193-986) 02/12/20 06:15 Folate 18.1 ng/mL (8.6-20.0) 02/12/20 06:15 Procalcitonin 0.1 ng/mL 02/13/20 06:08 TSH 2.42 uIU/mL (0.36-3.74) 02/11/20 13:00 Urine Color Yellow (Yellow) 02/11/20 19:25 Urine Clarity Clear (Clear) 02/11/20 19:25 Urine pH 6.0 (5-8) 02/11/20 19:25 Ur Specific [place] 1.025 (1.005-1.025) 02/11/20 19:25 Urine Protein Negative mg/dL (Negative) 02/11/20 19:25 Urine Ketones 15 mg/dL (Negative) H 02/11/20 19:25 Urine Blood Trace-intact (Negative) H 02/11/20 19:25 Urine Nitrite Negative (Negative) 02/11/20 19:25 Urine Bilirubin Negative (Negative) 02/11/20 19: Urine Urobilinogen 1.0 EU/dL (Up TO 0.2) H 02/11/20 19:25 Ur Leukocyte Esterase Negative (Negative) 02/11/20 19:25 Urine RBC 3-5 HPF (0-2) H 02/11/20 19:25 Urine WBC 0-2 HPF (0-5) 02/11/20 19:25 Ur Epithelial Cells Rare HPF (Negative) 02/11/20 19:25 Urine Crystals Negative HPF (Negative) 02/11/20 19:25 Urine Bacteria Few HPF (Negative) 02/11/20 19:25 Urine Casts Negative LPF (Negative) 02/11/20 19:25 Urine Mucus Negative (Negative) 02/11/20 19:25 Urine Other Negative (Negative) 02/11/20 19:25 Ur Culture Indicated? No 02/11/20 19:25 Urine Glucose Negative mg/dL (Negative) 02/11/20 19:25 Vancomycin Trough Cancelled 02/15/20 13:00 Ethyl Alcohol < 3.0 mg/dL (<3) 02/11/20 13:00 Patient ABO/Rh A Positive 02/13/20 06:08 Antibody Screen Negative 02/13/20 06:08
[2020-02-23] MEDS: Refresh PLUS Eye Drops 0.4ml 2 EACH OU (20:24)
[2020-02-24] MEDS: MORPHine 2 MG/ML SYR IV/SC ×6 (01:08→19:13)
[2020-02-24] MEDS: LORazepam 2 MG/ML VIAL 1 MG IVP ×6 (01:09→19:12)
[2020-02-24] MEDS: Normal Saline Flush 10 ML SYR IVP ×6 (05:52→20:05)
--- NOTE | 2020-02-24 10:22 | W.PM.PROGNOT ---
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 AMS, confused, poor quality of life. Severe alcoholic. morphine and ativan for comfort. Food for comfort. Lidoderm for pain, morphine for pain and ativan for agitation, Agitation overnight. (2) Comfort measures only status: Start date: 02/24/20 Start time: Status: Acute Assessment and plan: Palliative and hospice patient, severe decline after alcohol withdrawal. Poor quality of life. Subjective Subjective Patient reports: still having pain Interval history since last seen: C/o pain to lower back, add lidoderm patch for comfort. Exam Narrative Exam Narrative: Awake and alert but not oriented to person place time and circumstance. 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 Asking for food, appears comfortable, stating his abdomen hurts because he is hungry will give him a diet. Objective Objective Clinical Data: Vital Signs Temperature 36.6 C 02/20/20 04:03 Temperature Source Temporal Artery Scan 02/20/20 04:03 Pulse 76 02/20/20 10:00 Pulse 78 02/20/20 10:01 Respiratory Rate 23 02/20/20 10:01 Respiratory Effort Non-Labored 02/23/20 20:41 Respiratory Depth Normal 02/23/20 20:41 Respiratory Pattern Normal 02/23/20 20:41 Blood Pressure 108/60 02/20/20 10:00 Blood Pressure Mean 71 02/20/20 10:00 Blood Pressure Position Supine 02/20/20 04:03 Pulse Oximetry 93 L 02/20/20 11:42 Respiratory End-tidal CO2 27 02/17/20 12:01 Oxygen Delivery Method Room Air 02/20/20 11:42 Oxygen Flow Rate 0 02/20/20 11:42 Fraction of Inspired Oxygen (FIO2) 21 02/17/20 08:03 Pain Level 8 02/23/20 08:03 Comment 02/14/20 17:48 Intake & Output 02/23/20 02/23/20 02/24/20 11:59 23:59 11:59 Intake Total 60 / 471 411 / 471 Output Total 450 / 980 530 / 980 610 / 610 Balance -390 / -509 -119 / -509 -610 / -610 Intake: IV 60 / 111 51 / 111 Oral 360 / 360 Output: Urine 450 / 980 530 / 980 610 / 610 Other: Urine Color Dark Ana Maria Yellow Yellow Urine Appearance Clear Clear Clear Laboratory Results WBC 7.97 k/cumm (4.4-10.8) 02/20/20 06:10 RBC 3.55 m/cumm (4.50-6.00) L 02/20/20 06:10 Hgb 12.2 g/dL (13.5-17.5) L 02/20/20 06:10 Hct 35.3 % (40.0-50.0) L 02/20/20 06:10 MCV 99.4 fL (80-95) H 02/20/20 06:10 MCH 34.4 pg (27.0-33.0) H 02/20/20 06:10 MCHC 34.6 g/dL (32.0-36.0) 02/20/20 06:10 RDW 11.9 % (11.8-14.1) 02/20/20 06:10 Plt Count 296 x1000/uL (130-400) 02/20/20 06:10 MPV 10.2 fL (8.0-11.0) 02/20/20 06:10 Immature Gran % 1.8 % 02/20/20 06:10 Neutrophils % 65.8 02/20/20 06:10 Band Neutrophils % Cancelled 02/13/20 03:27 Lymphocytes % 18.7 02/20/20 06:10 Atypical Lymphs % Cancelled 02/13/20 03:27 Monocytes % 11.2 02/20/20 06:10 Eosinophils % 1.9 02/20/20 06:10 Basophils % 0.6 02/20/20 06:10 Metamyelocytes % Cancelled 02/13/20 03:27 Myelocytes % Cancelled 02/13/20 03:27 Promyelocytes % Cancelled 02/13/20 03:27 Absolute Neutrophils 5.25 k/cumm (1.2-6.7) 02/20/20 06:10 Absolute Lymphocytes 1.49 k/cumm (1.2-3.4) 02/20/20 06:10 Absolute Monocytes 0.89 k/cumm (0.11-0.7) H 02/20/20 06:10 Absolute Eosinophils 0.15 k/cumm (0.0-0.7) 02/20/20 06:10 Absolute Basophils 0.05 k/cumm (0.0-0.2) 02/20/20 06:10 Nucleated RBCs Cancelled 02/13/20 03:27 Differential Comment Diff reviewed 02/15/20 06:50 Other Cell Type Cancelled 02/13/20 03:27 RBC Morphology Normal 02/15/20 06:50 Polychromasia Cancelled 02/13/20 03:27 Hypochromasia Cancelled 02/13/20 03:27 Poikilocytosis Cancelled 02/13/20 03:27 Basophilic Stippling Cancelled 02/13/20 03:27 Anisocytosis Cancelled 02/13/20 03:27 Microcytosis Cancelled 02/13/20 03:27 Macrocytosis Cancelled 02/13/20 03:27 Spherocytes Cancelled 02/13/20 03:27 Target Cells Cancelled 02/13/20 03:27 Tear Drop Cells Cancelled 02/13/20 03:27 Ovalocytes Cancelled 02/13/20 03:27 Stomatocytes Cancelled 02/13/20 03:27 [place] Bodies Cancelled 02/13/20 03:27 [place] Cells Cancelled 02/13/20 03:27 Acanthocytes (Spur) Cancelled 02/13/20 03:27 Schistocytes Cancelled 02/13/20 03:27 PT 10.2 sec (9.3-11.0) 02/12/20 06:15 INR 1.0 (0.9-1.1) 02/12/20 06:15 ABG Sample Site Right radial 02/19/20 13:56 ABG pH 7.50 (7.35-7.45) H 02/19/20 13:56 ABG pCO2 37 mmHg (34-47) 02/19/20 13:56 ABG pO2 56 mmHg (83-108) L 02/19/20 13:56 ABG HCO3 29 mmol/L (22-28) H 02/19/20 13:56 ABG Total CO2 26 mmol/L (22-29) 02/19/20 13:56 ABG O2 Saturation 91 % (94-98) L 02/19/20 13:56 ABG Base Excess 5.5 mmol/L (-3-3) H 02/19/20 13:56 Oxygen Liter Flow Cancelled 02/13/20 15:11 FiO2 40 % 02/15/20 07:40 Sodium 135 mmol/L (136-145) L 02/20/20 06:10 Potassium 3.6 mmol/L (3.5-5.1) 02/20/20 06:10 Chloride 99 mmol/L (98-107) 02/20/20 06:10 Carbon Dioxide 29.8 mmol/L (21.0-32.0) 02/20/20 06:10 Anion Gap 6.2 mmol/L (3-11) 02/20/20 06:10 BUN 15 mg/dL (7-18) 02/20/20 06:10 Creatinine 0.77 mg/dL (0.70-1.30) 02/20/20 06:10 Estimated GFR/1.73 m2 >= 60.00 (mL/min/1.73m2) 02/20/20 06:10 Glucose 123 mg/dL (74-106) H 02/20/20 06:10 Lactate 1.0 mmol/L (0.6-1.4) 02/13/20 06:08 Calcium 9.0 mg/dL (8.5-10.1) 02/20/20 06:10 Magnesium 2.0 mg/dL (1.8-2.4) 02/20/20 06:10 Total Bilirubin 0.5 mg/dL (0.2-1.0) 02/18/20 06:40 Conjugated Bilirubin 0.34 mg/dL (0.00-0.20) H 02/13/20 06:08 AST 25 U/L (15-37) 02/18/20 06:40 ALT 31 U/L (16-63) 02/18/20 06:40 Alkaline Phosphatase 51 U/L (46-116) 02/18/20 06:40 Ammonia 26 umol/L (11-32) 02/17/20 06:05 Troponin I < 0.05 ng/Ml (<0.06) 02/11/20 21:30 NT-Pro-B Natriuret Pep 294 pg/mL (<300) 02/20/20 06:10 Total Protein 5.7 g/dL (6.4-8.2) L 02/18/20 06:40 Albumin 1.9 g/dL (3.4-5.0) L 02/18/20 06:40 Vitamin B12 959 pg/mL (193-986) 02/12/20 06:15 Folate 18.1 ng/mL (8.6-20.0) 02/12/20 06:15 Procalcitonin 0.1 ng/mL 02/13/20 06:08 TSH 2.42 uIU/mL (0.36-3.74) 02/11/20 13:00 Urine Color Yellow (Yellow) 02/11/20 19:25 Urine Clarity Clear (Clear) 02/11/20 19:25 Urine pH 6.0 (5-8) 02/11/20 19:25 Ur Specific [place] 1.025 (1.005-1.025) 02/11/20 19:25 Urine Protein Negative mg/dL (Negative) 02/11/20 19:25 Urine Ketones 15 mg/dL (Negative) H 02/11/20 19:25 Urine Blood Trace-intact (Negative) H 02/11/20 19:25 Urine Nitrite Negative (Negative) 02/11/20 19:25 Urine Bilirubin Negative (Negative) 02/11/20 19:25 Urine Urobilinogen 1.0 EU/dL (Up TO 0.2) H 02/11/20 19:25 Ur Leukocyte Esterase Negative (Negative) 02/11/20 19:25 Urine RBC 3-5 HPF (0-2) H 02/11/20 19:25 Urine WBC 0-2 HPF (0-5) 02/11/20 19:25 Ur Epithelial Cells Rare HPF (Negative) 02/11/20 19:25 Urine Crystals Negative HPF (Negative) 02/11/20 19:25 Urine Bacteria Few HPF (Negative) 02/11/20 19:25 Urine Casts Negative LPF (Negative) 02/11/20 19:25 Urine Mucus Negative (Negative) 02/11/20 19:25 Urine Other Negative (Negative) 02/11/20 19:25 Ur Culture Indicated? No 02/11/20 19:25 Urine Glucose Negative mg/dL (Negative) 02/11/20 19:25 Vancomycin Trough Cancelled 02/15/20 13:00 Ethyl Alcohol < 3.0 mg/dL (<3) 02/11/20 13:00 Patient ABO/Rh A Positive 02/13/20 06:08 Antibody Screen Negative 02/13/20 06:08
--- NOTE | 2020-02-24 11:44 | CMPROGNOTE_ITS ---
- If Service Date Differs Date of service: 02/24/20 Time of Service: 11:44 Care Management Progress Note S/O: Micha was lying in bed when CM met with him. He appears to be more alert and responsive each day. Today Micha was able to answer simple questions and share that he was unable to get out of bed. He is restless at times and has been told he must remain in bed. He denied pain and was able to maintain eye contact for a short time. 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 Palliative Care will be asked to see him again tomorrow and further discussions with family members will likely occur. A: Vikram is a 69 year old male admitted for acute alcohol withdrawal, per report he did make statement in the ED of wanting to stop drinking. He is also being treated for aspiration pneumonia with IV ABX. P: Vikram remains on comfort measures with symptom management. Palliative has been asked to reassess patient tomorrow. CM will continue to follow and provide support to patient, family and discharge planning needs.
[2020-02-24] MEDS: Lidocaine 5% Patch 1 PATCH TP (11:50)
[2020-02-24] MEDS: LIDOCAINE Patch Removal 1 EACH TP (23:14)
[2020-02-25] MEDS: Normal Saline Flush 10 ML SYR IVP ×6 (00:41→10:48)
[2020-02-25] MEDS: LORazepam 2 MG/ML VIAL 1 MG IVP ×4 (00:42→09:08)
[2020-02-25] MEDS: MORPHine 2 MG/ML SYR IV/SC ×6 (00:42→17:54)
[2020-02-25] MEDS: Lidocaine 5% Patch 1 PATCH TP (09:08)
--- NOTE | 2020-02-25 10:06 | OT.INIE ---
Occupational Therapy Notes Inpatient Occupational Therapy Evaluation Date: 02/25/20 Referring Doctor:Brynn Ferrari NP OT Orders: Non-Urgent Precautions: Fall, Standard, DNR/DNI PATIENT PROFILE/ADMITTING DIAGNOSIS: Pt is a 69 year old male who was admitted to [facility] through the Emergency Room on 02/11/20 for alcohol withdrawal and head injury to face and scalp. He was admitted into the ICU post admission for the following dx alcohol withdrawal, A-fib with rapid ventricular response, transminitis, hypomagnesemia, hypokalemia, dehydration, thrombocytopenia, aspiration pneumonia, DVT prophylaxis, h/o 2 brain bleeds. 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 Pt has been more responsive at this time and is able to verbalize and communicate more as well as perform eating routines per nursing/MD. OT consult was initiated and ordered for assessment of pts current functional status and level of care needs at this time. Past Medical History: Medical History (Updated 02/11/20 @ 17:39 by Shonda Chaves MD) Alcohol abuse (Chronic) Alcohol withdrawal delirium, acute, hyperactive (Acute) Cervical spondylosis (Acute) Impingement syndrome of shoulder (Acute) Subarachnoid hematoma (Acute) Subdural hematoma (Resolved) Surgical History (Updated 02/11/20 @ 17:32 by Shonda Chaves MD) S/P arthroscopy of shoulder (Acute) S/p reverse total shoulder arthroplasty (Acute) Current Functional Limitations: Decreased strength in (B) UE, decreased functional activity tolerance, impairments in ADL/IADL and leisure activities, pain in lower back, decreased functional mobility required for ADLs/IADLs, decreased AROM of (B) UE. Social History/Home Situation: Pt states that he lives in a private home with his . He states yes when asked if he was (I) at his baseline level of function. He states yes to having children. Per pts chart he has a daughter. Pt states no when asked if he required (A) with dressing or bathing at baseline. Equipment owned/DME: Unable to assess at todays session. Will continue to assess. SUBJECTIVE: Pt was lying in bed when OT arrived. His eyes closed and his speech blended at this time. Pt was alert to his name. He was able to answer basic simple yes or no questions. His eyes stayed closed for most of OT session but he was able to respond. OBJECTIVE: General Observation: Alert to name, IV in (R) neck 3 way, gauze and wrapping on anterior neck. Pt was able to answer yes or no questions with limited verbal communication. OT went back to see pt with visual options and he was able to state clearly, I have to get up and go to the bathroom. Villafana in place. Mental Status: Alert to name. Pain: c/o pain in arm. Pt is unable to specify which arm. ROM: RUE AROM shoulder only visual shoulder protraction noted, PROM able to achieve 110* no pain noted, elbow actively pt could touch opposite shoulders and unable to fully to touch his face but was able to come within 2 inches from face, PROM of wrist, hand, digits are WNL. L UE AROM shoulder only visual shoulder protraction noted, PROM able to achieve 100* no pain noted, elbow actively pt could touch opposite shoulders and unable to fully to touch his face but was able to come within 2 inches from face, PROM of wrist, hand, digits are WNL. STRENGTH: RUE Unable to assess pts shoulder or elbow strength, roughener is weak and symmetrical LUE Unable to assess pts shoulder or elbow strength, roughener is weak and symmetrical FUNCTIONAL MOBILITY/ADLS: Transfers Rolling in bed to (L) side: Max (A) for placement of medication patch BATHING- Performed prior to OT consult with nursing. Nursing reports that pt was max (A). TOILETING- villafana in place, pt did verbalize that he needed to go to the bathroom. Therapeutic Activities [id number]: Pt's verbal communication is hard to understand at times. He is able to communicate better although sometimes it is hard to articulate pts needs/wants which is important in maintaining pts care. OT made pt verbal communication board to point to yes or no as well as simple things like pain, bathing, teeth. This will also provide pt with a visual communication tool to promote (I) in ADLs performed. OT provided a nurse symbol as well in case pt feels that he will require (A) from the nurse. Pt has good verbal communication when it comes to yes or no questions. OT does feel that this will help with communication between staff and patient. OT did ask pt if he could write. Pt asked left or right hand, but is weak and unable to put weight into the pencil for performance. SPECIAL TESTS: Daily Activity Limitations Standardized Measure [facility] AM -PAC ?6 clicks? Daily Activity Inpatient Short Form: Raw score: 8 Standardized score: 22.86 CMS score: 85.69% INFORMED CONSENT/EDUCATION: Pt instructed in purpose of OT Consult and plan of care. ASSESSMENT: Patient is a 69-year-old male referred to occupational therapy services with diagnosis of for alcohol withdrawal and head injury to face and scalp. He was admitted into the ICU post admission for the following dx alcohol withdrawal, A-fib with rapid ventricular response, transminitis, hypomagnesemia, hypokalemia, dehydration, thrombocytopenia, aspiration pneumonia, DVT prophylaxis, h/o 2 brain bleeds. 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 Pt has been more responsive at this time and is able to verbalize and communicate more as well as perform eating routines per nursing/MD. Patient presents with clinical signs and symptoms consistent with dx, as demonstrated by the following impairment level findings: Pain in low back, (B) UE, decreased functional activity tolerance, weakness in (B) UE, decreased AROM/PROM, decreased functional mobility required for performance of ADLs/IADLs, decreased verbal communication, decreased gross and fine motor control of (B) UE, decreased gross motor control of (B) LE. 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 AMPAC score 8 Patient is assessed as a high 75895 complexity based on the following: History: See above Examination: see functional limitations as noted above Presentation: Evolving Decision Making: AMPAC score 8 GOALS Goals x1 week 1. Dressing- Pt will be able to lift (B) UE into slight shoulder flexion for don and doffing hospital gown with mod (A) with min vc throughout. 2. Bathing- Pt will be able to wash his face and (B) UE with mod (A) while sitting in bed with support to back with min vc throughout. 3. Eating- Pt will be able to bring hand to mouth with mod (A) for eating routine and min vc. PLAN OF CARE/TREATMENT PLAN: 1x/day, 5 days/ week x 1week Initiate Occupational Therapy Services for bathing, dressing, grooming, toileting, eating, transfer training. DISCHARGE RECOMMENDATIONS Based on pts consult at todays session and current functional (I) in ADLs/IADLs OT does recommend that pt go to SNF when medically cleared per MD. OT will continue to assess pts functional (I) with ADLs at next session and make appropriate recommendations as needed. Pts does state that she is not interested in SNF as this is against patients last wishes per Physical Therapist. TREATMENT TIME/MINUTES/CODES [id number], [id number], 45 minutes (09:05) Carol Smith, OTR/L [facility]
--- NOTE | 2020-02-25 10:53 | PGE_ITS ---
Date of Service Date of service: 02/25/20 Time of Service: 10:53 Assessment and Plan Assessment and plan (1) End of life care: Start date: 02/25/20 Start time: 10:57 Status: Acute Assessment and plan: Patient is in severe pain when awake. Does not want to be awake, he wants to sleep per conversation with CM. He is receiving morphine and ativan every 2 hours. Will add fentanyl patch for pain control. Consider SNIF once pain is controlled. At this time patient is not actively dying, though it sounds as if he does not want to be awake. Palliative to follow patient. (2) Comfort measures only status: Start date: 02/25/20 Start time: 10:59 Status: Acute Assessment and plan: Palliative and hospice patient, severe decline after alcohol withdrawal. Poor quality of life. Subjective Subjective Patient reports: other Interval history since last seen: States to CM that he is always in pain when awake and does not want to be in pain. He is being medicated every 2 hours with morphine and ativan. He wants to sleep and not be in pain. He is more alert and awake oriented x 1. Will add fentanyl patch for pain. Would like to get pain controlled enough to get patient to SNIF. He is not actively dying at this time. 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 Exam Narrative Exam Narrative: Awake and alert but not oriented to person place time and circumstance. Lower back pain, CORRECTIVE THERAPY AIDE TEACHER. Asking for food, appears comfortable, stating his abdomen hurts because he is hungry will give him a diet. Objective Objective Clinical Data: Vital Signs Temperature 36.6 C 02/20/20 04:03 Temperature Source Temporal Artery Scan 02/20/20 04:03 Pulse 76 02/20/20 10:00 Pulse 78 02/20/20 10:01 Respiratory Rate 23 02/20/20 10:01 Respiratory Effort Non-Labored 02/25/20 08:36 Respiratory Depth Normal 02/25/20 08:36 Respiratory Pattern Normal 02/25/20 08:36 Blood Pressure 108/60 02/20/20 10:00 Blood Pressure Mean 71 02/20/20 10:00 Blood Pressure Position Supine 02/20/20 04:03 Pulse Oximetry 93 L 02/20/20 11:42 Respiratory End-tidal CO2 27 02/17/20 12:01 Oxygen Delivery Method Room Air 02/20/20 11:42 Oxygen Flow Rate 0 02/20/20 11:42 Fraction of Inspired Oxygen (FIO2) 21 02/17/20 08:03 Pain Level 8 02/23/20 08:03 Comment 02/14/20 17:48 Intake & Output 02/24/20 02/24/20 02/25/20 11:59 23:59 11:59 Intake Total 130 / 301 171 / 301 Output Total 860 / 1410 550 / 1410 500 / 500 Balance -730 / -1109 -379 / -1109 -500 / -500 Intake: IV Oral 100 / 220 120 / 220 Output: Urine 860 / 1410 550 / 1410 500 / 500 Other: Urine Color Dark Ana Maria Yellow Straw Urine Appearance Clear Clear Clear Laboratory Results WBC 7.97 k/cumm (4.4-10.8) 02/20/20 06:10 RBC 3.55 m/cumm (4.50-6.00) L 02/20/20 06:10 Hgb 12.2 g/dL (13.5-17.5) L 02/20/20 06:10 Hct 35.3 % (40.0-50.0) L 02/20/20 06:10 MCV 99.4 fL (80-95) H 02/20/20 06:10 MCH 34.4 pg (27.0-33.0) H 02/20/20 06:10 MCHC 34.6 g/dL (32.0-36.0) 02/20/20 06:10 RDW 11.9 % (11.8-14.1) 02/20/20 06:10 Plt Count 296 x1000/uL (130-400) 02/20/20 06:10 MPV 10.2 fL (8.0-11.0) 02/20/20 06:10 Immature Gran % 1.8 % 02/20/20 06:10 Neutrophils % 65.8 02/20/20 06:10 Band Neutrophils % Cancelled 02/13/20 03:27 Lymphocytes % 18.7 02/20/20 06:10 Atypical Lymphs % Cancelled 02/13/20 03:27 Monocytes % 11.2 02/20/20 06:10 Eosinophils % 1.9 02/20/20 06:10 Basophils % 0.6 02/20/20 06:10 Metamyelocytes % Cancelled 02/13/20 03:27 Myelocytes % Cancelled 02/13/20 03:27 Promyelocytes % Cancelled 02/13/20 03:27 Absolute Neutrophils 5.25 k/cumm (1.2-6.7) 02/20/20 06:10 Absolute Lymphocytes 1.49 k/cumm (1.2-3.4) 02/20/20 06:10 Absolute Monocytes 0.89 k/cumm (0.11-0.7) H 02/20/20 06:10 Absolute Eosinophils 0.15 k/cumm (0.0-0.7) 02/20/20 06:10 Absolute Basophils 0.05 k/cumm (0.0-0.2) 02/20/20 06:10 Nucleated RBCs Cancelled 02/13/20 03:27 Differential Comment Diff reviewed 02/15/20 06:50 Other Cell Type Cancelled 02/13/20 03:27 RBC Morphology Normal 02/15/20 06:50 Polychromasia Cancelled 02/13/20 03:27 Hypochromasia Cancelled 02/13/20 03:27 Poikilocytosis Cancelled 02/13/20 03:27 Basophilic Stippling Cancelled 02/13/20 03:27 Anisocytosis Cancelled 02/13/20 03:27 Microcytosis Cancelled 02/13/20 03:27 Macrocytosis Cancelled 02/13/20 03:27 Spherocytes Cancelled 02/13/20 03:27 Target Cells Cancelled 02/13/20 03:27 Tear Drop Cells Cancelled 02/13/20 03:27 Ovalocytes Cancelled 02/13/20 03:27 Stomatocytes Cancelled 02/13/20 03:27 Forbes-Ruby Bodies Cancelled 02/13/20 03:27 Jacob Cells Cancelled 02/13/20 03:27 Acanthocytes (Spur) Cancelled 02/13/20 03:27 Schistocytes Cancelled 02/13/20 03:27 PT 10.2 sec (9.3-11.0) 02/12/20 06:15 INR 1.0 (0.9-1.1) 02/12/20 06:15 ABG Sample Site Right radial 02/19/20 13:56 ABG pH 7.50 (7.35-7.45) H 02/19/20 13:56 ABG pCO2 37 mmHg (34-47) 02/19/20 13:56 ABG pO2 56 mmHg (83-108) L 02/19/20 13:56 ABG HCO3 29 mmol/L (22-28) H 02/19/20 13:56 ABG Total CO2 26 mmol/L (22-29) 02/19/20 13:56 ABG O2 Saturation 91 % (94-98) L 02/19/20 13:56 ABG Base Excess 5.5 mmol/L (-3-3) H 02/19/20 13:56 Oxygen Liter Flow Cancelled 02/13/20 15:11 FiO2 40 % 02/15/20 07:40 Sodium 135 mmol/L (136-145) L 02/20/20 06:10 Potassium 3.6 mmol/L (3.5-5.1) 02/20/20 06:10 Chloride 99 mmol/L (98-107) 02/20/20 06:10 Carbon Dioxide 29.8 mmol/L (21.0-32.0) 02/20/20 06:10 Anion Gap 6.2 mmol/L (3-11) 02/20/20 06:10 BUN 15 mg/dL (7-18) 02/20/20 06:10 Creatinine 0.77 mg/dL (0.70-1.30) 02/20/20 06:10 Estimated GFR/1.73 m2 >= 60.00 (mL/min/1.73m2) 02/20/20 06:10 Glucose 123 mg/dL (74-106) H 02/20/20 06:10 Lactate 1.0 mmol/L (0.6-1.4) 02/13/20 06:08 Calcium 9.0 mg/dL (8.5-10.1) 02/20/20 06:10 Magnesium 2.0 mg/dL (1.8-2.4) 02/20/20 06:10 Total Bilirubin 0.5 mg/dL (0.2-1.0) 02/18/20 06:40 Conjugated Bilirubin 0.34 mg/dL (0.00-0.20) H 02/13/20 06:08 AST 25 U/L (15-37) 02/18/20 06:40 ALT 31 U/L (16-63) 02/18/20 06:40 Alkaline Phosphatase 51 U/L (46-116) 02/18/20 06:40 Ammonia 26 umol/L (11-32) 02/17/20 06:05 Troponin I < 0.05 ng/Ml (<0.06) 02/11/20 21:30 NT-Pro-B Natriuret Pep 294 pg/mL (<300) 02/20/20 06:10 Total Protein 5.7 g/dL (6.4-8.2) L 02/18/20 06:40 Albumin 1.9 g/dL (3.4-5.0) L 02/18/20 06:40 Vitamin B12 959 pg/mL (193-986) 02/12/20 06:15 Folate 18.1 ng/mL (8.6-20.0) 02/12/20 06:15 Procalcitonin 0.1 ng/mL 02/13/20 06:08 TSH 2.42 uIU/mL (0.36-3.74) 02/11/20 13:00 Urine Color Yellow (Yellow) 02/11/20 19:25 Urine Clarity Clear (Clear) 02/11/20 19:25 Urine pH 6.0 (5-8) 02/11/20 19:25 Ur Specific [place] 1.025 (1.005-1.025) 02/11/20 19:25 Urine Protein Negative mg/dL (Negative) 02/11/20 19:25 Urine Ketones 15 mg/dL (Negative) H 02/11/20 19:25 Urine Blood Trace-intact (Negative) H 02/11/20 19:25 Urine Nitrite Negative (Negative) 02/11/20 19:25 Urine Bilirubin Negative (Negative) 02/11/20 19:25 Urine Urobilinogen 1.0 EU/dL (Up TO 0.2) H 02/11/20 19:25 Ur Leukocyte Esterase Negative (Negative) 02/11/20 19:25 Urine RBC 3-5 HPF (0-2) H 02/11/20 19:25 Urine WBC 0-2 HPF (0-5) 02/11/20 19:25 Ur Epithelial Cells Rare HPF (Negative) 03/16/20 19:25 Urine Crystals Negative HPF (Negative) 02/11/20 19:25 Urine Bacteria Few HPF (Negative) 02/11/20 19:25 Urine Casts Negative LPF (Negative) 02/11/20 19:25 Urine Mucus Negative (Negative) 02/11/20 19:25 Urine Other Negative (Negative) 02/11/20 19:25 Ur Culture Indicated? No 02/11/20 19:25 Urine Glucose Negative mg/dL (Negative) 02/11/20 19:25 Vancomycin Trough Cancelled 02/15/20 13:00 Ethyl Alcohol < 3.0 mg/dL (<3) 02/11/20 13:00 Patient ABO/Rh A Positive 02/13/20 06:08 Antibody Screen Negative 02/13/20 06:08
--- NOTE | 2020-02-25 11:02 | CMPROGNOTE_ITS ---
- If Service Date Differs Date of service: 02/25/20 Time of Service: 11:02 Care Management Progress Note S/O: Vikram is awake at times, he remains on comfort measures only. When he does awake per nursing he expresses discomfort and appears to be in pain. Vikram awakes states to CM the pain medication is not working and I am in pain. Vikram does not express the desire to eat at this time or take in orals. has discussed the plans with Nena his spouse and per nursing his daughter Haven also called and wants Vikram to be kept comfortable. Nena has agreed to a referral to the [facility] which CM will fax today, his assisted Medicaid is pending. Anticipate if he does transition to the [facility] it will be for end of life care. A: Vikram is a 69 year old male admitted for acute alcohol withdrawal, per report he did make statement in the ED of wanting to stop drinking. He is also being treated for aspiration pneumonia with IV ABX. P: Vikram remains on comfort measures with symptom management. Palliative has been asked to reassess patient today. referral to the [facility]. will continue to follow and provide support to patient, family and discharge planning needs.
--- NOTE | 2020-02-25 11:30 | EVALE_ITS ---
Date of service: 02/25/20 Time of Service: 11:30 Speech Therapy Evaluation Note: Speech-Language/Swallowing Pathology Clinical Dysphagia Evaluation Medical Diagnosis: Alcohol Withdrawal, Aspiration Pneumonia. Therapy Diagnosis: Dysphagia, Unspecified. Current Level of Care: Inpatient. Subjective: Pt was sleeping in his bed when the CHURCH OFFICIAL arrived. He was very difficult to arouse and intermittently alert, requiring constant cues to open his eyes and respond to questions. Pt was minimally responsive to verbal communication and his speech was difficult to understand. Pt responded best when given choices or yes/no questions, rather than open-ended. Pertinent Medical/Swallowing History & Previous Level of Function: Per H&P (02/11/20): ?Mr Lenz is a 69 year old male with PMHx of alcohol abuse with history of prior alcohol withdrawal with hallucinations, severe, as well as h/o subdural hematoma, subarachnoid hematoma in setting of alcohol withdrawal, and ambulatory dysfunction who was brought to [facility] ED by his after a fall a couple of days ago, with altered mental status, in alcohol withdrawal. While in the ED, his initial CIWA scores were 10 and 11, however they quickly escalated, requiring repeated boluses of IV ativan and valium. He is unable to tell his story. It is not clear when his last alcoholic beverage was or how much he drinks. He is being admitted to the ICU. His heart rates are in 150's-170's, he is severely tremulous, and obtaining an EKG right now is impossible. It is difficult to tell exact rhythm on tele, but I think it's Afib. He is being started on ativan and cardizem infusion?. Pt transferred to medical surgical unit. Per Progress Note (02/25/20): ?States to that he is always in pain when awake and does not want to be in pain. He is being medicated every 2 hours with morphine and ativan. He wants to sleep and not be in pain. He is more alert and awake oriented x 1. Will add fentanyl patch for pain. Would like to get pain controlled enough to get patient to [facility]. He is not actively dying at this time. 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 Pt unable to provide swallowing history. No hx of dysphagia found in MAR. While in ICU care, nursing reports pt received tube feeds. Current Level of Function & Reason for Referral: Pt is described to be aspirating on thin liquids and all solids PO evidenced by consistent coughing post swallows. Despite aspiration risks, pt is reportedly refusing soft foods and only requesting regular textures. He was referred for a swallow evaluation to establish a safe diet to reduce aspiration risks. Pt is currently on comfort care. Living Environment/Support: . Precautions: Bed rest, aspiration risk. Medications: Please see MAR. Allergies: Please see MAR. Barriers to Learning: Cognitive, compliance Issues. Respiratory Function: Per chart, normal. Supplemental Oxygen: Per chart, none. Posture/Positioning: Pt leaning to the right. He required frequent repositioning to remain midline and upright. Prior Diet: Suspect regular, thin liquids. Current Diet: Soft/bite sized, thin liquids. ORAL MECHANISM EXAMINATION Oral Structures/Function: Unable to assess today given pt?s limited ability to follow directions and waning alertness. Pt minimally opening his oral cavity to accept liquids PO. Consistencies Tested: Thin liquids, mildly-thick (nectar-thick) liquids via open cup sips, straw, and spoon. Self-Feeding/Level of Assistance: Total feed required today. Oral Phase: Pt did not accept straw/did not round his lips when presented. Pt minimally open his oral cavity and attempted open cup sips from the CHURCH OFFICIAL, but coughed post swallow of both thin and mildly-thick (nectar-thick) liquids via this presentation. He also demonstrated labial leakage. Pt intermittently coughed when given thin liquids via teaspoon, however, coughing was eliminated when liquids were thickened to mildly-thick (nectar-thick) and presented via teaspoons. Labial leakage was also better controlled. Premature spillage suspected with thin liquids, given gag, audible swallow, and resulting coughing. Overall oral preparation and control also suspected to be reduced. No solids attempted. Pharyngeal Phase: No solids attempted today given pt?s decreased alertness as well as refusals to trial solids this afternoon. Pt unable to manage thin liquids at this time, however, overt s/s of aspiration were eliminated when liquids were thickened to midly-thick (nectar-thick) and administered via spoon. Esophageal Phase: N/A. S/S Aspiration: Consistent coughing post swallows of all thin liquid trials. Pt/Caregiver/Staff Education: Staff informed of highly recommended diet downgrade given pt?s high aspiration risk with safe swallowing recommendations provided and plan to re-assess and consider solid intake pending pt?s status and need for increased alertness to safely feed. Staff were provided with re commendations and they were also posted in pt?s room. Assessment: Pt is a 69 year-old male who was minimally participatory in a clinical dysphagia assessment today both due to waning alertness and also refusals. Pt was in agreement to trial liquids, but refused solids today. Pt with overt s/s of aspiration upon consumption of thin liquids, both via open cup sips and spoon. Coughing was eliminated when liquids were thickened to mildly- thick (nectar-thick) and presented via teaspoons only. Unable to conduct oral- mechanism examination or solid PO trials today. Given limited assessment, pt is recommended to be NPO except for thickened liquids via teaspoon pending further CHURCH OFFICIAL diagnostic treatment. Pt will need to be more alert to safely feed and assess solid intake. Pt is on comfort care, however, staff plans to continue to adjust medications to increase alertness while keeping pt comfortable. Rehab Potential: Guarded. Short-Term Goals: 1. Pt will manage 10 PO trials of liquids, demonstrating a timely and efficient swallow response within 3-5 seconds and no overt s/s of aspiration. 2. Pt will manage 10 PO trials of puree, demonstrating a timely and efficient swallow response within 3-5 seconds and no overt s/s of aspiration. 3. Pt will manage 10 PO trials of minced and moist (mechanical soft/ground) solids, demonstrating a timely and efficient swallow response within 3-5 seconds and no overt s/s of aspiration. Time Frame: 1 week. Long-Term Goals: 1. Pt will manage least restrictive diet with no overt s/s of aspiration, when utilizing safe swallow protocol, with fading caregiver assistance. Time Frame: 2 weeks. Pt Goal: Unknown. PLAN Planned Treatment Interventions: [id number] of Swallowing Dysfunction Frequency: 3x/week Intensity: 45 minutes Duration: 2 weeks Discharge Plan: Upon meeting goals and/or maximum therapeutic benefit. SWALLOWING RECOMMENDATIONS Solids: NPO. Liquids: Mildly-thick (nectar-thick) via teaspoons only. Medication Administration: Crushed with puree/pudding. Level of Assistance/Supervision: Direct supervision via [facility] staff for all PO intake. Strategies/Adaptations/AE: ?Pt must be adequately awake and alert for any PO intake. ?Provide thickened drinks (mildly-thick/nectar-thick, tomato juice/eggnog consistency) via small teaspoons from spoon only. ?CHURCH OFFICIAL to re-assess solids pending increased alertness Posture/Positioning Needs: Pt must be fully upright for all PO intake (please adjust bed as needed). Use pillows/supports for midline posture. Charge Code: [id number] Evaluation Time In: 11:30 am Time Out: 12:30 pm Total Time: 60 minutes
[2020-02-25] MEDS: fentaNYL 25 MCG PATCH TD (11:32)
--- NOTE | 2020-02-25 11:47 | NT_ITS ---
Date of service: 02/25/20 Time of Service: 10:06 PT Notes Visit Reasons: ALCOHOL WITHDRAWAL Patient was asleep when PT arrived. was praying the rosary at bedside for . states that she does not see the reason why PT is being sent to work with . Explanation was given about the need to establish, and potentially improve, mobility level considering patient has not gotten out of bed yet since admission two weeks ago. Patient's was also informed that MD and SOLID FIBER PASTER OPERATOR requested for PT to weigh in on recommendations about the need for skilling for a possible SNF placement. replied that it was part of the patient's wishes to NOT go to a SNF. Patient's was reassured that MD and SOLID FIBER PASTER OPERATOR will be informed of her reservations about her undergoing PT knowing that he is currently on end of life care. SOLID FIBER PASTER OPERATOR Brynn Ferrari was consulted regarding this matter who then decided to refer the situation to the childbirth and infant care teacher. Will await on care management's advise regarding patient's and 's decision prior to re-attempting PT evaluation. Thank you very much for this referral. Kaya Lozano PT, DPT, CLT [facility]
--- NOTE | 2020-02-25 12:28 | TELEFU_ITS ---
Date of service: 02/25/20 Time of Service: 12:28 Nutritional Follow up NOTE: Vikram has continued to be confused since extubation. PO intake minimal, able to tolerate thickened liquids per nursing. Recommend SHIPPING AND RECEIVING ASSOCIATE consult for texture modification to reduce risk of aspiration PNA. Will provide Ensure Plus (nectar thick) BID. Continues to be at nutritional decline and dehydration in view inability to consume adequate calories, protein and fluid by mouth. Time Spent in Nutritional Counseling and Treatment: 5 min spent face to face
[2020-02-25] MEDS: Bacitracin 1 PACKET (12:56)
--- NOTE | 2020-02-25 17:06 | W.PALPGNOTE ---
Date of service: 02/25/20 Time of Service: 13:06 Assessment and Plan Assessment and plan (1) Encephalopathy: Status: Acute (2) Aspiration pneumonia: Status: Acute Qualifiers: Aspiration pneumonia type: due to gastric secretions Laterality: bilateral Lung location: lower lobe of lung Qualified Code(s): J69.0 - Pneumonitis due to inhalation of food and vomit (3) Alcohol withdrawal delirium, acute, hyperactive: Status: Resolved (4) End of life care: Status: Acute Assessment and plan: I do believe that his family is choosing the appropriate path for Vikram. Comfort care seems to be in his best interest. Unfortunately he is still in significant pain. I agree with switching him over to fentanyl, but he will still need something for breakthrough pain. He does have problems with aspiration pneumonia and there is concerned that any type of oral medication might cause further problems. I recommend that his fentanyl patch be increased until he is not in pain. He can have supplemental morphine while he is hospitalized. I am uncertain if the plan is to move him to a fdc facility. If so upping his fentanyl patch will be in his best interest I did communicate this to the hospitalist team and care management I will see him tomorrow and make recommendations regarding pain medication. Again I do believe it is in his best interest to be on comfort care at this point and he clearly wants pain control This document was created by [employer] software. Content was screened for mispellings, grammatical mistakes, etc. I apologize for any problems, but please contact me for further clarification if needed. Subjective Subjective Interval history since last seen: I had seen Vikram about a week ago. In the interim he was placed on comfort care measures. He has woken up more than what he did when I saw him. He also has had lapses back into being fairly unresponsive. Care management did speak with him and he was very clear he said I am in pain I do not want to be in pain Today I went to see him and he did open his eyes when I talked with him. I asked him how he was feeling and he says somewhat better but still in a lot of pain. He was recently switched from morphine to a fentanyl patch. Ex- and daughter are both in agreement that he should be kept comfortable. He also verbalized that the most important thing for him is to be out of pain. Exam Narrative Exam Narrative: He is lying in bed but did respond to my voice. He did not turn his head from side to side. He does have a heating pad placed behind his neck. His heart is regular. I do hear a systolic murmur. His lungs very shallow breathing. Some scattered wheezing. His abdomen is soft and did not elicit any grimaces when I palpated He did not look at me but did say clearly that he was in pain and does not want to be in pain Objective Objective Clinical Data: Vital Signs Temperature 97.9 F 02/20/20 04:03 Temperature Source Temporal Artery Scan 02/20/20 04:03 Pulse 76 02/20/20 10:00 Pulse 78 02/20/20 10:01 Respiratory Rate 23 02/20/20 10:01 Respiratory Effort Non-Labored 02/25/20 13:45 Respiratory Depth Normal 02/25/20 13:45 Respiratory Pattern Normal 02/25/20 13:45 Blood Pressure 108/60 02/20/20 10:00 Blood Pressure Mean 71 02/20/20 10:00 Blood Pressure Position Supine 02/20/20 04:03 Pulse Oximetry 93 L 02/20/20 11:42 Respiratory End-tidal CO2 27 02/17/20 12:01 Oxygen Delivery Method Room Air 02/20/20 11:42 Oxygen Flow Rate 0 02/20/20 11:42 Fraction of Inspired Oxygen (FIO2) 21 02/17/20 08:03 Pain Level 8 02/23/20 08:03 Comment 02/14/20 17:48 Intake & Output 02/24/20 02/25/20 02/25/20 23:59 11:59 23:59 Intake Total 171 / 301 50 / 50 Output Total 550 / 1410 500 / 800 300 / 800 Balance -379 / -1109 -500 / -750 -250 / -750 Intake: IV 51 / 81 Oral 120 / 220 50 / 50 Output: Urine 550 / 1410 500 / 800 300 / 800 Other: Urine Color Yellow Straw Yellow Urine Appearance Clear Clear Clear Laboratory Results WBC 7.97 k/cumm (4.4-10.8) 02/20/20 06:10 RBC 3.55 m/cumm (4.50-6.00) L 02/20/20 06:10 Hgb 12.2 g/dL (13.5-17.5) L 02/20/20 06:10 Hct 35.3 % (40.0-50.0) L 02/20/20 06:10 MCV 99.4 fL (80-95) H 02/20/20 06:10 MCH 34.4 pg (27.0-33.0) H 02/20/20 06:10 MCHC 34.6 g/dL (32.0-36.0) 02/20/20 06:10 RDW 11.9 % (11.8-14.1) 02/20/20 06:10 Plt Count 296 x1000/uL (130-400) 02/20/20 06:10 MPV 10.2 fL (8.0-11.0) 02/20/20 06:10 Immature Gran % 1.8 % 02/20/20 06:10 Neutrophils % 65.8 02/20/20 06:10 Band Neutrophils % Cancelled 02/13/20 03:27 Lymphocytes % 18.7 02/20/20 06:10 Atypical Lymphs % Cancelled 02/13/20 03:27 Monocytes % 11.2 02/20/20 06:10 Eosinophils % 1.9 02/20/20 06:10 Basophils % 0.6 02/20/20 06:10 Metamyelocytes % Cancelled 02/13/20 03:27 Myelocytes % Cancelled 02/13/20 03:27 Promyelocytes % Cancelled 02/13/20 03:27 Absolute Neutrophils 5.25 k/cumm (1.2-6.7) 02/20/20 06:10 Absolute Lymphocytes 1.49 k/cumm (1.2-3.4) 02/20/20 06:10 Absolute Monocytes 0.89 k/cumm (0.11-0.7) H 02/20/20 06:10 Absolute Eosinophils 0.15 k/cumm (0.0-0.7) 02/20/20 06:10 Absolute Basophils 0.05 k/cumm (0.0-0.2) 02/20/20 06:10 Nucleated RBCs Cancelled 02/13/20 03:27 Differential Comment Diff reviewed 02/15/20 06:50 Other Cell Type Cancelled 02/13/20 03:27 RBC Morphology Normal 02/15/20 06:50 Polychromasia Cancelled 02/13/20 03:27 Hypochromasia Cancelled 02/13/20 03:27 Poikilocytosis Cancelled 02/13/20 03:27 Basophilic Stippling Cancelled 02/13/20 03:27 Anisocytosis Cancelled 02/13/20 03:27 Microcytosis Cancelled 02/13/20 03:27 Macrocytosis Cancelled 02/13/20 03:27 Spherocytes Cancelled 02/13/20 03:27 Target Cells Cancelled 02/13/20 03:27 Tear Drop Cells Cancelled 02/13/20 03:27 Ovalocytes Cancelled 02/13/20 03:27 Stomatocytes Cancelled 02/13/20 03:27 [place] Bodies Cancelled 02/13/20 03:27 [place] Cells Cancelled 02/13/20 03:27 Acanthocytes (Spur) Cancelled 02/13/20 03:27 Schistocytes Cancelled 02/13/20 03:27 PT 10.2 sec (9.3-11.0) 02/12/20 06:15 INR 1.0 (0.9-1.1) 02/12/20 06:15 ABG Sample Site Right radial 02/19/20 13:56 ABG pH 7.50 (7.35-7.45) H 02/19/20 13:56 ABG pCO2 37 mmHg (34-47) 02/19/20 13:56 ABG pO2 56 mmHg (83-108) L 02/19/20 13:56 ABG HCO3 29 mmol/L (22-28) H 02/19/20 13:56 ABG Total CO2 26 mmol/L (22-29) 02/19/20 13:56 ABG O2 Saturation 91 % (94-98) L 02/19/20 13:56 ABG Base Excess 5.5 mmol/L (-3-3) H 02/19/20 13:56 Oxygen Liter Flow Cancelled 02/13/20 15:11 FiO2 40 % 02/15/20 07:40 Sodium 135 mmol/L (136-145) L 02/20/20 06:10 Potassium 3.6 mmol/L (3.5-5.1) 02/20/20 06:10 Chloride 99 mmol/L (98-107) 02/20/20 06:10 Carbon Dioxide 29.8 mmol/L (21.0-32.0) 02/20/20 06:10 Anion Gap 6.2 mmol/L (3-11) 02/20/20 06:10 BUN 15 mg/dL (7-18) 02/20/20 06:10 Creatinine 0.77 mg/dL (0.70-1.30) 02/20/20 06:10 Estimated GFR/1.73 m2 >= 60.00 (mL/min/1.73m2) 02/20/20 06:10 Glucose 123 mg/dL (74-106) H 02/20/20 06:10 Lactate 1.0 mmol/L (0.6-1.4) 02/13/20 06:08 Calcium 9.0 mg/dL (8.5-10.1) 02/20/20 06:10 Magnesium 2.0 mg/dL (1.8-2.4) 02/20/20 06:10 Total Bilirubin 0.5 mg/dL (0.2-1.0) 02/18/20 06:40 Conjugated Bilirubin 0.34 mg/dL (0.00-0.20) H 02/13/20 06:08 AST 25 U/L (15-37) 02/18/20 06:40 ALT 31 U/L (16-63) 02/18/20 06:40 Alkaline Phosphatase 51 U/L (46-116) 02/18/20 06:40 Ammonia 26 umol/L (11-32) 02/17/20 06:05 Troponin I < 0.05 ng/Ml (<0.06) 02/11/20 21:30 NT-Pro-B Natriuret Pep 294 pg/mL (<300) 02/20/20 06:10 Total Protein 5.7 g/dL (6.4-8.2) L 02/18/20 06:40 Albumin 1.9 g/dL (3.4-5.0) L 02/18/20 06:40 Vitamin B12 959 pg/mL (193-986) 02/12/20 06:15 Folate 18.1 ng/mL (8.6-20.0) 02/12/20 06:15 Procalcitonin 0.1 ng/mL 02/13/20 06:08 TSH 2.42 uIU/mL (0.36-3.74) 02/11/20 13:00 Urine Color Yellow (Yellow) 02/11/20 19:25 Urine Clarity Clear (Clear) 02/11/20 19:25 Urine pH 6.0 (5-8) 02/11/20 19:25 Ur Specific [place] 1.025 (1.005-1.025) 02/11/20 19:25 Urine Protein Negative mg/dL (Negative) 02/11/20 19:25 Urine Ketones 15 mg/dL (Negative) H 02/11/20 19:25 Urine Blood Trace-intact (Negative) H 02/11/20 19:25 Urine Nitrite Negative (Negative) 02/11/20 19:25 Urine Bilirubin Negative (Negative) 02/11/20 19: Urine Urobilinogen 1.0 EU/dL (Up TO 0.2) H 02/11/20 19:25 Ur Leukocyte Esterase Negative (Negative) 02/11/20 19:25 Urine RBC 3-5 HPF (0-2) H 02/11/20 19:25 Urine WBC 0-2 HPF (0-5) 02/11/20 19:25 Ur Epithelial Cells Rare HPF (Negative) 02/11/20 19:25 Urine Crystals Negative HPF (Negative) 02/11/20 19:25 Urine Bacteria Few HPF (Negative) 02/11/20 19:25 Urine Casts Negative LPF (Negative) 02/11/20 19:25 Urine Mucus Negative (Negative) 02/11/20 19:25 Urine Other Negative (Negative) 02/11/20 19:25 Ur Culture Indicated? No 02/11/20 19:25 Urine Glucose Negative mg/dL (Negative) 02/11/20 19:25 Vancomycin Trough Cancelled 02/15/20 13:00 Ethyl Alcohol < 3.0 mg/dL (<3) 02/11/20 13:00 Patient ABO/Rh A Positive 02/13/20 06:08 Antibody Screen Negative 02/13/20 06:08
--- NOTE | 2020-02-25 17:20 | NUR.NOTE ---
pt was very agitated and trying to pull his villafana out. made aware by Charge Nurse. Villafana D/C per pt request
[2020-02-25] MEDS: LIDOCAINE Patch Removal 1 EACH TP (22:00)
[2020-02-26] MEDS: MORPHine 2 MG/ML SYR IV/SC (01:45)
[2020-02-26] MEDS: LORazepam 2 MG/1 ML Oral Concentrate 1 MG UD ×2 (01:46→23:49)
[2020-02-26] MEDS: Lidocaine 5% Patch 1 PATCH TP (09:09)
--- NOTE | 2020-02-26 09:30 | OT.INTREAT ---
Date of service: 02/26/20 Time of Service: 09:00 Occupational Therapy Notes Occupational Therapy Inpatient Treatment Note Date: 02/26/20 PRECAUTIONS: Fall, Standard, DNR/DNI SUBJECTIVE: Pt was sitting in the chair with legs elevated when OT arrived. He was agreeable to OT session. He does report pain in his low back in the seated position. And was able to verbalize this clearly. Pt is able to verbalize communication today but takes increased time for response when being asked a question. He reports to OT that he lives with his and son. He states that he has a daughter. He also notes that he does not drive prior to admission. When OT asked if he was able to get dressed (I) prior to admission his response was yes. He also states that he did not need help with bathing. He does not currently have a villafana in place or IVs in (R) side of neck. Pt was able to touch his face multiple times throughout session and notes his eyes are itchy which RN did provide care for. OBJECTIVE: PAIN:c/o pain in low back. VITALS: NT FUNCTIONAL MOBILITY Sitting with back supported on chair to not supported pt demonstrated fair-good core stability and was able to lean forward without LOB. BATHING: Sitting in chair with pillow behind back Upper Body: Min (A) with washing face d/t weakness, mod (A) and mod/tactile cues for washing (B) UE. OT performed max (A) for underarms as pt was unable to perform this at todays session. Max (A) hair, and mod (A) abdomen. Lower Body: Able to wash from hip to knees (B) with fair technique and required mod (A) d/t weakness. Pt tolerated this well with decreased functional activity tolerance noted. Pt was attempting to wash his (B) feet but due to weakness was unable to perform. OT performed this with max (A). DRESSING: Lower Extremity: Pt in seated position did attempt to take his socks off. He was able to bring (R) LE into knee bent position but was limited d.t weakness to remove sock. GROOMING: Pt denies and reports that he does not want to brush his teeth at this time. TOILETING: NT EATING: NT ASSESSMENT/PLAN: Per nursing, OT attempted todays session. Pt was an active participant, he required increased performance time in ADL/IADL routines and required mod verbal and tactile cues. He has significant weakness in his (B) UE and decreased functional activity tolerance at this time. He was able to verbally communicate with OT and was agreeable to performing bathing routine. Pt was sitting in the chair when OT arrived. He was able to perform bathing with fair (I) today. He attempted to doff his (B) socks but was unsuccessful at todays session. Pt's functional (I) is not at his baseline level of function per pt report but he was able to demonstrate good core control throughout session and good dynamic/static sitting tolerance. Pt does respond better with yes/no questions compared to open ended questions. OT will continue to monitor pts response to todays session. TREATMENT CODES/TIME: [id number], 30 minutes (09:00) Carol Smith OTR/[facility]
--- NOTE | 2020-02-26 09:46 | IN_ITS ---
Date of service: 02/26/20 Time of Service: 09:30 PT Notes Visit Reasons: ALCOHOL WITHDRAWAL Inpatient Physical Therapy Evaluation Date: February 25, 2020 Referring Doctor: Brynn Ferrari NP PT Orders: PT CONSULT: Non-urgent Precautions: Fall risk Patient Profile/Admitting Diagnosis: Patient arrived at the emergency department on 10 February with alcohol withdrawals and delirium. Diagnosed with alcohol withdrawals, A. fib, hypo-magnesium and dehydration. Currently on palliative care with ultimate plan to return to home with once medically cleared however there is discussion that he may be going to a [facility] care faci lity. He is currently on comfort measures. PMHX: Medical History (Updated 02/11/20 @ 17:39 by Shonda Chaves MD) Alcohol abuse (Chronic) Alcohol withdrawal delirium, acute, hyperactive (Acute) Cervical spondylosis (Acute) Impingement syndrome of shoulder (Acute) Subarachnoid hematoma (Acute) Subdural hematoma (Resolved) Surgical History (Updated 02/11/20 @ 17:32 by Shonda Chaves MD) S/P arthroscopy of shoulder (Acute) S/p reverse total shoulder arthroplasty (Acute) [] Social History/Home Situation: Has an apartment at the [address] no longer livable. from his for 4 and half years but she is a support and cares for him several times a week. Equipment Owned/DME: None Subjective: Patient states that he is experiencing some pain globally. Not specific to any particular one region. Is agreeable to PT consult with primary goal of establishing functional mobility level. Objective: General Observation: Patient sitting reclined in Ortho chair with chair alarm on. Mental Status: Somewhat lethargic. Aware of person and place. Pain: 7/10 ROM: Right Upper Extremity: 90 degrees flexion, elbow flexion extension within normal limits, able to make fist Left Upper Extremity: 90 degrees flexion shoulders, elbow flexion and extension within normal limits, able to make fist Right Lower Extremity: Unable to flex hip more than 90 degrees in sitting. Knee flexion 125 degrees, extension 0 degrees. Ankle range of motion within functional limits Left Lower Extremity: Flex his hip 5 degrees above sitting position at 90. Knee flexion 125 degrees, knee extension 0 degrees. Ankle range of motion within functional limits Strength: Right Upper Extremity: Shoulder flexion and abduction 3/5, Bicep and tricep 3+/5, fair warehouse person Left Upper Extremity: Shoulder flexion and abduction 3/5, bicep and tricep 3+/5, fair warehouse person Right Lower Extremity: Hip flexion 3+/5, quads and hamstrings 3+/5, ankle plantarflexion 4-/5, dorsiflexion 3+/5 Left Lower Extremity: Hip flexion 3+/5, quads and hamstrings 3+/5, ankle plantarflexion 4-/5, dorsiflexion 3+/5 Sensation: Not tested Bed Mobility/Transfers: Sit?stand: Mod assist x1 to front wheeled walker with verbal cues necessary for hand placement Stand/sit: Mod assist x1 from front wheeled walker with verbal cues for proper hand placement Bed mobility not assessed. Return to Ortho recliner chair with seat alarm on. Gait: Unable to perform any ambulation. Mod assist required to maintain standing at front wheeled walker. Despite verbal cues for advancement of walker and lower extremities patient did not take any steps. Balance: Static Sitting: Fair Dynamic Sitting: Poor Static Standing: Poor Dynamic Standing: Poor Special Tests: Mobility Limitations Standardized Measure [facility] AM-PAC 6 clicks Basic Mobility Inpatient Short Form: Raw Score:11 Standardized Score: 33.86 CMS Score: 72.57 CMS Modifier: CL Informed Consent/Education: Patient instructed in purpose of PT consult and plan of care. Assessment: Patient is a 69 year old male referred to physical therapy services with the diagnosis of alcohol withdrawals. On comfort measures. Patient presents with clinical signs and symptoms consistent with above diagnosis. Purpose of today's initial evaluation basically to determine functional level in preparation for transition to [facility] care facility. He currently demonstrates the following impairment level findings: 1. Decreased strength to bilateral hip and knee major muscle groups 2. Impaired standing and sitting balance 3. Impaired activity tolerance Impairments are contributing to the following functional limitations: 1. Increased dependence with transfers 2. Inability to safely ambulate without assistive device and physical assistance 3. Increase completion time for mobility ADL performance 4. Increased fall risk Patient is assessed as a [] Low 02097 X Moderate [id number] [] High 77238 complexity based on the following: History: As above Examination: As above Presentation: Evolving Decision Making: Moderate 9162 Goals: Goals X1 week 1. Supine-Sit: Standby assist 2. Sit-Supine: Independent 3. Sit-Stand: Contact-guard x1 to front wheeled walker 4. Stand-Sit: Contact-guard x1 with front wheeled walker 5. Bed-Chair: Contact-guard x1 with front wheeled walker 6. Chair-Bed: Contact-guard x1 with front wheeled walker 7. Gait: 25 feet x 1 with front wheeled walker and contact-guard x1 [] 8. Patient demonstrate improved dynamic sitting balance to fair Plan of Care/Treatment Plan: 1-2x/day, 7 days/week x 1 week. Plan of care has been reviewed with the [employer] providing the service under Physical Therapy direction. Initiate Physical Therapy intervention for strengthening, bed mobility, transfers, gait, stairs, balance training, use of assistive device. Discussion will be had with nursing/doctor with regards to formal treatment as patient is currently on comfort measures. Certainly benefit from some functional mobility training activities. DISCHARGE RECOMMENDATIONS: [facility] care facility. If patient is discharged home he will require front wheeled walker. TREATMENT CODE/TIME: 08 27- 45. [place] [id number] Thank you for this consult. Gerry Sullivan PT, DPT
--- NOTE | 2020-02-26 11:13 | PNE_ITS ---
Date of service: 02/26/20 Time of Service: 11:14 Speech Therpy Note Note: [facility] staff contacted [employer] to inform that speech/swallow therapy services will be discontinued due to pt continuing with comfort measures only. Further assessment cancelled at this time. Pt discharged from [employer] services. Charge Code: [id number] Charge
--- NOTE | 2020-02-26 11:13 | W.SPEECHPG ---
Date of service: 02/26/20 Time of Service: 11:14 Speech Therpy Note Note: [facility] staff contacted [employer] to inform that speech/swallow therapy services will be discontinued due to pt continuing with comfort measures only. Further assessment cancelled at this time. Pt discharged from [employer] services. Charge Code: [id number] Charge
--- NOTE | 2020-02-26 14:42 | W.PM.PROGNOT ---
Date of Service Date of service: 02/26/20 Time of Service: 14:42 Assessment and Plan Assessment and plan (1) End of life care: Start date: 02/26/20 Start time: 14:44 Status: Acute Assessment and plan: Patient continues to have pain. Started on morphine pump for control pain. fentanyl patch as well for pain. (2) Comfort measures only status: Start date: 02/26/20 Start time: 14:45 Status: Acute Assessment and plan: Palliative and hospice patient, severe decline after alcohol withdrawal. Poor quality of life. 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 C/o pain, morphine subcu pump with titration until comfortable. Exam Narrative Exam Narrative: Awake and alert but not oriented to person place time and circumstance. 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 Moving all over bed, will start morphine infusion to help with pain management. Objective Objective Clinical Data: Vital Signs Temperature 36.6 C 02/20/20 04:03 Temperature Source Temporal Artery Scan 02/20/20 04:03 Pulse 76 02/20/20 10:00 Pulse 78 02/20/20 10:01 Respiratory Rate 23 02/20/20 10:01 Respiratory Effort Non-Labored 02/26/20 10:39 Respiratory Depth Normal 02/26/20 10:39 Respiratory Pattern Normal 02/26/20 10:39 Blood Pressure 108/60 02/20/20 10:00 Blood Pressure Mean 71 02/20/20 10:00 Blood Pressure Position Supine 02/20/20 04:03 Pulse Oximetry 93 L 02/20/20 11:42 Respiratory End-tidal CO2 27 02/17/20 12:01 Oxygen Delivery Method Room Air 02/20/20 11:42 Oxygen Flow Rate 0 02/20/20 11:42 Fraction of Inspired Oxygen (FIO2) 21 02/17/20 08:03 Pain Level 8 02/23/20 08:03 Comment 02/14/20 17:48 Intake & Output 02/25/20 02/26/20 02/26/20 23:59 11:59 23:59 Intake Total 151 / 151 780 / 780 Output Total 300 / 800 Balance -149 / -649 780 / 780 Intake: IV 51 / 51 Oral 100 / 100 780 / 780 Output: Urine 300 / 800 Other: Urine Color Yellow Yellow Urine Appearance Clear Clear Urine Odor None Comment patient past urine on the floor Voiding Methods Diaper Incontinent Laboratory Results WBC 7.97 k/cumm (4.4-10.8) 02/20/20 06:10 RBC 3.55 m/cumm (4.50-6.00) L 02/20/20 06:10 Hgb 12.2 g/dL (13.5-17.5) L 02/20/20 06:10 Hct 35.3 % (40.0-50.0) L 02/20/20 06:10 MCV 99.4 fL (80-95) H 02/20/20 06:10 MCH 34.4 pg (27.0-33.0) H 02/20/20 06:10 MCHC 34.6 g/dL (32.0-36.0) 02/20/20 06:10 RDW 11.9 % (11.8-14.1) 02/20/20 06:10 Plt Count 296 x1000/uL (130-400) 02/20/20 06:10 MPV 10.2 fL (8.0-11.0) 02/20/20 06:10 Immature Gran % 1.8 % 02/20/20 06:10 Neutrophils % 65.8 02/20/20 06:10 Band Neutrophils % Cancelled 02/13/20 03:27 Lymphocytes % 18.7 02/20/20 06:10 Atypical Lymphs % Cancelled 02/13/20 03:27 Monocytes % 11.2 02/20/20 06:10 Eosinophils % 1.9 02/20/20 06:10 Basophils % 0.6 02/20/20 06:10 Metamyelocytes % Cancelled 02/13/20 03:27 Myelocytes % Cancelled 02/13/20 03:27 Promyelocytes % Cancelled 02/13/20 03:27 Absolute Neutrophils 5.25 k/cumm (1.2-6.7) 02/20/20 06:10 Absolute Lymphocytes 1.49 k/cumm (1.2-3.4) 02/20/20 06:10 Absolute Monocytes 0.89 k/cumm (0.11-0.7) H 02/20/20 06:10 Absolute Eosinophils 0.15 k/cumm (0.0-0.7) 02/20/20 06:10 Absolute Basophils 0.05 k/cumm (0.0-0.2) 02/20/20 06:10 Nucleated RBCs Cancelled 02/13/20 03:27 Differential Comment Diff reviewed 02/15/20 06:50 Other Cell Type Cancelled 02/13/20 03:27 RBC Morphology Normal 02/15/20 06:50 Polychromasia Cancelled 02/13/20 03:27 Hypochromasia Cancelled 02/13/20 03:27 Poikilocytosis Cancelled 02/13/20 03:27 Basophilic Stippling Cancelled 02/13/20 03:27 Anisocytosis Cancelled 02/13/20 03:27 Microcytosis Cancelled 02/13/20 03:27 Macrocytosis Cancelled 02/13/20 03:27 Spherocytes Cancelled 02/13/20 03:27 Target Cells Cancelled 02/13/20 03:27 Tear Drop Cells Cancelled 02/13/20 03:27 Ovalocytes Cancelled 02/13/20 03:27 Stomatocytes Cancelled 02/13/20 03:27 [place] Bodies Cancelled 02/13/20 03:27 [place] Cells Cancelled 02/13/20 03:27 Acanthocytes (Spur) Cancelled 02/13/20 03:27 Schistocytes Cancelled 02/13/20 03:27 PT 10.2 sec (9.3-11.0) 02/12/20 06:15 INR 1.0 (0.9-1.1) 02/12/20 06:15 ABG Sample Site Right radial 02/19/20 13:56 ABG pH 7.50 (7.35-7.45) H 02/19/20 13:56 ABG pCO2 37 mmHg (34-47) 02/19/20 13:56 ABG pO2 56 mmHg (83-108) L 02/19/20 13:56 ABG HCO3 29 mmol/L (22-28) H 02/19/20 13:56 ABG Total CO2 26 mmol/L (22-29) 02/19/20 13:56 ABG O2 Saturation 91 % (94-98) L 02/19/20 13:56 ABG Base Excess 5.5 mmol/L (-3-3) H 02/19/20 13:56 Oxygen Liter Flow Cancelled 02/13/20 15:11 FiO2 40 % 02/15/20 07:40 Sodium 135 mmol/L (136-145) L 02/20/20 06:10 Potassium 3.6 mmol/L (3.5-5.1) 02/20/20 06:10 Chloride 99 mmol/L (98-107) 02/20/20 06:10 Carbon Dioxide 29.8 mmol/L (21.0-32.0) 02/20/20 06:10 Anion Gap 6.2 mmol/L (3-11) 02/20/20 06:10 BUN 15 mg/dL (7-18) 02/20/20 06:10 Creatinine 0.77 mg/dL (0.70-1.30) 02/20/20 06:10 Estimated GFR/1.73 m2 >= 60.00 (mL/min/1.73m2) 02/20/20 06:10 Glucose 123 mg/dL (74-106) H 02/20/20 06:10 Lactate 1.0 mmol/L (0.6-1.4) 02/13/20 06:08 Calcium 9.0 mg/dL (8.5-10.1) 02/20/20 06:10 Magnesium 2.0 mg/dL (1.8-2.4) 02/20/20 06:10 Total Bilirubin 0.5 mg/dL (0.2-1.0) 02/18/20 06:40 Conjugated Bilirubin 0.34 mg/dL (0.00-0.20) H 02/13/20 06:08 AST 25 U/L (15-37) 02/18/20 06:40 ALT 31 U/L (16-63) 02/18/20 06:40 Alkaline Phosphatase 51 U/L (46-116) 02/18/20 06:40 Ammonia 26 umol/L (11-32) 02/17/20 06:05 Troponin I < 0.05 ng/Ml (<0.06) 02/11/20 21:30 NT-Pro-B Natriuret Pep 294 pg/mL (<300) 02/20/20 06:10 Total Protein 5.7 g/dL (6.4-8.2) L 02/18/20 06:40 Albumin 1.9 g/dL (3.4-5.0) L 02/18/20 06:40 Vitamin B12 959 pg/mL (193-986) 02/12/20 06:15 Folate 18.1 ng/mL (8.6-20.0) 02/12/20 06:15 Procalcitonin 0.1 ng/mL 02/13/20 06:08 TSH 2.42 uIU/mL (0.36-3.74) 02/11/20 13:00 Urine Color Yellow (Yellow) 02/11/20 19:25 Urine Clarity Clear (Clear) 02/11/20 19:25 Urine pH 6.0 (5-8) 02/11/20 19:25 Ur Specific [place] 1.025 (1.005-1.025) 02/11/20 19:25 Urine Protein Negative mg/dL (Negative) 02/11/20 19:25 Urine Ketones 15 mg/dL (Negative) H 02/11/20 19:25 Urine Blood Trace-intact (Negative) H 02/11/20 19:25 Urine Nitrite Negative (Negative) 02/11/20 19:25 Urine Bilirubin Negative (Negative) 02/11/20 19:25 Urine Urobilinogen 1.0 EU/dL (Up TO 0.2) H 02/11/20 19:25 Ur Leukocyte Esterase Negative (Negative) 02/11/20 19:25 Urine RBC 3-5 HPF (0-2) H 02/11/20 19:25 Urine WBC 0-2 HPF (0-5) 02/11/20 19:25 Ur Epithelial Cells Rare HPF (Negative) 02/11/20 19:25 Urine Crystals Negative HPF (Negative) 02/11/20 19:25 Urine Bacteria Few HPF (Negative) 02/11/20 19:25 Urine Casts Negative LPF (Negative) 02/11/20 19:25 Urine Mucus Negative (Negative) 02/11/20 19:25 Urine Other Negative (Negative) 02/11/20 19:25 Ur Culture Indicated? No 02/11/20 19:25 Urine Glucose Negative mg/dL (Negative) 02/11/20 19:25 Vancomycin Trough Cancelled 02/15/20 13:00 Ethyl Alcohol < 3.0 mg/dL (<3) 02/11/20 13:00 Patient ABO/Rh A Positive 02/13/20 06:08 Antibody Screen Negative 02/13/20 06:08
--- NOTE | 2020-02-26 15:20 | PCPN_ITS ---
Date of service: 02/26/20 Time of Service: 12:20 Assessment and Plan Assessment and plan (1) Comfort measures only status: Status: Acute (2) End of life care: Status: Acute Assessment and plan: 69-year-old man who states that he is in pain. Family is in agreement with comfort measures only. They are also feeling that he would not want to live the way that he is at this point. Spoke with ASHLEY Orourke . Plan is to start him on a morphine drip to better control his pain. She is written these orders. I would like nursing to please ask Vikram if he is in pain. I do not know that he is actually capable of using the call button This document was created by [employer] software. Content was screened for mispellings, grammatical mistakes, etc. I apologize for any problems, but please contact me for further clarification if needed. Subjective Subjective Interval history since last seen: Patient remains barely audible. He states that he is in pain. He does not feel like it is changed even with the fentanyl patch. He would like pain control. Nursing states that he was agitated today Exam Narrative Exam Narrative: He is lying in bed. He does open his eyes when I talk to him. Again he states emphatically that he is in pain and he wants pain relief. His heart is regular he does have a murmur. Not cooperative with the exam to assess his lungs. Abdomen is soft nontender. Palliative Performance Scale % Ambulation Activity and Evidence of Disease Self-Care Intake Level of Consciousness 100 Full Normal activity, no evidence of disease Full Normal Full 90 Full Normal activity, some evidence of disease Full Normal Full 80 Full Normal activity with effort, some evidence of disease Full Normal or re duced Full 70 Reduced Unable to do normal work, some evidence of disease Full Normal or reduced Full 60 Reduced Unable to do hobby or some housework, significant disease Occasional assist necessary Normal or reduced Full or confusion 50 Mainly sit/lie Unable to do any work, extensive disease Considerable assistance required Normal or reduced Full or confusion 40 Mainly in bed Unable to do any work, extensive disease Mainly assistance Normal or reduced Full, drowsy, or confusion 30 Totally bed bound Unable to do any work, extensive disease Total care Reduced Full, drowsy, or confusion 20 Totally bed bound Unable to do any work, extensive disease Total care Minimal sips Full, drowsy, or confusion 10 Totally bed bound Unable to do any work, extensive disease Total care Mouth care only Drowsy or coma 0 _ _ _ _ Patient Score: 10-20% Objective Objective Clinical Data: Vital Signs Temperature 97.9 F 02/20/20 04:03 Temperature Source Temporal Artery Scan 02/20/20 04:03 Pulse 76 02/20/20 10:00 Pulse 78 02/20/20 10:01 Respiratory Rate 23 02/20/20 10:01 Respiratory Effort Non-Labored 02/26/20 10:39 Respiratory Depth Normal 02/26/20 10:39 Respiratory Pattern Normal 02/26/20 10:39 Blood Pressure 108/60 02/20/20 10:00 Blood Pressure Mean 71 02/20/20 10:00 Blood Pressure Position Supine 02/20/20 04:03 Pulse Oximetry 93 L 02/20/20 11:42 Respiratory End-tidal CO2 27 02/17/20 12:01 Oxygen Delivery Method Room Air 02/20/20 11:42 Oxygen Flow Rate 0 02/20/20 11:42 Fraction of Inspired Oxygen (FIO2) 21 02/17/20 08:03 Pain Level 8 02/23/20 08:03 Comment 02/14/20 17:48 Intake & Output 02/25/20 02/26/20 02/26/20 23:59 11:59 23:59 Intake Total 151 / 151 780 / 780 Output Total 300 / 800 Balance -149 / -649 780 / 780 Intake: IV 51 / 51 Oral 100 / 100 780 / 780 Output: Urine 300 / 800 Other: Urine Color Yellow Yellow Urine Appearance Clear Clear Urine Odor None Comment patient past urine on the floor Voiding Methods Diaper Incontinent Laboratory Results WBC 7.97 k/cumm (4.4-10.8) 02/20/20 06:10 RBC 3.55 m/cumm (4.50-6.00) L 02/20/20 06:10 Hgb 12.2 g/dL (13.5-17.5) L 02/20/20 06:10 Hct 35.3 % (40.0-50.0) L 02/20/20 06:10 MCV 99.4 fL (80-95) H 02/20/20 06:10 MCH 34.4 pg (27.0-33.0) H 02/20/20 06:10 MCHC 34.6 g/dL (32.0-36.0) 02/20/20 06:10 RDW 11.9 % (11.8-14.1) 02/20/20 06:10 Plt Count 296 x1000/uL (130-400) 02/20/20 06:10 MPV 10.2 fL (8.0-11.0) 02/20/20 06:10 Immature Gran % 1.8 % 02/20/20 06:10 Neutrophils % 65.8 02/20/20 06:10 Band Neutrophils % Cancelled 02/13/20 03:27 Lymphocytes % 18.7 02/20/20 06:10 Atypical Lymphs % Cancelled 02/13/20 03:27 Monocytes % 11.2 02/20/20 06:10 Eosinophils % 1.9 02/20/20 06:10 Basophils % 0.6 02/20/20 06:10 Metamyelocytes % Cancelled 02/13/20 03:27 Myelocytes % Cancelled 02/13/20 03:27 Promyelocytes % Cancelled 02/13/20 03:27 Absolute Neutrophils 5.25 k/cumm (1.2-6.7) 02/20/20 06:10 Absolute Lymphocytes 1.49 k/cumm (1.2-3.4) 02/20/20 06:10 Absolute Monocytes 0.89 k/cumm (0.11-0.7) H 02/20/20 06:10 Absolute Eosinophils 0.15 k/cumm (0.0-0.7) 02/20/20 06:10 Absolute Basophils 0.05 k/cumm (0.0-0.2) 02/20/20 06:10 Nucleated RBCs Cancelled 02/13/20 03:27 Differential Comment Diff reviewed 02/15/20 06:50 Other Cell Type Cancelled 02/13/20 03:27 RBC Morphology Normal 02/15/20 06:50 Polychromasia Cancelled 02/13/20 03:27 Hypochromasia Cancelled 02/13/20 03:27 Poikilocytosis Cancelled 02/13/20 03:27 Basophilic Stippling Cancelled 02/13/20 03:27 Anisocytosis Cancelled 02/13/20 03:27 Microcytosis Cancelled 02/13/20 03:27 Macrocytosis Cancelled 02/13/20 03:27 Spherocytes Cancelled 02/13/20 03:27 Target Cells Cancelled 02/13/20 03:27 Tear Drop Cells Cancelled 02/13/20 03:27 Ovalocytes Cancelled 02/13/20 03:27 Stomatocytes Cancelled 02/13/20 03:27 [place] Bodies Cancelled 02/13/20 03:27 [place] Cells Cancelled 02/13/20 03:27 Acanthocytes (Spur) Cancelled 02/13/20 03:27 Schistocytes Cancelled 02/13/20 03:27 PT 10.2 sec (9.3-11.0) 02/12/20 06:15 INR 1.0 (0.9-1.1) 02/12/20 06:15 ABG Sample Site Right radial 02/19/20 13:56 ABG pH 7.50 (7.35-7.45) H 02/19/20 13:56 ABG pCO2 37 mmHg (34-47) 02/19/20 13:56 ABG pO2 56 mmHg (83-108) L 02/19/20 13:56 ABG HCO3 29 mmol/L (22-28) H 02/19/20 13:56 ABG Total CO2 26 mmol/L (22-29) 02/19/20 13:56 ABG O2 Saturation 91 % (94-98) L 02/19/20 13:56 ABG Base Excess 5.5 mmol/L (-3-3) H 02/19/20 13:56 Oxygen Liter Flow Cancelled 02/13/20 15:11 FiO2 40 % 02/15/20 07:40 Sodium 135 mmol/L (136-145) L 02/20/20 06:10 Potassium 3.6 mmol/L (3.5-5.1) 02/20/20 06:10 Chloride 99 mmol/L (98-107) 02/20/20 06:10 Carbon Dioxide 29.8 mmol/L (21.0-32.0) 02/20/20 06:10 Anion Gap 6.2 mmol/L (3-11) 02/20/20 06:10 BUN 15 mg/dL (7-18) 02/20/20 06:10 Creatinine 0.77 mg/dL (0.70-1.30) 02/20/20 06:10 Estimated GFR/1.73 m2 >= 60.00 (mL/min/1.73m2) 02/20/20 06:10 Glucose 123 mg/dL (74-106) H 02/20/20 06:10 Lactate 1.0 mmol/L (0.6-1.4) 02/13/20 06:08 Calcium 9.0 mg/dL (8.5-10.1) 02/20/20 06:10 Magnesium 2.0 mg/dL (1.8-2.4) 02/20/20 06:10 Total Bilirubin 0.5 mg/dL (0.2-1.0) 02/18/20 06:40 Conjugated Bilirubin 0.34 mg/dL (0.00-0.20) H 02/13/20 06:08 AST 25 U/L (15-37) 02/18/20 06:40 ALT 31 U/L (16-63) 02/18/20 06:40 Alkaline Phosphatase 51 U/L (46-116) 02/18/20 06:40 Ammonia 26 umol/L (11-32) 02/17/20 06:05 Troponin I < 0.05 ng/Ml (<0.06) 02/11/20 21:30 NT-Pro-B Natriuret Pep 294 pg/mL (<300) 02/20/20 06:10 Total Protein 5.7 g/dL (6.4-8.2) L 02/18/20 06:40 Albumin 1.9 g/dL (3.4-5.0) L 02/18/20 06:40 Vitamin B12 959 pg/mL (193-986) 02/12/20 06:15 Folate 18.1 ng/mL (8.6-20.0) 02/12/20 06:15 Procalcitonin 0.1 ng/mL 02/13/20 06:08 TSH 2.42 uIU/mL (0.36-3.74) 02/11/20 13:00 Urine Color Yellow (Yellow) 02/11/20 19:25 Urine Clarity Clear (Clear) 02/11/20 19:25 Urine pH 6.0 (5-8) 02/11/20 19:25 Ur Specific [place] 1.025 (1.005-1.025) 02/11/20 19:25 Urine Protein Negative mg/dL (Negative) 02/11/20 19:25 Urine Ketones 15 mg/dL (Negative) H 02/11/20 19:25 Urine Blood Trace-intact (Negative) H 02/11/20 19:25 Urine Nitrite Negative (Negative) 02/11/20 19:25 Urine Bilirubin Negative (Negative) 02/11/20 19:25 Urine Urobilinogen 1.0 EU/dL (Up TO 0.2) H 02/11/20 19:25 Ur Leukocyte Esterase Negative (Negative) 02/11/20 19:25 Urine RBC 3-5 HPF (0-2) H 02/11/20 19:25 Urine WBC 0-2 HPF (0-5) 02/11/20 19:25 Ur Epithelial Cells Rare HPF (Negative) 02/11/20 19:25 Urine Crystals Negative HPF (Negative) 02/11/20 19:25 Urine Bacteria Few HPF (Negative) 02/11/20 19:25 Urine Casts Negative LPF (Negative) 02/11/20 19:25 Urine Mucus Negative (Negative) 02/11/20 19:25 Urine Other Negative (Negative) 02/11/20 19:25 Ur Culture Indicated? No 02/11/20 19:25 Urine Glucose Negative mg/dL (Negative) 02/11/20 19:25 Vancomycin Trough Cancelled 02/15/20 13:00 Ethyl Alcohol < 3.0 mg/dL (<3) 02/11/20 13:00 Patient ABO/Rh A Positive 02/13/20 06:08 Antibody Screen Negative 02/13/20 06:08
--- NOTE | 2020-02-26 16:09 | PDOC.CMPRO ---
- If Service Date Differs Date of service: 02/26/20 Time of Service: 16:10 Care Management Progress Note S/O: Vikram was sitting in his chair when CM met with him. He was awake, but not alert, oriented, or communicative. 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 CM sent a referral to the [facility] for consideration for end of life care. CM will continue to follow. A: Vikram is a 69 year old male admitted for acute alcohol withdrawal, per report he did make statement in the ED of wanting to stop drinking. He is also being treated for aspiration pneumonia with IV ABX. P: Vikram remains on comfort measures with symptom management. Palliative has been asked to reassess patient today. referral to the [facility]. CM will continue to follow and provide support to patient, family and discharge planning needs.
[2020-02-26] MEDS: LIDOCAINE Patch Removal 1 EACH TP (19:41)
[2020-02-26] MEDS: Haloperidol 5 MG/ML VIAL IM (23:56)
[2020-02-27] MEDS: Haloperidol 5 MG/ML VIAL IM ×3 (00:16→23:27)
--- NOTE | 2020-02-27 07:48 | OT.INDS ---
Date of service: 02/27/20 Time of Service: 07:48 Occupational Therapy Notes Occupational Therapy Inpatient Discharge Summary Date: 02/27/20 Dates of Service: 02/25/20-02/27/20 Referring Doctor:Brynn Ferrari NP OT Orders: Non-Urgent Precautions: Fall, Standard, DNR/DNI PATIENT PROFILE/ADMITTING DIAGNOSIS: Pt is a 69 year old male who was admitted to [facility] through the Emergency Room on 02/11/20 for alcohol withdrawal and head injury to face and scalp. He was admitted into the ICU post admission for the following dx alcohol withdrawal, A-fib with rapid ventricular response, transminitis, hypomagnesemia, hypokalemia, dehydration, thrombocytopenia, aspiration pneumonia, DVT prophylaxis, h/o 2 brain bleeds. A palliative care consult was performed on 02/15/20 and pt was placed on end of life care/SCHOOL CROSSING GUARD. Pt has been more responsive at this time and is able to verbalize and communicate more as well as perform eating routines per nursing/MD. OT consult was initiated and ordered for assessment of pts current functional status and level of care needs at this time. Past Medical History: Medical History (Updated 02/11/20 @ 17:39 by Shonda Chaves MD) Alcohol abuse (Chronic) Alcohol withdrawal delirium, acute, hyperactive (Acute) Cervical spondylosis (Acute) Impingement syndrome of shoulder (Acute) Subarachnoid hematoma (Acute) Subdural hematoma (Resolved) Surgical History (Updated 02/11/20 @ 17:32 by Shonda Chaves MD) S/P arthroscopy of shoulder (Acute) S/p reverse total shoulder arthroplasty (Acute) Social History/Home Situation: Pt states that he lives in a private home. He states yes when asked if he was (I) at his baseline level of function. He states yes to having children. Per pts chart he has a daughter. Pt states no when asked if he required (A) with dressing or bathing at baseline. Pt was able to verbalize at last session that he did not drive and that he has a son and a daughter. He reports that Equipment owned/DME: Unable to assess at todays session. Will continue to assess. SUBJECTIVE: NT OBJECTIVE: *This document serves as a summary of care, no skilled OT services were provided for this documentation. ROM: RUE AROM shoulder only visual shoulder protraction noted, PROM able to achieve 110* no pain noted, elbow actively pt could touch opposite shoulders and unable to fully to touch his face but was able to come within 2 inches from face, PROM of wrist, hand, digits are WNL. L UE AROM shoulder only visual shoulder protraction noted, PROM able to achieve 100* no pain noted, elbow actively pt could touch opposite shoulders and unable to fully to touch his face but was able to come within 2 inches from face, PROM of wrist, hand, digits are WNL. 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 BATHING: Sitting in chair with pillow behind back Upper Body: Min (A) with washing face d/t weakness, mod (A) and mod/tactile cues for washing (B) UE. OT performed max (A) for underarms as pt was unable to perform this at todays session. Max (A) hair, and mod (A) abdomen. Lower Body: Able to wash from hip to knees (B) with fair technique and required mod (A) d/t weakness. Pt tolerated this well with decreased functional activity tolerance noted. Pt was attempting to wash his (B) feet but due to weakness was unable to perform. OT performed this with max (A). DRESSING: Lower Extremity: Pt in seated position did attempt to take his socks off. He was able to bring (R) LE into knee bent position but was limited d.t weakness to remove sock. ASSESSMENT: Patient is a 69-year-old male referred to occupational therapy services with diagnosis of for alcohol withdrawal and head injury to face and scalp. He was admitted into the ICU post admission for the following dx alcohol withdrawal, A-fib with rapid ventricular response, transminitis, hypomagnesemia, hypokalemia, dehydration, thrombocytopenia, aspiration pneumonia, DVT prophylaxis, h/o 2 brain bleeds. Pt was assessed per OT consult on 02/25/20 and since has made improvements in his ADL/IADL functional (I). Per nursing pt will be placed on strictly comfort measures only (SCHOOL CROSSING GUARD) at this time and all rehabilitative services will be cancelled at this time per family wishes. OT will formally discharge pt from services. GOALS 1. Dressing- Pt will be able to lift (B) UE into slight shoulder flexion for don and doffing hospital gown with mod (A) with min vc throughout. (not met) 2. Bathing- Pt will be able to wash his face and (B) UE with mod (A) while sitting in bed with support to back with min vc throughout. (met) 3. Eating- Pt will be able to bring hand to mouth with mod (A) for eating routine and min vc. (not met) PLAN OF CARE/TREATMENT PLAN: Per pt's family wishes, pt will remain on SCHOOL CROSSING GUARD at this time with no rehabilitative services. DISCHARGE RECOMMENDATIONS Based on pts consult at todays session and current functional (I) in ADLs/IADLs OT does recommend that pt go to SNF when medically cleared per MD. TREATMENT TIME/MINUTES/CODES N/A Carol Smith OTR/L [facility]
--- NOTE | 2020-02-27 08:07 | PT.DS ---
Supervising Provider: Sara Shultz PT Diagnosis: ALCOHOL WITHDRAWAL Diagnosis: ALCOHOL WITHDRAWAL Weeks Elapsed: week(s) and 0 day(s) Patient Location: Med Surg Referring Provider: Date of Service: February 11, 2020 12:48 PT Notes Visit Reasons: ALCOHOL WITHDRAWAL Inpatient Physical Therapy Discharge Summary Dates: February 27, 2020 Dates of Service: February 26, 2020 Referring Doctor: Brynn Ferrari NP PT Orders: PT CONSULT: Non-urgent Precautions: Fall risk Patient Profile/Admitting Diagnosis: Patient arrived at the emergency department on 10 February with alcohol withdrawals and delirium. Diagnosed with alcohol withdrawals, A. fib, hypo-magnesium and dehydration. Currently on palliative care with ultimate plan to return to home with once medically cleared however there is discussion that he may be going to a [facility] care facility. He is currently on comfort measures. PMHX: Medical History (Updated 02/11/20 @ 17:39 by Shonda Chaves MD) Alcohol abuse (Chronic) Alcohol withdrawal delirium, acute, hyperactive (Acute) Cervical spondylosis (Acute) Impingement syndrome of shoulder (Acute) Subarachnoid hematoma (Acute) Subdural hematoma (Resolved) Surgical History (Updated 02/11/20 @ 17:32 by Shonda Cahves MD) S/P arthroscopy of shoulder (Acute) S/p reverse total shoulder arthroplasty (Acute) Social History/Home Situation: Has an apartment at the [place] [facility] no longer livable. from his for 4 and half years but she is a support and cares for him several times a week. Equipment Owned/DME: None Subjective: N/T Objective: This document is a summary of care only. No skilled PT services provided. ROM: Right Upper Extremity: 90 degrees flexion, elbow flexion extension within normal limits, able to make fist Left Upper Extremity: 90 degrees flexion shoulders, elbow flexion and extension within normal limits, able to make fist Right Lower Extremity: Unable to flex hip more than 90 degrees in sitting. Knee flexion 125 degrees, extension 0 degrees. Ankle range of motion within functional limits Left Lower Extremity: Flex his hip 5 degrees above sitting position at 90. Knee flexion 125 degrees, knee extension 0 degrees. Ankle range of motion within functional limits Strength: Right Upper Extremity: Shoulder flexion and abduction 3/5, Bicep and tricep 3+/5, fair therapeutic activities services worker Left Upper Extremity: Shoulder flexion and abduction 3/5, bicep and tricep 3+/5, fair therapeutic activities services worker Right Lower Extremity: Hip flexion 3+/5, quads and hamstrings 3+/5, ankle plantarflexion 4-/5, dorsiflexion 3+/5 Left Lower Extremity: Hip flexion 3+/5, quads and hamstrings 3+/5, ankle plantarflexion 4-/5, dorsiflexion 3+/5 Sensation: Not tested Bed Mobility/Transfers: Sit?stand: Mod assist x1 to front wheeled walker with verbal cues necessary for hand placement Stand/sit: Mod assist x1 from front wheeled walker with verbal cues for proper hand placement Bed mobility not assessed. Return to Ortho recliner chair with seat alarm on. Gait: Unable to perform any ambulation. Mod assist required to maintain standing at front wheeled walker. Despite verbal cues for advancement of walker and lower extremities patient did not take any steps. Balance: Static Sitting: Fair Dynamic Sitting: Poor Static Standing: Poor Dynamic Standing: Poor Assessment: Patient is a 69 year old male referred to physical therapy services with the diagnosis of alcohol withdrawals. Patient was seen for PT consult only. Unable to assess goals due to family's request to discontinue PT services. Goals: Unable to assess due to family's request to discharge rehabilitative services Goals X1 week 1. Supine-Sit: Standby assist 2. Sit-Supine: Independent 3. Sit-Stand: Contact-guard x1 to front wheeled walker 4. Stand-Sit: Contact-guard x1 with front wheeled walker 5. Bed-Chair: Contact-guard x1 with front wheeled walker 6. Chair-Bed: Contact-guard x1 with front wheeled walker 7. Gait: 25 feet x 1 with front wheeled walker and contact-guard x1 [] 8. Patient demonstrate improved dynamic sitting balance to fair Plan of Care/Treatment Plan: Per patients family request patient with remain on [facility] at this time with no rehabilitative services. DISCHARGE RECOMMENDATIONS: [facility] care facility. If patient is discharged home he will require front wheeled walker. TREATMENT CODE/TIME: N/A Sara Shultz, MPT
[2020-02-27] MEDS: Lidocaine 5% Patch 1 PATCH TP (09:21)
[2020-02-27] MEDS: LORazepam 2 MG/1 ML Oral Concentrate 1 MG UD ×4 (09:21→22:23)
[2020-02-27] MEDS: fentaNYL 12 MCG PATCH TD (11:49)
--- NOTE | 2020-02-27 11:57 | PGE_ITS ---
Date of Service Date of service: 02/27/20 Time of Service: 11:57 Assessment and Plan Assessment and plan (1) Comfort measures only status: Status: Acute Assessment and plan: Palliative and hospice patient, severe decline after alcohol withdrawal. Poor quality of life. case management following, referrals placed, pending placement. will transition morphine drip to fentanyl patch. bolus dosing as needed, will increase patch as needed. Subjective Subjective Patient reports: no new complaints Interval history since last seen: did not eat breakfast, pain has been managed on morphine drip, but c/o itchiness. Exam Const General: cooperative, in distress mild, anxious and ill appearing chronically Nutritional Appearance: cachectic Orientation: alert, awake and confused Resp Effort & Inspection: normal respiratory effort Cardio Rate: regular rate GI Inspection: normal to inspection Palpation: soft Extrem General: normal to inspection, full ROM and no pedal edema Objective Objective Clinical Data: Vital Signs Temperature 36.6 C 02/20/20 04:03 Temperature Source Temporal Artery Scan 02/20/20 04:03 Pulse 76 02/20/20 10:00 Pulse 78 02/20/20 10:01 Respiratory Rate 23 02/20/20 10:01 Respiratory Effort 02/27/20 00:30 Respiratory Depth Normal 02/27/20 00:30 Respiratory Pattern Normal 02/27/20 00:30 Blood Pressure 108/60 02/20/20 10:00 Blood Pressure Mean 71 02/20/20 10:00 Blood Pressure Position Supine 02/20/20 04:03 Pulse Oximetry 93 L 02/20/20 11:42 Respiratory End-tidal CO2 27 02/17/20 12:01 Oxygen Delivery Method Room Air 02/27/20 05:20 Oxygen Flow Rate 0 02/27/20 05:20 Fraction of Inspired Oxygen (FIO2) 21 02/17/20 08:03 Pain Level 0 02/27/20 05:20 Comment 02/14/20 17:48 Intake & Output 02/26/20 02/26/20 02/27/20 11:59 23:59 11:59 Intake Total 780 / 1020 240 / 1020 Balance 780 / 1020 240 / 1020 Intake: Oral 780 / 1020 240 / 1020 Other: Urine Color Yellow Urine Appearance Clear Urine Odor None Comment patient past urine on the floor Voiding Methods Diaper Incontinent Laboratory Results WBC 7.97 k/cumm (4.4-10.8) 02/20/20 06:10 RBC 3.55 m/cumm (4.50-6.00) L 02/20/20 06:10 Hgb 12.2 g/dL (13.5-17.5) L 02/20/20 06:10 Hct 35.3 % (40.0-50.0) L 02/20/20 06:10 MCV 99.4 fL (80-95) H 02/20/20 06:10 MCH 34.4 pg (27.0-33.0) H 02/20/20 06:10 MCHC 34.6 g/dL (32.0-36.0) 02/20/20 06:10 RDW 11.9 % (11.8-14.1) 02/20/20 06:10 Plt Count 296 x1000/uL (130-400) 02/20/20 06:10 MPV 10.2 fL (8.0-11.0) 02/20/20 06:10 Immature Gran % 1.8 % 02/20/20 06:10 Neutrophils % 65.8 02/20/20 06:10 Band Neutrophils % Cancelled 02/13/20 03:27 Lymphocytes % 18.7 02/20/20 06:10 Atypical Lymphs % Cancelled 02/13/20 03:27 Monocytes % 11.2 02/20/20 06:10 Eosinophils % 1.9 02/20/20 06:10 Basophils % 0.6 02/20/20 06:10 Metamyelocytes % Cancelled 02/13/20 03:27 Myelocytes % Cancelled 02/13/20 03:27 Promyelocytes % Cancelled 02/13/20 03:27 Absolute Neutrophils 5.25 k/cumm (1.2-6.7) 02/20/20 06:10 Absolute Lymphocytes 1.49 k/cumm (1.2-3.4) 02/20/20 06:10 Absolute Monocytes 0.89 k/cumm (0.11-0.7) H 02/20/20 06:10 Absolute Eosinophils 0.15 k/cumm (0.0-0.7) 02/20/20 06:10 Absolute Basophils 0.05 k/cumm (0.0-0.2) 02/20/20 06:10 Nucleated RBCs Cancelled 02/13/20 03:27 Differential Comment Diff reviewed 02/15/20 06:50 Other Cell Type Cancelled 02/13/20 03:27 RBC Morphology Normal 02/15/20 06:50 Polychromasia Cancelled 02/13/20 03:27 Hypochromasia Cancelled 02/13/20 03:27 Poikilocytosis Cancelled 02/13/20 03:27 Basophilic Stippling Cancelled 02/13/20 03:27 Anisocytosis Cancelled 02/13/20 03:27 Microcytosis Cancelled 02/13/20 03:27 Macrocytosis Cancelled 02/13/20 03:27 Spherocytes Cancelled 02/13/20 03:27 Target Cells Cancelled 02/13/20 03:27 Tear Drop Cells Cancelled 02/13/20 03:27 Ovalocytes Cancelled 02/13/20 03:27 Stomatocytes Cancelled 02/13/20 03:27 [place] Bodies Cancelled 02/13/20 03:27 [place] Cells Cancelled 02/13/20 03:27 Acanthocytes (Spur) Cancelled 02/13/20 03:27 Schistocytes Cancelled 02/13/20 03:27 PT 10.2 sec (9.3-11.0) 02/12/20 06:15 INR 1.0 (0.9-1.1) 02/12/20 06:15 ABG Sample Site Right radial 02/19/20 13:56 ABG pH 7.50 (7.35-7.45) H 02/19/20 13:56 ABG pCO2 37 mmHg (34-47) 02/19/20 13:56 ABG pO2 56 mmHg (83-108) L 02/19/20 13:56 ABG HCO3 29 mmol/L (22-28) H 02/19/20 13:56 ABG Total CO2 26 mmol/L (22-29) 02/19/20 13:56 ABG O2 Saturation 91 % (94-98) L 02/19/20 13:56 ABG Base Excess 5.5 mmol/L (-3-3) H 02/19/20 13:56 Oxygen Liter Flow Cancelled 02/13/20 15:11 FiO2 40 % 02/15/20 07:40 Sodium 135 mmol/L (136-145) L 02/20/20 06:10 Potassium 3.6 mmol/L (3.5-5.1) 02/20/20 06:10 Chloride 99 mmol/L (98-107) 02/20/20 06:10 Carbon Dioxide 29.8 mmol/L (21.0-32.0) 02/20/20 06:10 Anion Gap 6.2 mmol/L (3-11) 02/20/20 06:10 BUN 15 mg/dL (7-18) 02/20/20 06:10 Creatinine 0.77 mg/dL (0.70-1.30) 02/20/20 06:10 Estimated GFR/1.73 m2 >= 60.00 (mL/min/1.73m2) 02/20/20 06:10 Glucose 123 mg/dL (74-106) H 02/20/20 06:10 Lactate 1.0 mmol/L (0.6-1.4) 02/13/20 06:08 Calcium 9.0 mg/dL (8.5-10.1) 02/20/20 06:10 Magnesium 2.0 mg/dL (1.8-2.4) 02/20/20 06:10 Total Bilirubin 0.5 mg/dL (0.2-1.0) 02/18/20 06:40 Conjugated Bilirubin 0.34 mg/dL (0.00-0.20) H 02/13/20 06:08 AST 25 U/L (15-37) 02/18/20 06:40 ALT 31 U/L (16-63) 02/18/20 06:40 Alkaline Phosphatase 51 U/L (46-116) 02/18/20 06:40 Ammonia 26 umol/L (11-32) 02/17/20 06:05 Troponin I < 0.05 ng/Ml (<0.06) 02/11/20 21:30 NT-Pro-B Natriuret Pep 294 pg/mL (<300) 02/20/20 06:10 Total Protein 5.7 g/dL (6.4-8.2) L 02/18/20 06:40 Albumin 1.9 g/dL (3.4-5.0) L 02/18/20 06:40 Vitamin B12 959 pg/mL (193-986) 02/12/20 06:15 Folate 18.1 ng/mL (8.6-20.0) 02/12/20 06:15 Procalcitonin 0.1 ng/mL 02/13/20 06:08 TSH 2.42 uIU/mL (0.36-3.74) 02/11/20 13:00 Urine Color Yellow (Yellow) 02/11/20 19:25 Urine Clarity Clear (Clear) 02/11/20 19:25 Urine pH 6.0 (5-8) 02/11/20 19:25 Ur Specific [place] 1.025 (1.005-1.025) 02/11/20 19:25 Urine Protein Negative mg/dL (Negative) 02/11/20 19:25 Urine Ketones 15 mg/dL (Negative) H 02/11/20 19:25 Urine Blood Trace-intact (Negative) H 02/11/20 19:25 Urine Nitrite Negative (Negative) 02/11/20 19: Urine Bilirubin Negative (Negative) 02/11/20 19: Urine Urobilinogen 1.0 EU/dL (Up TO 0.2) H 02/11/20 19:25 Ur Leukocyte Esterase Negative (Negative) 02/11/20 19:25 Urine RBC 3-5 HPF (0-2) H 02/11/20 19:25 Urine WBC 0-2 HPF (0-5) 02/11/20 19:25 Ur Epithelial Cells Rare HPF (Negative) 02/11/20 19:25 Urine Crystals Negative HPF (Negative) 02/11/20 19:25 Urine Bacteria Few HPF (Negative) 02/11/20 19:25 Urine Casts Negative LPF (Negative) 02/11/20 19:25 Urine Mucus Negative (Negative) 02/11/20 19:25 Urine Other Negative (Negative) 02/11/20 19:25 Ur Culture Indicated? No 02/11/20 19: Urine Glucose Negative mg/dL (Negative) 02/11/20 19: Vancomycin Trough Cancelled 02/15/20 13:00 Ethyl Alcohol < 3.0 mg/dL (<3) 02/11/20 13:00 Patient ABO/Rh A Positive 02/13/20 06:08 Antibody Screen Negative 02/13/20 06:08
--- NOTE | 2020-02-27 12:20 | CMPROGNOTE_ITS ---
- If Service Date Differs Date of service: 02/27/20 Time of Service: 12:20 Care Management Progress Note S/O: Vikram was sitting in his chair when CM met with him. He was awake, but not alert, oriented, or communicative. He is going to transition to a Fentanyl patch today to manage his pain he continues to require symptom management relief. He has been more active and trying to get out of bed. He continues to have difficulty with confusion and expressing his needs he was able to tolerate some food, and get up to the commode with max assistance. [facility] medicaid pending, the [facility] has declined they do not have a bed. has provided post acute facility form and the web site for follow up. Nena will talk with her daughter and contact CM with places to send the referral. Anticipate Vikram will need to transition to SB1 at [facility] until placement can be identified. A: Vikram is a 69 year old male admitted for acute alcohol withdrawal, per report he did make statement in the ED of wanting to stop drinking. He was treated for aspiration pneumonia with IV ABX. He is now comfort measures only. P: Vikram remains on comfort measures with symptom management. Palliative continues to consult. [facility] has declined related to bed availability. CM will continue to follow and provide support to patient, family and discharge planning needs.
--- NOTE | 2020-02-27 15:00 | NUR.NOTE ---
Nursing Note: 02/27/20 1500 Lidocaine patch came off at this time and would not stick on the pt anymore.
[2020-02-27] MEDS: Promethazine 25 MG SUPP PR (23:44)
[2020-02-28] MEDS: LORazepam 2 MG/1 ML Oral Concentrate 1 MG UD ×2 (00:05→03:53)
[2020-02-28] MEDS: Lidocaine 5% Patch 1 PATCH TP (13:03)
[2020-02-28] MEDS: Haloperidol 5 MG/ML VIAL IM ×5 (13:03→20:23)
--- NOTE | 2020-02-28 13:49 | PDOC.CMPRO ---
- If Service Date Differs Date of service: 02/28/20 Time of Service: 13:49 Care Management Progress Note S/O: Vikram remains acute he continues to need medication adjustment. Anticipate he will need to transition to SB1 here at [facility] he continues to receive Haldol for symptoms of agitation which limit his ability to transition to a care facility. [facility] has him on the waiting list. long term care administrator medicaid is pending CM faxed his clinicals to LT today. A: Vikram is a 69 year old male admitted for acute alcohol withdrawal, per report he did make statement in the ED of wanting to stop drinking. He was treated for aspiration pneumonia with IV ABX. He is now comfort measures only. P: Vikram remains on comfort measures with symptom management. Palliative continues to consult. [facility] has declined related to bed availability. CM will continue to follow and provide support to patient, family and discharge planning needs.
[2020-02-28] MEDS: fentaNYL 25 MCG PATCH TD (14:15)
[2020-02-28] MEDS: MORPHine 2 MG/ML SYR IV/SC ×2 (14:51→16:12)
--- NOTE | 2020-02-28 16:12 | W.PM.PROGNOT ---
Date of Service Date of service: 02/28/20 Time of Service: 16:12 Assessment and Plan Assessment and plan (1) End of life care: Status: Acute Assessment and plan: patient was transitioned from IV morphine to fentanyl patch yesterday, morphine drip re-initiated during the night. patient sedate this am so drip discontinued. he woke up confused and combative so required haldol. fentanyl patch dose increased to 25 mcg. goal for comfort on patch for discharge. can have IV morphine bolus for breakthrough pain. palliative care following case management following. referrals placed but anticipate swing here until bed can be secured. Subjective Subjective Patient reports: no new complaints and pain is less Interval history since last seen: patient resting comfortably and sedated. morphine drip was re-initiated last night on top of fentanyl patch. patient over sedated but when infusion stopped he woke up confused and combative needed haldol for agitation. no other active issues. Exam Narrative Exam Narrative: General: chronically, terminally ill appearing,.sedate Nutritional Appearance: cachectic Orientation: sedate and confused when awoken Resp Effort & Inspection: normal respiratory effort Cardio Rate: regular rate GI Inspection: normal to inspection Palpation: soft Extrem General: normal to inspection, full ROM and no pedal edema Objective Objective Clinical Data: Vital Signs Temperature 36.6 C 02/20/20 04:03 Temperature Source Temporal Artery Scan 02/20/20 04:03 Pulse 76 02/20/20 10:00 Pulse 78 02/20/20 10:01 Respiratory Rate 23 02/20/20 10:01 Respiratory Effort 02/27/20 23:30 Respiratory Depth Normal 02/27/20 23:30 Respiratory Pattern Normal 02/27/20 23:30 Blood Pressure 108/60 02/20/20 10:00 Blood Pressure Mean 71 02/20/20 10:00 Blood Pressure Position Supine 02/20/20 04:03 Pulse Oximetry 93 L 02/20/20 11:42 Respiratory End-tidal CO2 27 02/17/20 12:01 Oxygen Delivery Method Room Air 02/27/20 05:20 Oxygen Flow Rate 0 02/27/20 05:20 Fraction of Inspired Oxygen (FIO2) 21 02/17/20 08:03 Pain Level 6 02/28/20 14:51 Comment 02/14/20 17:48 Intake & Output 02/27/20 02/28/20 02/28/20 23:59 11:59 23:59 Intake Total Balance Intake: Oral Other: Urine Color Brown Urine Appearance Cloudy Purulent Urine Odor Strong Voiding Methods Bedside Commode Laboratory Results WBC 7.97 k/cumm (4.4-10.8) 02/20/20 06:10 RBC 3.55 m/cumm (4.50-6.00) L 02/20/20 06:10 Hgb 12.2 g/dL (13.5-17.5) L 02/20/20 06:10 Hct 35.3 % (40.0-50.0) L 02/20/20 06:10 MCV 99.4 fL (80-95) H 02/20/20 06:10 MCH 34.4 pg (27.0-33.0) H 02/20/20 06:10 MCHC 34.6 g/dL (32.0-36.0) 02/20/20 06:10 RDW 11.9 % (11.8-14.1) 02/20/20 06:10 Plt Count 296 x1000/uL (130-400) 02/20/20 06:10 MPV 10.2 fL (8.0-11.0) 02/20/20 06:10 Immature Gran % 1.8 % 02/20/20 06:10 Neutrophils % 65.8 02/20/20 06:10 Band Neutrophils % Cancelled 02/13/20 03:27 Lymphocytes % 18.7 02/20/20 06:10 Atypical Lymphs % Cancelled 02/13/20 03:27 Monocytes % 11.2 02/20/20 06:10 Eosinophils % 1.9 02/20/20 06:10 Basophils % 0.6 02/20/20 06:10 Metamyelocytes % Cancelled 02/13/20 03:27 Myelocytes % Cancelled 02/13/20 03:27 Promyelocytes % Cancelled 02/13/20 03:27 Absolute Neutrophils 5.25 k/cumm (1.2-6.7) 02/20/20 06:10 Absolute Lymphocytes 1.49 k/cumm (1.2-3.4) 02/20/20 06:10 Absolute Monocytes 0.89 k/cumm (0.11-0.7) H 02/20/20 06:10 Absolute Eosinophils 0.15 k/cumm (0.0-0.7) 02/20/20 06:10 Absolute Basophils 0.05 k/cumm (0.0-0.2) 02/20/20 06:10 Nucleated RBCs Cancelled 02/13/20 03:27 Differential Comment Diff reviewed 02/15/20 06:50 Other Cell Type Cancelled 02/13/20 03:27 RBC Morphology Normal 02/15/20 06:50 Polychromasia Cancelled 02/13/20 03:27 Hypochromasia Cancelled 02/13/20 03:27 Poikilocytosis Cancelled 02/13/20 03:27 Basophilic Stippling Cancelled 02/13/20 03:27 Anisocytosis Cancelled 02/13/20 03:27 Microcytosis Cancelled 02/13/20 03:27 Macrocytosis Cancelled 02/13/20 03:27 Spherocytes Cancelled 02/13/20 03:27 Target Cells Cancelled 02/13/20 03:27 Tear Drop Cells Cancelled 02/13/20 03:27 Ovalocytes Cancelled 02/13/20 03:27 Stomatocytes Cancelled 02/13/20 03:27 [place] Bodies Cancelled 02/13/20 03:27 [place] Cells Cancelled 02/13/20 03:27 Acanthocytes (Spur) Cancelled 02/13/20 03:27 Schistocytes Cancelled 02/13/20 03:27 PT 10.2 sec (9.3-11.0) 02/12/20 06:15 INR 1.0 (0.9-1.1) 02/12/20 06:15 ABG Sample Site Right radial 02/19/20 13:56 ABG pH 7.50 (7.35-7.45) H 02/19/20 13:56 ABG pCO2 37 mmHg (34-47) 02/19/20 13:56 ABG pO2 56 mmHg (83-108) L 02/19/20 13:56 ABG HCO3 29 mmol/L (22-28) H 02/19/20 13:56 ABG Total CO2 26 mmol/L (22-29) 02/19/20 13:56 ABG O2 Saturation 91 % (94-98) L 02/19/20 13:56 ABG Base Excess 5.5 mmol/L (-3-3) H 02/19/20 13:56 Oxygen Liter Flow Cancelled 02/13/20 15:11 FiO2 40 % 02/15/20 07:40 Sodium 135 mmol/L (136-145) L 02/20/20 06:10 Potassium 3.6 mmol/L (3.5-5.1) 02/20/20 06:10 Chloride 99 mmol/L (98-107) 02/20/20 06:10 Carbon Dioxide 29.8 mmol/L (21.0-32.0) 02/20/20 06:10 Anion Gap 6.2 mmol/L (3-11) 02/20/20 06:10 BUN 15 mg/dL (7-18) 02/20/20 06:10 Creatinine 0.77 mg/dL (0.70-1.30) 02/20/20 06:10 Estimated GFR/1.73 m2 >= 60.00 (mL/min/1.73m2) 02/20/20 06:10 Glucose 123 mg/dL (74-106) H 02/20/20 06:10 Lactate 1.0 mmol/L (0.6-1.4) 02/13/20 06:08 Calcium 9.0 mg/dL (8.5-10.1) 02/20/20 06:10 Magnesium 2.0 mg/dL (1.8-2.4) 02/20/20 06:10 Total Bilirubin 0.5 mg/dL (0.2-1.0) 02/18/20 06:40 Conjugated Bilirubin 0.34 mg/dL (0.00-0.20) H 02/13/20 06:08 AST 25 U/L (15-37) 02/18/20 06:40 ALT 31 U/L (16-63) 02/18/20 06:40 Alkaline Phosphatase 51 U/L (46-116) 02/18/20 06:40 Ammonia 26 umol/L (11-32) 02/17/20 06:05 Troponin I < 0.05 ng/Ml (<0.06) 02/11/20 21:30 NT-Pro-B Natriuret Pep 294 pg/mL (<300) 02/20/20 06:10 Total Protein 5.7 g/dL (6.4-8.2) L 02/18/20 06:40 Albumin 1.9 g/dL (3.4-5.0) L 02/18/20 06:40 Vitamin B12 959 pg/mL (193-986) 02/12/20 06:15 Folate 18.1 ng/mL (8.6-20.0) 02/12/20 06:15 Procalcitonin 0.1 ng/mL 02/13/20 06:08 TSH 2.42 uIU/mL (0.36-3.74) 02/11/20 13:00 Urine Color Yellow (Yellow) 02/11/20 19:25 Urine Clarity Clear (Clear) 02/11/20 19:25 Urine pH 6.0 (5-8) 02/11/20 19:25 Ur Specific [place] 1.025 (1.005-1.025) 02/11/20 19:25 Urine Protein Negative mg/dL (Negative) 02/11/20 19:25 Urine Ketones 15 mg/dL (Negative) H 02/11/20 19:25 Urine Blood Trace-intact (Negative) H 02/11/20 19:25 Urine Nitrite Negative (Negative) 02/11/20 19:25 Urine Bilirubin Negative (Negative) 02/11/20 19:25 Urine Urobilinogen 1.0 EU/dL (Up TO 0.2) H 02/11/20 19:25 Ur Leukocyte Esterase Negative (Negative) 02/11/20 19:25 Urine RBC 3-5 HPF (0-2) H 02/11/20 19:25 Urine WBC 0-2 HPF (0-5) 02/11/20 19:25 Ur Epithelial Cells Rare HPF (Negative) 02/11/20 19:25 Urine Crystals Negative HPF (Negative) 02/11/20 19:25 Urine Bacteria Few HPF (Negative) 02/11/20 19:25 Urine Casts Negative LPF (Negative) 02/11/20 19:25 Urine Mucus Negative (Negative) 02/11/20 19:25 Urine Other Negative (Negative) 02/11/20 19:25 Ur Culture Indicated? No 02/11/20 19:25 Urine Glucose Negative mg/dL (Negative) 02/11/20 19:25 Vancomycin Trough Cancelled 02/15/20 13:00 Ethyl Alcohol < 3.0 mg/dL (<3) 02/11/20 13:00 Patient ABO/Rh A Positive 02/13/20 06:08 Antibody Screen Negative 02/13/20 06:08
[2020-02-28] MEDS: LIDOCAINE Patch Removal 1 EACH TP (22:40)
[2020-02-29] MEDS: LORazepam 2 MG/1 ML Oral Concentrate 1 MG UD ×4 (04:49→21:07)
[2020-02-29] MEDS: MORPHine 2 MG/ML SYR IV/SC ×4 (06:06→14:44)
[2020-02-29] MEDS: Lidocaine 5% Patch 1 PATCH TP (09:38)
--- NOTE | 2020-02-29 12:32 | TELEFU_ITS ---
Date of service: 02/29/20 Time of Service: 12:32 Nutritional Follow up NOTE: PO intake minimal, mostly taking liquids at this time. Will continue to provide Ensure Plus (nectar thick) BID. Vikram is [employer] status and continues to be at risk for further nutritional decline and dehydration in view inability to consume adequate calories, protein and fluid by mouth. Vikram is at high risk of pressure wounds in view of inadequate po intake, low weight and immobility. Awaiting placement to SNF per nursing. Time Spent in Nutritional Counseling and Treatment: 5 min spent face to face Time Spent in Nutritional Counseling and Treatment: 5 min spent face to face
--- NOTE | 2020-02-29 14:44 | PDOC.CMPRO ---
- If Service Date Differs Date of service: 02/29/20 Time of Service: 14:44 Care Management Progress Note S/O: Vikram, remains acute today, CM faxed a referral to health and rehab awaiting review anticipate he will remain in the hospital over the weekend. Spouse has been updated and LTM is pending. A: Vikram is a 69 year old male admitted for acute alcohol withdrawal, per report he did make statement in the ED of wanting to stop drinking. He was treated for aspiration pneumonia with IV ABX. He is now comfort measures only. P: Vikram remains on comfort measures with symptom management. Palliative continues to consult. [facility] has declined related to bed availability [facility] is pending. CM will continue to follow and provide support to patient, family and discharge planning needs.
--- NOTE | 2020-02-29 16:20 | PGE_ITS ---
Date of Service Date of service: 02/29/20 Time of Service: 16:21 Assessment and Plan Assessment and plan (1) End of life care: Status: Acute Assessment and plan: patient seems more comfortable on increased fentanyl patch but with some periods of increased confusion and restless so requiring some haldol and morphine bolus for breakthrough. will try scheduled oral seroquel to see if better symptom management. patient with listed allergy from pcp office which clarified was skin burning. will trial small dose and monitor closely for reaction. will adjust fentanyl patch as needed. palliative care following case management following. referrals placed but anticipate swing here until bed can be secured. Subjective Subjective Interval history since last seen: unable to provide history, patient has had periods of confusion and restlessness. has required some break through morphine and haldol but improved from yesterday since fentanyl increased. Exam Narrative Exam Narrative: Exam Narrative: General: chronically, terminally ill appearing, awake and restless Nutritional Appearance: cachectic Orientation: sedate and confused when awoken Resp Effort & Inspection: normal respiratory effort Cardio Rate: regular rate GI Inspection: normal to inspection Palpation: soft Extrem General: normal to inspection, full ROM and no pedal edema Objective Objective Clinical Data: Vital Signs Temperature 36.6 C 02/20/20 04:03 Temperature Source Temporal Artery Scan 02/20/20 04:03 Pulse 76 02/20/20 10:00 Pulse 78 02/20/20 10:01 Respiratory Rate 23 02/20/20 10:01 Respiratory Effort Non-Labored 02/29/20 09:15 Respiratory Depth Normal 02/29/20 09:15 Respiratory Pattern Normal 02/29/20 09:15 Blood Pressure 108/60 02/20/20 10:00 Blood Pressure Mean 71 02/20/20 10:00 Blood Pressure Position Supine 02/20/20 04:03 Pulse Oximetry 93 L 02/20/20 11:42 Respiratory End-tidal CO2 27 02/17/20 12:01 Oxygen Delivery Method Room Air 02/27/20 05:20 Oxygen Flow Rate 0 02/27/20 05:20 Fraction of Inspired Oxygen (FIO2) 21 02/17/20 08:03 Pain Level 6 02/28/20 14:51 Comment 02/14/20 17:48 Intake & Output 02/28/20 02/29/20 02/29/20 23:59 11:59 23:59 Intake Total 460 / 460 Balance 460 / 460 Intake: Oral 460 / 460 Other: Urine Color Brown Pale Urine Appearance Cloudy Clear Urine Odor None Comment pt only voided a few drops of urine grossily incontinent. rafa care done by RIVER CROSSING SUPERVISOR and RN Voiding Methods Bedside Commode Diaper Incontinent Laboratory Results WBC 7.97 k/cumm (4.4-10.8) 02/20/20 06:10 RBC 3.55 m/cumm (4.50-6.00) L 02/20/20 06:10 Hgb 12.2 g/dL (13.5-17.5) L 02/20/20 06:10 Hct 35.3 % (40.0-50.0) L 02/20/20 06:10 MCV 99.4 fL (80-95) H 02/20/20 06:10 MCH 34.4 pg (27.0-33.0) H 02/20/20 06:10 MCHC 34.6 g/dL (32.0-36.0) 02/20/20 06:10 RDW 11.9 % (11.8-14.1) 02/20/20 06:10 Plt Count 296 x1000/uL (130-400) 02/20/20 06:10 MPV 10.2 fL (8.0-11.0) 02/20/20 06:10 Immature Gran % 1.8 % 02/20/20 06:10 Neutrophils % 65.8 02/20/20 06:10 Band Neutrophils % Cancelled 02/13/20 03:27 Lymphocytes % 18.7 02/20/20 06:10 Atypical Lymphs % Cancelled 02/13/20 03:27 Monocytes % 11.2 02/20/20 06:10 Eosinophils % 1.9 02/20/20 06:10 Basophils % 0.6 02/20/20 06:10 Metamyelocytes % Cancelled 02/13/20 03:27 Myelocytes % Cancelled 02/13/20 03:27 Promyelocytes % Cancelled 02/13/20 03:27 Absolute Neutrophils 5.25 k/cumm (1.2-6.7) 02/20/20 06:10 Absolute Lymphocytes 1.49 k/cumm (1.2-3.4) 02/20/20 06:10 Absolute Monocytes 0.89 k/cumm (0.11-0.7) H 02/20/20 06:10 Absolute Eosinophils 0.15 k/cumm (0.0-0.7) 02/20/20 06:10 Absolute Basophils 0.05 k/cumm (0.0-0.2) 02/20/20 06:10 Nucleated RBCs Cancelled 02/13/20 03:27 Differential Comment Diff reviewed 02/15/20 06:50 Other Cell Type Cancelled 02/13/20 03:27 RBC Morphology Normal 02/15/20 06:50 Polychromasia Cancelled 02/13/20 03:27 Hypochromasia Cancelled 02/13/20 03:27 Poikilocytosis Cancelled 02/13/20 03:27 Basophilic Stippling Cancelled 02/13/20 03:27 Anisocytosis Cancelled 02/13/20 03:27 Microcytosis Cancelled 02/13/20 03:27 Macrocytosis Cancelled 02/13/20 03:27 Spherocytes Cancelled 02/13/20 03:27 Target Cells Cancelled 02/13/20 03:27 Tear Drop Cells Cancelled 02/13/20 03:27 Ovalocytes Cancelled 02/13/20 03:27 Stomatocytes Cancelled 02/13/20 03:27 [employer] Bodies Cancelled 02/13/20 03:27 [place] Cells Cancelled 02/13/20 03:27 Acanthocytes (Spur) Cancelled 02/13/20 03:27 Schistocytes Cancelled 02/13/20 03:27 PT 10.2 sec (9.3-11.0) 02/12/20 06:15 INR 1.0 (0.9-1.1) 02/12/20 06:15 ABG Sample Site Right radial 02/19/20 13:56 ABG pH 7.50 (7.35-7.45) H 02/19/20 13:56 ABG pCO2 37 mmHg (34-47) 02/19/20 13:56 ABG pO2 56 mmHg (83-108) L 02/19/20 13:56 ABG HCO3 29 mmol/L (22-28) H 02/19/20 13:56 ABG Total CO2 26 mmol/L (22-29) 02/19/20 13:56 ABG O2 Saturation 91 % (94-98) L 02/19/20 13:56 ABG Base Excess 5.5 mmol/L (-3-3) H 02/19/20 13:56 Oxygen Liter Flow Cancelled 02/13/20 15:11 FiO2 40 % 02/15/20 07:40 Sodium 135 mmol/L (136-145) L 02/20/20 06:10 Potassium 3.6 mmol/L (3.5-5.1) 02/20/20 06:10 Chloride 99 mmol/L (98-107) 02/20/20 06:10 Carbon Dioxide 29.8 mmol/L (21.0-32.0) 02/20/20 06:10 Anion Gap 6.2 mmol/L (3-11) 02/20/20 06:10 BUN 15 mg/dL (7-18) 02/20/20 06:10 Creatinine 0.77 mg/dL (0.70-1.30) 02/20/20 06:10 Estimated GFR/1.73 m2 >= 60.00 (mL/min/1.73m2) 02/20/20 06:10 Glucose 123 mg/dL (74-106) H 02/20/20 06:10 Lactate 1.0 mmol/L (0.6-1.4) 02/13/20 06:08 Calcium 9.0 mg/dL (8.5-10.1) 02/20/20 06:10 Magnesium 2.0 mg/dL (1.8-2.4) 02/20/20 06:10 Total Bilirubin 0.5 mg/dL (0.2-1.0) 02/18/20 06:40 Conjugated Bilirubin 0.34 mg/dL (0.00-0.20) H 02/13/20 06:08 AST 25 U/L (15-37) 02/18/20 06:40 ALT 31 U/L (16-63) 02/18/20 06:40 Alkaline Phosphatase 51 U/L (46-116) 02/18/20 06:40 Ammonia 26 umol/L (11-32) 02/17/20 06:05 Troponin I < 0.05 ng/Ml (<0.06) 02/11/20 21:30 NT-Pro-B Natriuret Pep 294 pg/mL (<300) 02/20/20 06:10 Total Protein 5.7 g/dL (6.4-8.2) L 02/18/20 06:40 Albumin 1.9 g/dL (3.4-5.0) L 02/18/20 06:40 Vitamin B12 959 pg/mL (193-986) 02/12/20 06:15 Folate 18.1 ng/mL (8.6-20.0) 02/12/20 06:15 Procalcitonin 0.1 ng/mL 02/13/20 06:08 TSH 2.42 uIU/mL (0.36-3.74) 02/11/20 13:00 Urine Color Yellow (Yellow) 02/11/20 19: Urine Clarity Clear (Clear) 02/11/20 19: Urine pH 6.0 (5-8) 02/11/20 19:25 Ur Specific [place] 1.025 (1.005-1.025) 02/11/20 19:25 Urine Protein Negative mg/dL (Negative) 02/11/20 19:25 Urine Ketones 15 mg/dL (Negative) H 02/11/20 19:25 Urine Blood Trace-intact (Negative) H 02/11/20 19:25 Urine Nitrite Negative (Negative) 02/11/20 19: Urine Bilirubin Negative (Negative) 02/11/20 19: Urine Urobilinogen 1.0 EU/dL (Up TO 0.2) H 02/11/20 19:25 Ur Leukocyte Esterase Negative (Negative) 02/11/20 19:25 Urine RBC 3-5 HPF (0-2) H 02/11/20 19:25 Urine WBC 0-2 HPF (0-5) 02/11/20 19:25 Ur Epithelial Cells Rare HPF (Negative) 02/11/20 19:25 Urine Crystals Negative HPF (Negative) 02/11/20 19:25 Urine Bacteria Few HPF (Negative) 02/11/20 19:25 Urine Casts Negative LPF (Negative) 02/11/20 19:25 Urine Mucus Negative (Negative) 02/11/20 19:25 Urine Other Negative (Negative) 02/11/20 19:25 Ur Culture Indicated? No 02/11/20 19: Urine Glucose Negative mg/dL (Negative) 02/11/20 19:25 Vancomycin Trough Cancelled 02/15/20 13:00 Ethyl Alcohol < 3.0 mg/dL (<3) 02/11/20 13:00 Patient ABO/Rh A Positive 02/13/20 06:08 Antibody Screen Negative 02/13/20 06:08
[2020-02-29] MEDS: QUEtiapine 25 MG TAB 12.5 MG PO (17:26)
[2020-02-29] MEDS: LIDOCAINE Patch Removal 1 EACH TP (22:49)
[2020-03-01] MEDS: QUEtiapine 25 MG TAB 12.5 MG PO (07:59)
--- NOTE | 2020-03-01 09:35 | PGE_ITS ---
Date of Service Date of service: 03/01/20 Time of Service: 09:35 Assessment and Plan Assessment and plan (1) End of life care: Status: Acute Assessment and plan: Vikram appears somewhat restless, reaching. Nursing reports that he did not sleep well last night. He was initiated on seroquel, did not sleep well last night, remains restless. Discontinue Seroquel. Trial of trazodone 50 mg at HS. Trazodone can be increased as needed. Consider low morning dose of trazodone as well. Continue fentanyl patch, increase as needed. Morphine for breakthrough pain. Ativan and haldol as needed for agitation/anxiety. (2) Constipation: Status: Acute Assessment and plan: No documented bowel movement. Miralax added daily as he is taking narcotic pain medication. Continue to monitor. (3) Discharge planning issues: Status: Acute Assessment and plan: Has a bed offer at [facility] for 03/03/2020. Plan for discharge Tuesday. Subjective Subjective Interval history since last seen: Mr. Lenz is unable to provide an accurate history. He endorses hip pain. He is confused. He denies SOB or chest pain. He states he is at [facility]. He reports that he ate some breakfast. He denies abdominal pain or nausea. He has been referred for placement at a custodial facility. Exam Narrative Exam Narrative: General: Appears chronically ill, thin, cachectic, restless. He is Alert, oriented to self only. Answers some questions appropriately. Reaching. HEENT: atraumatic, pupils equal and round, mucous membranes moist. Neck: supple, no JVD. Cardiovascular: heart has regular rate and rhythm, no murmur appreciated. Respiratory: respirations appear even and unlabored, +congested cough, lung sounds diminished bilaterally, no rales or wheezing. GI: thin, flat abdomen, +BS x 4 quadrants, soft, does not appear tender on palpation. Extremities: Moves all 4 extremities freely. Muscle atrophy noted to all 4 extremities. Reaching into air. Objective Objective Clinical Data: Vital Signs Temperature 36.6 C 02/20/20 04:03 Temperature Source Temporal Artery Scan 02/20/20 04:03 Pulse 76 02/20/20 10:00 Pulse 78 02/20/20 10:01 Respiratory Rate 23 02/20/20 10:01 Respiratory Effort Non-Labored 02/29/20 20:00 Respiratory Depth Normal 02/29/20 20:00 Respiratory Pattern Normal 02/29/20 20:00 Blood Pressure 108/60 02/20/20 10:00 Blood Pressure Mean 71 02/20/20 10:00 Blood Pressure Position Supine 02/20/20 04:03 Pulse Oximetry 93 L 02/20/20 11:42 Respiratory End-tidal CO2 27 02/17/20 12:01 Oxygen Delivery Method Room Air 02/27/20 05:20 Oxygen Flow Rate 0 02/27/20 05:20 Fraction of Inspired Oxygen (FIO2) 21 02/17/20 08:03 Pain Level 6 02/28/20 14:51 Comment 02/14/20 17:48 Intake & Output 02/29/20 02/29/20 03/01/20 11:59 23:59 11:59 Intake Total 460 / 710 250 / 710 90 / 90 Balance 460 / 710 250 / 710 90 / 90 Intake: Oral 460 / 710 250 / 710 90 / 90 Other: Urine Color Pale Yellow Urine Appearance Clear Clear Urine Odor None Comment grossily incontinent. rafa care done by DEVELOPMENT COACH and RN Voiding Methods Diaper Incontinent Incontinent Incontinent Laboratory Results WBC 7.97 k/cumm (4.4-10.8) 02/20/20 06:10 RBC 3.55 m/cumm (4.50-6.00) L 02/20/20 06:10 Hgb 12.2 g/dL (13.5-17.5) L 02/20/20 06:10 Hct 35.3 % (40.0-50.0) L 02/20/20 06:10 MCV 99.4 fL (80-95) H 02/20/20 06:10 MCH 34.4 pg (27.0-33.0) H 02/20/20 06:10 MCHC 34.6 g/dL (32.0-36.0) 02/20/20 06:10 RDW 11.9 % (11.8-14.1) 02/20/20 06:10 Plt Count 296 x1000/uL (130-400) 02/20/20 06:10 MPV 10.2 fL (8.0-11.0) 02/20/20 06:10 Immature Gran % 1.8 % 03/25/20 06:10 Neutrophils % 65.8 02/20/20 06:10 Band Neutrophils % Cancelled 02/13/20 03:27 Lymphocytes % 18.7 02/20/20 06:10 Atypical Lymphs % Cancelled 02/13/20 03:27 Monocytes % 11.2 02/20/20 06:10 Eosinophils % 1.9 02/20/20 06:10 Basophils % 0.6 02/20/20 06:10 Metamyelocytes % Cancelled 02/13/20 03:27 Myelocytes % Cancelled 02/13/20 03:27 Promyelocytes % Cancelled 02/13/20 03:27 Absolute Neutrophils 5.25 k/cumm (1.2-6.7) 02/20/20 06:10 Absolute Lymphocytes 1.49 k/cumm (1.2-3.4) 02/20/20 06:10 Absolute Monocytes 0.89 k/cumm (0.11-0.7) H 02/20/20 06:10 Absolute Eosinophils 0.15 k/cumm (0.0-0.7) 02/20/20 06:10 Absolute Basophils 0.05 k/cumm (0.0-0.2) 02/20/20 06:10 Nucleated RBCs Cancelled 02/13/20 03:27 Differential Comment Diff reviewed 02/15/20 06:50 Other Cell Type Cancelled 02/13/20 03:27 RBC Morphology Normal 02/15/20 06:50 Polychromasia Cancelled 02/13/20 03:27 Hypochromasia Cancelled 02/13/20 03:27 Poikilocytosis Cancelled 02/13/20 03:27 Basophilic Stippling Cancelled 02/13/20 03:27 Anisocytosis Cancelled 02/13/20 03:27 Microcytosis Cancelled 02/13/20 03:27 Macrocytosis Cancelled 02/13/20 03:27 Spherocytes Cancelled 02/13/20 03:27 Target Cells Cancelled 02/13/20 03:27 Tear Drop Cells Cancelled 02/13/20 03:27 Ovalocytes Cancelled 02/13/20 03:27 Stomatocytes Cancelled 02/13/20 03:27 [place] Bodies Cancelled 02/13/20 03:27 [place] Cells Cancelled 02/13/20 03:27 Acanthocytes (Spur) Cancelled 02/13/20 03:27 Schistocytes Cancelled 02/13/20 03:27 PT 10.2 sec (9.3-11.0) 02/12/20 06:15 INR 1.0 (0.9-1.1) 02/12/20 06:15 ABG Sample Site Right radial 02/19/20 13:56 ABG pH 7.50 (7.35-7.45) H 02/19/20 13:56 ABG pCO2 37 mmHg (34-47) 02/19/20 13:56 ABG pO2 56 mmHg (83-108) L 02/19/20 13:56 ABG HCO3 29 mmol/L (22-28) H 02/19/20 13:56 ABG Total CO2 26 mmol/L (22-29) 02/19/20 13:56 ABG O2 Saturation 91 % (94-98) L 02/19/20 13:56 ABG Base Excess 5.5 mmol/L (-3-3) H 02/19/20 13:56 Oxygen Liter Flow Cancelled 02/13/20 15:11 FiO2 40 % 02/15/20 07:40 Sodium 135 mmol/L (136-145) L 02/20/20 06:10 Potassium 3.6 mmol/L (3.5-5.1) 02/20/20 06:10 Chloride 99 mmol/L (98-107) 02/20/20 06:10 Carbon Dioxide 29.8 mmol/L (21.0-32.0) 02/20/20 06:10 Anion Gap 6.2 mmol/L (3-11) 02/20/20 06:10 BUN 15 mg/dL (7-18) 02/20/20 06:10 Creatinine 0.77 mg/dL (0.70-1.30) 02/20/20 06:10 Estimated GFR/1.73 m2 >= 60.00 (mL/min/1.73m2) 02/20/20 06:10 Glucose 123 mg/dL (74-106) H 02/20/20 06:10 Lactate 1.0 mmol/L (0.6-1.4) 02/13/20 06:08 Calcium 9.0 mg/dL (8.5-10.1) 02/20/20 06:10 Magnesium 2.0 mg/dL (1.8-2.4) 02/20/20 06:10 Total Bilirubin 0.5 mg/dL (0.2-1.0) 02/18/20 06:40 Conjugated Bilirubin 0.34 mg/dL (0.00-0.20) H 02/13/20 06:08 AST 25 U/L (15-37) 02/18/20 06:40 ALT 31 U/L (16-63) 02/18/20 06:40 Alkaline Phosphatase 51 U/L (46-116) 02/18/20 06:40 Ammonia 26 umol/L (11-32) 02/17/20 06:05 Troponin I < 0.05 ng/Ml (<0.06) 02/11/20 21:30 NT-Pro-B Natriuret Pep 294 pg/mL (<300) 02/20/20 06:10 Total Protein 5.7 g/dL (6.4-8.2) L 02/18/20 06:40 Albumin 1.9 g/dL (3.4-5.0) L 02/18/20 06:40 Vitamin B12 959 pg/mL (193-986) 02/12/20 06:15 Folate 18.1 ng/mL (8.6-20.0) 02/12/20 06:15 Procalcitonin 0.1 ng/mL 02/13/20 06:08 TSH 2.42 uIU/mL (0.36-3.74) 02/11/20 13:00 Urine Color Yellow (Yellow) 02/11/20 19:25 Urine Clarity Clear (Clear) 02/11/20 19:25 Urine pH 6.0 (5-8) 02/11/20 19:25 Ur Specific [place] 1.025 (1.005-1.025) 02/11/20 19:25 Urine Protein Negative mg/dL (Negative) 02/11/20 19:25 Urine Ketones 15 mg/dL (Negative) H 02/11/20 19:25 Urine Blood Trace-intact (Negative) H 02/11/20 19:25 Urine Nitrite Negative (Negative) 02/11/20 19:25 Urine Bilirubin Negative (Negative) 02/11/20 19: Urine Urobilinogen 1.0 EU/dL (Up TO 0.2) H 02/11/20 19:25 Ur Leukocyte Esterase Negative (Negative) 02/11/20 19:25 Urine RBC 3-5 HPF (0-2) H 02/11/20 19:25 Urine WBC 0-2 HPF (0-5) 02/11/20 19:25 Ur Epithelial Cells Rare HPF (Negative) 02/11/20 19:25 Urine Crystals Negative HPF (Negative) 02/11/20 19:25 Urine Bacteria Few HPF (Negative) 02/11/20 19:25 Urine Casts Negative LPF (Negative) 02/11/20 19:25 Urine Mucus Negative (Negative) 02/11/20 19:25 Urine Other Negative (Negative) 02/11/20 19:25 Ur Culture Indicated? No 02/11/20 19:25 Urine Glucose Negative mg/dL (Negative) 02/11/20 19:25 Vancomycin Trough Cancelled 02/15/20 13:00 Ethyl Alcohol < 3.0 mg/dL (<3) 02/11/20 13:00 Patient ABO/Rh A Positive 02/13/20 06:08 Antibody Screen Negative 02/13/20 06:08
[2020-03-01] MEDS: Lidocaine 5% Patch 1 PATCH TP (10:21)
[2020-03-01] MEDS: Polyethylene Glycol 3350 17 GM PACKET PO (10:51)
[2020-03-01] MEDS: MORPHine 2 MG/ML SYR IV/SC ×2 (10:52→14:07)
--- NOTE | 2020-03-01 14:48 | CMPROGNOTE_ITS ---
- If Service Date Differs Date of service: 03/01/20 Time of Service: 14:48 Care Management Progress Note S/O: Per report, Vikram has been increasingly restless and was given seroquel, which resulted in continued restlessness. Provider has made changes to medications in order to provide comfort to Vikram. CM called [facility] regarding a referral that was placed earlier this week. A bed offer was extended for 03/03/20. CM will continue to follow. A: Vikram is a 69 year old male admitted for acute alcohol withdrawal, per report he did make statement in the ED of wanting to stop drinking. He was treated for aspiration pneumonia with IV ABX. He is now comfort measures only. P: Vikram remains on comfort measures with symptom management. Palliative continues to consult. [facility] has made a bed offer for Vikram. He will [facility] Tuesday via w/c van. CM will continue to follow and provide support to patient, family and discharge planning needs.
[2020-03-01] MEDS: LORazepam 2 MG/1 ML Oral Concentrate 1 MG UD ×2 (17:45→20:29)
[2020-03-01] MEDS: LIDOCAINE Patch Removal 1 EACH TP (21:24)
[2020-03-01] MEDS: traZODone 50 MG TAB PO (21:25)
[2020-03-02] MEDS: LORazepam 2 MG/1 ML Oral Concentrate 1 MG UD ×2 (06:47→13:27)
[2020-03-02 07:53] VITALS: BP 149/94; PULSE 81; RESP 18; TEMP 36.6; O2SAT 98
[2020-03-02] MEDS: Polyethylene Glycol 3350 17 GM PACKET PO (08:08)
[2020-03-02] MEDS: Lidocaine 5% Patch 1 PATCH TP (10:46)
--- NOTE | 2020-03-02 11:18 | NUR.NOTE ---
Nursing Note: ACCIDENTIALLY CUT TIP OF TOE WHILE CUTTING HIS TOE NAILS. AREA SIZE OF BALL POINT TIP PEN. BACITRACIN AND BANDAID APPLIED.
[2020-03-02] MEDS: Bacitracin 1 PACKET (11:20)
--- NOTE | 2020-03-02 12:16 | PDOC.CMPRO ---
- If Service Date Differs Date of service: 03/02/20 Time of Service: 12:16 Care Management Progress Note S/O: CM was requested to visit with Vikram's , who was in the room with him. CM discussed the discharge plan with Nena. Vikram will transition to [facility] tomorrow, where he will remain [employer]. Nena had questions regarding the policies at [facility]. Her questions were: Are they allowing visitors for [employer] patients? Will she need to be present for admission paperwork, or will it be conducted over the phone? Will she be able to bring in clothes/supplies for him while there? CM reported that the admissions department is not available on Tuesday, but that a CM will reach out to her tomorrow to answer the questions after speaking with admissions at [facility]. CM will continue to follow. A: Vikram is a 69 year old male admitted for acute alcohol withdrawal, per report he did make statement in the ED of wanting to stop drinking. He was treated for aspiration pneumonia with IV ABX. He is now comfort measures only. P: Vikram remains on comfort measures with symptom management. Palliative continues to consult. [facility] has made a bed offer for Vikram. He will transfer to [facility] on Tuesday via w/c van. CM will continue to follow and provide support to patient, family and discharge planning needs.
--- NOTE | 2020-03-02 13:01 | W.PM.PROGNOT ---
Date of Service Date of service: 03/02/20 Time of Service: 13:01 Assessment and Plan Assessment and plan (1) End of life care: Start date: 03/02/20 Start time: 13:05 Status: Acute Assessment and plan: Appears comfortable. Will schedule ativan at for restlessness over night as he appears to do better with this. Trazadone was not successful overnight. (2) Comfort measures only status: Start date: 03/02/20 Start time: 13:05 Status: Acute Assessment and plan: Palliative and hospice patient, severe decline after alcohol withdrawal. Poor quality of life. (3) Constipation: Start date: 03/02/20 Start time: 13:06 Status: Acute Assessment and plan: No documented bowel movement. Miralax added daily as he is taking narcotic pain medication. Continue to monitor. (4) Discharge planning issues: Start date: 03/02/20 Start time: 13:06 Status: Acute Assessment and plan: Has a bed offer at [facility] for 03/03/2020. Plan for discharge Tuesday. Above case discussed with Dr. Melissa who is Subjective Subjective Patient reports: other Interval history since last seen: Fall last night leading to hematoma on forehead. Overnight hospitalist notified. 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 Continue INDUSTRIAL PARAMEDIC, no pain at this time. Possible discharge tomorrow to H/R Exam Narrative Exam Narrative: General: Appears chronically ill, thin, cachectic, restless. He is Alert, oriented to self only. Answers some questions appropriately. Reaching. HEENT: atraumatic, pupils equal and round, mucous membranes moist. Egg sized Neck: supple, no JVD. Cardiovascular: heart has regular rate and rhythm, no murmur appreciated. Respiratory: respirations appear even and unlabored, +congested cough, lung sounds diminished bilaterally, no rales or wheezing. GI: thin, flat abdomen, +BS x 4 quadrants, soft, does not appear tender on palpation. Extremities: Moves all 4 extremities freely. Muscle atrophy noted to all 4 extremities. Reaching into air. Objective Objective Clinical Data: Vital Signs Temperature 36.6 C 03/02/20 07:53 Temperature Source Temporal Artery Scan 03/02/20 07:53 Pulse 81 03/02/20 07:53 Pulse 78 02/20/20 10:01 Respiratory Rate 18 03/02/20 07:53 Respiratory Effort Non-Labored 03/02/20 08:40 Respiratory Depth Normal 03/02/20 08:40 Respiratory Pattern Normal 03/02/20 08:40 Blood Pressure 149/94 H 03/02/20 07:53 Blood Pressure Mean 71 02/20/20 10:00 Blood Pressure Position Supine 02/20/20 04:03 Pulse Oximetry 98 03/02/20 07:53 Respiratory End-tidal CO2 27 02/17/20 12:01 Oxygen Delivery Method Room Air 03/02/20 07:53 Oxygen Flow Rate 0 03/02/20 07:53 Fraction of Inspired Oxygen (FIO2) 21 02/17/20 08:03 Pain Level 0 03/02/20 07:53 Comment 02/14/20 17:48 Intake & Output 03/01/20 03/02/20 03/02/20 23:59 11:59 23:59 Intake Total 1180 / 1270 100 / 100 Output Total 225 / 225 Balance 955 / 1045 100 / 100 Intake: IV 1000 / 1000 Oral 180 / 270 100 / 100 Output: Urine 225 / 225 Other: Urine Color Dark Ana Maria Urine Appearance Clear Voiding Methods Bedside Commode Laboratory Results WBC 7.97 k/cumm (4.4-10.8) 02/20/20 06:10 RBC 3.55 m/cumm (4.50-6.00) L 02/20/20 06:10 Hgb 12.2 g/dL (13.5-17.5) L 02/20/20 06:10 Hct 35.3 % (40.0-50.0) L 02/20/20 06:10 MCV 99.4 fL (80-95) H 02/20/20 06:10 MCH 34.4 pg (27.0-33.0) H 02/20/20 06:10 MCHC 34.6 g/dL (32.0-36.0) 02/20/20 06:10 RDW 11.9 % (11.8-14.1) 02/20/20 06:10 Plt Count 296 x1000/uL (130-400) 02/20/20 06:10 MPV 10.2 fL (8.0-11.0) 02/20/20 06:10 Immature Gran % 1.8 % 02/20/20 06:10 Neutrophils % 65.8 02/20/20 06:10 Band Neutrophils % Cancelled 02/13/20 03:27 Lymphocytes % 18.7 02/20/20 06:10 Atypical Lymphs % Cancelled 02/13/20 03:27 Monocytes % 11.2 02/20/20 06:10 Eosinophils % 1.9 02/20/20 06:10 Basophils % 0.6 02/20/20 06:10 Metamyelocytes % Cancelled 02/13/20 03:27 Myelocytes % Cancelled 02/13/20 03:27 Promyelocytes % Cancelled 02/13/20 03:27 Absolute Neutrophils 5.25 k/cumm (1.2-6.7) 02/20/20 06:10 Absolute Lymphocytes 1.49 k/cumm (1.2-3.4) 02/20/20 06:10 Absolute Monocytes 0.89 k/cumm (0.11-0.7) H 02/20/20 06:10 Absolute Eosinophils 0.15 k/cumm (0.0-0.7) 02/20/20 06:10 Absolute Basophils 0.05 k/cumm (0.0-0.2) 02/20/20 06:10 Nucleated RBCs Cancelled 02/13/20 03:27 Differential Comment Diff reviewed 02/15/20 06:50 Other Cell Type Cancelled 02/13/20 03:27 RBC Morphology Normal 02/15/20 06:50 Polychromasia Cancelled 02/13/20 03:27 Hypochromasia Cancelled 02/13/20 03:27 Poikilocytosis Cancelled 02/13/20 03:27 Basophilic Stippling Cancelled 02/13/20 03:27 Anisocytosis Cancelled 02/13/20 03:27 Microcytosis Cancelled 02/13/20 03:27 Macrocytosis Cancelled 02/13/20 03:27 Spherocytes Cancelled 02/13/20 03:27 Target Cells Cancelled 02/13/20 03:27 Tear Drop Cells Cancelled 02/13/20 03:27 Ovalocytes Cancelled 02/13/20 03:27 Stomatocytes Cancelled 02/13/20 03:27 [place] Bodies Cancelled 02/13/20 03:27 [place] Cells Cancelled 02/13/20 03:27 Acanthocytes (Spur) Cancelled 02/13/20 03:27 Schistocytes Cancelled 02/13/20 03:27 PT 10.2 sec (9.3-11.0) 02/12/20 06:15 INR 1.0 (0.9-1.1) 02/12/20 06:15 ABG Sample Site Right radial 02/19/20 13:56 ABG pH 7.50 (7.35-7.45) H 02/19/20 13:56 ABG pCO2 37 mmHg (34-47) 02/19/20 13:56 ABG pO2 56 mmHg (83-108) L 02/19/20 13:56 ABG HCO3 29 mmol/L (22-28) H 02/19/20 13:56 ABG Total CO2 26 mmol/L (22-29) 02/19/20 13:56 ABG O2 Saturation 91 % (94-98) L 02/19/20 13:56 ABG Base Excess 5.5 mmol/L (-3-3) H 02/19/20 13:56 Oxygen Liter Flow Cancelled 02/13/20 15:11 FiO2 40 % 02/15/20 07:40 Sodium 135 mmol/L (136-145) L 02/20/20 06:10 Potassium 3.6 mmol/L (3.5-5.1) 02/20/20 06:10 Chloride 99 mmol/L (98-107) 02/20/20 06:10 Carbon Dioxide 29.8 mmol/L (21.0-32.0) 02/20/20 06:10 Anion Gap 6.2 mmol/L (3-11) 02/20/20 06:10 BUN 15 mg/dL (7-18) 02/20/20 06:10 Creatinine 0.77 mg/dL (0.70-1.30) 02/20/20 06:10 Estimated GFR/1.73 m2 >= 60.00 (mL/min/1.73m2) 02/20/20 06:10 Glucose 123 mg/dL (74-106) H 02/20/20 06:10 Lactate 1.0 mmol/L (0.6-1.4) 02/13/20 06:08 Calcium 9.0 mg/dL (8.5-10.1) 02/20/20 06:10 Magnesium 2.0 mg/dL (1.8-2.4) 02/20/20 06:10 Total Bilirubin 0.5 mg/dL (0.2-1.0) 02/18/20 06:40 Conjugated Bilirubin 0.34 mg/dL (0.00-0.20) H 02/13/20 06:08 AST 25 U/L (15-37) 02/18/20 06:40 ALT 31 U/L (16-63) 02/18/20 06:40 Alkaline Phosphatase 51 U/L (46-116) 02/18/20 06:40 Ammonia 26 umol/L (11-32) 02/17/20 06:05 Troponin I < 0.05 ng/Ml (<0.06) 02/11/20 21:30 NT-Pro-B Natriuret Pep 294 pg/mL (<300) 02/20/20 06:10 Total Protein 5.7 g/dL (6.4-8.2) L 02/18/20 06:40 Albumin 1.9 g/dL (3.4-5.0) L 02/18/20 06:40 Vitamin B12 959 pg/mL (193-986) 02/12/20 06:15 Folate 18.1 ng/mL (8.6-20.0) 02/12/20 06:15 Procalcitonin 0.1 ng/mL 02/13/20 06:08 TSH 2.42 uIU/mL (0.36-3.74) 02/11/20 13:00 Urine Color Yellow (Yellow) 02/11/20 19:25 Urine Clarity Clear (Clear) 02/11/20 19:25 Urine pH 6.0 (5-8) 02/11/20 19:25 Ur Specific [place] 1.025 (1.005-1.025) 02/11/20 19:25 Urine Protein Negative mg/dL (Negative) 02/11/20 19:25 Urine Ketones 15 mg/dL (Negative) H 02/11/20 19:25 Urine Blood Trace-intact (Negative) H 02/11/20 19:25 Urine Nitrite Negative (Negative) 02/11/20 19:25 Urine Bilirubin Negative (Negative) 02/11/20 19:25 Urine Urobilinogen 1.0 EU/dL (Up TO 0.2) H 02/11/20 19:25 Ur Leukocyte Esterase Negative (Negative) 02/11/20 19:25 Urine RBC 3-5 HPF (0-2) H 02/11/20 19:25 Urine WBC 0-2 HPF (0-5) 02/11/20 19:25 Ur Epithelial Cells Rare HPF (Negative) 02/11/20 19:25 Urine Crystals Negative HPF (Negative) 02/11/20 19:25 Urine Bacteria Few HPF (Negative) 02/11/20 19:25 Urine Casts Negative LPF (Negative) 02/11/20 19:25 Urine Mucus Negative (Negative) 02/11/20 19:25 Urine Other Negative (Negative) 02/11/20 19:25 Ur Culture Indicated? No 02/11/20 19:25 Urine Glucose Negative mg/dL (Negative) 02/11/20 19:25 Vancomycin Trough Cancelled 02/15/20 13:00 Ethyl Alcohol < 3.0 mg/dL (<3) 02/11/20 13:00 Patient ABO/Rh A Positive 02/13/20 06:08 Antibody Screen Negative 02/13/20 06:08
[2020-03-02] MEDS: fentaNYL 25 MCG PATCH TD (14:14)
[2020-03-03] MEDS: LORazepam 2 MG/1 ML Oral Concentrate 1 MG UD ×2 (03:22→09:36)
[2020-03-03] MEDS: Polyethylene Glycol 3350 17 GM PACKET PO (08:15)
[2020-03-03] MEDS: Bacitracin 1 PACKET TP (08:15)
[2020-03-03] MEDS: Lidocaine 5% Patch 1 PATCH TP (09:35)
--- NOTE | 2020-03-03 09:59 | PGE_ITS ---
Date of Service Date of service: 03/03/20 Time of Service: 09:59 Assessment and Plan Assessment and plan (1) End of life care: Start date: 03/03/20 Start time: 10:01 Status: Acute Assessment and plan: Appears comfortable. Patient was comfortable overnight with po ativan at hs no restlessness. Continue. (2) Comfort measures only status: Start date: 03/03/20 Start time: 10:02 Status: Acute Assessment and plan: Palliative and hospice patient, severe decline after alcohol withdrawal. Poor quality of life. Not currently actively dying. Looking for placement at [facility] (3) Constipation: Start date: 03/03/20 Start time: 10:02 Status: Acute Assessment and plan: No documented bowel movement. Miralax added daily as he is taking narcotic pain medication. Continue to monitor. (4) Discharge planning issues: Start date: 03/03/20 Start time: 10:02 Status: Acute Assessment and plan: Bed offer to H/R taken back, CM to reach and send new records. Possbile bed a H/R this week. Above case discussed with Dr. 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 Exam Narrative Exam Narrative: General: Appears chronically ill, thin, cachectic, calm this morning. He is Alert, oriented to self only. Answers some questions appropriately. Reaching. HEENT: atraumatic, pupils equal and round, mucous membranes moist. Egg sized Neck: supple, no JVD. Cardiovascular: heart has regular rate and rhythm, no murmur appreciated. Respiratory: respirations appear even and unlabored, +congested cough, lung sounds diminished bilaterally, no rales or wheezing. GI: thin, flat abdomen, +BS x 4 quadrants, soft, does not appear tender on palpation. Extremities: Moves all 4 extremities freely. Muscle atrophy noted to all 4 extremities. Reaching into air. Objective Objective Clinical Data: Vital Signs Temperature 36.6 C 03/02/20 07:53 Temperature Source Temporal Artery Scan 03/02/20 07:53 Pulse 81 03/02/20 07:53 Pulse 78 02/20/20 10:01 Respiratory Rate 18 03/02/20 07:53 Respiratory Effort Non-Labored 03/03/20 08:54 Respiratory Depth Normal 03/03/20 08:54 Respiratory Pattern Normal 03/03/20 08:54 Blood Pressure 149/94 H 03/02/20 07:53 Blood Pressure Mean 71 02/20/20 10:00 Blood Pressure Position Supine 02/20/20 04:03 Pulse Oximetry 98 03/02/20 07:53 Respiratory End-tidal CO2 27 02/17/20 12:01 Oxygen Delivery Method Room Air 03/02/20 07:53 Oxygen Flow Rate 0 03/02/20 07:53 Fraction of Inspired Oxygen (FIO2) 21 02/17/20 08:03 Pain Level 0 03/03/20 04:22 Comment 02/14/20 17:48 Intake & Output 03/02/20 03/02/20 03/03/20 11:59 23:59 11:59 Intake Total 100 / 420 320 / 420 980 / 980 Balance 100 / 420 320 / 420 980 / 980 Intake: Oral 100 / 420 320 / 420 980 / 980 Other: Urine Appearance Clear Comment breif changed no urine seen at this time Voiding Methods Diaper Diaper Incontinent Incontinent Laboratory Results WBC 7.97 k/cumm (4.4-10.8) 02/20/20 06:10 RBC 3.55 m/cumm (4.50-6.00) L 02/20/20 06:10 Hgb 12.2 g/dL (13.5-17.5) L 02/20/20 06:10 Hct 35.3 % (40.0-50.0) L 02/20/20 06:10 MCV 99.4 fL (80-95) H 02/20/20 06:10 MCH 34.4 pg (27.0-33.0) H 02/20/20 06:10 MCHC 34.6 g/dL (32.0-36.0) 02/20/20 06:10 RDW 11.9 % (11.8-14.1) 02/20/20 06:10 Plt Count 296 x1000/uL (130-400) 02/20/20 06:10 MPV 10.2 fL (8.0-11.0) 02/20/20 06:10 Immature Gran % 1.8 % 02/20/20 06:10 Neutrophils % 65.8 02/20/20 06:10 Band Neutrophils % Cancelled 02/13/20 03:27 Lymphocytes % 18.7 02/20/20 06:10 Atypical Lymphs % Cancelled 02/13/20 03:27 Monocytes % 11.2 02/20/20 06:10 Eosinophils % 1.9 02/20/20 06:10 Basophils % 0.6 02/20/20 06:10 Metamyelocytes % Cancelled 02/13/20 03:27 Myelocytes % Cancelled 02/13/20 03:27 Promyelocytes % Cancelled 02/13/20 03:27 Absolute Neutrophils 5.25 k/cumm (1.2-6.7) 02/20/20 06:10 Absolute Lymphocytes 1.49 k/cumm (1.2-3.4) 02/20/20 06:10 Absolute Monocytes 0.89 k/cumm (0.11-0.7) H 02/20/20 06:10 Absolute Eosinophils 0.15 k/cumm (0.0-0.7) 02/20/20 06:10 Absolute Basophils 0.05 k/cumm (0.0-0.2) 02/20/20 06:10 Nucleated RBCs Cancelled 02/13/20 03:27 Differential Comment Diff reviewed 02/15/20 06:50 Other Cell Type Cancelled 02/13/20 03:27 RBC Morphology Normal 02/15/20 06:50 Polychromasia Cancelled 02/13/20 03:27 Hypochromasia Cancelled 02/13/20 03:27 Poikilocytosis Cancelled 02/13/20 03:27 Basophilic Stippling Cancelled 02/13/20 03:27 Anisocytosis Cancelled 02/13/20 03:27 Microcytosis Cancelled 02/13/20 03:27 Macrocytosis Cancelled 02/13/20 03:27 Spherocytes Cancelled 02/13/20 03:27 Target Cells Cancelled 02/13/20 03:27 Tear Drop Cells Cancelled 02/13/20 03:27 Ovalocytes Cancelled 02/13/20 03:27 Stomatocytes Cancelled 02/13/20 03:27 [place] Bodies Cancelled 02/13/20 03:27 [place] Cells Cancelled 02/13/20 03:27 Acanthocytes (Spur) Cancelled 02/13/20 03:27 Schistocytes Cancelled 02/13/20 03:27 PT 10.2 sec (9.3-11.0) 02/12/20 06:15 INR 1.0 (0.9-1.1) 02/12/20 06:15 ABG Sample Site Right radial 02/19/20 13:56 ABG pH 7.50 (7.35-7.45) H 02/19/20 13:56 ABG pCO2 37 mmHg (34-47) 02/19/20 13:56 ABG pO2 56 mmHg (83-108) L 02/19/20 13:56 ABG HCO3 29 mmol/L (22-28) H 02/19/20 13:56 ABG Total CO2 26 mmol/L (22-29) 02/19/20 13:56 ABG O2 Saturation 91 % (94-98) L 02/19/20 13:56 ABG Base Excess 5.5 mmol/L (-3-3) H 02/19/20 13:56 Oxygen Liter Flow Cancelled 02/13/20 15:11 FiO2 40 % 02/15/20 07:40 Sodium 135 mmol/L (136-145) L 02/20/20 06:10 Potassium 3.6 mmol/L (3.5-5.1) 02/20/20 06:10 Chloride 99 mmol/L (98-107) 02/20/20 06:10 Carbon Dioxide 29.8 mmol/L (21.0-32.0) 02/20/20 06:10 Anion Gap 6.2 mmol/L (3-11) 02/20/20 06:10 BUN 15 mg/dL (7-18) 02/20/20 06:10 Creatinine 0.77 mg/dL (0.70-1.30) 02/20/20 06:10 Estimated GFR/1.73 m2 >= 60.00 (mL/min/1.73m2) 02/20/20 06:10 Glucose 123 mg/dL (74-106) H 02/20/20 06:10 Lactate 1.0 mmol/L (0.6-1.4) 02/13/20 06:08 Calcium 9.0 mg/dL (8.5-10.1) 02/20/20 06:10 Magnesium 2.0 mg/dL (1.8-2.4) 02/20/20 06:10 Total Bilirubin 0.5 mg/dL (0.2-1.0) 02/18/20 06:40 Conjugated Bilirubin 0.34 mg/dL (0.00-0.20) H 02/13/20 06:08 AST 25 U/L (15-37) 02/18/20 06:40 ALT 31 U/L (16-63) 02/18/20 06:40 Alkaline Phosphatase 51 U/L (46-116) 02/18/20 06:40 Ammonia 26 umol/L (11-32) 02/17/20 06:05 Troponin I < 0.05 ng/Ml (<0.06) 02/11/20 21:30 NT-Pro-B Natriuret Pep 294 pg/mL (<300) 02/20/20 06:10 Total Protein 5.7 g/dL (6.4-8.2) L 02/18/20 06:40 Albumin 1.9 g/dL (3.4-5.0) L 02/18/20 06:40 Vitamin B12 959 pg/mL (193-986) 02/12/20 06:15 Folate 18.1 ng/mL (8.6-20.0) 02/12/20 06:15 Procalcitonin 0.1 ng/mL 02/13/20 06:08 TSH 2.42 uIU/mL (0.36-3.74) 02/11/20 13:00 Urine Color Yellow (Yellow) 02/11/20 19:25 Urine Clarity Clear (Clear) 02/11/20 19:25 Urine pH 6.0 (5-8) 02/11/20 19:25 Ur Specific [place] 1.025 (1.005-1.025) 02/11/20 19:25 Urine Protein Negative mg/dL (Negative) 02/11/20 19:25 Urine Ketones 15 mg/dL (Negative) H 02/11/20 19:25 Urine Blood Trace-intact (Negative) H 02/11/20 19:25 Urine Nitrite Negative (Negative) 02/11/20 19:25 Urine Bilirubin Negative (Negative) 02/11/20 19:25 Urine Urobilinogen 1.0 EU/dL (Up TO 0.2) H 02/11/20 19:25 Ur Leukocyte Esterase Negative (Negative) 02/11/20 19:25 Urine RBC 3-5 HPF (0-2) H 02/11/20 19:25 Urine WBC 0-2 HPF (0-5) 02/11/20 19:25 Ur Epithelial Cells Rare HPF (Negative) 02/11/20 19:25 Urine Crystals Negative HPF (Negative) 02/11/20 19:25 Urine Bacteria Few HPF (Negative) 02/11/20 19:25 Urine Casts Negative LPF (Negative) 02/11/20 19:25 Urine Mucus Negative (Negative) 02/11/20 19:25 Urine Other Negative (Negative) 02/11/20 19:25 Ur Culture Indicated? No 02/11/20 19:25 Urine Glucose Negative mg/dL (Negative) 02/11/20 19:25 Vancomycin Trough Cancelled 02/15/20 13:00 Ethyl Alcohol < 3.0 mg/dL (<3) 02/11/20 13:00 Patient ABO/Rh A Positive 02/13/20 06:08 Antibody Screen Negative 02/13/20 06:08
--- NOTE | 2020-03-03 11:44 | CMPROGNOTE_ITS ---
- If Service Date Differs Date of service: 03/03/20 Time of Service: 11:44 Care Management Progress Note S/O: Vikram was lying in bed when CM met with him. His was by his side. CM received correspondence from [facility] stating that due to a medication that was given on 02/28/20, they had reservations about accepting him. CM confirmed that the medication in question is not being administered anymore and sent updated clinicals. [facility] later responded that they are currently closed for admissions. CM discussed this with Nena, his , who stated that she would be open to sending referrals to other facilities. CM offered options of local facilities that are currently accepting referrals and Nena asked for one to be sent to [facility]. CM sent referral to [facility] and is awaiting a response. CM will continue to follow. A: Vikram is a 69 year old male admitted for acute alcohol withdrawal, per report he did make statement in the ED of wanting to stop drinking. He was treated for aspiration pneumonia with IV ABX. He is now comfort measures only. P: Vikram remains on comfort measures with symptom management. Palliative continues to consult. CM has sent referrals to facilities for his end of life care, and is currently waiting for a response from [facility]. CM will continue to follow and provide support to patient, family and discharge planning needs.
[2020-03-03] MEDS: traZODone 50 MG TAB PO (21:31)
[2020-03-03] MEDS: LORazepam 2 MG/1 ML Oral Concentrate 1 MG PO (21:32)
[2020-03-03] MEDS: LIDOCAINE Patch Removal 1 EACH TP ×2 (22:33)
[2020-03-04] MEDS: LORazepam 2 MG/1 ML Oral Concentrate 1 MG UD ×2 (03:35→09:01)
[2020-03-04] MEDS: Bisacodyl 10 MG SUPP PR (04:24)
[2020-03-04] MEDS: Polyethylene Glycol 3350 17 GM PACKET PO (07:23)
[2020-03-04] MEDS: Bacitracin 1 PACKET TP (07:23)
[2020-03-04] MEDS: MORPHine 2 MG/ML SYR IV/SC (07:29)
--- NOTE | 2020-03-04 08:49 | PDOC.CMPRO ---
Care Management Progress Note S/O: Vikram remains on comfort measures with symptom management. CM continues to follow. A: Vikram is a 69 year old male admitted for acute alcohol withdrawal, per report he did make statement in the ED of wanting to stop drinking. He was treated for aspiration pneumonia with IV ABX. He is now on comfort measures only status. P: Vikram remains on comfort measures with symptom management. Palliative continues to consult. CM has sent referrals to facilities for his end of life care, and is currently waiting for a response from [facility]. CM will continue to follow and provide support to patient, family and discharge planning needs.
[2020-03-04] MEDS: Lidocaine 5% Patch 1 PATCH TP (09:01)
--- NOTE | 2020-03-04 10:31 | DSE_ITS ---
Date of service: 03/04/20 Time of Service: 10:32 DS: Diagnosis Discharge Diagnosis (1) End of life care: Status: Acute (2) Comfort measures only status: Status: Acute (3) Constipation: Status: Acute Discharge Plan Disposition Patient Disposition: [facility] SWING BED LEVEL 1 Condition: Improving Discharge Details Chief Complaint: HeadInjury Reason For Visit: ALCOHOL WITHDRAWAL Admit Date/Time: 02/11/20 14:41 Admit Provider: Shonda Chaves Attending Provider: Shonda Chaves Primary Care Provider: Wilder Jimenez ED Provider: Mahi Alegria Hospital Course Hospital Course: Vikram is a 69 year old male who was admitted for acute alcohol withdrawal. He required ICU Level care for his symptoms requiring sedation and intubation and his hospital course was extended and complicated by severe encephalopathy, aspiration pneumonia, A. fib with RVR, transaminitis, electrolyte disturbances, thrombocytopenia. It did not appear that he would return to his baseline and it was decided by family to seek a palliative care consult and to transition to comfort focused care. They consult was placed and he was evaluated by Dr. Liliana Lamb. He did have some improvement and did start taking some oral intake. We have been using fentanyl patch for comfort and symptoms. He did require Haldol as needed for behavioral disturbance. Case management has been following and placement has been difficult due to his behavioral issues. He was trialed on Seroquel but this did not seem effective. He was then trialed on trazodone and this seems to have been helpful. Referrals have been placed and we are awaiting bed acceptance. He will be discharged to swing bed Level One at [facility] for ongoing PT/OT while awaiting a bed. 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 can not answer questions appropriately, laughs and provides no useful information. HEENT:normocephalic, pupils equal and round, mucous membranes moist. Neck: supple, no JVD. Cardiovascular: heart has regular rate and rhythm, no murmur appreciated. Respiratory: respirations appear even and unlabored,, lung sounds diminished bilaterally, no rales or wheezing. GI: thin, flat abdomen, +BS x 4 quadrants, soft, does not appear tender on palpation. Extremities: Moves all 4 extremities freely. Muscle atrophy noted to all 4 ex tremities. no edema Psych Mental Status: other (Confused) Speech and Movement: restless Mood: other (Confused) Affect: other (Confused) DS: Data Vitals/I&O Vitals and I&O: Vital Signs Temperature 36.6 C 03/02/20 07:53 Temperature Source Temporal Artery Scan 03/02/20 07:53 Pulse 81 03/02/20 07:53 Pulse 78 02/20/20 10:01 Respiratory Rate 18 03/02/20 07:53 Respiratory Effort Non-Labored 03/04/20 08:28 Respiratory Depth Normal 03/04/20 08:28 Respiratory Pattern Normal 03/04/20 08:28 Blood Pressure 149/94 H 03/02/20 07:53 Blood Pressure Mean 71 02/20/20 10:00 Blood Pressure Position Supine 02/20/20 04:03 Pulse Oximetry 98 03/02/20 07:53 Respiratory End-tidal CO2 27 02/17/20 12:01 Oxygen Delivery Method Room Air 03/02/20 07:53 Oxygen Flow Rate 0 03/02/20 07:53 Fraction of Inspired Oxygen (FIO2) 21 02/17/20 08:03 Pain Level 4 03/04/20 07:29 Comment 02/14/20 17:48 Intake & Output 03/03/20 03/03/20 03/04/20 11:59 23:59 11:59 Intake Total 980 / 1470 490 / 1470 287 / 287 Output Total 250 / 250 Balance 980 / 1220 240 / 1220 287 / 287 Intake: Oral 980 / 1470 490 / 1470 287 / 287 Output: Urine 250 / 250 Other: Urine Color Yellow Urine Appearance Clear Clear Clear Comment breif changed no urine seen at this time void x 1 in bsc. Stool Size Large Stool Characteristics Soft Formed Hard Brown Voiding Methods Bedside Commode Bedside Commode [facility] Medical History Alcohol abuse (Chronic) Alcohol withdrawal delirium, acute, hyperactive (Acute) Cervical spondylosis (Acute) Impingement syndrome of shoulder (Acute) Subarachnoid hematoma (Acute) Subdural hematoma (Resolved) Surgical History S/P arthroscopy of shoulder (Acute) S/p reverse total shoulder arthroplasty (Acute) Family History Other Family history unobtainable Social History Smoking/Tobacco Use Status: Current every day Alcohol Intake: current Alcohol Intake frequency: 3 or more drinks per day Alcohol type: beer Drug use: Never Do you feel safe in your relationship?: Yes
--- NOTE | 2020-03-04 10:36 | NUR.NOTE ---
pt being discharged from acute to swingbed.Nursing Note:
--- NOTE | 2020-03-04 14:55 | CMPROGNOTE_ITS ---
- If Service Date Differs Date of service: 03/04/20 Time of Service: 14:55 Care Management Progress Note S/O: Patient is transitioned to [facility] level 1 today for PT/OT while awaiting long-term placement. A: Vikram is a 69 year old male admitted on 02/11/2020 for acute alcohol withdrawal. He was treated for aspiration pneumonia with IV ABX. P: Vikram remains on comfort measures with symptom management. Referrals have been sent to facilities and a response is currently being awaited from the [facility]. CM will continue to provide support to patient, family and discharge planning needs.
== END 2020-03-04 11:26 | disposition swing bed (61) | DRG 896 ==
LOC: ER 15:26 → ICU 16:37 → MS 03-04 10:32 → ICU 03-05 08:59
PROVIDERS: Internal Medicine; Admitting Provider Internal Medicine; Emergency Provider Student in an Organized Health Care Education/Training Program; PCP Internal Medicine; Visit Provider Family Medicine
DX: F10.231 Alcohol dependence with withdrawal delirium (principal); J69.0 Pneumonitis due to inhalation of food and vomit; G92 Toxic encephalopathy; J15.8 Pneumonia due to other specified bacteria; D62 Acute posthemorrhagic anemia; Z16.19 Resistance to other specified beta lactam antibiotics; I48.0 Paroxysmal atrial fibrillation; E83.42 Hypomagnesemia; E86.0 Dehydration; F17.210 Nicotine dependence, cigarettes, uncomplicated; R74.0 Nonspecific elevation of levels of transaminase and lactic acid dehydrogenase [LDH]; E87.6 Hypokalemia; D69.6 Thrombocytopenia, unspecified; I95.9 Hypotension, unspecified; R09.02 Hypoxemia; Z51.5 Encounter for palliative care; T42.4X5A Adverse effect of benzodiazepines, initial encounter; R19.5 Other fecal abnormalities; G31.2 Degeneration of nervous system due to alcohol; R52 Pain, unspecified; K59.00 Constipation, unspecified; R13.10 Dysphagia, unspecified; I27.20 Pulmonary hypertension, unspecified; Z87.820 Personal history of traumatic brain injury; B96.89 Other specified bacterial agents as the cause of diseases classified elsewhere; Z66 Do not resuscitate; Z78.1 Physical restraint status
CPT/HCPCS: 36415; 36416; 36556; 71045; 80048; 80053; 80076; 82805; 82962; 84145; 85027; 86850; 86900; 86901; 87040; 87077; 92610; 93005; 93306; 96361; 96365; 96366; 96368; 96375; 96376; 97162; 97167; 99232; 99233; 99239; 99255; 99285; 99291; 31500; 36600; 70450; 70486; 74018; 76705; 80202; 80320; 81003; 81015; 82140; 82607; 82746; 83605; 83735; 83880; 84443; 84484; 85025; 85610; 87070; 87186; 87205; 93010; 94002; 94003; 97530; J0696; J0743; J1630; J1941; J2060; J2270; J2560; J3360; J3475; J3480; J3490; J7620

== ENCOUNTER 2020-03-04 11:53 | Inpatient (IN) | payer MEDICARE, MEDICAID, SELFPAY ==
--- NOTE | 2020-03-04 11:15 | CM.SBPSYCH ---
<Ivory Pinto - Last Filed: 03/05/20 18:12> - If Service Date Differs Date of service: 03/05/20 Time of Service: 10:49 SB Psychosocial/Act.Assessment - Hospital Admission Admission Date: 02/11/20 Admission From:: ED Diagnosis:: Alcohol withdrawal - Swing Bed Admission Swing Bed Admit Date:: 03/04/20 Swing Bed Level of Care: Level 1/SNF - Social Supports PREVIOUS FUNCTIONAL STATUS/SOCIAL/FAMILY SUPPORTS:: Vikram lives alone in [place], [place]. his spouse Nena is local and provides his main support. He does own a home in [facility] that she lives in. Vikram have several children, he does not see them often and his spouse reports over the last year Vikram has been unable to reconize them. - Prior to Admission Living Arrangements/Environment Prior to Admission:: Vikram was living alone at the [facility]. He is no longer able to go back to his apartment or live indepdently. Prior to admission his spouse Nena was bringing him his meals and assist with all bill paying. Prior to arriving to [facility] Nena reports that Vikram was not bathing, caring for self and he was hoarding in the apartment. - Work History Employment Status:: Retired - : No - Benefits Financial: Social Security, Medicare, Medicaid - Scientology Active Denominational Member:: No - Advance Directives for Healthcare Advance Directive Agent: Nena is acting agent and spouse - Present Functional Status Physical Abilities:: Weakness, confusion at times. Cognitive:: Vikram is alert often sleepy. He does not communicate or engage with CM most of the visit. He is able to communicate needs at times, including letting CM know that his back itches. Communication:: Impaired at times, does not make eye contact Sensory Systems: Impulsive at times. Limited ability to understand or communicate with others Behavior:: Impulsive at times - Medical History General Health:: Fair, patient was placed on comfort measures by his spouse after acute withdrawal and a period of time of intubation . He tolerates some intake however not without encouragement. Past Psychiatric Treatment:: History of alcohol use - Admission Data Reason for Swing Bed Admission:: Awating placement in LTC facility and LTM pending. Discharge Plan:: LTC facility once LTM is active and bed availaility. Patient is unable to return home safetly and will need placement in a facility. Procedure Tech: Ivory Pinto Date Assessment was completed:: 03/05/20 <Piedad Mata - Last Filed: 08/25/22 10:04> - If Service Date Differs Date of service: 03/04/20 Time of Service: 11:15 SB Psychosocial/Act.Assessment - Social Supports PREVIOUS FUNCTIONAL STATUS/SOCIAL/FAMILY SUPPORTS:: Vikram lives alone in [facility] but has the support of his spouse Nena. - Medical History PAST MEDICAL HISTORY/PAST SURGICAL HISTORY:: Medical History : Alcohol abuse (Chronic). Alcohol withdrawal delirium, acute, hyperactive (Acute). Cervical spondylosis (Acute). Impingement syndrome of shoulder (Acute). Subarachnoid hematoma (Acute). Subdural hematoma (Resolved). Surgical History : S/P arthroscopy of shoulder (Acute). S/p reverse total shoulder arthroplasty (Acute)
--- NOTE | 2020-03-04 11:15 | CM.SWINGPC ---
<Piedad Mata - Last Filed: 03/04/20 11:15> - If Service Date Differs Date of service: 03/04/20 Time of Service: 11:15 Swingbed Plan of Care Plan of care: SWING BED PROGRAM ACTIVITIES/DISCHARGE PLAN OF CARE ACTIVITIES PLAN Date: Identified Need: Intervention/Plan: Initials DISCHARGE PLAN Date: Identified Need: Intervention/Plan: Initials <BlairIvory - Last Filed: 03/05/20 18:25> - If Service Date Differs Date of service: 03/05/20 Time of Service: 18:23 Swingbed Plan of Care Plan of care: SWING BED PROGRAM ACTIVITIES/DISCHARGE PLAN OF CARE ACTIVITIES PLAN Date:03/05/2020 Identified Need:Individual activities Intervention/Plan: Activity Cart, visits with family, PT/OT, phone in the room and television Initialsal [facility] DISCHARGE PLAN Date:03/05/2020 Identified Need: LTC placement and LTM PT/OT Intervention/Plan: PT/OT ordered. Referrals to local SNF facilities for continuous churn buttermaker placement. Initials [facility]
--- NOTE | 2020-03-04 11:58 | HPE_ITS ---
Date of service: 03/04/20 Time of Service: 11:58 Assessment and Plan Assessment and plan (1) Comfort measures only status: Status: Acute Assessment and plan: will increase fentanyl patch, continue with prns for breakthough. continue comfort focused care, palliative care following (2) Constipation: Status: Acute Assessment and plan: continue bowel regimen, last BM today (3) Discharge planning issues: Status: Acute Assessment and plan: case management following, referrals placed and pending. will refer to PT/OT as he continues to slowly improve History of Present Illness History of Present Illness Chief Complaint: confusion Narrative: Vikram is a 69 year old male who was admitted for acute alcohol withdrawal. He required ICU Level care for his symptoms requiring sedation and intubation and his hospital course was extended and complicated by severe encephalopathy, aspiration pneumonia, A. fib with RVR, transaminitis, electrolyte disturbances, thrombocytopenia. It did not appear that he would return to his baseline and it was decided by family to seek a palliative care consult and to transition to comfort focused care. They consult was placed and he was evaluated by Dr. Liliana Lamb. He did have some improvement and did start taking some oral intake. We have been using fentanyl patch for comfort and symptoms. He did require Haldol as needed for behavioral disturbance. Case management has been following and placement has been difficult due to his behavioral issues. He was trialed on Seroquel but this did not seem effective. He was then trialed on trazodone and this seems to have been helpful. Referrals have been placed and we are awaiting bed acceptance. He will be discharged to swing bed Level One at [facility] for ongoing PT/OT while awaiting a bed. Review of Systems Narrative: no new active reports per nursing staff, patient is confused and unable to provide history. did require extra prn doses of morphine and ativan today for restlessness and comfort Unobtainable due to mental status [facility] Social History Smoking/Tobacco Use Status: Current every day Alcohol Intake: current Alcohol Intake frequency: 3 or more drinks per day Alcohol type: beer Drug use: Never Do you feel safe in your relationship?: Yes Meds Home Medications and Allergies Home Medications Medication Instructions Recorded Confirmed Type Unknown [No Known Home Meds] 02/11/20 02/11/20 History Allergies Allergy/AdvReac Type Severity Reaction Status Date / Time morphine Allergy Mild Skin Rash Unverified 02/11/20 13:24 Penicillins Allergy Mild Skin Rash Unverified 02/11/20 13:24 quetiapine [From Seroquel] Allergy per PCP Unverified 02/11/20 13:24 chart rofecoxib [From Vioxx] Allergy per PCP Unverified 02/11/20 13:24 chart tramadol [From Ultram] Allergy per PCP Unverified 02/11/20 13:24 chart Exam Narrative Exam Narrative: General: Appears chronically ill, thin, cachectic, calm this morning. He is Alert, oriented to self only. Answers some questions appropriately. Reaching. HEENT: atraumatic, pupils equal and round, mucous membranes moist. Egg sized Neck: supple, no JVD. Cardiovascular: heart has regular rate and rhythm, no murmur appreciated. Respiratory: respirations appear even and unlabored, +congested cough, lung sounds diminished bilaterally, no rales or wheezing. GI: thin, flat abdomen, +BS x 4 quadrants, soft, does not appear tender on palpation. Extremities: Moves all 4 extremities freely. Muscle atrophy noted to all 4 extremities. Reaching into air.
--- NOTE | 2020-03-04 12:34 | PT.INIE ---
Date of service: 03/04/20 Time of Service: 12:15 PT Notes Visit Reasons: ALCOHOL ABUSE Inpatient Physical Therapy Swingbed Evaluation Date: March 04, 2020 Referring Doctor: Lindy Shea PT Orders: PT Evaluate and Treat Precautions: Fall Risk Patient Profile/Admitting Diagnosis: Patient arrived at the emergency department on 10 of February with alcohol withdrawals and delirium. Diagnosed with alcohol withdrawals, A. fib, hypo-magnesium and dehydration. Currently on palliative care swing bed status awaiting senior care facility placement. PMHX: Medical History (Updated 02/11/20 @ 17:39 by Shonda Chaves MD) Alcohol abuse (Chronic) Alcohol withdrawal delirium, acute, hyperactive (Acute) Cervical spondylosis (Acute) Impingement syndrome of shoulder (Acute) Subarachnoid hematoma (Acute) Subdural hematoma (Resolved) Surgical History (Updated 02/11/20 @ 17:32 by Shonda Chaves MD) S/P arthroscopy of shoulder (Acute) S/p reverse total shoulder arthroplasty (Acute) Social History/Home Situation: Has an apartment at the [place], however no longer livable. from his for 4 and half years but she is a support person whom cares for him several times a week when at home. Equipment Owned/DME: None Subjective: Is agreeable to PT consult with primary goal of establishing functional mobility level. Objective: General Observation: Patient sitting reclined in Ortho chair with SENIOR IT ASSISTANT in room chair side. Mental Status: Aware of person and place. Pain: Notes global pain however did not rate on VAS ROM: Right Upper Extremity: 90 degrees of shoulder flexion, elbow flexion/ extension within normal limits, able to make fist Left Upper Extremity: 90 degrees of shoulder flexion, elbow flexion/ extension within normal limits, able to make fist Right Lower Extremity: Patient able to flex hip to 120 degrees while sitting in recliner bending knees fully. Knee extension 0 degrees. Ankle range of motion within functional limits Left Lower Extremity: Patient able to flex hip to 120 degrees while sitting in recliner bending his knees fully. Knee extension 0 degrees. Ankle range of motion within functional limits Strength: Right Upper Extremity: Shoulder flexion and abduction 3/5, Bicep and tricep 3+/5, fair kiln head house operator Left Upper Extremity: Shoulder flexion and abduction 3/5, bicep and tricep 3+/5, fair kiln head house operator Right Lower Extremity: Hip flexion 3+/5, quads and hamstrings 3+/5, ankle plantarflexion 4-/5, dorsiflexion 3+/5 Left Lower Extremity: Hip flexion 3+/5, quads and hamstrings 3+/5, ankle plantarflexion 4-/5, dorsiflexion 3+/5 Sensation: N/T Bed Mobility/Transfers: Sit?stand: Mod assist x2 to FFW with verbal cues necessary for hand placement and to promote erect posture upon standing Stand/sit: Mod assist x1 from FFW with verbal cues for proper hand placement. Patient just sat and did not reach back to chair Bed mobility not assessed. Return to Ortho recliner chair with SENIOR IT ASSISTANT present Gait: Mod assist required to maintain standing at FFW. With verbal cues for advancement of walker and lower extremities patient took 5 small steps then refused further distance. Assisted back to ortho recliner. Balance: Static Sitting: Good Dynamic Sitting: Fair Static Standing: Poor Dynamic Standing: Poor Special Tests: Mobility Limitations Standardized Measure [facility] AM-PAC 6 clicks Basic Mobility Inpatient Short Form: Raw Score:11 Standardized Score: 33.86 CMS Score: 72.57 CMS Modifier: CL Informed Consent/Education: Patient instructed in purpose of PT consult and plan of care. Assessment: Patient is a 69 year old male referred to physical therapy services with the diagnosis of alcohol withdrawals. On comfort measures. Patient presents with clinical signs and symptoms consistent with above diagnosis. Purpose of today's initial evaluation basically to determine functional level and promote mobility in preparation for transition to senior care care facility. Patient uncooperative throughout examination. Not sure how much patient is going to be willing to perform with functional mobility and transfers however will promote as much as possible within patient allowance and approval. He currently demonstrates the following impairment level findings: 1. Decreased strength to bilateral UE/LE major muscle groups 2. Impaired standing and sitting balance 3. Impaired activity tolerance Impairments are contributing to the following functional limitations: 1. Increased dependence with transfers 2. Inability to safely ambulate without assistive device and physical assistance 3. Increase completion time for mobility ADL performance 4. Increased fall risk Patient is assessed as a Moderate [id number] complexity based on the following: History: As above Examination: As above Presentation: Evolving Decision Making: Moderate [id number] Goals: Goals X1 week 1. Supine-Sit: Standby assist 2. Sit-Supine: Standby assist 3. Sit-Stand: Contact-guard x1 to front wheeled walker 4. Stand-Sit: Contact-guard x1 with front wheeled walker 5. Bed-Chair: Contact-guard x1 with front wheeled walker 6. Chair-Bed: Contact-guard x1 with front wheeled walker 7. Gait: 25 feet x 1 with front wheeled walker and contact-guard x1 8. Patient demonstrate improved dynamic sitting balance to fair Plan of Care/Treatment Plan: 1-2x/day, 7 days/week x 1 week. Plan of care has been reviewed with the RECORDAK OPERATOR providing the service under Physical Therapy direction. Initiate Physical Therapy intervention for strengthening, bed mobility, transfers, gait, stairs, balance training, use of assistive device. DISCHARGE RECOMMENDATIONS: care home care facility TREATMENT CODE/TIME: 12:15-12:35 [place] [id number] 20 minutes Thank you for this consult. Sara Shultz, MPT
--- NOTE | 2020-03-04 12:46 | PHACLINREV_ITS ---
Pharmacy Clinical Review - Admission Clinical Review morphine Allergy (Mild, Unverified 02/11/20 13:24) Skin Rash Penicillins Allergy (Mild, Unverified 02/11/20 13:24) Skin Rash quetiapine [From Seroquel] Allergy (Unverified 02/11/20 13:24) per PCP chart rofecoxib [From Vioxx] Allergy (Unverified 02/11/20 13:24) per PCP chart tramadol [From Ultram] Allergy (Unverified 02/11/20 13:24) per PCP chart - Renal Dosing Medications needing adjustments: Reviewed (CRCL ~88ML/MIN) - Anticoagulation DVT Prohphylaxis: N/A (SW) - Opiate Usage Evaluate Pain Scale/Pains Meds: N/A Scheduled Bowel Reg ordered if on Opiates?: Yes - Relevant Labs Electrolytes, C-Reactive P, ESR: N/A - Antimicrobial Stewardship Antibiotic appropriateness: N/A Culture review/Resistance: N/A - DM Control Insulin Dosing: N/A - Heart Failure/PR EF%, SINDHU's, B-Blockers, Diuretics: N/A - BP Control If elevated: N/A - QTc Review If Elevated: N/A - IV to PO Switch IV Medications: N/A - Home Meds Home Med List reviewed: N/A - Current meds Current Medication Order Review: N/A - Comments Comments/Follow Ups: 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 transferred to [facility] status. to order PT/OT
[2020-03-04] MEDS: MORPHine 2 MG/ML SYR IV/SC (13:10)
[2020-03-04] MEDS: LORazepam 2 MG/1 ML Oral Concentrate 1 MG UD ×3 (13:16→17:25)
[2020-03-04] MEDS: Acetaminophen 325 MG TAB 650 MG PO (14:28)
[2020-03-04] MEDS: fentaNYL 25 MCG PATCH TD (15:36)
[2020-03-04] MEDS: fentaNYL 12 MCG PATCH TD (15:36)
[2020-03-04] MEDS: LIDOCAINE Patch Removal 1 EACH TP (17:45)
[2020-03-04] MEDS: Haloperidol 5 MG/ML VIAL IM (18:09)
--- NOTE | 2020-03-05 08:59 | OTIE_ITS ---
Occupational Therapy Notes Inpatient Swing Bed 1 Occupational Therapy Evaluation Date: 03/05/20 Referring Doctor:Lindy Shea NP OT Orders: Non-Urgent Precautions: Fall, Standard, DNR/DNI PATIENT PROFILE/ADMITTING DIAGNOSIS: Pt is a 69 year old male who was admitted to [facility] through the Emergency Room on 02/11/20 for alcohol withdrawal and head injury to face and scalp. He was admitted into the ICU post admission for the following dx alcohol withdrawal, A-fib with rapid ventricular response, transminitis, hypomagnesemia, hypokalemia, dehydration, thrombocytopenia, aspiration pneumonia, DVT prophylaxis, h/o 2 brain bleeds. A palliative care consult was performed on 02/15/20 and pt was placed on end of life care/ETL DATABASE DEVELOPER. Pt has been more responsive at this time and is able to verbalize and communicate more as well as perform eating routines per nursing/MD. OT consult was initiated as pt was transitioned to Swing Bed 1 rehabilitation status at this time. Past Medical History: Medical History (Updated 02/11/20 @ 17:39 by Shonda Chaves MD) Alcohol abuse (Chronic) Alcohol withdrawal delirium, acute, hyperactive (Acute) Cervical spondylosis (Acute) Impingement syndrome of shoulder (Acute) Subarachnoid hematoma (Acute) Subdural hematoma (Resolved) Surgical History (Updated 02/11/20 @ 17:32 by Shonda Chaves MD) S/P arthroscopy of shoulder (Acute) S/p reverse total shoulder arthroplasty (Acute) Current Functional Limitations: Decreased strength in (B) UE, decreased functional activity tolerance, impairments in ADL/IADL and leisure activities, pain in lower back, decreased functional mobility required for ADLs/IADLs, decreased AROM of (B) UE. Social History/Home Situation: Pt states that he lives in a private home. He states yes when asked if he was (I) at his baseline level of function. He states yes to having children. Per pts chart he has a daughter. Pt states no when asked if he required (A) with dressing or bathing at baseline. Equipment owned/DME: None SUBJECTIVE: OBJECTIVE: General Observation: Mental Status: Pain: ROM: RUE AROM shoulder only visual shoulder protraction noted, PROM able to achieve 90* no pain noted, elbow actively pt could touch opposite shoulders, PROM of wrist, hand, digits are WNL. L UE AROM shoulder only visual shoulder protraction noted, PROM able to achieve 90* no pain noted, elbow actively pt could touch opposite shoulders, PROM of wrist, hand, digits are WNL. STRENGTH: RU LUE FUNCTIONAL MOBILITY/ADLS: Transfers BATHING- Dressing- TOILETING- Eating- SPECIAL TESTS: Daily Activity Limitations Standardized Measure [facility] AM -PAC ?6 clicks? Daily Activity Inpatient Short Form: Raw score: Standardized score: CMS score: INFORMED CONSENT/EDUCATION: Pt instructed in purpose of OT Consult and plan of care. ASSESSMENT: Patient is a 69-year-old male referred to occupational therapy services with diagnosis of for alcohol withdrawal and head injury to face and scalp. He was admitted into the ICU post admission for the following dx alcohol withdrawal, A-fib with rapid ventricular response, transminitis, hypomagnesemia, hypokalemia, dehydration, thrombocytopenia, aspiration pneumonia, DVT prophylaxis, h/o 2 brain bleeds. A palliative care consult was performed on 02/15/20 and pt was placed on end of life care/ETL DATABASE DEVELOPER. Pt has been more responsive at this time and is able to verbalize and communicate more as well as perform eating routines per nursing/MD. Pt was recently transitioned SW 1 program. Patient presents with clinical signs and symptoms consistent with dx, as demonstrated by the following impairment level findings: Pain in low back, (B) UE, decreased functional activity tolerance, weakness in (B) UE, decreased AROM/PROM, decreased functional mobility required for performance of ADLs/IADLs, decreased verbal communication, decreased gross and fine motor control of (B) UE, decreased gross motor control of (B) LE. Impairments are contributing to the following functional limitations: Pt has difficulty performing the following functional activities, decreased bed mobility and rolling on to side, decreased functional (I) for bathing, requires (A) for eating at this time but is able to perform this, (A) dressing,unable to perform fine motor control of (B) UE, decreased glass installer technician strength, decreased functional activity tolerance. AMPAC score Patient is assessed as a X complexity based on the following: History: See above Examination: see functional limitations as noted above Presentation: Evolving Decision Making: AMPAC score GOALS Goals x1 week 1. Dressing- 2. Bathing- 3. Eating- PLAN OF CARE/TREATMENT PLAN: 1x/day, 5 days/ week x 1week Initiate Occupational Therapy Services for bathing, dressing, grooming, toileting, eating, transfer training. DISCHARGE RECOMMENDATIONS Based on pts consult at todays session and current functional (I) in ADLs/IADLs OT does recommend that pt go to SNF when medically cleared per MD. TREATMENT TIME/MINUTES/CODES: Carol Smith OTR/L [facility]
--- NOTE | 2020-03-05 09:43 | W.NUTRFU ---
Date of service: 03/05/20 Time of Service: 09:43 Nutritional Follow up NOTE: Vikram downgraded to soft bite sized regular diet. Continues to take small amount of solid foods, relies mostly on juices, ensure. Not meeting nutrient and fluid needs at this time. 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 Expect weight decline, functional decline as per disease process. Time Spent in Nutritional Counseling and Treatment: 5 min spent face to face
--- NOTE | 2020-03-05 10:08 | OT.INNT ---
Date of service: 03/05/20 Time of Service: 10:08 Occupational Therapy Notes 03/05/20 OT consult received and pt's chart was reviewed. OT will hold consult today as pt is sleeping per nursing request. OT will resume OT services tomorrow. Carol Smith OTR/[facility]
[2020-03-05] MEDS: Polyethylene Glycol 3350 17 GM PACKET PO (10:42)
[2020-03-05] MEDS: Lidocaine 5% Patch 1 PATCH TP (10:42)
[2020-03-05] MEDS: Bacitracin 1 PACKET TP (10:43)
--- NOTE | 2020-03-05 13:18 | PT.INTREAT ---
Date of service: 03/05/20 Time of Service: 11:15 PT Notes Visit Reasons: ALCOHOL ABUSE Inpatient Physical Therapy Treatment Note [facility] Date: March 05, 2020 PRECAUTIONS:Standard, [place] SUBJECTIVE: Vikram nodded in acceptance of PT treatment today. OBJECTIVE: Remains in and out of sleep throughout session PAIN: Patient would not verbally communicate if he was in any pain. BED MOBILITY/TRANSFERS Rolling L/R: N/T, via his ex he was a max assist transfer via nursing from bed to ortho recliner this morning. Supine-sit: N/T Sit-supine: N/T Sit-stand: Patient refused to get up from chair this morning. GAIT: Patient refused to get up this morning with PT, unable to assess his gait. THEREX: Completed AA ROM to bilateral LE to include knee to chest, LAQ in sitting, heel pumps, and seated january. No complaints of pain. ASSESSMENT: Vikram remains very limited in his ability to perform all transfers, bed mobility and ambulation. Has a difficult time following simple commands. Does exhibit good UE strength for will shift his weight while sitting in ortho chair with complete UE assist. Also will give good resistance with exercises as completed in AM. Unable to stand today. Will continue within symptom and patient allowance. PLAN: Continue to promote functional mobility within symptom allowance. Discharge to SNF per MD order TREATMENT CODE/TIME: [id number] 10 minutes 11:15 AM
[2020-03-05] MEDS: traZODone 50 MG TAB PO (19:42)
[2020-03-05] MEDS: LIDOCAINE Patch Removal 1 EACH TP (19:43)
[2020-03-05] MEDS: LORazepam 2 MG/1 ML Oral Concentrate 1 MG PO (21:57)
[2020-03-06] MEDS: LORazepam 2 MG/1 ML Oral Concentrate 1 MG UD ×5 (00:55→20:00)
[2020-03-06] MEDS: Haloperidol 5 MG/ML VIAL IM ×8 (05:51→20:46)
--- NOTE | 2020-03-06 07:18 | OTIE_ITS ---
Occupational Therapy Notes Inpatient Occupational Therapy Evaluation Date: 03/05/20 Referring Doctor:Lindy Shea NP OT Orders: Non-Urgent Precautions: Fall, Standard, DNR/DNI PATIENT PROFILE/ADMITTING DIAGNOSIS: Pt is a 69 year old male who was admitted to [facility] through the Emergency Room on 02/11/20 for alcohol withdrawal and head injury to face and scalp. He was admitted into the ICU post admission for the following dx alcohol withdrawal, A-fib with rapid ventricular response, transminitis, hypomagnesemia, hypokalemia, dehydration, thrombocytopenia, aspiration pneumonia, DVT prophylaxis, h/o 2 brain bleeds. A palliative care consult was performed on 02/15/20 and pt was placed on end of life care/INDUSTRIAL REGISTERED NURSE. Pt has been more responsive at this time and is able to verbalize and communicate more as well as perform eating routines per nursing/MD.Pt was transitioned to [facility] Bed 1 rehabilitation program on 03/05/20. OT consult was initiated and ordered for assessment of pts current functional status and level of care needs at this time. Past Medical History: Medical History (Updated 02/11/20 @ 17:39 by Shonda Chaves MD) Alcohol abuse (Chronic) Alcohol withdrawal delirium, acute, hyperactive (Acute) Cervical spondylosis (Acute) Impingement syndrome of shoulder (Acute) Subarachnoid hematoma (Acute) Subdural hematoma (Resolved) Surgical History (Updated 02/11/20 @ 17:32 by Shonda Chaves MD) S/P arthroscopy of shoulder (Acute) S/p reverse total shoulder arthroplasty (Acute) Current Functional Limitations: Decreased strength in (B) UE, decreased functional activity tolerance, impairments in ADL/IADL and leisure activities, pain in lower back, decreased functional mobility required for ADLs/IADLs, decreased AROM of (B) UE. Social History/Home Situation: Pt states that he lives in a private home. He states yes when asked if he was (I) at his baseline level of function. He states yes to having children. Per pts chart he has a daughter. Pt states no when asked if he required (A) with dressing or bathing at baseline. Equipment owned/DME: None SUBJECTIVE: Pt was lying in chair when OT arrived with his at bedside. He was agreeable to OT session. OBJECTIVE: General Observation: Not very alert today. He was able to verbalize yes or no. Mental Status: Alert to name. Pain: no c/o pain ROM: RUE AROM shoulder only visual shoulder protraction noted, PROM able to achieve 90* no pain noted, elbow actively pt could touch opposite shoulders, PROM of wrist, hand, digits are WNL. L UE AROM shoulder only visual shoulder protraction noted, PROM able to achieve 90* no pain noted, elbow actively pt could touch opposite shoulders, PROM of wrist, hand, digits are WNL. STRENGTH: RUE crusher and binder operator is weak and symmetrical LUEgrip is weak and symmetrical FUNCTIONAL MOBILITY/ADLS: BATHING- sitting in chair with mod vc and max (A) to wash face, mod vc and mod (A) for (B) UE, tactile cues and mod vc to wash upper (B) LE. Pt was not receptive to bathing routine at todays session. Dressing- Pt is able to flex his (B) LE to bring his legs in, however is unable to don and doff his socks without max (A) at this time. TOILETING- NT SPECIAL TESTS: Daily Activity Limitations Standardized Measure [facility] AM -PAC ?6 clicks? Daily Activity Inpatient Short Form: Raw score: 16 INFORMED CONSENT/EDUCATION: Pt instructed in purpose of OT Consult and plan of care. ASSESSMENT: Patient is a 69-year-old male referred to occupational therapy services with diagnosis of for alcohol withdrawal and head injury to face and scalp. He was admitted into the ICU post admission for the following dx alcohol withdrawal, A-fib with rapid ventricular response, transminitis, hypomagnesemia, hypokalemia, dehydration, thrombocytopenia, aspiration pneumonia, DVT prophylaxis, h/o 2 brain bleeds. A palliative care consult was performed on 02/15/20 and pt was placed on end of life care/INDUSTRIAL REGISTERED NURSE. Pt has been more responsive at this time and is able to verbalize and communicate more as well as perform eating routines per nursing/MD and was transitioned to Swing Bed 1 rehabilitation program. Patient presents with clinical signs and symptoms consistent with dx, as demonstrated by the following impairment level findings: Pain in low back, (B) UE, decreased functional activity tolerance, weakness in (B) UE, decreased AROM/PROM, decreased functional mobility required for performance of ADLs/IADLs, decreased verbal communication, decreased gross and fine motor control of (B) UE, decreased gross motor control of (B) LE. Impairments are contributing to the following functional limitations: Pt has difficulty performing the following functional activities, decreased bed mobility and rolling on to side, requires (A) for bathing, requires (A) for eating at this time but is able to perform this, max (A) dressing at this time per GOODYEAR STITCHER, Pt requires visual communication at times due to difficulty understanding pts verbal communication (this is not consistent or all the time), unable to perform fine motor control of (B) UE, decreased crusher and binder operator strength, decreased functional activity tolerance. AMPAC score 16 Patient is assessed as a Moderate 33686 complexity based on the following: History: See above Examination: see functional limitations as noted above Presentation: Evolving Decision Making: AMPAC score 16 GOALS Goals x1 week 1. Dressing- Pt will be able to lift (B) UE into slight shoulder flexion for don and doffing hospital gown with mod (A) with min vc throughout. 2. Bathing- Pt will be able to wash his face and (B) UE with mod (A) while sitting in bed with support to back with min vc throughout. 3. Eating- Pt will be able to bring hand to mouth with mod (A) for eating routine and min vc. PLAN OF CARE/TREATMENT PLAN: 1x/day, 5 days/ week x 1week Initiate Occupational Therapy Services for bathing, dressing, grooming, toileting, eating, transfer training. DISCHARGE RECOMMENDATIONS Based on pts consult at todays session and current functional (I) in ADLs/IADLs OT does recommend that pt go to SNF when medically cleared per MD. TREATMENT TIME/MINUTES/CODES 06684, 15 minutes (11:05) Carol Smith OTR/[facility]
[2020-03-06] MEDS: Lidocaine 5% Patch 1 PATCH TP (10:12)
[2020-03-06] MEDS: Bacitracin 1 PACKET TP (10:13)
--- NOTE | 2020-03-06 10:30 | PT.INNT ---
Date of service: 03/06/20 Time of Service: 10:30 PT Notes Visit Reasons: ALCOHOL ABUSE Patient was sound asleep in bed upon arrival of PT. SALVATORE Kaplany suggested not to wake patient up as he has had a rough night and has not had a good sleep. She reported that they just provided total assistance with recliner to bed transfer as patient did not have the strength and remained confused about what has been happening around him . Nurse Cuevas was consulted who also is agreeable to not waking up patient to allow him to get much needed rest. He elaborated that patient has been having increased tendency for agitation and that moving him may not be safe at this time. Care Analilia Sinclair has been consulted and updated about patient status as well as POA wishes. Will continue assess the appropriateness of patient for skilled services and will coordinate with care management as needed for any plans of discontinuation of services.
--- NOTE | 2020-03-06 11:25 | NT_ITS ---
Date of service: 03/06/20 Time of Service: 11:25 Occupational Therapy Notes 03/06/20 OT will hold on OT services for today per Nursing recommendation. Will attempt to resume services tomorrow. Carol Smith OTR/[facility]
--- NOTE | 2020-03-06 12:39 | CMPROGNOTE_ITS ---
- If Service Date Differs Date of service: 03/06/20 Time of Service: 12:39 Care Management Progress Note S/O: Vikram was unable to work with PT or OT today, on the recommendation of primary RN. CM discussed his status with the provider, who agreed that he will need to transition to SWB 2 tomorrow, as PT/OT will be discharging him. CM will continue to follow. A: Vikram is a 69 year old male admitted on 02/11/2020 for acute alcohol withdrawal. He was treated for aspiration pneumonia with IV ABX. P: Vikram remains on comfort measures with symptom management. He is SWB 1 level of care at this time, but will transition to SWB 2 level of care tomorrow. CM will continue to [facility] for end of life care. CM will continue to provide support to patient, family and discharge planning needs.
--- NOTE | 2020-03-06 14:39 | INDS_ITS ---
Date of service: 03/06/20 Time of Service: 14:39 PT Notes Visit Reasons: ALCOHOL ABUSE Inpatient Physical Therapy Discharge Summary Dates: 03/06/2020 Dates of Service: 03/04/2020 through 03/06/2020 This is a clinical summary of care provided on the duration of dates listed above. No charge was made in the completion of this documentation. Referring Doctor: Lindy Shea NP PT Orders: Limited ability Precautions: Fall Risk Patient Profile/Admitting Diagnosis: Patient arrived at the emergency department on 10 of February with alcohol withdrawals and delirium. Diagnosed with alcohol withdrawals, A. fib, hypo-magnesium and dehydration. Currently on palliative care swing bed status awaiting prison facility placement. PMHX: Medical History (Updated 02/11/20 @ 17:39 by Shonda Chaves MD) Alcohol abuse (Chronic) Alcohol withdrawal delirium, acute, hyperactive (Acute) Cervical spondylosis (Acute) Impingement syndrome of shoulder (Acute) Subarachnoid hematoma (Acute) Subdural hematoma (Resolved) Surgical History (Updated 02/11/20 @ 17:32 by Shonda Chaves MD) S/P arthroscopy of shoulder (Acute) S/p reverse total shoulder arthroplasty (Acute) Social History/Home Situation: Has an apartment at the [place], however no longer livable. from his for 4 and half years but she is a support person whom cares for him several times a week when at home. Equipment Owned/DME: None Subjective: Per SALVATORE Pillai, patient has had a rough night and had been agitated. Patient has just come down and they were able to assist the patient back to bed and was resting when PT came in. Both SALVATORE Pillai and nurse Cuevas recommended against waking up patient so he can comfortably rest. Objective: NT. General Observation: Patient is lying in bed sleeping. SALVATORE Pillai present during PT visit Mental Status: NT. See most recent PT notes. Pain: NT. See most recent PT notes. ROM: (On initial evaluation) Right Upper Extremity: 90 degrees of shoulder flexion, elbow flexion/ extension within normal limits, able to make fist Left Upper Extremity: 90 degrees of shoulder flexion, elbow flexion/ extension within normal limits, able to make fist Right Lower Extremity: Patient able to flex hip to 120 degrees while sitting in recliner bending knees fully. Knee extension 0 degrees. Ankle range of motion within functional limits Left Lower Extremity: Patient able to flex hip to 120 degrees while sitting in recliner bending his knees fully. Knee extension 0 degrees. Ankle range of motion within functional limits Strength:(On initial evaluation) Right Upper Extremity: Shoulder flexion and abduction 3/5, Bicep and tricep 3+/5, fair mule spinner Left Upper Extremity: Shoulder flexion and abduction 3/5, bicep and tricep 3+/5, fair mule spinner Right Lower Extremity: Hip flexion 3+/5, quads and hamstrings 3+/5, ankle plantarflexion 4-/5, dorsiflexion 3+/5 Left Lower Extremity: Hip flexion 3+/5, quads and hamstrings 3+/5, ankle plantarflexion 4-/5, dorsiflexion 3+/5 Sensation: N/T Bed Mobility/Transfers: (On initial evaluation) Sit?stand: Mod assist x2 to FFW with verbal cues necessary for hand placement and to promote erect posture upon standing Stand/sit: Mod assist x1 from FFW with verbal cues for proper hand placement. Patient just sat and did not reach back to chair Bed mobility not assessed. Return to Ortho recliner chair with STONE CRUSHER OPERATOR present Gait: On initial evaluation, mod assist required to maintain standing at FFW. With verbal cues for advancement of walker and lower extremities patient took 5 small steps then refused further distance. Assisted back to ortho recliner. Balance: Static Sitting: Good Dynamic Sitting: Fair Static Standing: Unable to test Dynamic Standing: Unable to test Assessment: Referral for physical therapy services was made on 03/04/2020 with an initial plan of establishing mobility level in anticipation of SNF placement for this is 69-year-old male patient with the diagnosis of alcohol withdrawal. He has been on comfort measures since admission. Skilled services were deferred on 03/05/2020 and 03/06/2020 due to inability of patient to participate in therapy. Patient continues to present with clinical signs and symptoms consistent with above diagnosis. Due to patient's cognitive level and confusion resulting to lack of functional carryover, periods of agitation, unreliability of responses, and safety awareness impairment, he will continue to require one-on-one supervision and is not appropriate for skilled physical therapy services at this time. He continues to demonstrate the following impairment level findings: 1. Decreased strength to bilateral UE/LE major muscle groups 2. Impaired standing and sitting balance 3. Impaired activity tolerance Impairments continue to contribute to the following functional limitations: 1. Increased dependence with transfers 2. Inability to safely ambulate without assistive device and physical assistance 3. Increase completion time for mobility ADL performance 4. Increased fall risk Goals: Goals X1 week 1. Supine-Sit: Standby assist NOT MET 2. Sit-Supine: Standby assist NOT MET 3. Sit-Stand: Contact-guard x1 to front wheeled walker NOT MET 4. Stand-Sit: Contact-guard x1 with front wheeled walker NOT MET 5. Bed-Chair: Contact-guard x1 with front wheeled walker NOT MET 6. Chair-Bed: Contact-guard x1 with front wheeled walker NOT MET 7. Gait: 25 feet x 1 with front wheeled walker and contact-guard x1 NOT MET 8. Patient demonstrate improved dynamic sitting balance to fair NOT MET DISCHARGE RECOMMENDATIONS: senior living facility placement for continued end-of-life care. May maximize safety of patient and staff with use of mechanical lift for all transfer tasks. TREATMENT CODE/TIME: NC. Thank you very much for this referral. Kaya Lozano PT, DPT, CLT [facility] Inpatient [facility]
[2020-03-06] MEDS: MORPHine 2 MG/ML SYR IV/SC ×6 (15:28→22:12)
--- NOTE | 2020-03-06 16:33 | NUR.NOTE ---
Nursing Note: Patient has been uncomfortable and in pain since cos. He has been repositioned , placed in a recliner, toileted multiple times with no result. he has been given food and hydration, plus medication, and the patient still verbalizes and shows physical signs of pain and discomfort
[2020-03-06] MEDS: LORazepam 2 MG/ML VIAL 1 MG IM ×3 (17:57→22:11)
[2020-03-06] MEDS: traZODone 50 MG TAB 75 MG PO (19:36)
[2020-03-06] MEDS: LIDOCAINE Patch Removal 1 EACH TP (21:16)
[2020-03-06] MEDS: Mirtazapine 15 MG TAB PO (22:12)
[2020-03-06] MEDS: LORazepam 2 MG/1 ML Oral Concentrate 1 MG PO (22:12)
[2020-03-07] MEDS: MORPHine 2 MG/ML SYR IV/SC ×3 (01:31→18:22)
[2020-03-07] MEDS: LORazepam 2 MG/ML VIAL 1 MG IM ×3 (01:31→18:22)
[2020-03-07] MEDS: Polyethylene Glycol 3350 17 GM PACKET PO (07:54)
[2020-03-07] MEDS: Bacitracin 1 PACKET TP (07:54)
[2020-03-07] MEDS: Lidocaine 5% Patch 1 PATCH TP (10:04)
--- NOTE | 2020-03-07 10:27 | OT.INDS ---
Date of service: 03/07/20 Time of Service: 10:27 Occupational Therapy Notes Occupational Therapy Inpatient Discharge Summary Date: 03/07/20 Dates of Service: 03/05/20-03/07/20 Referring Doctor:Lindy Shea NP OT Orders: Non-Urgent Precautions: Fall, Standard, DNR/DNI PATIENT PROFILE/ADMITTING DIAGNOSIS: Pt is a 69 year old male who was admitted to [facility] through the Emergency Room on 02/11/20 for alcohol withdrawal and head injury to face and scalp. He was admitted into the ICU post admission for the following dx alcohol withdrawal, A-fib with rapid ventricular response, transminitis, hypomagnesemia, hypokalemia, dehydration, thrombocytopenia, aspiration pneumonia, DVT prophylaxis, h/o 2 brain bleeds. A palliative care consult was performed on 02/15/20 and pt was placed on end of life care/WASHER AND CRUSHER TENDER. Pt has been more responsive at this time and is able to verbalize and communicate more as well as perform eating routines per nursing/MD.Pt was transitioned to Swing Bed 1 rehabilitation program on 03/05/20. OT consult was initiated and ordered for assessment of pts current functional status and level of care needs at this time. It was recommended per RN to hold on rehabilitative services and pt will be discharged from skilled OT services today and transitioned into Swing Bed 2 rehabilitation status. Past Medical History: Medical History (Updated 02/11/20 @ 17:39 by Shonda Chaves MD) Alcohol abuse (Chronic) Alcohol withdrawal delirium, acute, hyperactive (Acute) Cervical spondylosis (Acute) Impingement syndrome of shoulder (Acute) Subarachnoid hematoma (Acute) Subdural hematoma (Resolved) Surgical History (Updated 02/11/20 @ 17:32 by Shonda Chaves MD) S/P arthroscopy of shoulder (Acute) S/p reverse total shoulder arthroplasty (Acute) Current Functional Limitations: Decreased strength in (B) UE, decreased functional activity tolerance, impairments in ADL/IADL and leisure activities, pain in lower back, decreased functional mobility required for ADLs/IADLs, decreased AROM of (B) UE. Social History/Home Situation: Pt states that he lives in a private home. He states yes when asked if he was (I) at his baseline level of function. He states yes to having children. Per pts chart he has a daughter. Pt states no when asked if he required (A) with dressing or bathing at baseline. Equipment owned/DME: None SUBJECTIVE: NT OBJECTIVE: *This document serves as a summary of care, no skilled OT services were provided for this documentation. ROM: RUE AROM shoulder only visual shoulder protraction noted, PROM able to achieve 90* no pain noted, elbow actively pt could touch opposite shoulders, PROM of wrist, hand, digits are WNL. L UE AROM shoulder only visual shoulder protraction noted, PROM able to achieve 90* no pain noted, elbow actively pt could touch opposite shoulders, PROM of wrist, hand, digits are WNL. STRENGTH: RUE filler sifter machine is weak and symmetrical LUEgrip is weak and symmetrical FUNCTIONAL MOBILITY/ADLS: BATHING- sitting in chair with mod vc and max (A) to wash face, mod vc and mod (A) for (B) UE, tactile cues and mod vc to wash upper (B) LE. Pt was not receptive to bathing routine at todays session. Dressing- Pt is able to flex his (B) LE to bring his legs in, however is unable to don and doff his socks without max (A) at this time. TOILETING- NT ASSESSMENT: Patient is a 69-year-old male referred to occupational therapy services with diagnosis of for alcohol withdrawal and head injury to face and scalp. He was admitted into the ICU post admission for the following dx alcohol withdrawal, A-fib with rapid ventricular response, transminitis, hypomagnesemia, hypokalemia, dehydration, thrombocytopenia, aspiration pneumonia, DVT prophylaxis, h/o 2 brain bleeds. A palliative care consult was performed on 02/15/20 and pt was placed on end of life care/WASHER AND CRUSHER TENDER.Pt was seen for OT consult only. He is being transitioned to Swing Bed level 2 today. OT will formally discharge pt at this time. GOALS- Unable to assess as pt was seen for OT consult only. 1. Dressing- Pt will be able to lift (B) UE into slight shoulder flexion for don and doffing hospital gown with mod (A) with min vc throughout. 2. Bathing- Pt will be able to wash his face and (B) UE with mod (A) while sitting in bed with support to back with min vc throughout. 3. Eating- Pt will be able to bring hand to mouth with mod (A) for eating routine and min vc. PLAN OF CARE/TREATMENT PLAN: Pt is transitioning to Swing bed level 2 at this time. DISCHARGE RECOMMENDATIONS Based on pts consult at todays session and current functional (I) in ADLs/IADLs OT does recommend that pt go to SNF when medically cleared per MD. TREATMENT TIME/MINUTES/CODES N/A Carol Smith, OTR/L [facility]
[2020-03-07] MEDS: fentaNYL 25 MCG PATCH TD (15:51)
[2020-03-07] MEDS: fentaNYL 12 MCG PATCH TD (15:52)
[2020-03-07] MEDS: traZODone 50 MG TAB PO (15:52)
[2020-03-08] MEDS: Haloperidol 5 MG/ML VIAL IM (06:19)
[2020-03-08] MEDS: Polyethylene Glycol 3350 17 GM PACKET PO (10:01)
[2020-03-08] MEDS: Refresh PLUS Eye Drops 0.4ml 2 EACH OU (10:21)
[2020-03-08] MEDS: Bacitracin 1 PACKET TP (10:22)
[2020-03-08] MEDS: Lidocaine 5% Patch 1 PATCH TP (10:23)
[2020-03-08] MEDS: LORazepam 2 MG/ML VIAL 1 MG IM ×3 (10:39→19:45)
[2020-03-08] MEDS: traZODone 50 MG TAB PO (14:18)
[2020-03-08] MEDS: Bisacodyl 10 MG SUPP PR (17:25)
[2020-03-08] MEDS: MORPHine 2 MG/ML SYR IV/SC (19:46)
[2020-03-08] MEDS: QUEtiapine 25 MG TAB PO (19:51)
[2020-03-08] MEDS: traZODone 50 MG TAB 75 MG PO (19:51)
[2020-03-08] MEDS: LIDOCAINE Patch Removal 1 EACH TP (20:00)
[2020-03-08] MEDS: LORazepam 2 MG/1 ML Oral Concentrate 1 MG PO (22:41)
[2020-03-08] MEDS: Mirtazapine 15 MG TAB PO (22:41)
[2020-03-09] MEDS: LORazepam 2 MG/ML VIAL 1 MG IM (05:38)
[2020-03-09] MEDS: MORPHine 2 MG/ML SYR IV/SC ×3 (05:38→18:15)
[2020-03-09] MEDS: Polyethylene Glycol 3350 17 GM PACKET PO (09:10)
[2020-03-09] MEDS: Bacitracin 1 PACKET TP (09:10)
[2020-03-09] MEDS: QUEtiapine 25 MG TAB PO ×2 (09:10→20:45)
[2020-03-09] MEDS: Lidocaine 5% Patch 1 PATCH TP (09:47)
[2020-03-09] MEDS: traZODone 50 MG TAB PO (13:40)
[2020-03-09] MEDS: traZODone 50 MG TAB 75 MG PO (20:45)
[2020-03-09] MEDS: LORazepam 2 MG/1 ML Oral Concentrate 1 MG PO (20:46)
[2020-03-09] MEDS: Mirtazapine 15 MG TAB PO (20:46)
[2020-03-09] MEDS: LIDOCAINE Patch Removal 1 EACH TP (20:46)
[2020-03-10] MEDS: LORazepam 2 MG/ML VIAL 1 MG IM ×3 (01:16→08:38)
[2020-03-10] MEDS: MORPHine 2 MG/ML SYR IV/SC ×3 (01:17→18:39)
[2020-03-10] MEDS: Polyethylene Glycol 3350 17 GM PACKET PO (08:37)
[2020-03-10] MEDS: Bacitracin 1 PACKET TP (08:37)
[2020-03-10] MEDS: QUEtiapine 25 MG TAB PO (08:37)
[2020-03-10] MEDS: Lidocaine 5% Patch 1 PATCH TP (12:34)
[2020-03-10] MEDS: traZODone 50 MG TAB PO (13:02)
[2020-03-10] MEDS: LORazepam 2 MG/ML VIAL 1 MG IM/IV ×2 (13:32→19:47)
[2020-03-10] MEDS: fentaNYL 12 MCG PATCH TD (16:32)
[2020-03-10] MEDS: fentaNYL 25 MCG PATCH TD (16:33)
[2020-03-10] MEDS: LIDOCAINE Patch Removal 1 EACH TP (20:02)
[2020-03-10] MEDS: traZODone 50 MG TAB 75 MG PO (20:03)
[2020-03-10] MEDS: Mirtazapine 15 MG TAB PO (22:08)
[2020-03-10] MEDS: LORazepam 2 MG/1 ML Oral Concentrate 1 MG PO (22:08)
[2020-03-11] MEDS: Doxazosin 1 MG TAB PO (12:21)
[2020-03-11] MEDS: Lidocaine 5% Patch 1 PATCH TP (12:23)
[2020-03-11] MEDS: Polyethylene Glycol 3350 17 GM PACKET PO (12:24)
[2020-03-11] MEDS: Bacitracin 1 PACKET TP (12:24)
[2020-03-11] MEDS: Docusate Sodium 100 MG/10 ML CUP UD (14:23)
[2020-03-11] MEDS: traZODone 50 MG TAB PO (14:23)
[2020-03-11] MEDS: MORPHine 2 MG/ML SYR IV/SC ×2 (18:09→23:18)
[2020-03-11] MEDS: traZODone 50 MG TAB 75 MG PO (20:20)
[2020-03-11] MEDS: LIDOCAINE Patch Removal 1 EACH TP (20:20)
[2020-03-11] MEDS: LORazepam 2 MG/1 ML Oral Concentrate 1 MG PO (22:02)
[2020-03-11] MEDS: Mirtazapine 15 MG TAB PO (22:03)
[2020-03-11] MEDS: LORazepam 2 MG/ML VIAL 1 MG IM/IV (22:35)
[2020-03-11] MEDS: Bisacodyl 10 MG SUPP PR (23:19)
[2020-03-12] MEDS: LORazepam 2 MG/1 ML Oral Concentrate 1 MG UD (07:17)
[2020-03-12] MEDS: MORPHine 2 MG/ML SYR IV/SC ×3 (07:25→21:30)
[2020-03-12] MEDS: LORazepam 2 MG/ML VIAL 1 MG IM/IV ×3 (07:32→23:00)
[2020-03-12] MEDS: Polyethylene Glycol 3350 17 GM PACKET PO (07:56)
[2020-03-12] MEDS: Refresh PLUS Eye Drops 0.4ml 2 EACH OU (07:56)
[2020-03-12] MEDS: Doxazosin 1 MG TAB PO (07:57)
[2020-03-12] MEDS: Acetaminophen 325 MG TAB 650 MG PO (07:57)
[2020-03-12] MEDS: Docusate Sodium 100 MG/10 ML CUP UD (07:57)
[2020-03-12] MEDS: Lidocaine 5% Patch 1 PATCH TP (09:15)
--- NOTE | 2020-03-12 12:24 | W.PM.PROGNOT ---
Date of Service Date of service: 03/12/20 Time of Service: 12:24 Assessment and Plan Assessment and plan (1) Comfort measures only status: Status: Acute Assessment and plan: continue medication adjustments. gabapentin increased to 300 mg PO BID, continue mirtazipine at HS and trazadone BID. (2) Constipation: Status: Acute Assessment and plan: continue bowel regimen (3) Discharge planning issues: Status: Acute Assessment and plan: case management following, referrals placed and pending. Subjective Subjective Interval history since last seen: continues to deteriorate and with increasing periods of confusion and behavioral disturbances. Exam Narrative Exam Narrative: General: Appears chronically ill, thin, cachectic, calm this morning. He is Alert, confused . Answers some questions appropriately. Reaching. HEENT: atraumatic, pupils equal and round, mucous membranes moist. Egg sized Neck: supple, no JVD. Cardiovascular: heart has regular rate and rhythm, no murmur appreciated. Respiratory: respirations appear even and unlabored, +congested cough, lung sounds diminished bilaterally, no rales or wheezing. GI: thin, flat abdomen, +BS x 4 quadrants, soft, does not appear tender on palpation. Extremities: Moves all 4 extremities freely. Muscle atrophy noted to all 4 extremities.. Objective Objective Clinical Data: Vital Signs Respiratory Effort 03/12/20 10:08 Respiratory Depth Normal 03/12/20 10:08 Respiratory Pattern Normal 03/12/20 10:08 Pain Level 7 03/12/20 09:16 Intake & Output 03/11/20 03/12/20 03/12/20 23:59 11:59 23:59 Intake Total 960 / 960 240 / 240 Output Total 240 / 240 600 / 600 Balance 720 / 720 -360 / -360 Intake: Oral 960 / 960 240 / 240 Output: Urine 240 / 240 600 / 600 Other: Urine Color Yellow Urine Appearance Sediment Comment Has not voided yet. pt very restless, bladder scan for 200 ml. Stool Size Large Stool Characteristics Soft
--- NOTE | 2020-03-12 13:09 | TELEFU_ITS ---
Date of service: 03/12/20 Time of Service: 13:09 Nutritional Follow up NOTE: Vikram continues to refuse most meals, will take ensure BID. At high risk for skin breakdown as not meeting nutrient needs, frequent repositioning essential. Will continue to offer meals/ensure as desired. At risk for further nutritional decline. 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 Time Spent in Nutritional Counseling and Treatment: 0 time spent face to face
[2020-03-12] MEDS: traZODone 50 MG TAB PO (15:45)
--- NOTE | 2020-03-12 16:24 | PSYCO_ITS ---
Date of service: 03/10/20 Time of Service: 11:30 History of Present Illness Narrative: Shonda Chaves MD requested phone consultation for Vikram Lenz to help with management of agitation post ICU stay. I reviewed the patient's chart and Dr. Chaves reviewed with me the pertinent events of the last day. I did not see the patient [id number] as telephone consultation was deemed sufficient at this time. Per Lindy Shea [employer] H&P note of 03/04/2020: Vikram is a 69 year old male who was admitted for acute alcohol withdrawal. He required ICU Level care for his symptoms requiring sedation and intubation and his hospital course was extended and complicated by severe encephalopathy, aspiration pneumonia, A. fib with RVR, transaminitis, electrolyte disturbances, thrombocytopenia. It did not appear that he would return to his baseline and it was decided by family to seek a palliative care consult and to transition to comfort focused care. They consult was placed and he was evaluated by Dr. Liliana Lamb. He did have some improvement and did start taking some oral intake. We have been using fentanyl patch for comfort and symptoms. He did require Haldol as needed for behavioral disturbance. Case management has been following and placement has been difficult due to his behavioral issues. He was trialed on Seroquel but this did not seem effective. He was then trialed on trazodone and this seems to have been helpful. Consults Consult date: 03/10/20 Requesting physician: Shonda Chaves Assessment and Plan Assessment and plan (1) Encephalopathy: Status: Acute Assessment and plan: Vikram Lenz is a 69 year old male admitted for acute alcohol intoxication and admitted to intensive care for management of withdrawal requiring intubation. His physical condition as significantly deteriorated in recent months and he was placed on Comfort Measures and once stabilized moved out of the ICU to the general med/surg floor where his medical condition remains stable. Agitation and confusion continues. I see that he continues to be agitated even when receiving as much as 40mg of haloperidol in a 24 hour period. Also seroquel was not effective in reducing agitation. It may be that the antipsychotic itself is causing akithisia or agitation. although he has history of liver damage and benzodiazepines would normally be avoided, given that he is comfort measures only, I recommend managing his agitation with lorazepam by whatever route he can take it: PO, IM or IV. It is not likely to cause as acute an adverse effect as the antipsychotic and is more likely to help him be comfortable and calm. I recommend that mirtazapine at bedtime be resumed as it is cleared by the kidneys and will have little adverse impact on the liver. Monitor for excessive morning sedation to make sure he is handling it fine. Likewise, continue trazodone at bedtime if necessary to help him sleep through the night if mirtazapine alone is not sufficient. These two medications may help with reducing the overall load of lorazepam necessary. Finally, be aware the opioids can be deliriogenic, with morphine being the most risky for causing delirium. I agree with relying on fentanyl patch for pain management. I discussed the above recommendations with Dr. Chaves and if further consultation is needed Dr. Chaves is welcome to contact me at any time. (2) Comfort measures only status: Status: Acute [facility] Social History Smoking/Tobacco Use Status: Current every day Alcohol Intake: current Alcohol Intake frequency: 3 or more drinks per day Alcohol type: beer Drug use: Never Do you feel safe in your relationship?: Yes
[2020-03-12] MEDS: traZODone 50 MG TAB 75 MG PO (20:22)
[2020-03-12] MEDS: LIDOCAINE Patch Removal 1 EACH TP (20:22)
[2020-03-12] MEDS: LORazepam 2 MG/1 ML Oral Concentrate 1 MG PO (21:11)
[2020-03-12] MEDS: Mirtazapine 15 MG TAB PO (21:11)
[2020-03-13] MEDS: LORazepam 2 MG/ML VIAL 1 MG IM/IV (03:39)
[2020-03-13] MEDS: MORPHine 2 MG/ML SYR IV/SC ×3 (03:39→15:31)
[2020-03-13] MEDS: Promethazine 25 MG SUPP PR (03:40)
[2020-03-13] MEDS: Doxazosin 1 MG TAB PO (08:32)
[2020-03-13] MEDS: Polyethylene Glycol 3350 17 GM PACKET PO (08:32)
[2020-03-13] MEDS: Lidocaine 5% Patch 1 PATCH TP (09:16)
[2020-03-13] MEDS: LORazepam 2 MG/1 ML Oral Concentrate 1 MG UD ×2 (11:48→15:31)
[2020-03-13] MEDS: traZODone 50 MG TAB PO (13:42)
[2020-03-13] MEDS: fentaNYL 12 MCG PATCH TD (15:30)
[2020-03-13] MEDS: fentaNYL 25 MCG PATCH TD (15:30)
--- NOTE | 2020-03-13 16:45 | PDOC.CMPRO ---
Care Management Progress Note Vikram remains in SWB2 at [facility] due to unavailability of appropriate placement. He continues to enjoy conversing with staff and is well supported. Per report, his LTC Medicaid waiver has been approved. Psychiatrist Consult recommendations; I recommend managing his agitation with lorazepam by whatever route he can take it: PO, IM or IV. It is not likely to cause as acute an adverse effect as the antipsychotic and is more likely to help him be comfortable and calm. I recommend that mirtazapine at bedtime be resumed as it is cleared by the kidneys and will have little adverse impact on the liver. Monitor for excessive morning sedation to make sure he is handling it fine. Likewise, continue trazodone at bedtime if necessary to help him sleep through the night if mirtazapine alone is not sufficient. These two medications may help with reducing the overall load of lorazepam necessary. Finally, be aware the opioids can be deliriogenic, with morphine being the most risky for causing delirium. I agree with relying on fentanyl patch for pain management. I discussed the above recommendations with Dr. Chaves and if further consultation is needed Dr. Chaves is welcome to contact me at any time.
[2020-03-13] MEDS: Mirtazapine 15 MG TAB PO (19:46)
[2020-03-13] MEDS: traZODone 50 MG TAB 75 MG PO (19:46)
[2020-03-13] MEDS: LORazepam 2 MG/1 ML Oral Concentrate 1 MG PO (19:47)
[2020-03-13] MEDS: LIDOCAINE Patch Removal 1 EACH TP (21:06)
[2020-03-14] MEDS: MORPHine 2 MG/ML SYR IV/SC ×4 (06:58→21:54)
[2020-03-14] MEDS: LORazepam 2 MG/ML VIAL 1 MG IM/IV (09:43)
[2020-03-14] MEDS: Lidocaine 5% Patch 1 PATCH TP (09:45)
[2020-03-14] MEDS: Doxazosin 1 MG TAB PO (09:45)
[2020-03-14] MEDS: Polyethylene Glycol 3350 17 GM PACKET PO (09:46)
[2020-03-14] MEDS: Bacitracin 1 PACKET TP (09:46)
[2020-03-14] MEDS: traZODone 50 MG TAB PO (17:40)
[2020-03-14] MEDS: traZODone 50 MG TAB 75 MG PO (20:07)
[2020-03-14] MEDS: LORazepam 2 MG/1 ML Oral Concentrate 1 MG UD (20:08)
[2020-03-14] MEDS: LIDOCAINE Patch Removal 1 EACH TP (21:14)
[2020-03-14] MEDS: Mirtazapine 15 MG TAB PO (21:53)
[2020-03-14] MEDS: LORazepam 2 MG/1 ML Oral Concentrate 1 MG PO (21:54)
[2020-03-15] MEDS: MORPHine 2 MG/ML SYR IV/SC ×5 (02:18→10:16)
[2020-03-15] MEDS: LORazepam 2 MG/1 ML Oral Concentrate 1 MG UD ×3 (03:42→23:26)
[2020-03-15] MEDS: Polyethylene Glycol 3350 17 GM PACKET PO (09:03)
[2020-03-15] MEDS: LORazepam 2 MG/ML VIAL 1 MG IM/IV ×2 (09:04→13:09)
--- NOTE | 2020-03-15 11:04 | NUR.NOTE ---
Nursing Note: Patient is very restless and agitated today, he is resistive to assessment and care, flailing out at staff, he has a skin tear on the right elbow, and a stage 2 on the coccyx area. his repeated movements on the bed are contributing shear to these areas. Patient will not keep dressings on these areas as he will remove them as soon as they have been applied. Patients fentanyl patch is missing and could not immediately be located. Again we cannot assess his wounds as he will not allow us to do so
[2020-03-15] MEDS: Mirtazapine 15 MG TAB PO (21:16)
[2020-03-15] MEDS: LORazepam 2 MG/1 ML Oral Concentrate 1 MG PO (21:16)
[2020-03-15] MEDS: traZODone 50 MG TAB 75 MG PO (21:16)
[2020-03-16] MEDS: LORazepam 2 MG/1 ML Oral Concentrate 1 MG UD ×2 (04:45→08:25)
[2020-03-16] MEDS: Doxazosin 1 MG TAB PO (08:25)
--- NOTE | 2020-03-16 11:23 | PDOC.CMPRO ---
- If Service Date Differs Date of service: 03/16/20 Time of Service: 11:23 Care Management Progress Note S/O: Vikram was presented at interdisciplinary rounds, he remains comfort measures only, he has been presented as having unmanaged pain. CADD pump was restarted and it appears he is less restless and pain per nursing is better controlled. CM will send an update to [facility] he may be able to be on hospice at the rehab now that he has [facility]dc medicaid and continue with the CADD pump there. Spouse has been visiting daily and providing support to him at the bedside. She has agreed to AF home if there is not a skilled facility willing to accept the patient. Concern is that it could take months to approve a home. Vikram is not taking in enough nourishment to sustain, he is not able to ambulate, he is total comfort measures at this point. CM has not sent AFC referrals at this time will await [facility] rehab final review. CM will reach out to [facility] to determine if end of life care could be provided at the facility. CM did speak to Nena about caring for Vikram at home for end of life care however she does not feel due to her own health concerns that she could do this. A: Vikram is a 69 year old male admitted with ETOH withdrawal who is comfort measures only and in need of predatory animal exterminator care facility. Vikram now has choices for care highest needs and could receive this level of care at a skilled nursing facility. P: Review plan with [facility] to determined if Vikram could transition to their services with a CADD pump and question of Hospice services. CM will contact providers on Tuesday to review.
[2020-03-16] MEDS: traZODone 50 MG TAB 100 MG PO (20:09)
[2020-03-16] MEDS: Mirtazapine 15 MG TAB PO (21:54)
[2020-03-16] MEDS: LORazepam 2 MG/1 ML Oral Concentrate 1 MG PO (21:58)
[2020-03-17] MEDS: LORazepam 2 MG/ML VIAL 1 MG IM/IV (05:21)
[2020-03-17] MEDS: traZODone 50 MG TAB PO ×2 (08:19→12:58)
[2020-03-17] MEDS: Doxazosin 1 MG TAB PO (08:19)
[2020-03-17] MEDS: Polyethylene Glycol 3350 17 GM PACKET PO (08:19)
[2020-03-17] MEDS: Bacitracin 1 PACKET TP (09:31)
[2020-03-17] MEDS: Lidocaine 5% Patch 1 PATCH TP (09:31)
[2020-03-17] MEDS: LORazepam 2 MG/1 ML Oral Concentrate 1 MG UD (10:23)
--- NOTE | 2020-03-17 12:48 | W.NUTRFU ---
Date of service: 03/17/20 Time of Service: 12:49 Nutritional Follow up NOTE: Vikram continues to refuse most meals, now refusing ensure most of time when offered. Family brings in food that he occasionally will eat. Not meeting nutrient or fluid needs at this time. SUPER[employer]OR [employer], expect rapid decline. Will continue to follow and offer meals/beverages as desires. Time Spent in Nutritional Counseling and Treatment: 5 min spent face to face
[2020-03-17] MEDS: Mirtazapine 15 MG TAB PO (20:17)
[2020-03-17] MEDS: traZODone 50 MG TAB 100 MG PO (20:17)
[2020-03-17] MEDS: LORazepam 2 MG/1 ML Oral Concentrate 1 MG PO (20:19)
[2020-03-17] MEDS: LIDOCAINE Patch Removal 1 EACH TP (20:20)
[2020-03-18] MEDS: LORazepam 2 MG/ML VIAL 1 MG IM/IV ×2 (06:41→09:36)
[2020-03-18] MEDS: traZODone 50 MG TAB PO (07:45)
[2020-03-18] MEDS: Bacitracin 1 PACKET TP (07:45)
[2020-03-18] MEDS: Doxazosin 1 MG TAB PO (07:45)
[2020-03-18] MEDS: Lidocaine 5% Patch 1 PATCH TP (09:35)
--- NOTE | 2020-03-18 10:13 | NUR.NOTE ---
Pt still very agitated and restless even after being straight cathed, repositioned, given AM meds that Pt would take, offered food and fluid, dressed in shirt as requested. PRN 1mg ativan given in the left arm IM.
--- NOTE | 2020-03-18 13:54 | NUR.NOTE ---
Nursing Note: Checked in on pt multiple times throughout the day. pt sound asleep, observer in room at all times.
[2020-03-18] MEDS: traZODone 50 MG TAB 100 MG PO (20:33)
[2020-03-18] MEDS: LIDOCAINE Patch Removal 1 EACH TP (20:34)
[2020-03-18] MEDS: Mirtazapine 15 MG TAB PO (21:28)
[2020-03-18] MEDS: LORazepam 2 MG/1 ML Oral Concentrate 1 MG PO (21:32)
[2020-03-19] MEDS: LORazepam 2 MG/ML VIAL 1 MG IM/IV ×3 (00:29→20:36)
[2020-03-19] MEDS: LORazepam 2 MG/1 ML Oral Concentrate 1 MG UD (05:55)
[2020-03-19] MEDS: Polyethylene Glycol 3350 17 GM PACKET PO (07:41)
[2020-03-19] MEDS: Docusate Sodium 100 MG/10 ML CUP UD (07:41)
[2020-03-19] MEDS: Refresh PLUS Eye Drops 0.4ml 2 EACH OU (07:41)
[2020-03-19] MEDS: traZODone 50 MG TAB PO (07:45)
[2020-03-19] MEDS: Doxazosin 1 MG TAB PO (07:45)
[2020-03-19] MEDS: Acetaminophen 325 MG TAB 650 MG PO (07:45)
[2020-03-19] MEDS: hydrOXYzine HCL 25 MG TAB PO (10:33)
[2020-03-19] MEDS: Lidocaine 5% Patch 1 PATCH TP (10:34)
[2020-03-19 12:01] LABS: Bilirubin Small (Negative); Blood Moderate (Negative); Clarity Cloudy (Clear); Glucose Negative (Negative); Ketones Negative (Negative); Leukocyte Esterase Large (Negative); Nitrite Positive (Negative); Urobilinogen 0.2 EU/dL (Up TO 0.2)
[2020-03-19 12:15] LABS: WBC >50 HPF (0-5)
[2020-03-19 12:16] LABS: Bacteria Many HPF (Negative); C & S Indicated? Yes; Casts Negative LPF (Negative); Crystals Rare Triple Phos HPF (Negative); Epithelial Cells Negative HPF (Negative); Mucus Negative (Negative); RBC Negative HPF (0-2)
--- NOTE | 2020-03-19 12:53 | PGE_ITS ---
Date of Service Date of service: 03/19/20 Time of Service: 12:53 Assessment and Plan Assessment and plan (1) Encephalopathy: Status: Acute Assessment and plan: Overall no improvement in his mentation. Unable to perform any ADLs. Focus continues to be mainly on comfort, although I am treating him empirically for suspected UTI as this may be contributing to agitation and discomfort. I am not anticipating any significant improvement. Continue efforts at comfort measures with switch from morphine to hydromorphone as noted below, continue scheduled and PRN lorazepam. (2) Agitation: Status: Acute Assessment and plan: Possibly driven by UTI? Pruritus may be adding to his restlessness. Adjustments in his pain medication as noted above and below. Continue to manipulate medications to try to keep him more comfortable and less agitated. (3) Urinary tract infection: Status: Acute Assessment and plan: Abnormal urinalysis certainly suggestive of UTI. I do not think he is capable of complaining of dysuria. Not having significant urinary retention. Continue PRN in and out catheterizations for agitation or evidence of retention and start on empiric oral antibiotics pending urine culture results. (4) Pruritus: Status: Acute Assessment and plan: Presumed pruritus based on his behavior of digging and scratching at various parts of his body. This may be a side effect of opiates. Switch morphine to hydromorphone and see if it makes any difference. Symptom treatment with hydroxyzine. Subjective Subjective Interval history since last seen: Mr. Lenz continues to be encephalopathic unable to perform any ADLs and limited vocal communication. Requires assist of 2 for transfers. Remains agitated, frequently fidgeting in bed, pulling at bed close, struggling to get out of bed. Can be redirected briefly. Has been scratching himself in various areas. Agitation seems to get a little better after he has had in and out catheterization, done yesterday with milky appearing urine. Repeated today with urinalysis suggestive of urinary tract infection. When questioned if he is having any discomfort with urination I do not get any specific response. He is mumbling unintelligibly. Because he is on comfort measures only, we have not been checking his vital signs. Oral intake has been marginal. Exam Narrative Exam Narrative: Attempting to sit up. Does not follow verbal commands. Does not respond to me when I call his name and there is no sign of recognition (I have been his PCP). Mumbling which I cannot understand. He is in no respiratory distress. He has several excoriations on his scalp minor ones on his legs and abdomen. There is erythema in the left hip area but no skin breakdown. Scabbed left fourth toe with no open ulcer. Tone is increased throughout. No rest tremor. Objective Objective Clinical Data: Abnormal lab results 03/19/20 Range/Units 11:35 Urine Protein 100 H (Negative) mg/dL Urine Blood Moderate H (Negative) Urine Nitrite Positive H (Negative) Urine Bilirubin Small H (Negative) Ur Leukocyte Esterase Large H (Negative) Urine WBC >50 H (0-5) HPF Vital Signs Respiratory Effort 03/19/20 07:50 Respiratory Depth Normal 03/19/20 07:50 Respiratory Pattern Normal 03/19/20 07:50 Oxygen Delivery Method Room Air 03/17/20 05:20 Oxygen Flow Rate 0 03/17/20 05:20 Pain Level 5 03/17/20 04:14 Intake & Output 03/18/20 03/19/20 03/19/20 23:59 11:59 23:59 Intake Total 12.207 / 492.207 41.1 / 41.1 Output Total 270 / 270 Balance 12.207 / 192.207 -228.9 / -228.9 Intake: IV 12.207 / 12.207 41.1 / 41.1 Oral 0 / 0 Output: Urine 50 / 50 Post Void Residual 220 / 220 Other: Urine Color Dark Ana Maria Urine Appearance Cloudy Sediment Laboratory Results Urine Color Yellow (Yellow) 03/19/20 11:35 Urine Clarity Cloudy (Clear) 03/19/20 11:35 Urine pH 7.0 (5-8) 03/19/20 11:35 Ur Specific [place] 1.020 (1.005-1.025) 03/19/20 11:35 Urine Protein 100 mg/dL (Negative) H 03/19/20 11:35 Urine Ketones Negative mg/dL (Negative) 03/19/20 11:35 Urine Blood Moderate (Negative) H 03/19/20 11:35 Urine Nitrite Positive (Negative) H 03/19/20 11:35 Urine Bilirubin Small (Negative) H 03/19/20 11:35 Urine Urobilinogen 0.2 EU/dL (Up TO 0.2) 03/19/20 11:35 Ur Leukocyte Esterase Large (Negative) H 03/19/20 11:35 Urine RBC Negative HPF (0-2) 03/19/20 11:35 Urine WBC >50 HPF (0-5) H 03/19/20 11:35 Ur Epithelial Cells Negative HPF (Negative) 03/19/20 11:35 Urine Crystals Rare triple phos HPF (Negative) 03/19/20 11:35 Urine Bacteria Many HPF (Negative) 03/19/20 11:35 Urine Casts Negative LPF (Negative) 03/19/20 11:35 Urine Mucus Negative (Negative) 03/19/20 11:35 Ur Culture Indicated? Yes 03/19/20 11:35 Urine Glucose Negative mg/dL (Negative) 03/19/20 11:35
[2020-03-19] MEDS: HYDROmorphone 100 MG in CADD PUMP CASSETTE 1 EACH, Normal Saline 90 ML SC INF (15:41)
[2020-03-19] MEDS: traZODone 50 MG TAB 100 MG PO (20:36)
[2020-03-19] MEDS: Mirtazapine 15 MG TAB PO (20:36)
[2020-03-19] MEDS: Sulfameth/Trimeth DS TAB 1 TAB PO (20:36)
[2020-03-19] MEDS: LIDOCAINE Patch Removal 1 EACH TP (20:38)
[2020-03-19] MEDS: LORazepam 2 MG/1 ML Oral Concentrate 1 MG PO (21:45)
[2020-03-20] MEDS: LORazepam 2 MG/1 ML Oral Concentrate 1 MG PO (05:53)
[2020-03-20] MEDS: Polyethylene Glycol 3350 17 GM PACKET PO (07:51)
[2020-03-20] MEDS: Doxazosin 1 MG TAB PO (07:51)
[2020-03-20] MEDS: traZODone 50 MG TAB PO ×2 (07:51→14:13)
[2020-03-20] MEDS: Sulfameth/Trimeth DS TAB 1 TAB PO (07:51)
[2020-03-20] MEDS: LORazepam 2 MG/ML VIAL 1 MG IM/IV ×2 (09:06→18:06)
[2020-03-20] MEDS: Lidocaine 5% Patch 1 PATCH TP (09:30)
--- NOTE | 2020-03-20 11:25 | CMPROGNOTE_ITS ---
- If Service Date Differs Date of service: 03/20/20 Time of Service: 11:25 Care Management Progress Note S/O: Vikram was presented at interdisciplinary rounds, he remains comfort measures only. He was complaining of itching while his pain was being treated with Morphine, so the provider changed the medication to hydromorphone. CM sent updated clinicals to [facility] for them to consider him for his end of life care. He was declined by [facility]. Per RN, he is currently eating ok. He requires assistance with urination using a straight catheter. Vikram's , Nena is currently not willing or able to take him home as she does not believe she can provide his care. CM will continue to follow. A: Vikram is a 69 year old male admitted with ETOH withdrawal who is comfort measures only and in need of residential care facility. Vikram now has choices for care highest needs and could receive this level of care at a [facility]p facility. P: Anticipate Vikram will remain at [facility] for end of life care vs be transferred to a facility/home with Hospice support. CM will continue to review resources in the community in order to develop a safe disposition for his end of life care. He will transition to SW once medication management is stable. CM will continue to follow and support discharge planning considerations.
[2020-03-20] MEDS: LORazepam 2 MG/1 ML Oral Concentrate 1 MG UD (15:41)
--- NOTE | 2020-03-20 22:39 | NUR.NOTE ---
Nursing Note: 22:39: Pt is sleeping from 6.30pm till now. 20:00 pm and 22:00 pm medications were not given. Bactrim is scheduled to give at 20:00 pm which was not given. Charge Nurse Sheila Notified.
[2020-03-21] MEDS: LIDOCAINE Patch Removal 1 EACH TP ×2 (00:35→22:48)
[2020-03-21] MEDS: LORazepam 2 MG/1 ML Oral Concentrate 1 MG UD ×4 (00:35→10:42)
[2020-03-21] MEDS: LORazepam 2 MG/1 ML Oral Concentrate 1 MG PO (05:51)
[2020-03-21] MEDS: Doxazosin 1 MG TAB PO (08:01)
[2020-03-21] MEDS: Sulfameth/Trimeth DS TAB 1 TAB PO (08:02)
[2020-03-21] MEDS: traZODone 50 MG TAB PO ×2 (08:02→15:08)
[2020-03-21] MEDS: Refresh PLUS Eye Drops 0.4ml 2 EACH OU (08:02)
[2020-03-21] MEDS: Polyethylene Glycol 3350 17 GM PACKET PO (08:03)
[2020-03-21] MEDS: hydrOXYzine HCL 25 MG TAB PO ×2 (08:07→15:03)
[2020-03-21] MEDS: Lidocaine 5% Patch 1 PATCH TP (10:43)
[2020-03-22] MEDS: LORazepam 2 MG/1 ML Oral Concentrate 1 MG PO (05:09)
[2020-03-22] MEDS: LORazepam 2 MG/ML VIAL 1 MG IM/IV (08:04)
[2020-03-22] MEDS: traZODone 50 MG TAB PO (08:06)
[2020-03-22] MEDS: Polyethylene Glycol 3350 17 GM PACKET PO (08:06)
[2020-03-22] MEDS: Doxazosin 1 MG TAB PO (08:06)
[2020-03-22] MEDS: Sulfameth/Trimeth DS TAB 1 TAB PO (08:06)
[2020-03-22] MEDS: Lidocaine 5% Patch 1 PATCH TP (09:53)
[2020-03-22] MEDS: LORazepam 2 MG/1 ML Oral Concentrate 1 MG UD (16:38)
[2020-03-22] MEDS: LIDOCAINE Patch Removal 1 EACH TP (21:09)
[2020-03-23] MEDS: LORazepam 2 MG/1 ML Oral Concentrate 1 MG UD ×4 (02:14→09:55)
[2020-03-23] MEDS: LORazepam 2 MG/1 ML Oral Concentrate 1 MG PO ×2 (04:14→21:25)
[2020-03-23] MEDS: Sulfameth/Trimeth DS TAB 1 TAB PO ×2 (07:20→21:25)
[2020-03-23] MEDS: traZODone 50 MG TAB PO (07:20)
[2020-03-23] MEDS: Refresh PLUS Eye Drops 0.4ml 2 EACH OU (07:20)
[2020-03-23] MEDS: Doxazosin 1 MG TAB PO (07:20)
[2020-03-23] MEDS: diazePAM 10 MG/2 ML SYR 5 MG IVP (11:11)
[2020-03-23] MEDS: traZODone 50 MG TAB 100 MG PO (21:24)
[2020-03-23] MEDS: Mirtazapine 15 MG TAB PO (21:24)
[2020-03-24] MEDS: LORazepam 2 MG/ML VIAL 1 MG IM/IV ×3 (07:32→16:36)
[2020-03-24] MEDS: Sulfameth/Trimeth DS TAB 1 TAB PO ×2 (07:34→20:58)
[2020-03-24] MEDS: traZODone 50 MG TAB PO ×2 (07:34→13:35)
[2020-03-24] MEDS: diazePAM 10 MG/2 ML SYR 5 MG IVP (10:58)
[2020-03-24] MEDS: Lidocaine 5% Patch 1 PATCH TP (13:58)
[2020-03-24] MEDS: LORazepam 2 MG/1 ML Oral Concentrate 1 MG PO ×2 (14:22→20:56)
--- NOTE | 2020-03-24 15:26 | NUR.NOTE ---
Nursing Note: PT VERY UNEASY TODAY. 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 PT MEDICATED SEVERAL TIMES WITH IM VALIUM, ATIVAN, ORAL ATIVAN AND SCHEDULED PAIN MEDS PO. HARD GETTING PT TO TAKE PILLS TODAY HE WANTED TO SPIT THEM OUT. PT CONTINUED TO BE VERY RESTLESS.
[2020-03-24] MEDS: Bisacodyl 10 MG SUPP PR (16:27)
[2020-03-24] MEDS: LIDOCAINE Patch Removal 1 EACH TP (20:56)
[2020-03-24] MEDS: Mirtazapine 15 MG TAB PO (20:58)
[2020-03-24] MEDS: traZODone 50 MG TAB 100 MG PO (20:58)
[2020-03-25] MEDS: HYDROmorphone 100 MG in CADD PUMP CASSETTE 1 EACH, Normal Saline 90 ML SC INF ×2 (07:59→21:14)
[2020-03-25] MEDS: LORazepam 2 MG/1 ML Oral Concentrate 1 MG UD (11:13)
[2020-03-25] MEDS: traZODone 50 MG TAB PO (11:14)
[2020-03-25] MEDS: diazePAM 10 MG/2 ML SYR 5 MG IVP ×2 (11:32→14:36)
--- NOTE | 2020-03-25 12:55 | PDOC.CMPRO ---
- If Service Date Differs Date of service: 03/25/20 Time of Service: 12:55 Care Management Progress Note S/O: CM contacted spouse provided daily update and changes in status. Vikram will transition to level 2 swing bed today. Nena will be in on Tuesday to visit she is having her own health concerns and is following up with her provider. A: Vikram is a 69 year old male admitted with ETOH withdrawal who is comfort measures only and in need of correction care facility. Vikram now has choices for care highest needs and could receive this level of care at a detention facility. P: Anticipate Vikram will remain at [facility] for end of life care vs be transferred to a facility/home with Hospice support. CM will continue to review resources in the community in order to develop a safe disposition for his end of life care. He will transition to SWB2 once medication management is stable. CM will continue to follow and support discharge planning considerations.
[2020-03-25] MEDS: LORazepam 2 MG/1 ML Oral Concentrate 1 MG PO (14:30)
[2020-03-25] MEDS: LORazepam 2 MG/ML VIAL IM (14:50)
--- NOTE | 2020-03-25 18:58 | PCPN_ITS ---
Date of service: 03/25/20 Time of Service: 16:58 Assessment and Plan Assessment and plan (1) Agitation: Status: Chronic Assessment and plan: Mr Lenz has been agitated and restless through both his acute admission and now his swing bed admission. At first, he was withdrawing from alcohol. Then he had an urgent intubation and had to recover from sedation, which is difficult for a diseased brain such as his. Now it appears that he is having pain, according to his nurses and others who have been caring for him. He is eating and drinking minimally; he is not moving much at all. He was seen by psychiatry who recommended benzodiazapines (over anti-psychotics) as his first medication for restlessness. He has had this scheduled but remains restless. He is on a low dose hydromorphone drip. Titration orders were not included. Nursing is asking for a new order for hydromorphone to include titration. His ex-, who is his DPOA, usually visits daily. His nurse reports she has been sick the last few days and has not been in. He seems to have worsened in her absence. (2) Comfort measures only status: Status: Chronic Assessment and plan: He has been ETCHER ELECTROLYTIC since he before he went on swing bed, 3 weeks ago. His decline has been more precipitous in the last week. It is likely that Mr Lenz will never be discharged to a different facilty or to his home. He still requires significant attention and nursing. (3) Encephalopathy: Status: Chronic Assessment and plan: He has some permanent damage to his brain from a combination of reasons. He is unable to make decisions for himself or even to speak for himself. (4) Uncontrolled pain: Status: Acute Assessment and plan: I entered a new order for his hydromorphone, to be titrated up as needed. Pharmacy has alerted me that that there is a nationwide shortage of hydromorphone, so we may need to supplement this medication with fentanyl patches if it appears we are running out. (5) Restlessness: Status: Chronic Assessment and plan: Multifactorial: uncontrolled pain, alcoholic and vascular dementia; metabolic disturbances; protein and calorie malnutrition. Will use various approaches to try to keep Mr Lenz comfortable. (6) Urinary obstruction: Status: Chronic Assessment and plan: Getting straight cathed as needed. Will pull out a villafana at this time, though as he become less restless, we may be able to place one. (7) Cerebrovascular small vessel disease: Status: Chronic Assessment and plan: He has brain changes that are contributing to his prolonged encephalopathic state and inability to walk and talk. (8) Diffuse cerebral atrophy: Status: Chronic Subjective Subjective Patient reports: still having pain Interval history since last seen: Mr Lenz has been followed by Dr Lamb for palliative on acute inpatient status since February 10; he was transitioned to swing bed status on March 04. I was asked to see him today by nursing staff who were concerned about his degree of restlessness. They thought he could be in pain. He's been on a low dose hydromorphone drip for more than a week. His dose was recently increased to 1 mg/hr but he required 7 boluses on the day shift. He's been receiving diazepam for muscle spasm and lorazepam for anxiety and agitation. He is eating minimally, just bites of pudding with his pills. Today he was so agitated, he was in danger of falling out of bed and hurting himself. He nearly required restraints. He has difficulty urinating and requires straight caths several times per 24 hrs. He has no recognizable speech currently. He has a known history of alcoholism with encephalopathy. On this prolonged admission, he has had a head CT which revealed generalized cerebral atrophy and white matter changes. He has a history of subdural hematoma in 2017. His ER note from Dr Mahi Alegria reports that he told her he wanted to stop drinking; his H and P by Dr Chaves said he was unable to give a history. His primary nurse today reports he has no recognizable speech. He talks but does not make sense. He had just fallen to sleep when I came to see him; given his very difficult today, I did not wake him up. I reviewed his records from this admission, spoke to Dr Lamb, Care Management, Dr Chaves and his primary nurse. Note that his PCP is Dr Jimenez. Exam Narrative Exam Narrative: Elderly disheveled man, thin, with bony protuberances, appears older than stated age, lying askew in bed. He's sleeping. He has obvious bruises. He's not working to breathe. He does not have a villafana or any IV lines. He does have a SC pump for delivery of his hydromorphone. He does not stir or wake when the nurse and I discuss his condition and recent care needs. Objective Objective Clinical Data: Vital Signs Respiratory Effort 03/25/20 14:30 Respiratory Depth Normal 03/25/20 14:30 Respiratory Pattern Normal 03/25/20 14:30 Oxygen Delivery Method Nasal Cannula 03/25/20 00:30 Oxygen Flow Rate 2 03/25/20 00:30 Pain Level 4 03/21/20 08:11 Intake & Output 03/24/20 03/25/20 03/25/20 23:59 11:59 23:59 Intake Total 70.597 / 78.847 8.25 / 78.847 Output Total 300 / 300 100 / 100 Balance -300 / -300 -29.403 / -21.153 8.25 / -21.153 Intake: IV 70.597 / 78.847 8.25 / 78.847 Output: Urine 300 / 300 Post Void Residual 100 / 100 Other: Urine Color Dark Ana Maria Urine Appearance Clear Urine Odor Strong Stool Size Large Small Stool Characteristics Soft Liquid Liquid Brown Brown Laboratory Results Urine Color Yellow (Yellow) 03/19/20 11:35 Urine Clarity Cloudy (Clear) 03/19/20 11:35 Urine pH 7.0 (5-8) 03/19/20 11:35 Ur Specific [place] 1.020 (1.005-1.025) 03/19/20 11:35 Urine Protein 100 mg/dL (Negative) H 03/19/20 11:35 Urine Ketones Negative mg/dL (Negative) 03/19/20 11:35 Urine Blood Moderate (Negative) H 03/19/20 11:35 Urine Nitrite Positive (Negative) H 03/19/20 11:35 Urine Bilirubin Small (Negative) H 03/19/20 11:35 Urine Urobilinogen 0.2 EU/dL (Up TO 0.2) 03/19/20 11:35 Ur Leukocyte Esterase Large (Negative) H 03/19/20 11:35 Urine RBC Negative HPF (0-2) 03/19/20 11:35 Urine WBC >50 HPF (0-5) H 03/19/20 11:35 Ur Epithelial Cells Negative HPF (Negative) 03/19/20 11:35 Urine Crystals Rare triple phos HPF (Negative) 03/19/20 11:35 Urine Bacteria Many HPF (Negative) 03/19/20 11:35 Urine Casts Negative LPF (Negative) 03/19/20 11:35 Urine Mucus Negative (Negative) 03/19/20 11:35 Ur Culture Indicated? Yes 03/19/20 11:35 Urine Glucose Negative mg/dL (Negative) 03/19/20 11:35
[2020-03-26] MEDS: diazePAM 10 MG/2 ML SYR 5 MG IVP (19:44)
[2020-03-26] MEDS: LORazepam 2 MG/ML VIAL 1 MG IM/IV (19:44)
[2020-03-26] MEDS: Acetaminophen 650 MG SUPP PR (19:51)
[2020-03-26] MEDS: traZODone 50 MG TAB 100 MG PO (20:56)
[2020-03-26] MEDS: LORazepam 2 MG/1 ML Oral Concentrate 1 MG PO (20:57)
[2020-03-27] MEDS: LORazepam 2 MG/ML VIAL 1 MG IM/IV ×3 (00:08→05:32)
[2020-03-27] MEDS: diazePAM 10 MG/2 ML SYR 5 MG IVP ×3 (00:08→07:01)
[2020-03-27] MEDS: LORazepam 2 MG/1 ML Oral Concentrate 1 MG UD (00:31)
--- NOTE | 2020-03-27 00:51 | NUR.NOTE ---
Nursing Note: Pt was increasingly restless on bed beginning of the shift, CADD Dilaudid concentration dosage increased as per MD's order. Bolus was been given 5 x until this time.Lorazepam IM PRN also given, x 2 (Pls. see MAR) Pt able to sleep for short interval with cadre at bedside. At 2300 hrs., pt started to become restless again, unable to redirect. All PRN given, suctioned twice with whitish secretions, sounds gargling. Oral fluids given but fairly tolerated. Straighjt cath performed, obtained 300 dark fran concentrated urine., duoderm on sacral area changed. Pt had sips of ensure, Continue to monitor with cadre assigned on the sight, bed alarm in progress.
[2020-03-27] MEDS: Normal Saline Flush 10 ML SYR (02:36)
[2020-03-27] MEDS: Normal Saline Flush 10 ML SYR IVP (07:01)
--- NOTE | 2020-03-27 19:07 | CMACTNOTE_ITS ---
- If Service Date Differs Date of service: 03/27/20 Time of Service: 19:07 Care Management Activity Note Vikram is here for end of life care. He has staff sitting with him keeping him comfortable. His , Nena has been visiting with him daily, and is diligent about his care. RAGHU spoke with Nena today, as she had questions regarding the option of Hospice. RAGHU explained that if the plan was for him to be at home for his end of life care, Hospice would be the best option for him. The expectation is that he will not be able to return home, and he will have his end of life care at [facility]. Nena stated that she knows that he is receiving good care, and is very appreciative. CM will continue to follow and support Vikram, his family and staff.
[2020-03-27] MEDS: traZODone 50 MG TAB 100 MG PO (20:55)
[2020-03-27] MEDS: Mirtazapine 15 MG TAB PO (20:55)
[2020-03-27] MEDS: LORazepam 2 MG/1 ML Oral Concentrate 1 MG PO (20:55)
[2020-03-27] MEDS: LIDOCAINE Patch Removal 1 EACH TP (20:56)
[2020-03-28] MEDS: Lidocaine 2% Jelly 11 ML SYR UR (02:15)
[2020-03-28] MEDS: diazePAM 10 MG/2 ML SYR 5 MG IVP (03:12)
[2020-03-28] MEDS: Normal Saline Flush 10 ML SYR IVP (03:13)
[2020-03-28] MEDS: Lidocaine 5% Patch 1 PATCH TP (09:19)
[2020-03-28] MEDS: Scopolamine 1 MG/3 DAYS PATCH TD (10:56)
--- NOTE | 2020-03-28 11:01 | W.NUTRFU ---
Date of service: 03/28/20 Time of Service: 11:02 Nutritional Follow up NOTE: Vikram continues to not meet nutrient needs by mouth. Meals/beverages/ensure offered daily. No aggressive nutrition interventions desired. Will be available prn. Time Spent in Nutritional Counseling and Treatment: 0
[2020-03-28] MEDS: LORazepam 2 MG/1 ML Oral Concentrate 1 MG PO ×3 (11:52→20:38)
--- NOTE | 2020-03-28 17:09 | CMPROGNOTE_ITS ---
- If Service Date Differs Date of service: 03/28/20 Time of Service: 17:09 Care Management Progress Note S/O: CM met with Micha and Nena in the room. Micha is asleep and per Nena comfortable. CM offered support including carmelo if needed. Nena states she is doing okay. She states home to contact when Gene passes is [facility] in [place]. CM has reported this information off to [facility]. 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 Vikram now has choices for care highest needs and could receive this level of care at a custodial facility. P: Anticipate Vikram will remain at [facility] for end of life care. [facility] is of choice per his spouse. CM will continue to follow and provide support.
[2020-03-28] MEDS: LIDOCAINE Patch Removal 1 EACH TP (20:21)
[2020-03-29] MEDS: LORazepam 2 MG/ML VIAL 1 MG IM/IV (01:58)
[2020-03-29] MEDS: Normal Saline Flush 10 ML SYR IVP ×4 (01:59→16:09)
--- NOTE | 2020-03-29 08:50 | CMPROGNOTE_ITS ---
- If Service Date Differs Date of service: 03/29/20 Time of Service: 08:50 Care Management Progress Note S/O: Vikram's Nena has been with him this afternoon. She has been sitting by his side, holding his hand and praying. When asked by CM if clergy might be helpful, she requested the presence of a heel seat pounder. CM contacted the local douglass and coordinated a visit from the heel seat pounder. Nena stated that Vikram had received the Sacraments of [employer] [facility] a few weeks ago but knew the heel seat pounder would bring the anointing oils with him. Vikram has been restless today and his breathing has been labored and uneven. Medication adjustments have been made by the provider. A: Vikram is a 69 year old male admitted with ETOH withdrawal who is comfort measures only and in need of fdc care facility. Vikram now has choices for care highest needs and could receive this level of care at a halfway [facility]. P: Anticipate Vikram will remain at [facility] for end of life care. [facility] is the home of choice per his spouse. CM will continue to follow and provide support.
[2020-03-29] MEDS: Lidocaine 5% Patch 1 PATCH TP (11:07)
[2020-03-29] MEDS: LORazepam 2 MG/1 ML Oral Concentrate 1 MG UD (14:29)
[2020-03-29] MEDS: diazePAM 10 MG/2 ML SYR 5 MG IVP ×3 (14:42→16:08)
[2020-03-29] MEDS: LIDOCAINE Patch Removal 1 EACH TP (20:24)
[2020-03-30] MEDS: diazePAM 10 MG/2 ML SYR 5 MG IVP (06:15)
[2020-03-30] MEDS: MORPHine 2 MG/ML SYR IV/SC (06:16)
[2020-03-30] MEDS: Normal Saline Flush 10 ML SYR IVP (06:19)
--- NOTE | 2020-03-30 08:23 | EXPE_ITS ---
Date of service: 03/30/20 Time of Service: 08:34 Discharge Sum: Prov Provider Primary care physician: Tony Hdz MD Consults: 03/04/20 11:55 Care Management Consult [CONS] Routine Consultation Status:: Contact made by Clarification:: Manage/follow per spec. Reason for consult:: discharge planning Occupational Therapy Consult [CONS] Routine Consulting Provider: Carol Smith Priority: Non-Urgent Physical Therapy Consult [CONS] Routine Consulting Provider: Rubi Alfonso Priority: Non-Urgent 03/10/20 09:53 Psychiatric Consult [CONS] Routine Consulting Provider: Lakesha Ontiveros Consultation Status:: Contact made by Clarification:: Manage/follow per spec. 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 Reason for consult:: end of life care, Pronouncing clinician: Brynn Ferrari Discharge Sum: Diag PCOD Cause of : Encephalopathy Contributing Factors (1) Agitation: (2) Comfort measures only status: (3) Encephalopathy: (4) Uncontrolled pain: (5) Restlessness: (6) Urinary obstruction: (7) Cerebrovascular small vessel disease: (8) Diffuse cerebral atrophy: Discharge Sum: Summary Date and Time Admission Date: 02/11/2004/07/20 11:53 Date of : 03/30/20 Time of : 07:59 Summary Details: History of severe alcoholism with severe withdrawal requiring intubation, post inbutation remained Altered yelling out in pain. 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 Given CAD pump for comfort today at 0759 Additional Data Confirmation of as documented by pronouncing clinician: no pulse Family: contacted Attending Physician: Rico Metcalf Was code activated?: No Autopsy requested?: No Hospice patient?: No
--- NOTE | 2020-03-30 09:10 | PDOC.CMDIS ---
- If Service Date Differs Date of service: 03/30/20 Time of Service: 09:10 LACE Index Scoring Tool - Questions: Length of Stay (in days): 14 or more Acuity (Admit via E.D.?): Yes Care Management Discharge Reason for Hospitalization: Acute alcohol withdrawal Discharge Plan: Vikram shortly before 8am this morning. was notified of his passing.
--- NOTE | 2020-03-30 10:02 | NUR.NOTE ---
Nursing Note: Mr. Lenz this morning and was pronounced by the Nursing stock ranch supervisor, who handled all arrangements.
== END 2020-03-30 08:02 | disposition expired | DRG 71 ==
PROVIDERS: Admitting Provider Family Medicine; PCP Internal Medicine; Visit Provider Internal Medicine
DX: G93.40 Encephalopathy, unspecified (principal); I67.89 Other cerebrovascular disease; N39.0 Urinary tract infection, site not specified; Z16.29 Resistance to other single specified antibiotic; Z51.5 Encounter for palliative care; K59.00 Constipation, unspecified; L29.9 Pruritus, unspecified; R45.1 Restlessness and agitation; R52 Pain, unspecified; N13.9 Obstructive and reflux uropathy, unspecified; G31.89 Other specified degenerative diseases of nervous system; F10.20 Alcohol dependence, uncomplicated; B95.7 Other staphylococcus as the cause of diseases classified elsewhere
CPT/HCPCS: 87077; 97110; 97166; 99233; 99239; 99305; 99308; 99309; 99316; NC; 81003; 81015; 87086; 87186; J1170; J1630; J2060; J2270; J3360; J3490